=== PATIENT | female | born 1960 | race Caucasian/White ===

== ENCOUNTER → 2017-10-08 14:28 | Outpatient (CLI) | payer MEDICAID, SELFPAY ==
[2017-10-08 16:53] LABS: Vitamin D,25 Hydroxy 20.8 ng/mL (19.95-100.01)
[2017-10-08 17:05] LABS: ALB/GLOB Ratio 0.8 RATIO (0.9-2.4); AST(SGOT) 27 U/L (15-37); Alanine Aminotransfer ALT/SGPT 31 U/L (13-56); Albumin, Serum 3.6 g/dL (3.2-5.0); Alkaline Phosphatase 86 U/L (45-117); Anion Gap 12 (5-15); BUN 20 mg/dL (7-18); BUN/Creat Ratio 17.9 RATIO (10-20); Calcium,Total 9.1 mg/dL (8.5-10.1); Chloride 98 mmol/L (98-107); Creatinine, Serum 1.12 mg/dL (0.55-1.02); EST Glomerular Filtration Rate 54 mL/min (>60); Est Glom Filt Rate - Afr Amer 65 mL/min (>60); Globulin 4.7 g/dL (2.2-4.2); Glucose 400 mg/dL (74-106); Potassium 4.3 mmol/L (3.5-5.1); Protein, Total 8.3 g/dL (6.4-8.2); Sodium Level 133 mmol/L (136-145); Thyroid Stim Hormone (TSH) 2.51 uIU/mL (0.358-3.74)
[2017-10-08 17:25] LABS: Absolute Lymphocyte Count 2.23 X10^3/ul (0.83-4.51); Absolute Neutrophil Count 7.8 X10^3/uL (2.0-7.7); Basophil# 0.05 X10^3/uL; Basophil% 0.5 % (0-1); Eosinophil# 0.29 X10^3/uL; Eosinophils% 2.6 % (0-5); Hematocrit 45.5 % (37-47); Hemoglobin 14.4 g/dl (12.0-15.0); Lymphocyte # 2.23 X10^3/ul (4.0); Lymphocyte % 20.3 % (19-41); Mean Corp Hgb Conc 31.6 g/gl (32-36); Mean Corpuscular Hgb 25.3 pg (27.0-32.0); Mean Platelet Vol. 10.9 fl (6.2-12.0); Monocyte# 0.65 X10^3/uL; Monocyte% 5.9 % (0-10); Neutrophil # 7.76 X10^3/uL (2.7-7.7); Neutrophil % 70.5 % (47-70); Platelet Count 297 K/mm3 (150-450); RBC Distribution Width CV 14.5 % (11.6-14.6); Red Blood Count 5.69 M/mm3 (4.2-5.4)
[2017-10-08 18:13] LABS: POSITIVE COUNT NO; POSITIVE DIFFERENTIAL NO; POSITIVE MORPHOLOGY NO
[2017-10-10 12:41] LABS: Hep C Antibodies 0.1 s/co ratio (0.0-0.9)
== END ==
PROVIDERS: Family Provider Family Medicine Geriatric Medicine; PCP Family Medicine Geriatric Medicine; Visit Provider Family Medicine Geriatric Medicine
DX: E11.9 Type 2 diabetes mellitus without complications (principal); I10 Essential (primary) hypertension; E55.9 Vitamin D deficiency, unspecified; Z13.89 Encounter for screening for other disorder
CPT/HCPCS: 36415; 80053; 82306; 84443; 85025; 86803

== ENCOUNTER → 2018-07-26 10:37 | Outpatient (CLI) | payer MEDICAID, SELFPAY | PROVIDERS: Family Provider Family Medicine; PCP Family Medicine; Referring Provider Family Medicine; Visit Provider Family Medicine | DX: R00.0 Tachycardia, unspecified (principal) | CPT/HCPCS: 93225; 93226 ==

== ENCOUNTER 2020-06-14 14:51 | Emergency (ER) | payer MEDICAID, SELFPAY ==
[2020-06-14 14:52] VITALS: BP 146/70; PULSE 113; RESP 18; TEMP 36.3; O2SAT 98; BMI 48.4
--- NOTE | 2020-06-14 15:31 | ED.DCSUM_ITS ---
History of Present Illness Chief Complaint: Abn Labs Informant: Patient Narrative: Patient is a 59-year-old female with history of debility, HTN, HLD, diabetes mellitus and anxiety presenting from home with abnormal outpatient lab values. Patient had blood work done by her PCP 2 days ago which showed hemoglobin of 6.0. Patient does not have a known history of anemia. She states she is been a little run down the end of the day but denies any other complaints. She denies any black or bloody stools. She denies any bleeding. She is not on any blood thinners. No other complaints at this time. Has never received a blood transfusion. Past Medical History - Allergies and Home Meds Allergies/Adverse Reactions: Allergies bee pollen Allergy (Verified 06/14/20 14:54) Rash hydrogen peroxide Allergy (Verified 06/14/20 14:54) Rash egg Adverse Reaction (Verified 06/14/20 14:54) Diarrhea ASPIRIN Allergy (Uncoded 06/14/20 14:54) Unknown Primary Care Physician: Gerry Coreas MD [Primary Care Provider] - Past Medical History: - - Dependent diabetes mellitus, lower extremity weakness, chronic, hypertension, hyperlipidemia Surgical History: tonsillectomy, - - , right arm surgery x 3, [facility] teeth extraction, Left heel I+D 11/23/2016, Left shoulder I+D 11/25/2016. Smoking Status: Never smoker - Family History Maternal Family History: Reports: No pertinent history Review of Systems General: Reports: Malaise. Denies: Chills, Fever, Sweats Eyes: Denies: Visual changes - bilaterally, Diplopia ENT: Denies: Rhinorrhea, Sore throat Cardiovascular: Denies: Chest pain, Palpitations Respiratory: Denies: Dyspnea, Cough, Dyspnea on exertion Gastrointestinal: Denies: Abdominal pain, Nausea, Vomiting, Diarrhea, Melena, Hematochezia Genitourinary: Denies: Dysuria, Hematuria, Frequency Musculoskeletal: Denies: Back pain, Extremity Pain Skin: Denies: Rash, Wounds Neurological: Denies: Headache, Weakness, Numbness Hematologic: Denies: Easy bruising, Easy bleeding Physical Exam Vital Signs/Narrative: Vital Signs Temp Pulse Resp BP Pulse Ox 06/14/20 14:52 97.3 F L 113 H 18 146/70 H 98 Inital Vital Signs reviewed: Yes General: Well nourished, Well developed, No Acute Distress Head: Normocephalic, Atraumatic Eyes: Perrl, EOMI. Negative for: Pale conjunctiva ENT: Moist mucous membranes, No rhinorrhea, TM's clear Neck: Supple, Nontender, No JVD Cardiovascular: Regular rate, Regular rhythm, No murmurs Respiratory: No distress, CTA bilaterally, Chest nontender Abdomen: Soft, Nontender, Nondistended, Normal bowel sounds Rectal: Guaiac negative, Nontender Back: Nontender, Normal Inspection Extremities: Nontender, No edema Skin: Normal color, No rash Neurological: Alert, Oriented x3, Cranial nerves II-XII grossly intact, Normal Strength, Normal Sensation Psychological: Normal affect, Normal Mood Diagnostic/Tx/Re-eval Laboratory Data 06/14/20 06/14/20 06/14/20 15:25 15:25 15:25 WBC 11.8 H RBC 3.97 L Hgb 6.1 L Hct 23.2 L MCV 58.4 L MCH 15.4 L MCHC 26.3 L RDW Std Deviation 43.2 RDW Coeff of Adi 21.7 H Plt Count 666 H MPV 8.8 Immature Gran % (Auto) 0.400 Neut % (Auto) 71.6 H Lymph % (Auto) 17.7 L [place] % (Auto) 6.2 Eos % (Auto) 3.3 Baso % (Auto) 0.8 Absolute Neuts (auto) 8.4 H Absolute Lymphs (auto) 2.09 Nucleated RBC % 0.2 Diff Path Review May foll Platelet Estimate MOD INC Polychromasia RARE Hypochromasia 3+ Anisocytosis 3+ Microcytosis 4+ Tear Drop Cells 1+ Ovalocytes RARE Schistocytes 1+ PT 13.5 INR 1.1 Sodium 136 Potassium 4.0 Chloride 102 Carbon Dioxide 25.0 Anion Gap 9 BUN 17 Creatinine 1.13 H Estim Creat Clear Calc 94.40 Est GFR (MDRD) Af Amer 64 Est GFR (MDRD) Non-Af 53 L BUN/Creatinine Ratio 15.0 Glucose 91 Calcium 9.2 - Medical Decision Making Patient is evaluated for anemia on outpatient blood work. She also has a thrombocytosis. Labs were rechecked which confirmed the patient does have anemia of 6.1 and a platelet count of 666. She not having signs of active bleeding. She is asymptomatic besides some mild fatigue which is been chronic. She is hemodynamically stable in the ER. Suspect this is a chronic anemia that was just captured with routine outpatient blood work. She not had labs for the last year before that. Discussed the case with her PCP, Dr. Coreas, and he is amenable to outpatient transfusion and outpatient management. She does not have a history of coronary artery disease and her hemoglobin appears to be stable over the past 2 days. Patient is counseled on strict return precautions. PCP will also refer to hematology. Patient is agreeable with this plan and would like to avoid admission if possible. She is counseled that she likely will need a blood transfusion in the next day or 2 but her primary care office will schedule that. She is counseled strict return precautions and should she start having chest pain, shortness of breath or any signs of bleeding she should return to the emergency room. Patient is not on any anticoagulation at baseline. Patient is counseled on signs and symptoms requiring return to the emergency room. Patient verbalizes agreement and understand this plan. Patient discharged home in stable and improved condition. ED Disposition - Plan for ED Patient: Disposition: Home or Assisted Living Diagnosis: Anemia, Thrombocytosis Instructions: ED Anemia Type Not Specified Referrals: Gerry Coreas MD [Primary Care Provider] - Additional Instructions: Dr. Coreas's office should contact you within the next day to schedule likely blood transfusion and further follow-up. Please return the emergency room immediately if you develop chest pain, shortness of breath or any signs of bleeding. Dr. Coreas's office will also refer you to a genetic scientist for further evaluation of the cause of your anemia.
[2020-06-14 17:20] VITALS: RESP 18
== END 2020-06-14 18:10 | disposition home or self-care (01) ==
PROVIDERS: Emergency Provider Emergency Medicine; PCP Family Medicine
DX: D64.9 Anemia, unspecified (principal); D47.3 Essential (hemorrhagic) thrombocythemia; E11.9 Type 2 diabetes mellitus without complications; E78.5 Hyperlipidemia, unspecified; I10 Essential (primary) hypertension; Z79.4 Long term (current) use of insulin; Z79.899 Other long term (current) drug therapy
CPT/HCPCS: 80048; 82274; 82607; 82728; 82746; 83540; 83550; 85025; 85045; 85610; 86850; 86900; 86901; 86920; 99281; A4216

== ENCOUNTER → 2020-06-14 | Outpatient (CLI) | payer MEDICAID, SELFPAY ==
[2020-06-14 14:52] VITALS: BMI 48.4
[2020-06-14 18:18] LABS: Absolute Lymphocyte Count 2.35 X10^3/uL (0.83-4.51); Absolute Neutrophil Count 11.1 X10^3/uL (2.0-7.7); Basophil# 0.12 X10^3/uL; Basophil% 0.8 % (0-1); Eosinophil# 0.41 X10^3/uL; Eosinophils% 2.7 % (0-5); Hematocrit 22.9 % (37-47); Hemoglobin 5.9 g/dL (12.0-15.0); Lymphocyte # 2.35 X10^3/ul (4.0); Lymphocyte % 15.8 % (19-41); Mean Corp Hgb Conc 25.8 g/dL (32-36); Mean Corpuscular Hgb 15.1 pg (27.0-32.0); Mean Corpuscular Volume 58.7 fL (81-99); Mean Platelet Vol. 8.8 fl (6.2-12.0); Monocyte# 0.87 X10^3/uL; Monocyte% 5.8 % (0-10); NRBC Flagged by Analyzer 0 % (0-5); Neutrophil # 11.12 X10^3/uL (2.7-7.7); Neutrophil % 74.6 % (47-70); POSITIVE COUNT YES; POSITIVE MORPHOLOGY YES; Platelet Count 633 K/mm3 (150-450); RBC Distribution Width CV 21.9 % (11.6-14.6); RBC Distribution Width SD 43.3 fl (35.1-43.9); RET-HE 15.7 pg (30-35); Reticulocyte Count 2.08 % (0.5-1.5); White Blood Count 14.9 K/mm3 (4.4-11.0)
[2020-06-14 18:22] LABS: Differential Indicated SCAN CRITERIA MET
[2020-06-14 18:51] LABS: Vitamin B12 182 pg/mL (211-911)
[2020-06-14 18:52] LABS: Ferritin 2 ng/mL (8-252); Iron 12 ug/dL (50-170); Iron Binding Capacity,Total 436 ug/dL (250-450)
[2020-06-14 22:03] LABS: Platelet Estimate MOD INC (ADEQ)
[2020-06-14 22:04] LABS: Hypochromasia 3+; Microcytosis 4+
[2020-06-14 22:05] LABS: Polychromasia RARE; Schistocytes 1+; Tear Drop Cell 1+
[2020-06-14 22:06] LABS: Anisocytosis 3+
== END | disposition home or self-care (01) ==
LOC: LAB 17:22
PROVIDERS: PCP Family Medicine; Visit Provider Family Medicine
DX: D64.9 Anemia, unspecified (principal)
CPT/HCPCS: 82607; 82728; 82746; 83540; 83550; 85025; 85045

== ENCOUNTER → 2020-06-15 | Outpatient (CLI) | payer MEDICAID, SELFPAY ==
[2020-06-14 14:52] VITALS: BMI 48.4
[2020-06-14 15:50] LABS: Absolute Lymphocyte Count 2.09 X10^3/uL (0.83-4.51); Absolute Neutrophil Count 8.4 X10^3/uL (2.0-7.7); Basophil% 0.8 % (0-1); Eosinophil# 0.39 X10^3/uL; Eosinophils% 3.3 % (0-5); Hematocrit 23.2 % (37-47); Hemoglobin 6.1 g/dL (12.0-15.0); Lymphocyte # 2.09 X10^3/ul (4.0); Lymphocyte % 17.7 % (19-41); Mean Corp Hgb Conc 26.3 g/dL (32-36); Mean Corpuscular Hgb 15.4 pg (27.0-32.0); Mean Corpuscular Volume 58.4 fL (81-99); Mean Platelet Vol. 8.8 fl (6.2-12.0); Monocyte# 0.73 X10^3/uL; Monocyte% 6.2 % (0-10); NRBC Flagged by Analyzer 0.2 % (0-5); Neutrophil # 8.42 X10^3/uL (2.7-7.7); Neutrophil % 71.6 % (47-70); POSITIVE MORPHOLOGY YES; Platelet Count 666 K/mm3 (150-450); RBC Distribution Width CV 21.7 % (11.6-14.6); RBC Distribution Width SD 43.2 fl (35.1-43.9); Red Blood Count 3.97 M/mm3 (4.2-5.4); White Blood Count 11.8 K/mm3 (4.4-11.0)
[2020-06-14 15:53] LABS: Differential Indicated SCAN CRITERIA MET
[2020-06-14 16:03] LABS: Anion Gap 9 (5-15); BUN 17 mg/dL (7-18); Calcium,Total 9.2 mg/dL (8.5-10.1); Chloride 102 mmol/L (98-107); Creatinine, Serum 1.13 mg/dL (0.55-1.02); EST Glomerular Filtration Rate 53 mL/min (>60); Est Glom Filt Rate - Afr Amer 64 mL/min (>60); Glucose 91 mg/dL (74-106); Sodium Level 136 mmol/L (136-145)
[2020-06-14 16:07] LABS: International Normalized Ratio 1.1; Prothrombin Time (Protime)PT. 13.5 SECONDS (11.7-14.9)
[2020-06-14 16:24] LABS: Anisocytosis 3+; Hypochromasia 3+; Platelet Estimate MOD INC (ADEQ)
[2020-06-14 16:25] LABS: Microcytosis 4+; Tear Drop Cell 1+
[2020-06-14 16:26] LABS: Ovalocyte RARE; Polychromasia RARE; Schistocytes 1+
[2020-06-15] VITALS (8 sets, daily range): BP systolic 113–127; BP diastolic 50–70; PULSE 102–107; RESP 18; TEMP 36.2–37; O2SAT 92–99; BMI 50.5
[2020-06-15] MEDS: Furosemide 20 MG/2 ML VIAL IV (13:41)
[2020-06-15 14:15] LABS: Pathologist Review Reviewed
== END | disposition home or self-care (01) ==
LOC: MEDOUTP 10:05
PROVIDERS: Emergency Medicine; PCP Family Medicine; Referring Provider Family Medicine; Visit Provider Family Medicine
DX: D64.9 Anemia, unspecified (principal)
CPT/HCPCS: 36430; 80048; 85025; 85610; 86850; 86900; 86901; 86920; J7040; P9016; J1940

== ENCOUNTER 2020-11-26 11:56 | Inpatient (IN) | payer MEDICAID, SELFPAY ==
[2020-06-15 10:22] VITALS: BMI 50.5
[2020-11-26] VITALS (17 sets, daily range): BP systolic 96–154; BP diastolic 61–95; PULSE 93–126; RESP 13–27; TEMP 36–37.4; O2SAT 75–97; BMI 59.5; BMI 58.0
--- NOTE | 2020-11-26 12:28 | EKG12_ITS ---
Test Reason : Blood Pressure : / mmHG Vent. Rate : 116 BPM Atrial Rate : 116 BPM P-R Int : 120 ms QRS Dur : 082 ms QT Int : 300 ms P-R-T Axes : 004 023 054 degrees QTc Int : 417 ms Sinus tachycardia with Premature supraventricular complexes Otherwise normal ECG Confirmed by JOVAN RUIZ, GENIA ([id number]), department editor DELLA PIÑA ([id number]) on 12/01/2020 10:43:43 AM Referred By: BB Confirmed By:GENIA ALDANA MD
--- NOTE | 2020-11-26 12:30 | ED.DCSUM_ITS ---
History of Present Illness Chief Complaint: Weakness Informant: Patient Onset: Days - 3 Activity at onset: Exertion, Light Activity, - - Gradual in onset Timing: Continuous Quality: - - Hard to breathe Current Severity: Mild Maximum Severity: Moderate Worsened by: Exertion. Not Worsened By: Lying flat Relieved by: Rest Associated Symptoms: Fever - Low-grade 99.x. Negative for: Cough Chest Pain: None Narrative: 60-year-old female presenting with about 1 week of myalgias, malaise, low-grade fevers, no cough or loss of taste/smell, occasional nausea. Developed trouble breathing off-and-on that has been progressively worsening over the past 3 days. Denies any chest discomfort. She states for the last week she has basically been staying at home. Prior to that, she remembers being at an auction, she and her state that people were fairly well and they were trying to behave with regards to Covid recommendations, and she has not been around anyone with Covid that she knows of. She has not had Covid, nor has she been vaccinated for Covid. She has asthma, but does not think this is necessarily wheezing. She denies orthopnea. She denies any leg swelling or pain. No recent hospitalization or long travel out of the area. She is wheelchair-bound because of chronic knee problems that developed from chronic foot problem. - Past Medical History (1) Gait instability Status: Chronic (2) Mass of upper lobe of right lung Status: Chronic (3) Diabetes mellitus with neuropathy Status: Chronic (4) Hyperlipidemia Status: Chronic (5) Hypertension Status: Chronic (6) Obesity Status: Chronic (7) Sleep apnea Status: Chronic Past Medical History - Allergies and Home Meds Allergies/Adverse Reactions: Allergies bee pollen Allergy (Verified 11/26/20 11:58) Rash hydrogen peroxide Allergy (Verified 11/26/20 11:58) Rash egg Adverse Reaction (Verified 11/26/20 11:58) Diarrhea ASPIRIN Allergy (Uncoded 11/26/20 11:58) Unknown Primary Care Physician: Gerry Coreas MD [Primary Care Provider] - Surgical History: tonsillectomy, - - , right arm surgery x 3, [place] teeth extraction, Left heel I+D 11/23/2016, Left shoulder I+D 11/25/2016. Lives: Spouse/ Significant Other Smoking Status: Never smoker - Family History Maternal Family History: Reports: No pertinent history Review of Systems General: Reports: Fever, Malaise. Denies: Chills, Sweats Eyes: Denies: Visual changes - bilaterally, Diplopia ENT: Denies: Bilateral ear pain, Rhinorrhea, Sore throat Cardiovascular: Denies: Chest pain, Palpitations Respiratory: Reports: Dyspnea, Dyspnea on exertion. Denies: Cough, Orthopnea Gastrointestinal: Reports: Nausea. Denies: Abdominal pain, Vomiting, Diarrhea, Melena, Hematochezia Genitourinary: Denies: Dysuria, Hematuria, Frequency Musculoskeletal: Reports: Myalgias, Extremity Pain - Chronic knee, unchanged. Denies: Neck pain, Back pain, Swelling Skin: Denies: Rash, Wounds Neurological: Denies: Headache, Weakness, Numbness Physical Exam Vital Signs/Narrative: Vital Signs Temp Pulse Resp BP Pulse Ox 11/26/20 11:58 97.3 F L 126 H 22 H 138/65 H 75 Inital Vital Signs reviewed: Yes General: Well nourished, Well developed, Obese - Morbidly, No Acute Distress Head: Normocephalic, Atraumatic Eyes: Perrl, EOMI ENT: Moist mucous membranes, No rhinorrhea Neck: Supple, Nontender, No lymphadenopathy, No JVD - Exam limited by obesity Cardiovascular: Regular rate, Regular rhythm, No murmurs, Tachycardia Respiratory: No distress, Chest nontender, Rhonchi - Bibasilar high-pitched. Negative for: Rales, Wheezing Abdomen: Soft, Nontender, Nondistended, Normal bowel sounds Back: Nontender, Normal Inspection Extremities: Nontender, No edema. Negative for: Calf Tenderness Skin: Normal color, No rash Neurological: Alert, Oriented x3, Cranial nerves II-XII grossly intact, Normal Strength, Normal Sensation Psychological: Normal affect, Normal Mood Diagnostic/Tx/Re-eval Impressions Chest X-Ray 11/26/20 13:10 IMPRESSION: Right lower lobe pneumonia. Electronically Signed: Isidoro Larson MD at 13:40 EDT Tel , Service support , 11/26/20 13:10 Chest 1 View (Portable) [RAD] Stat 11/26/20 12:35 Mucosa - Nasopharyngeal Influenza Types A,B Direct FA ([facility]) - Final 11/26/20 12:40 Mucosa - Nose SARS-CoV-2 Antigen (Rapid) - Final SARS-CoV-2 (COVID 19) Laboratory Results 11/26/20 11/26/20 11/26/20 12:40 12:40 12:40 WBC 5.7 RBC 5.05 Hgb 11.8 L Hct 39.2 MCV 77.6 L MCH 23.4 L MCHC 30.1 L RDW Std Deviation 48.7 H RDW Coeff of Adi 17.2 H Plt Count 296 MPV 9.4 Immature Gran % (Auto) 0.400 Neut % (Auto) 74.4 H Lymph % (Auto) 16.9 L [place] % (Auto) 7.7 Eos % (Auto) 0.2 Baso % (Auto) 0.4 Absolute Neuts (auto) 4.2 Absolute Lymphs (auto) 0.96 Nucleated RBC % 0 D-Dimer Quant (PE/DVT) 0.54 H* Sodium 132 L Potassium 4.4 Chloride 101 Carbon Dioxide 25.0 Anion Gap 6 BUN 20 H Creatinine 1.20 H Estim Creat Clear Calc 107.95 Est GFR (MDRD) Af Amer 59 L Est GFR (MDRD) Non-Af 49 L BUN/Creatinine Ratio 16.7 Glucose 88 Calcium 9.3 Troponin I < 0.015 B-Natriuretic Peptide 11/26/20 12:40 WBC RBC Hgb Hct MCV MCH MCHC RDW Std Deviation RDW Coeff of Adi Plt Count MPV Immature Gran % (Auto) Neut % (Auto) Lymph % (Auto) [place] % (Auto) Eos % (Auto) Baso % (Auto) Absolute Neuts (auto) Absolute Lymphs (auto) Nucleated RBC % D-Dimer Quant (PE/DVT) Sodium Potassium Chloride Carbon Dioxide Anion Gap BUN Creatinine Estim Creat Clear Calc Est GFR (MDRD) Af Amer Est GFR (MDRD) Non-Af BUN/Creatinine Ratio Glucose Calcium Troponin I B-Natriuretic Peptide 12.2 - Rhythm Strip Rhythm Strip: Sinus Tach Rate: 115 Ectopy: None - EKG Initial EKG Interpretation: No Acute Injury Pattern, Sinus Tachycardia Prior: Unchanged Treatment - Dyspnea: Oxygen, Albuterol - MDI, Steroid Repeat Evaluation: Improved - Medical Decision Making Patient is Covid returned positive, I do not think this needs to be confirmed with PCR given the history which is consistent with COVID-19. Furthermore, she was hypoxic at 75% on room air when she presented, with a significant oxygen requirement but on a 3 L nasal cannula she is satting 91% and stable from a respiratory effort standpoint. She was given dexamethasone 6 mg, a procalcitonin was added, and the plan will be to admit her to the hospital for further monitoring and treatment. ED Disposition - Plan for ED Patient: Disposition: Acute Care Hospital [facility] Diagnosis: Pneumonia due to COVID-19 virus, Hypoxemia, Sepsis due to pneumonia Referrals: Gerry Coreas MD [Primary Care Provider] -
[2020-11-26 13:07] LABS: Absolute Lymphocyte Count 0.96 X10^3/uL (0.83-4.51); Absolute Neutrophil Count 4.2 X10^3/uL (2.0-7.7); Basophil# 0.02 X10^3/uL; Basophil% 0.4 % (0-1); Eosinophil# 0.01 X10^3/uL; Eosinophils% 0.2 % (0-5); Hematocrit 39.2 % (37-47); Hemoglobin 11.8 g/dL (12.0-15.0); Lymphocyte # 0.96 X10^3/ul (4.0); Lymphocyte % 16.9 % (19-41); Mean Corp Hgb Conc 30.1 g/dL (32-36); Mean Corpuscular Hgb 23.4 pg (27.0-32.0); Mean Corpuscular Volume 77.6 fL (81-99); Mean Platelet Vol. 9.4 fl (6.2-12.0); Monocyte# 0.44 X10^3/uL; Monocyte% 7.7 % (0-10); NRBC Flagged by Analyzer 0 % (0-5); Neutrophil # 4.23 X10^3/uL (2.7-7.7); Neutrophil % 74.4 % (47-70); Platelet Count 296 K/mm3 (150-450); RBC Distribution Width CV 17.2 % (11.6-14.6); RBC Distribution Width SD 48.7 fl (35.1-43.9); Red Blood Count 5.05 M/mm3 (4.2-5.4); White Blood Count 5.7 K/mm3 (4.4-11.0)
--- NOTE | 2020-11-26 13:10 | RAD_ITS ---
STUDY: X-RAY CHEST REASON FOR EXAM: Female, 60 years old. sob TECHNIQUE: Single AP portable view of the chest. COMPARISON: 11/20/2016 FINDINGS: Alveolar opacity in the lower right lung consistent with right lower lobe pneumonia. There is no demonstrated pleural abnormality. Normal size heart. Normal mediastinum and chante. Normal visualized pulmonary arteries. Normal visualized aortic arch and descending thoracic aorta. Normal visualized thoracic spine. Normal visualized ribs, clavicles, and shoulders. There is no demonstrated abnormality of the visualized soft tissue structures of the upper abdomen. RAD/Chest 1 View (Portable) IMPRESSION: Right lower lobe pneumonia. Electronically Signed: Isidoro Larson MD at 13:40 EDT Tel , Service support ,
[2020-11-26 13:18] LABS: D-Dimer Quantitative (DVT/PE) 0.54 FEU/ug/m (0.27-0.49)
[2020-11-26 13:24] LABS: Anion Gap 6 (5-15); BNP,B-Type NATRIURETIC PEPTIDE 12.2 pg/mL (0-100); BUN 20 mg/dL (7-18); BUN/Creat Ratio 16.7 RATIO (10-20); Calcium,Total 9.3 mg/dL (8.5-10.1); Chloride 101 mmol/L (98-107); EST Glomerular Filtration Rate 49 mL/min (>60); Est Glom Filt Rate - Afr Amer 59 mL/min (>60); Estimated Creatinine Clearance 107.95 ml/min; Glucose 88 mg/dL (74-106); Potassium 4.4 mmol/L (3.5-5.1); Sodium Level 132 mmol/L (136-145)
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
--- NOTE | 2020-11-26 14:55 | NURSING ---
DR CARIAS FOR DR HINOJOSA
[2020-11-26] MEDS: dexAMETHasone 10 MG/ML Vial 6 MG IV (14:56)
--- NOTE | 2020-11-26 15:45 | NURSING ---
Report given to Valerie in ICU
[2020-11-26 15:57] LABS: Lactic Acid 1.5 mmol/L (0.4-1.9)
[2020-11-26 16:01] LABS: Procalcitonin 0.06 ng/mL (0.00-0.09)
[2020-11-26] MEDS: 0.9% Normal Saline 1,000 ML 100 ML IV (16:43)
[2020-11-26] MEDS: 0.9% Saline Lock 10 ML Syringe IV (16:43)
[2020-11-26] MEDS: Gabapentin 300 MG Capsule PO (16:58)
[2020-11-26] MEDS: Ferrous Sulfate 325 MG Tablet PO (16:58)
[2020-11-26 17:15] LABS: AST(SGOT) 28 U/L (15-37); Alanine Aminotransfer ALT/SGPT 20 U/L (13-56); Albumin, Serum 3.1 g/dL (3.2-5.0); Alkaline Phosphatase 75 U/L (45-117); Bilirubin, Direct 0.16 mg/dL (0.00-0.30); Ferritin 75 ng/mL (8-252); Globulin 4.9 g/dL (2.2-4.2); LDH 244 U/L (84-246); Magnesium 1.9 mg/dL (1.6-2.6)
[2020-11-26 17:35] LABS: Bedside Glucose 107 mg/dL (70-110)
[2020-11-26] MEDS: Enoxaparin 40 MG/0.4 ML Syringe SC (21:14)
[2020-11-26] MEDS: Famotidine 20 MG Tablet PO (21:14)
[2020-11-26] MEDS: Atorvastatin Calcium 40 MG Tablet PO (21:14)
[2020-11-26] MEDS: MELATONIN 3 MG TABLET PO (21:14)
[2020-11-26] MEDS: Insulin Lispro 100 UNIT/ML INSULN.PEN SC (21:22)
[2020-11-26 22:11] LABS: Bedside Glucose 216 mg/dL (70-110)
[2020-11-27] VITALS (18 sets, daily range): BP systolic 90–130; BP diastolic 50–84; PULSE 82–106; RESP 16–24; TEMP 36.1–37; O2SAT 88–99; BMI 58.1
[2020-11-27 04:54] LABS: Absolute Lymphocyte Count 0.55 X10^3/uL (0.83-4.51); Absolute Neutrophil Count 2.9 X10^3/uL (2.0-7.7); Basophil# 0.01 X10^3/uL; Basophil% 0.3 % (0-1); Hematocrit 40.1 % (37-47); Hemoglobin 12.1 g/dL (12.0-15.0); Lymphocyte # 0.55 X10^3/ul (4.0); Lymphocyte % 14.7 % (19-41); Mean Corp Hgb Conc 30.2 g/dL (32-36); Mean Corpuscular Hgb 23.5 pg (27.0-32.0); NRBC Flagged by Analyzer 0 % (0-5); Neutrophil # 2.85 X10^3/uL (2.7-7.7); Neutrophil % 76.5 % (47-70); POSITIVE DIFFERENTIAL YES; Platelet Count 290 K/mm3 (150-450); RBC Distribution Width SD 48.2 fl (35.1-43.9); Red Blood Count 5.14 M/mm3 (4.2-5.4); White Blood Count 3.7 K/mm3 (4.4-11.0)
[2020-11-27 05:06] LABS: D-Dimer Quantitative (DVT/PE) 0.28 FEU/ug/m (0.27-0.49)
[2020-11-27 05:08] LABS: Differential Indicated SCAN CRITERIA MET
[2020-11-27 05:16] LABS: ALB/GLOB Ratio 0.6 RATIO (0.9-2.4); AST(SGOT) 26 U/L (15-37); Alanine Aminotransfer ALT/SGPT 20 U/L (13-56); Alkaline Phosphatase 74 U/L (45-117); Anion Gap 4 (5-15); BUN 19 mg/dL (7-18); BUN/Creat Ratio 19.5 RATIO (10-20); Calcium,Total 8.9 mg/dL (8.5-10.1); Chloride 104 mmol/L (98-107); Creatinine, Serum 0.98 mg/dL (0.55-1.02); EST Glomerular Filtration Rate 62 mL/min (>60); Est Glom Filt Rate - Afr Amer 75 mL/min (>60); Estimated Creatinine Clearance 128.91 ml/min; Glucose 155 mg/dL (74-106); Potassium 4.5 mmol/L (3.5-5.1); Sodium Level 136 mmol/L (136-145)
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
[2020-11-27] MEDS: Insulin Lispro 100 UNIT/ML INSULN.PEN SC ×4 (09:23→20:58)
[2020-11-27] MEDS: Insulin Lispro 100 UNIT/ML INSULN.PEN 12 UNIT SC ×4 (09:23→20:55)
[2020-11-27] MEDS: dexAMETHasone 10 MG/ML Vial 6 MG IV (09:25)
[2020-11-27] MEDS: Gabapentin 300 MG Capsule PO ×3 (09:25→16:27)
[2020-11-27] MEDS: Lisinopril 10 MG Tablet PO (09:26)
[2020-11-27] MEDS: Enoxaparin 40 MG/0.4 ML Syringe SC ×2 (09:26→21:24)
[2020-11-27] MEDS: Famotidine 20 MG Tablet PO ×2 (09:26→20:57)
[2020-11-27] MEDS: 0.9% Saline Lock 10 ML Syringe IV (09:28)
[2020-11-27 09:56] LABS: Bedside Glucose 177 mg/dL (70-110)
--- NOTE | 2020-11-27 10:24 | NT.THERAPY_ITS ---
Nutrition Therapy Report - History Nutrition Services has been consulted to:: Manage nutrient details of diet order Current diet / nutrition support order:: consistent CHO, 1800 calorie controlled - Anthropometric Measurements Height:: 4 ft 11 in Weight:: 130.5 kg Body Mass Index (BMI):: 58.1 - Relevant Labs Relevant Labs:: WBC 3.7 K/mm3 (4.4-11.0) L 11/27/20 04:45 Hgb 11.8 g/dL (12.0-15.0) L 11/26/20 12:40 MCV 78.0 fL (81-99) L 11/27/20 04:45 MCH 23.5 pg (27.0-32.0) L 11/27/20 04:45 MCHC 30.2 g/dL (32-36) L 11/27/20 04:45 RDW Std Deviation 48.2 fl (35.1-43.9) H 11/27/20 04:45 RDW Coeff of Adi 17.0 % (11.6-14.6) H 11/27/20 04:45 Neut % (Auto) 76.5 % (47-70) H 11/27/20 04:45 Lymph % (Auto) 14.7 % (19-41) L 11/27/20 04:45 Absolute Lymphs (auto) 0.55 X10^3/uL (0.83-4.51) L 11/27/20 04:45 D-Dimer Quant (PE/DVT) 0.54 FEU/ug/m (0.27-0.49) H* 11/26/20 12:40 Sodium 132 mmol/L (136-145) L 11/26/20 12:40 Anion Gap 4 (5-15) L 11/27/20 04:45 BUN 19 mg/dL (7-18) H 11/27/20 04:45 Creatinine 1.20 mg/dL (0.55-1.02) H 11/26/20 12:40 Est GFR (MDRD) Af Amer 59 mL/min (>60) L 11/26/20 12:40 Est GFR (MDRD) Non-Af 49 mL/min (>60) L 11/26/20 12:40 Glucose 155 mg/dL (74-106) H 04/10/21 04:45 C-React Prot Ext Range 92.80 mg/L (0.0-3.0) H 11/26/20 12:40 Albumin 3.0 g/dL (3.2-5.0) L 11/27/20 04:45 Globulin 5.0 g/dL (2.2-4.2) H 11/27/20 04:45 Albumin/Globulin Ratio 0.6 RATIO (0.9-2.4) L 11/27/20 04:45 - Assessment Food / Nutrition-Related History:: Spoke w/ pt via room phone d/t COVID-19 isolation. 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 Feels appetite has significantly improved since admission. Described consuming ~75% of breakfast this AM. Says wt was 295# at doctors office approx 2 weeks ago. CBW 287.7#-7.3#/2.5% wt loss x 2 weeks, significant for moderate malnutrition. Tries to limit CHO/sweets at home, but no specific diet followed normally. SMBG daily, readings ~130-140mg/dL per pt. Noted adverse reaction to eggs- states shelled eggs cause diarrhea but can eat powdered eggs or eggs as an ingredient w/o issues. - Nutrition Diagnosis Problem / Etiology / Signs & Symptoms (PES):: acute, moderate malnutrition r/t inadequate energy intake during acute illness as evidenced by unintentional wt loss of 7.3#/2.5% x 2 weeks, inadequate energy intake meeting <75% of nutritional needs x 1 week. Evidence of Malnutrition Exists:: Yes Moderate PCM:: Acute Illness - Nutrition Intervention Nutrition Prescription:: [id number] calories/day (11-14 calories/kg per ASPEN guidelines for critically ill, morbidly obese). 86-107 g protein/day (2.0-2.5 g/kg IBW 43kg). 1800mL fluid/day (1mL/calorie) - Food / Nutrient Delivery Interventions Summary of nutrition intervention:: Pt feels appetite is improving, no issues w/ PO intake this AM. Will defer ONS at this time. Pt would benefit from outpatient nutrition services when acute illness resolves- however pt does not appear interested in making diet/life style changes at this time. Nutrition support ordered as / adjusted to:: continue 1800 calorie controlled diet as tolerated Nutrition education provided?: No - pt not interested at this time - MNT Monitoring Further MNT monitoring and evaluation required?: Yes MNT Follow-up in:: 3-5 days
--- NOTE | 2020-11-27 11:24 | CASEMGMT ---
LUCIA COLLIER Assessment: TC to pt room with pt for initial transition planning/care coordination assessment due to isolation precautions. RN NANDO introduced self and role at [facility], pt voices understanding and consents to assessment. Pt is A/O x4 and answers all questions appropriately at this time. Care providers, pharmacy, and demographics verified/updated. Admitting Dx: COVID pneumonia, sepsis PCP: Lyudmila Specialists: [facility]; shelby Silva Pharmacy: [facility] Insurance: [facility] Prescription Benefit: yes LW/HPOA: Pt denies having a LW/DPOA and denies need for any info regarding. LNOK: , Christian Waters; Bhakti Marianna, dtr Living Arrangements: Pt reports living in a single story house with a ramp to enter with her and dtr and the dtr's family. Pt denies concerns at home. Transportation: Pt reports her or dtr provides transportation and denies concerns with transportation. DME/HHC/SNF: Pt reports having an electric w/c and not further DME. Pt denies need for further DME. Pt has no previous HHC and made this CM aware that she would not want it at this time. She states she has been in [facility]. Pt provided list of local in network DME providers. Pt chose [employer]. Pt states she is quarantining from her other family members. Her is in [facility] ICU for covid 19 as well. States she is staying in her room only which has a fridge and her dtr leaves food at her door. Pt states no concerns with going home at time of dc. Pt states no further concerns/needs. CM to follow for O2 needs. Advised pt to ask CM if any further question/concerns/needs arise, voices understanding. Pt Goal: Home Plan: Home, follow for home O2 needs.
[2020-11-27] MEDS: Ferrous Sulfate 325 MG Tablet PO ×2 (12:19→16:27)
[2020-11-27 12:55] LABS: Bedside Glucose 169 mg/dL (70-110)
--- NOTE | 2020-11-27 16:55 | PN_ITS ---
Patient Problems: Active and Suspected Problems Pneumonia due to COVID-19 virus (Acute) Hypoxemia (Acute) Sepsis due to pneumonia (Acute) Subjective: Patient was seen and examined today in ICU, she is currently on 3 L of nasal cannula and does not complain of any shortness of breath. - Physical Exam Vitals/I&O's: Vital Signs Temp Pulse Resp BP Pulse Ox 97.8 F 100 19 H 110/73 88 11/27/20 16:00 11/27/20 16:00 11/27/20 16:00 11/27/20 16:00 11/27/20 16:00 Oxygen Flow Rate (L/min) 3 Oxygen Delivery Method Nasal Cannula Weight: 130.5 kg Body Mass Index (BMI) 58.1 Intake and Output for Last 24 Hours 11/25/20 11/26/20 11/27/20 23:59 23:59 23:59 Intake Total 698.33 / 698.33 1211.67 / 1211.67 Output Total 450 / 600 950 / 950 Balance 248.33 / 98.33 261.67 / 261.67 General: Alert, Oriented x3, Cooperative, No apparent distress, Well developed HEENT: Atraumatic, PERRLA, EOMI, Normocephalic Oral: Moist Mucosa Neck: Supple, No JVD, Trachea Midline, Thyroid Normal Size and Texture Lungs: Clear to auscultation, Normal air movement, No rhonchi, No wheeze, No rales Cardiovascular: Regular rate, Regular Rhythm, Normal S1, Normal S2, No murmurs, PMI Normal, No rub noted, No Gallop Abdomen: Bowel Sounds Present, Soft, Non Tender, Non-Distended, Obese Extremities: No clubbing, No cyanosis, No edema, Capillary Refill Less than 3 Seconds Skin: No rashes, No breakdown Musculoskeletal: No Tenderness to Palpation of Joints or Extremities Neurological: Cranial nerves II-XII grossly intact, Neuro grossly intact, Sensory exam intact to light touch and pain, Coordination normal Psych/Mental Status: Normal Affect, Appropriate, Alert and oriented to time, place, person, mood and affect Microbiology Past 72 Hours 11/26/20 16:25 Mucosa - Nasopharyngeal Respiratory Panel (PCR) - Final 11/26/20 17:00 Urine, Random Legionella Antigen - Final 11/26/20 17:00 Urine, Random Streptococcus pneumoniae Antigen (M - Final 11/26/20 12:35 Mucosa - Nasopharyngeal Influenza Types A,B Direct FA ([facility]) - Final 11/26/20 12:40 Mucosa - Nose SARS-CoV-2 Antigen (Rapid) - Final SARS-CoV-2 (COVID 19) Laboratory Results 11/26/20 12:40: Alkaline Phosphatase Cancelled 11/26/20 12:40: Magnesium 1.9, Ferritin 75, Total Bilirubin 0.30, Direct Bilirubin 0.16, AST 28, ALT 20, Alkaline Phosphatase 75, Lactate Dehydrogenase 244, C-React Prot Ext Range 92.80 H, Total Protein 8.0, Albumin 3.1 L, Globulin 4.9 H 11/26/20 16:42: POC Glucose 107 11/26/20 21:14: POC Glucose 216 H 11/27/20 04:45: WBC 3.7 L, RBC 5.14, Hgb 12.1, Hct 40.1, MCV 78.0 L, MCH 23.5 L, MCHC 30.2 L, RDW Std Deviation 48.2 H, RDW Coeff of Adi 17.0 H, Plt Count 290, MPV 9.0, Immature Gran % (Auto) 0.500, Neut % (Auto) 76.5 H, Lymph % (Auto) 14.7 L, [place] % (Auto) 8.0, Eos % (Auto) 0.0, Baso % (Auto) 0.3, Absolute Neuts (auto) 2.9, Absolute Lymphs (auto) 0.55 L, Nucleated RBC % 0, Diff Path Review December11/27/20 04:45: D-Dimer Quant (PE/DVT) 0.28 11/27/20 04:45: Sodium 136, Potassium 4.5, Chloride 104, Carbon Dioxide 28.0, Anion Gap 4 L, BUN 19 H, Creatinine 0.98, Estim Creat Clear Calc 128.91, Est GFR (MDRD) Af Amer 75, Est GFR (MDRD) Non-Af 62, BUN/Creatinine Ratio 19.5, Glucose 155 H, Calcium 8.9, Total Bilirubin 0.30, AST 26, ALT 20, Alkaline Phosphatase 74, Total Protein 8.0, Albumin 3.0 L, Globulin 5.0 H, Albumin/Globulin Ratio 0.6 L 11/27/20 09:14: POC Glucose 177 H 11/27/20 12:14: POC Glucose 169 H Current Medications Acetaminophen (Acetaminophen 325 Mg Tablet) 650 mg PO Q6H PRN PRN PRN Reason: Pain Score 1-10/Temp > 100.7 F Al Hydroxide/Mg Hydroxide (Mag Hydrox/Al Hydrox/Simeth 30 Ml Udc) 30 ml PO Q6H PRN PRN PRN Reason: Gastric Burning Albuterol Sulfate (Albuterol Ih 8.5 Gm (Proair) Inhaler (200 Puffs)) 4 - 8 puff INHALATION Q4H PRN PRN PRN Reason: Dyspnea, wheezing Atorvastatin Calcium (Atorvastatin Calcium 40 Mg Tablet) 40 mg PO QHS [facility] Last Admin: 11/26/20 21:14 Dose: 40 mg Documented by: Dexamethasone Sodium Phosphate (Dexamethasone 10 Mg/Ml Vial) 6 mg IV DAILY [facility] Stop: 12/06/20 10:01 Last Admin: 11/27/20 09:25 Dose: 6 mg Documented by: Enoxaparin Sodium (Enoxaparin 40 Mg/0.4 Ml Syringe) 40 mg SC BID [facility] Last Admin: 11/27/20 09:26 Dose: 40 mg Documented by: Famotidine (Famotidine 20 Mg Tablet) 20 mg PO BID [facility] Last Admin: 11/27/20 09:26 Dose: 20 mg Documented by: Ferrous Sulfate (Ferrous Sulfate 325 Mg Tablet) 325 mg PO BID@1200,1700 [facility] Last Admin: 11/27/20 16:27 Dose: 325 mg Documented by: Gabapentin (Gabapentin 300 Mg Capsule) 300 mg PO TIDCM [facility] Last Admin: 11/27/20 16:27 Dose: 300 mg Documented by: Guaifenesin (Guaifenesin 10 Ml Udc (200mg/10ml)) 10 ml PO Q4H PRN PRN PRN Reason: COUGH Hydralazine HCl (Hydralazine 20 Mg/Ml Vial) 10 mg IV Q4H PRN PRN PRN Reason: SBP > 160 Remdesivir 100 mg/ Sodium (Chloride) 250 mls @ 125 mls/hr IV DAILY@2200 [facility]; Protocol Stop: 11/30/20 23:59 Sodium Chloride () 250 mls @ 15 mls/hr IV .[id number] PRN PRN Reason: Saline Flush Sodium Chloride () 250 mls @ 15 mls/hr IV .[id number] PRN PRN Reason: Additional IVPB Infusion Insulin Glargine (Insulin Glargine 100 Units/Ml Pen) 30 units SC QHS [facility] Last Admin: 11/26/20 21:24 Dose: 30 u Documented by: Insulin Human Lispro (Insulin Lispro 100 Unit/Ml Insuln.Pen) 12 unit SC TIDCM [facility] Last Admin: 11/27/20 16:22 Dose: 12 u Documented by: Insulin Human Lispro (Insulin Lispro 100 Unit/Ml Insuln.Pen) 0 unit SC ACHS [facility]; Protocol Last Admin: 11/27/20 16:22 Dose: 2 u Documented by: Lisinopril (Lisinopril 10 Mg Tablet) 10 mg PO DAILY [facility] Last Admin: 11/27/20 09:26 Dose: 10 mg Documented by: Magnesium Hydroxide (Magnesium Hydroxide 30 Ml Udc) 30 ml PO DAILY PRN PRN PRN Reason: Constipation Melatonin (Melatonin 3 Mg Tablet) 3 mg PO QHS PRN PRN PRN Reason: INSOMNIA Last Admin: 11/26/20 21:14 Dose: 3 mg Documented by: Nitroglycerin (Nitroglycerin (Inpatient Use) 0.4 Mg Tab.Subl) 0.4 mg SL Q5M PRN PRN Reason: CARDIAC/CHEST PAIN Ondansetron HCl (Ondansetron 4 Mg/2 Ml Vial) 4 mg IV Q8H PRN PRN PRN Reason: NAUSEA/VOMITING Prochlorperazine Edisylate (Prochlorperazine 10 Mg/2 Ml Vial) 5 mg IV Q4H PRN PRN PRN Reason: Breakthrough Nausea/Vomiting Psyllium Hydrophilic Mucilloid (Psyllium 1 Packet) 1 packet PO DAILY PRN PRN PRN Reason: Constipation Senna/Docusate Sodium (Senna/Docusate Sodium 1 Tablet) 2 tablet PO BID PRN PRN Reason: Constipation Sodium Chloride (0.9% Saline Lock 10 Ml Syringe) 10 - 40 ml IV UD PRN PRN Reason: SALINE FLUSH Last Admin: 11/27/20 09:28 Dose: 10 ml Documented by: Throat Lozenges (Benzocaine/Menthol 1 Lozenge) 1 lozenge MUCOUS MEM Q2H PRN PRN PRN Reason: SORE THROAT Medical Necessity - Tobacco Use Smoking Status: Never smoker Tobacco Use: Non-smoker Assessment/Plan All Active Problems Pneumonia due to COVID-19 virus (Acute) Hypoxemia (Acute) Sepsis due to pneumonia (Acute) Acute respiratory failure with hypoxia (Ruled-out) Cellulitis of foot (Resolved) Intractable left heel pain (Resolved) Hyperglycemia (Resolved) Abscess of right shoulder (Resolved) Cellulitis of left heel (Resolved) Staphylococcus aureus sepsis (Resolved) Hyponatremia (Resolved) #1 COVID-19 pneumonia-continue present treatment at this time, pulmonary medicin e is seeing patient #2 hypoxia secondary to COVID-19 pneumonia-monitor pulse ox #3 morbid obesity #4 type 2 diabetes-monitor blood sugars, sliding scale insulin was ordered #5 essential hypertension #6 asthma by history Inpatient E&M: 14588 Subs Hosp L2
[2020-11-27 16:56] LABS: Bedside Glucose 195 mg/dL (70-110)
[2020-11-27] MEDS: Atorvastatin Calcium 40 MG Tablet PO (20:56)
[2020-11-27] MEDS: MELATONIN 3 MG TABLET PO (20:57)
[2020-11-27 21:51] LABS: Bedside Glucose 250 mg/dL (70-110)
[2020-11-28] VITALS (13 sets, daily range): BP systolic 105–126; BP diastolic 54–82; PULSE 69–91; RESP 16–19; TEMP 36.4–36.6; O2SAT 91–98
--- NOTE | 2020-11-28 06:15 | PN_ITS ---
Patient Problems: Active and Suspected Problems Pneumonia due to COVID-19 virus (Acute) Hypoxemia (Acute) Sepsis due to pneumonia (Acute) Subjective: The patient was seen and examined at the bedside this morning. Events from the last 24 hours have been reviewed. The patient is currently afebrile, hemodynamically stable and maintaining appropriate oxygen saturations on 4 L/min via nasal cannula. The patient remains on remdesivir and Decadron. Liver and renal function are stable. Objective: The patient's most recent lab work, culture data and imaging studies have all been personally reviewed. Rapid coronavirus antigen testing was positive on November 26. Respiratory viral panel was negative. Strep and urine Legionella antigens were negative. - Physical Exam Vitals/I&O's: Vital Signs Temp Pulse Resp BP Pulse Ox 97.9 F 83 16 105/54 L 98 11/28/20 02:30 11/28/20 03:46 11/28/20 02:30 11/28/20 02:30 11/28/20 02:30 Oxygen Flow Rate (L/min) 4 Oxygen Delivery Method Nasal Cannula Weight: 291 lb 7.218 oz Body Mass Index (BMI) 58.1 Intake and Output for Last 24 Hours 11/26/20 11/27/20 11/28/20 23:59 23:59 23:59 Intake Total 698.33 / 698.33 1701.67 / 1761.67 60 / 60 Output Total 450 / 600 1150 / 1350 200 / 200 Balance 248.33 / 98.33 551.67 / 411.67 -140 / -140 General: Alert, Cooperative, No apparent distress HEENT: Atraumatic, Normocephalic Oral: No Gingival or Mucosal Lesions/ Ulcerations Neck: Supple, No Nodes, Trachea Midline Lungs: No rhonchi, No wheeze, No rales, Diminished Cardiovascular: Regular rate, Regular Rhythm Abdomen: Bowel Sounds Present, Soft, Non Tender, Obese Extremities: No clubbing, No cyanosis, No edema Skin: No breakdown Musculoskeletal: No Tenderness to Palpation of Joints or Extremities Lymphatic: No Cervical, Supraclavicular, or Inguinal Adenopathy Neurological: Cranial nerves II-XII grossly intact, Neuro grossly intact Psych/Mental Status: Normal Affect Labs (Last 48 Hours) 11/26/20 11/26/20 11/26/20 12:40 12:40 12:40 WBC 5.7 RBC 5.05 Hgb 11.8 L Hct 39.2 MCV 77.6 L MCH 23.4 L MCHC 30.1 L RDW Std Deviation 48.7 H RDW Coeff of Adi 17.2 H Plt Count 296 MPV 9.4 Immature Gran % (Auto) 0.400 Neut % (Auto) 74.4 H Lymph % (Auto) 16.9 L [place] % (Auto) 7.7 Eos % (Auto) 0.2 Baso % (Auto) 0.4 Absolute Neuts (auto) 4.2 Absolute Lymphs (auto) 0.96 Nucleated RBC % 0 Diff Path Review D-Dimer Quant (PE/DVT) 0.54 H* Sodium 132 L Potassium 4.4 Chloride 101 Carbon Dioxide 25.0 Anion Gap 6 BUN 20 H Creatinine 1.20 H Estim Creat Clear Calc 107.95 Est GFR (MDRD) Af Amer 59 L Est GFR (MDRD) Non-Af 49 L BUN/Creatinine Ratio 16.7 Glucose 88 Lactic Acid Calcium 9.3 Magnesium Ferritin Total Bilirubin Direct Bilirubin AST ALT Alkaline Phosphatase Lactate Dehydrogenase Troponin I < 0.015 C-React Prot Ext Range B-Natriuretic Peptide Total Protein Albumin Globulin Albumin/Globulin Ratio Procalcitonin POC Glucose 11/26/20 11/26/20 11/26/20 12:40 12:40 12:40 WBC RBC Hgb Hct MCV MCH MCHC RDW Std Deviation RDW Coeff of Adi Plt Count MPV Immature Gran % (Auto) Neut % (Auto) Lymph % (Auto) [place] % (Auto) Eos % (Auto) Baso % (Auto) Absolute Neuts (auto) Absolute Lymphs (auto) Nucleated RBC % Diff Path Review D-Dimer Quant (PE/DVT) Sodium Potassium Chloride Carbon Dioxide Anion Gap BUN Creatinine Estim Creat Clear Calc Est GFR (MDRD) Af Amer Est GFR (MDRD) Non-Af BUN/Creatinine Ratio Glucose Lactic Acid Calcium Magnesium 1.9 Ferritin 75 Total Bilirubin 0.30 Direct Bilirubin 0.16 AST 28 ALT 20 Alkaline Phosphatase Cancelled 75 Lactate Dehydrogenase 244 Troponin I C-React Prot Ext Range 92.80 H B-Natriuretic Peptide 12.2 Total Protein 8.0 Albumin 3.1 L Globulin 4.9 H Albumin/Globulin Ratio Procalcitonin POC Glucose 11/26/20 11/26/20 11/26/20 15:00 15:15 16:42 WBC RBC Hgb Hct MCV MCH MCHC RDW Std Deviation RDW Coeff of Adi Plt Count MPV Immature Gran % (Auto) Neut % (Auto) Lymph % (Auto) [place] % (Auto) Eos % (Auto) Baso % (Auto) Absolute Neuts (auto) Absolute Lymphs (auto) Nucleated RBC % Diff Path Review D-Dimer Quant (PE/DVT) Sodium Potassium Chloride Carbon Dioxide Anion Gap BUN Creatinine Estim Creat Clear Calc Est GFR (MDRD) Af Amer Est GFR (MDRD) Non-Af BUN/Creatinine Ratio Glucose Lactic Acid 1.5 Calcium Magnesium Ferritin Total Bilirubin Direct Bilirubin AST ALT Alkaline Phosphatase Lactate Dehydrogenase Troponin I C-React Prot Ext Range B-Natriuretic Peptide Total Protein Albumin Globulin Albumin/Globulin Ratio Procalcitonin 0.06 POC Glucose 107 11/26/20 11/27/20 11/27/20 21:14 04:45 04:45 WBC 3.7 L RBC 5.14 Hgb 12.1 Hct 40.1 MCV 78.0 L MCH 23.5 L MCHC 30.2 L RDW Std Deviation 48.2 H RDW Coeff of Adi 17.0 H Plt Count 290 MPV 9.0 Immature Gran % (Auto) 0.500 Neut % (Auto) 76.5 H Lymph % (Auto) 14.7 L [place] % (Auto) 8.0 Eos % (Auto) 0.0 Baso % (Auto) 0.3 Absolute Neuts (auto) 2.9 Absolute Lymphs (auto) 0.55 L Nucleated RBC % 0 Diff Path Review May foll D-Dimer Quant (PE/DVT) 0.28 Sodium Potassium Chloride Carbon Dioxide Anion Gap BUN Creatinine Estim Creat Clear Calc Est GFR (MDRD) Af Amer Est GFR (MDRD) Non-Af BUN/Creatinine Ratio Glucose Lactic Acid Calcium Magnesium Ferritin Total Bilirubin Direct Bilirubin AST ALT Alkaline Phosphatase Lactate Dehydrogenase Troponin I C-React Prot Ext Range B-Natriuretic Peptide Total Protein Albumin Globulin Albumin/Globulin Ratio Procalcitonin POC Glucose 216 H 11/27/20 11/27/20 11/27/20 04:45 09:14 12:14 WBC RBC Hgb Hct MCV MCH MCHC RDW Std Deviation RDW Coeff of Adi Plt Count MPV Immature Gran % (Auto) Neut % (Auto) Lymph % (Auto) [place] % (Auto) Eos % (Auto) Baso % (Auto) Absolute Neuts (auto) Absolute Lymphs (auto) Nucleated RBC % Diff Path Review D-Dimer Quant (PE/DVT) Sodium 136 Potassium 4.5 Chloride 104 Carbon Dioxide 28.0 Anion Gap 4 L BUN 19 H Creatinine 0.98 Estim Creat Clear Calc 128.91 Est GFR (MDRD) Af Amer 75 Est GFR (MDRD) Non-Af 62 BUN/Creatinine Ratio 19.5 Glucose 155 H Lactic Acid Calcium 8.9 Magnesium Ferritin Total Bilirubin 0.30 Direct Bilirubin AST 26 ALT 20 Alkaline Phosphatase 74 Lactate Dehydrogenase Troponin I C-React Prot Ext Range B-Natriuretic Peptide Total Protein 8.0 Albumin 3.0 L Globulin 5.0 H Albumin/Globulin Ratio 0.6 L Procalcitonin POC Glucose 177 H 169 H 11/27/20 11/27/20 16:20 20:54 WBC RBC Hgb Hct MCV MCH MCHC RDW Std Deviation RDW Coeff of Adi Plt Count MPV Immature Gran % (Auto) Neut % (Auto) Lymph % (Auto) [place] % (Auto) Eos % (Auto) Baso % (Auto) Absolute Neuts (auto) Absolute Lymphs (auto) Nucleated RBC % Diff Path Review D-Dimer Quant (PE/DVT) Sodium Potassium Chloride Carbon Dioxide Anion Gap BUN Creatinine Estim Creat Clear Calc Est GFR (MDRD) Af Amer Est GFR (MDRD) Non-Af BUN/Creatinine Ratio Glucose Lactic Acid Calcium Magnesium Ferritin Total Bilirubin Direct Bilirubin AST ALT Alkaline Phosphatase Lactate Dehydrogenase Troponin I C-React Prot Ext Range B-Natriuretic Peptide Total Protein Albumin Globulin Albumin/Globulin Ratio Procalcitonin POC Glucose 195 H 250 H Microbiology 11/26/20 16:25 Mucosa - Nasopharyngeal Respiratory Panel (PCR) - Final 11/26/20 17:00 Urine, Random Legionella Antigen - Final 11/26/20 17:00 Urine, Random Streptococcus pneumoniae Antigen (M - Final 11/26/20 12:35 Mucosa - Nasopharyngeal Influenza Types A,B Direct FA ([facility]) - Final 11/26/20 12:40 Mucosa - Nose SARS-CoV-2 Antigen (Rapid) - Final SARS-CoV-2 (COVID 19) Clinical Impression(s) from Imaging Studies Chest X-Ray 11/26/20 13:10 IMPRESSION: Right lower lobe pneumonia. Electronically Signed: Isidoro Larson MD at 13:40 EDT Tel , Service support , Current Medications Acetaminophen (Acetaminophen 325 Mg Tablet) 650 mg PO Q6H PRN PRN PRN Reason: Pain Score 1-10/Temp > 100.7 F Al Hydroxide/Mg Hydroxide (Mag Hydrox/Al Hydrox/Simeth 30 Ml Udc) 30 ml PO Q6H PRN PRN PRN Reason: Gastric Burning Albuterol Sulfate (Albuterol Ih 8.5 Gm (Proair) Inhaler (200 Puffs)) 4 - 8 puff INHALATION Q4H PRN PRN PRN Reason: Dyspnea, wheezing Atorvastatin Calcium (Atorvastatin Calcium 40 Mg Tablet) 40 mg PO QHS [facility] Last Admin: 11/27/20 20:56 Dose: 40 mg Documented by: Dexamethasone Sodium Phosphate (Dexamethasone 10 Mg/Ml Vial) 6 mg IV DAILY [facility] Stop: 12/06/20 10:01 Last Admin: 11/27/20 09:25 Dose: 6 mg Documented by: Enoxaparin Sodium (Enoxaparin 40 Mg/0.4 Ml Syringe) 40 mg SC BID [facility] Last Admin: 11/27/20 09:26 Dose: 40 mg Documented by: Famotidine (Famotidine 20 Mg Tablet) 20 mg PO BID [facility] Last Admin: 11/27/20 20:57 Dose: 20 mg Documented by: Ferrous Sulfate (Ferrous Sulfate 325 Mg Tablet) 325 mg PO BID@1200,1700 [facility] Last Admin: 11/27/20 16:27 Dose: 325 mg Documented by: Gabapentin (Gabapentin 300 Mg Capsule) 300 mg PO TIDCM [facility] Last Admin: 11/27/20 16:27 Dose: 300 mg Documented by: Guaifenesin (Guaifenesin 10 Ml Udc (200mg/10ml)) 10 ml PO Q4H PRN PRN PRN Reason: COUGH Hydralazine HCl (Hydralazine 20 Mg/Ml Vial) 10 mg IV Q4H PRN PRN PRN Reason: SBP > 160 Remdesivir 100 mg/ Sodium (Chloride) 250 mls @ 125 mls/hr IV DAILY@2200 [facility]; Protocol Stop: 11/30/20 23:59 Last Infusion: 11/27/20 22:49 Dose: Infused Documented by: Sodium Chloride () 250 mls @ 15 mls/hr IV .[id number] PRN PRN Reason: Saline Flush Sodium Chloride () 250 mls @ 15 mls/hr IV .[id number] PRN PRN Reason: Additional IVPB Infusion Insulin Glargine (Insulin Glargine 100 Units/Ml Pen) 30 units SC QHS [facility] Last Admin: 11/27/20 20:56 Dose: 30 u Documented by: Insulin Human Lispro (Insulin Lispro 100 Unit/Ml Insuln.Pen) 12 unit SC TIDCM [facility] Last Admin: 11/27/20 20:55 Dose: 2 u Documented by: Insulin Human Lispro (Insulin Lispro 100 Unit/Ml Insuln.Pen) 0 unit SC ACHS [facility]; Protocol Last Admin: 11/27/20 20:58 Dose: 3 u Documented by: Lisinopril (Lisinopril 10 Mg Tablet) 10 mg PO DAILY [facility] Last Admin: 11/27/20 09:26 Dose: 10 mg Documented by: Magnesium Hydroxide (Magnesium Hydroxide 30 Ml Udc) 30 ml PO DAILY PRN PRN PRN Reason: Constipation Melatonin (Melatonin 3 Mg Tablet) 3 mg PO QHS PRN PRN PRN Reason: INSOMNIA Last Admin: 11/27/20 20:57 Dose: 3 mg Documented by: Nitroglycerin (Nitroglycerin (Inpatient Use) 0.4 Mg Tab.Subl) 0.4 mg SL Q5M PRN PRN Reason: CARDIAC/CHEST PAIN Ondansetron HCl (Ondansetron 4 Mg/2 Ml Vial) 4 mg IV Q8H PRN PRN PRN Reason: NAUSEA/VOMITING Prochlorperazine Edisylate (Prochlorperazine 10 Mg/2 Ml Vial) 5 mg IV Q4H PRN PRN PRN Reason: Breakthrough Nausea/Vomiting Psyllium Hydrophilic Mucilloid (Psyllium 1 Packet) 1 packet PO DAILY PRN PRN PRN Reason: Constipation Senna/Docusate Sodium (Senna/Docusate Sodium 1 Tablet) 2 tablet PO BID PRN PRN Reason: Constipation Sodium Chloride (0.9% Saline Lock 10 Ml Syringe) 10 - 40 ml IV UD PRN PRN Reason: SALINE FLUSH Last Admin: 11/27/20 09:28 Dose: 10 ml Documented by: Throat Lozenges (Benzocaine/Menthol 1 Lozenge) 1 lozenge MUCOUS MEM Q2H PRN PRN PRN Reason: SORE THROAT Medical Necessity - Tobacco Use Smoking Status: Never smoker Tobacco Use: Non-smoker Assessment/Plan All Active Problems Pneumonia due to COVID-19 virus (Acute) Hypoxemia (Acute) Sepsis due to pneumonia (Acute) Acute respiratory failure with hypoxia (Ruled-out) Cellulitis of foot (Resolved) Intractable left heel pain (Resolved) Hyperglycemia (Resolved) Abscess of right shoulder (Resolved) Cellulitis of left heel (Resolved) Staphylococcus aureus sepsis (Resolved) Hyponatremia (Resolved) RECOMMENDATIONS: 1. Wean supplemental oxygen to maintain saturations at or above 90%. 2. Continue remdesivir as ordered. Continue to monitor liver and renal function. 3. Continue Decadron to complete 10-day treatment course. 4. Continue Lovenox as ordered. 5. Encourage incentive spirometer use and mobilize patient as tolerated. IMPRESSIONS: 1. Acute hypoxemic respiratory insufficiency secondary to COVID-19 pneumonia The patient presented to the hospital with 1 week of Covid-like symptoms and was subsequently found to be positive. The patient does not have an oxygen requirement at her baseline, but does endorse the presence of mild, intermittent asthma. She is currently stable from a respiratory perspective on supplemental oxygen via nasal cannula, which will be continued to maintain saturations at or above 90%. The patient will be continued on remdesivir and Decadron as ordered. Continue to monitor liver and renal function accordingly. Continue as needed bronchodilator therapy. Encourage incentive spirometer use and mobilize patient as tolerated. 2. History of mild, intermittent asthma/morbid obesity/hypertension/hyperlipidemia/diabetes mellitus Complicates care, management, recovery and prognosis. Continue as needed bronchodilator therapy. This note was generated with [employer] dictation software. It may contain incorrect words, spelling, and punctuation that were not noted in checking the note before signing. Inpatient E&M: 12772 Subs Hosp L2
[2020-11-28 08:38] LABS: Absolute Lymphocyte Count 1.04 X10^3/uL (0.83-4.51); Absolute Neutrophil Count 4.2 X10^3/uL (2.0-7.7); Basophil# 0.01 X10^3/uL; Basophil% 0.2 % (0-1); Hematocrit 41.5 % (37-47); Hemoglobin 12.4 g/dL (12.0-15.0); Lymphocyte # 1.04 X10^3/ul (4.0); Lymphocyte % 17.7 % (19-41); Mean Corp Hgb Conc 29.9 g/dL (32-36); Mean Corpuscular Hgb 23.5 pg (27.0-32.0); Mean Corpuscular Volume 78.6 fL (81-99); Mean Platelet Vol. 9.2 fl (6.2-12.0); Monocyte# 0.58 X10^3/uL; Monocyte% 9.9 % (0-10); NRBC Flagged by Analyzer 0 % (0-5); Neutrophil # 4.21 X10^3/uL (2.7-7.7); Neutrophil % 71.9 % (47-70); Platelet Count 395 K/mm3 (150-450); RBC Distribution Width CV 16.9 % (11.6-14.6); RBC Distribution Width SD 47.9 fl (35.1-43.9); Red Blood Count 5.28 M/mm3 (4.2-5.4); White Blood Count 5.9 K/mm3 (4.4-11.0)
[2020-11-28] MEDS: Gabapentin 300 MG Capsule PO ×3 (08:43→17:09)
[2020-11-28] MEDS: dexAMETHasone 10 MG/ML Vial 6 MG IV (08:43)
[2020-11-28] MEDS: Enoxaparin 40 MG/0.4 ML Syringe SC ×2 (08:44→20:43)
[2020-11-28] MEDS: Lisinopril 10 MG Tablet PO (08:44)
[2020-11-28] MEDS: Famotidine 20 MG Tablet PO ×2 (08:44→20:43)
[2020-11-28] MEDS: 0.9% Saline Lock 10 ML Syringe IV (08:47)
--- NOTE | 2020-11-28 08:47 | PN_ITS ---
Patient Problems: Active and Suspected Problems Pneumonia due to COVID-19 virus (Acute) Hypoxemia (Acute) Sepsis due to pneumonia (Acute) Subjective: Patient was seen and examined today in ICU, she is on 4 L of oxygen at this time but does not complain of any shortness of breath. Patient does not complain of any fevers or chills. Objective: General: Alert, Oriented x3, Cooperative, No apparent distress, Well developed HEENT: Atraumatic, PERRLA, EOMI, Normocephalic Oral: Moist Mucosa Neck: Supple, No JVD, Trachea Midline, Thyroid Normal Size and Texture Lungs: Clear to auscultation, Normal air movement, No rhonchi, No wheeze, No rales Cardiovascular: Regular rate, Regular Rhythm, Normal S1, Normal S2, No murmurs, PMI Normal, No rub noted, No Gallop Abdomen: Bowel Sounds Present, Soft, Non Tender, Non-Distended, Obese Extremities: No clubbing, No cyanosis, No edema, Capillary Refill Less than 3 Seconds Skin: No rashes, No breakdown Musculoskeletal: No Tenderness to Palpation of Joints or Extremities Neurological: Cranial nerves II-XII grossly intact, Neuro grossly intact, Sensory exam intact to light touch and pain, Coordination normal Psych/Mental Status: Normal Affect, Appropriate, Alert and oriented to time, place, person, mood and affect - Physical Exam Vitals/I&O's: Vital Signs Temp Pulse Resp BP Pulse Ox 97.6 F L 85 16 121/82 H 95 11/28/20 08:29 11/28/20 08:29 11/28/20 08:29 11/28/20 08:29 11/28/20 08:29 Oxygen Flow Rate (L/min) 4 Oxygen Delivery Method Nasal Cannula Weight: 132.2 kg Body Mass Index (BMI) 58.1 Intake and Output for Last 24 Hours 11/26/20 11/27/20 11/28/20 23:59 23:59 23:59 Intake Total 698.33 / 698.33 1701.67 / 1761.67 60 / 60 Output Total 450 / 600 1150 / 1350 650 / 650 Balance 248.33 / 98.33 551.67 / 411.67 -590 / -590 Microbiology Past 72 Hours 11/26/20 16:25 Mucosa - Nasopharyngeal Respiratory Panel (PCR) - Final 11/26/20 17:00 Urine, Random Legionella Antigen - Final 11/26/20 17:00 Urine, Random Streptococcus pneumoniae Antigen (M - Final 11/26/20 12:35 Mucosa - Nasopharyngeal Influenza Types A,B Direct FA ([facility]) - Final 11/26/20 12:40 Mucosa - Nose SARS-CoV-2 Antigen (Rapid) - Final SARS-CoV-2 (COVID 19) Laboratory Results 11/27/20 09:14: POC Glucose 177 H 11/27/20 12:14: POC Glucose 169 H 11/27/20 16:20: POC Glucose 195 H 11/27/20 20:54: POC Glucose 250 H 11/28/20 08:25: WBC 5.9, RBC 5.28, Hgb 12.4, Hct 41.5, MCV 78.6 L, MCH 23.5 L, MCHC 29.9 L, RDW Std Deviation 47.9 H, RDW Coeff of Adi 16.9 H, Plt Count 395, MPV 9.2, Immature Gran % (Auto) 0.300, Neut % (Auto) 71.9 H, Lymph % (Auto) 17.7 L, [place] % (Auto) 9.9, Eos % (Auto) 0.0, Baso % (Auto) 0.2, Absolute Neuts (auto) 4.2, Absolute Lymphs (auto) 1.04, Nucleated RBC % 0 11/28/20 08:25: Sodium Pending, Potassium Pending, Chloride Pending, Carbon Dioxide Pending, Anion Gap Pending, BUN Pending, Creatinine Pending, Est GFR (MDRD) Af Amer Pending, Est GFR (MDRD) Non-Af Pending, BUN/Creatinine Ratio Pending, Glucose Pending, Calcium Pending, Total Bilirubin Pending, AST Pending, ALT Pending, Alkaline Phosphatase Pending, Total Protein Pending, Albumin Pending Current Medications Acetaminophen (Acetaminophen 325 Mg Tablet) 650 mg PO Q6H PRN PRN PRN Reason: Pain Score 1-10/Temp > 100.7 F Al Hydroxide/Mg Hydroxide (Mag Hydrox/Al Hydrox/Simeth 30 Ml Udc) 30 ml PO Q6H PRN PRN PRN Reason: Gastric Burning Albuterol Sulfate (Albuterol Ih 8.5 Gm (Proair) Inhaler (200 Puffs)) 4 - 8 puff INHALATION Q4H PRN PRN PRN Reason: Dyspnea, wheezing Atorvastatin Calcium (Atorvastatin Calcium 40 Mg Tablet) 40 mg PO QHS [facility] Last Admin: 11/27/20 20:56 Dose: 40 mg Documented by: Dexamethasone Sodium Phosphate (Dexamethasone 10 Mg/Ml Vial) 6 mg IV DAILY [facility] Stop: 12/06/20 10:01 Last Admin: 11/28/20 08:43 Dose: 6 mg Documented by: Enoxaparin Sodium (Enoxaparin 40 Mg/0.4 Ml Syringe) 40 mg SC BID [facility] Last Admin: 11/28/20 08:44 Dose: 40 mg Documented by: Famotidine (Famotidine 20 Mg Tablet) 20 mg PO BID [facility] Last Admin: 11/28/20 08:44 Dose: 20 mg Documented by: Ferrous Sulfate (Ferrous Sulfate 325 Mg Tablet) 325 mg PO BID@1200,1700 [facility] Last Admin: 11/27/20 16:27 Dose: 325 mg Documented by: Gabapentin (Gabapentin 300 Mg Capsule) 300 mg PO TIDCM [facility] Last Admin: 11/28/20 08:43 Dose: 300 mg Documented by: Guaifenesin (Guaifenesin 10 Ml Udc (200mg/10ml)) 10 ml PO Q4H PRN PRN PRN Reason: COUGH Hydralazine HCl (Hydralazine 20 Mg/Ml Vial) 10 mg IV Q4H PRN PRN PRN Reason: SBP > 160 Remdesivir 100 mg/ Sodium (Chloride) 250 mls @ 125 mls/hr IV DAILY@2200 [facility] [place]; Protocol Stop: 11/30/20 23:59 Last Infusion: 11/27/20 22:49 Dose: Infused Documented by: Sodium Chloride () 250 mls @ 15 mls/hr IV .[id number] PRN PRN Reason: Saline Flush Sodium Chloride () 250 mls @ 15 mls/hr IV .[id number] PRN PRN Reason: Additional IVPB Infusion Insulin Glargine (Insulin Glargine 100 Units/Ml Pen) 30 units SC QHS [facility] [place] Last Admin: 11/27/20 20:56 Dose: 30 u Documented by: Insulin Human Lispro (Insulin Lispro 100 Unit/Ml Insuln.Pen) 12 unit [facility] Last Admin: 11/27/20 20:55 Dose: 2 u Documented by: Insulin Human Lispro (Insulin Lispro 100 Unit/Ml Insuln.Pen) 0 unit SC ACHS [facility]; Protocol Last Admin: 11/28/20 08:42 Dose: Not Given Documented by: Lisinopril (Lisinopril 10 Mg Tablet) 10 mg PO DAILY [facility] Last Admin: 11/28/20 08:44 Dose: 10 mg Documented by: Magnesium Hydroxide (Magnesium Hydroxide 30 Ml Udc) 30 ml PO DAILY PRN PRN PRN Reason: Constipation Melatonin (Melatonin 3 Mg Tablet) 3 mg PO QHS PRN PRN PRN Reason: INSOMNIA Last Admin: 11/27/20 20:57 Dose: 3 mg Documented by: Nitroglycerin (Nitroglycerin (Inpatient Use) 0.4 Mg Tab.Subl) 0.4 mg SL Q5M PRN PRN Reason: CARDIAC/CHEST PAIN Ondansetron HCl (Ondansetron 4 Mg/2 Ml Vial) 4 mg IV Q8H PRN PRN PRN Reason: NAUSEA/VOMITING Prochlorperazine Edisylate (Prochlorperazine 10 Mg/2 Ml Vial) 5 mg IV Q4H PRN PRN PRN Reason: Breakthrough Nausea/Vomiting Psyllium Hydrophilic Mucilloid (Psyllium 1 Packet) 1 packet PO DAILY PRN PRN PRN Reason: Constipation Senna/Docusate Sodium (Senna/Docusate Sodium 1 Tablet) 2 tablet PO BID PRN PRN Reason: Constipation Sodium Chloride (0.9% Saline Lock 10 Ml Syringe) 10 - 40 ml IV UD PRN PRN Reason: SALINE FLUSH Last Admin: 11/27/20 09:28 Dose: 10 ml Documented by: Throat Lozenges (Benzocaine/Menthol 1 Lozenge) 1 lozenge MUCOUS MEM Q2H PRN PRN PRN Reason: SORE THROAT Medical Necessity - Tobacco Use Smoking Status: Never smoker Tobacco Use: Non-smoker Assessment/Plan All Active Problems Pneumonia due to COVID-19 virus (Acute) Hypoxemia (Acute) Sepsis due to pneumonia (Acute) Acute respiratory failure with hypoxia (Ruled-out) Cellulitis of foot (Resolved) Intractable left heel pain (Resolved) Hyperglycemia (Resolved) Abscess of right shoulder (Resolved) Cellulitis of left heel (Resolved) Staphylococcus aureus sepsis (Resolved) Hyponatremia (Resolved) #1 COVID-19 pneumonia-continue present treatment at this time, pulmonary medicine is seeing patient, patient is receiving remdesivir and dexamethasone #2 hypoxia secondary to COVID-19 pneumonia-monitor pulse ox #3 morbid obesity #4 type 2 diabetes-monitor blood sugars, sliding scale insulin was ordered #5 essential hypertension #6 asthma by history Inpatient E&M: 98747 Subs Hosp L2
[2020-11-28 09:01] LABS: ALB/GLOB Ratio 0.6 RATIO (0.9-2.4); AST(SGOT) 23 U/L (15-37); Alanine Aminotransfer ALT/SGPT 20 U/L (13-56); Albumin, Serum 2.9 g/dL (3.2-5.0); Alkaline Phosphatase 66 U/L (45-117); Anion Gap 5 (5-15); BUN 33 mg/dL (7-18); BUN/Creat Ratio 30.3 RATIO (10-20); Calcium,Total 9.2 mg/dL (8.5-10.1); Chloride 105 mmol/L (98-107); Creatinine, Serum 1.09 mg/dL (0.55-1.02); EST Glomerular Filtration Rate 55 mL/min (>60); Est Glom Filt Rate - Afr Amer 66 mL/min (>60); Estimated Creatinine Clearance 117.41 ml/min; Globulin 5.1 g/dL (2.2-4.2); Glucose 143 mg/dL (74-106); Potassium 4.9 mmol/L (3.5-5.1); Sodium Level 135 mmol/L (136-145)
[2020-11-28 10:01] LABS: Bedside Glucose 140 mg/dL (70-110)
[2020-11-28] MEDS: Ferrous Sulfate 325 MG Tablet PO ×2 (12:44→17:09)
[2020-11-28] MEDS: Insulin Lispro 100 UNIT/ML INSULN.PEN SC ×3 (12:44→20:44)
[2020-11-28] MEDS: Insulin Lispro 100 UNIT/ML INSULN.PEN 12 UNIT SC ×2 (12:45→17:17)
[2020-11-28 12:55] LABS: Bedside Glucose 232 mg/dL (70-110)
[2020-11-28 17:25] LABS: Bedside Glucose 380 mg/dL (70-110)
[2020-11-28] MEDS: Atorvastatin Calcium 40 MG Tablet PO (20:42)
[2020-11-28] MEDS: MELATONIN 3 MG TABLET PO (20:42)
[2020-11-28] MEDS: Nystatin Powder 15gm Bottle 1 APPLIC TOPICAL (20:43)
[2020-11-28 23:41] LABS: Bedside Glucose 366 mg/dL (70-110)
[2020-11-29] VITALS (8 sets, daily range): BP systolic 118–131; BP diastolic 71–82; PULSE 76–100; RESP 16–20; TEMP 36–36.7; O2SAT 85–96
[2020-11-29] MEDS: Nystatin Powder 15gm Bottle 1 APPLIC TOPICAL (05:09)
[2020-11-29 06:48] LABS: Hematocrit 37.9 % (37-47); Hemoglobin 11.5 g/dL (12.0-15.0); Mean Corp Hgb Conc 30.3 g/dL (32-36); Mean Corpuscular Hgb 23.6 pg (27.0-32.0); Mean Corpuscular Volume 77.8 fL (81-99); Mean Platelet Vol. 9.6 fl (6.2-12.0); Platelet Count 418 K/mm3 (150-450); RBC Distribution Width CV 16.7 % (11.6-14.6); Red Blood Count 4.87 M/mm3 (4.2-5.4); White Blood Count 5.3 K/mm3 (4.4-11.0)
--- NOTE | 2020-11-29 07:05 | PN_ITS ---
Patient Problems: Active and Suspected Problems Pneumonia due to COVID-19 virus (Acute) Hypoxemia (Acute) Sepsis due to pneumonia (Acute) Subjective: Patient did well overnight. Patient has tolerated 3 L nasal cannula for most of the evening. Blood sugars have been slightly elevated. Patient continues to refuse BiPAP with sleep secondary to claustrophobia. Patient overall feels subjectively unchanged compared to previous. - Physical Exam Vitals/I&O's: Vital Signs Temp Pulse Resp BP Pulse Ox 36.7 C 76 18 131/71 H 96 11/29/20 04:00 11/29/20 04:00 11/29/20 04:00 11/29/20 04:00 11/29/20 04:00 Oxygen Flow Rate (L/min) 3 Oxygen Delivery Method Nasal Cannula Weight: 132.131 kg Body Mass Index (BMI) 58.1 Intake and Output for Last 24 Hours 11/27/20 11/28/20 11/29/20 23:59 23:59 23:59 Intake Total 1701.67 / 1761.67 940 / 1000 160 / 160 Output Total 1150 / 1350 950 / 1350 600 / 600 Balance 551.67 / 411.67 -10 / -350 -440 / -440 General: Alert, Oriented x3, Cooperative, No apparent distress, - - Morbidly obese. Speaking in full sentences. HEENT: Atraumatic, PERRLA, EOMI, Normocephalic, - - No scleral icterus or injection noted Oral: Moist Mucosa, No Gingival or Mucosal Lesions/ Ulcerations, - - Crowded posterior pharynx. Missing incisors. Neck: Supple, No Nodes, Trachea Midline, - - Difficult to assess JVD secondary to body habitus Lungs: No rhonchi, No wheeze, No rales, Diminished Cardiovascular: Regular rate, Regular Rhythm, Normal S1, Normal S2, No murmurs, No rub noted, No Gallop Abdomen: Bowel Sounds Present, Soft, Non Tender, Non-Distended, Obese Extremities: No clubbing, No cyanosis, No edema Skin: No breakdown, - - Vascular insufficiency changes lower extremities Musculoskeletal: No Tenderness to Palpation of Joints or Extremities Lymphatic: No Cervical, Supraclavicular, or Inguinal Adenopathy Neurological: Cranial nerves II-XII grossly intact, Neuro grossly intact, Motor Exam 5/5 strength throughout Psych/Mental Status: Normal Affect, Appropriate Microbiology Past 72 Hours 11/26/20 16:25 Mucosa - Nasopharyngeal Respiratory Panel (PCR) - Final 11/26/20 17:00 Urine, Random Legionella Antigen - Final 11/26/20 17:00 Urine, Random Streptococcus pneumoniae Antigen (M - Final 11/26/20 12:35 Mucosa - Nasopharyngeal Influenza Types A,B Direct FA ([facility]) - Final 11/26/20 12:40 Mucosa - Nose SARS-CoV-2 Antigen (Rapid) - Final SARS-CoV-2 (COVID 19) Laboratory Results 11/28/20 08:21: POC Glucose 140 H 11/28/20 08:25: WBC 5.9, RBC 5.28, Hgb 12.4, Hct 41.5, MCV 78.6 L, MCH 23.5 L, MCHC 29.9 L, RDW Std Deviation 47.9 H, RDW Coeff of Adi 16.9 H, Plt Count 395, MPV 9.2, Immature Gran % (Auto) 0.300, Neut % (Auto) 71.9 H, Lymph % (Auto) 17.7 L, [place] % (Auto) 9.9, Eos % (Auto) 0.0, Baso % (Auto) 0.2, Absolute Neuts (auto) 4.2, Absolute Lymphs (auto) 1.04, Nucleated RBC % 0 11/28/20 08:25: Sodium 135 L, Potassium 4.9, Chloride 105, Carbon Dioxide 25.0, Anion Gap 5, BUN 33 H, Creatinine 1.09 H, Estim Creat Clear Calc 117.41, Est GFR (MDRD) Af Amer 66, Est GFR (MDRD) Non-Af 55 L, BUN/Creatinine Ratio 30.3 H, Glucose 143 H, Calcium 9.2, Total Bilirubin 0.30, AST 23, ALT 20, Alkaline Phosphatase 66, Total Protein 8.0, Albumin 2.9 L, Globulin 5.1 H, Albumin/Globulin Ratio 0.6 L 11/28/20 12:43: POC Glucose 232 H 11/28/20 17:16: POC Glucose 380 H 11/28/20 20:40: POC Glucose 366 H 11/29/20 06:35: WBC 5.3, RBC 4.87, Hgb 11.5 L, Hct 37.9, MCV 77.8 L, MCH 23.6 L, MCHC 30.3 L, RDW Std Deviation 47.0 H, RDW Coeff of Adi 16.7 H, Plt Count 418, MPV 9.6 11/29/20 06:35: Sodium Pending, Potassium Pending, Chloride Pending, Carbon Dioxide Pending, Anion Gap Pending, BUN Pending, Creatinine Pending, Est GFR (MDRD) Af Amer Pending, Est GFR (MDRD) Non-Af Pending, BUN/Creatinine Ratio Pending, Glucose Pending, Calcium Pending, Total Bilirubin Pending, AST Pending, ALT Pending, Alkaline Phosphatase Pending, Total Protein Pending, Albumin Pending Current Medications Acetaminophen (Acetaminophen 325 Mg Tablet) 650 mg PO Q6H PRN PRN PRN Reason: Pain Score 1-10/Temp > 100.7 F Al Hydroxide/Mg Hydroxide (Mag Hydrox/Al Hydrox/Simeth 30 Ml Udc) 30 ml PO Q6H PRN PRN PRN Reason: Gastric Burning Albuterol Sulfate (Albuterol Ih 8.5 Gm (Proair) Inhaler (200 Puffs)) 4 - 8 puff INHALATION Q4H PRN PRN PRN Reason: Dyspnea, wheezing Atorvastatin Calcium (Atorvastatin Calcium 40 Mg Tablet) 40 mg PO QHS [facility] Last Admin: 11/28/20 20:42 Dose: 40 mg Documented by: Dexamethasone Sodium Phosphate (Dexamethasone 10 Mg/Ml Vial) 6 mg IV DAILY [facility] Stop: 12/06/20 10:01 Last Admin: 11/28/20 08:43 Dose: 6 mg Documented by: Enoxaparin Sodium (Enoxaparin 40 Mg/0.4 Ml Syringe) 40 mg SC BID [facility] Last Admin: 11/28/20 20:43 Dose: 40 mg Documented by: Famotidine (Famotidine 20 Mg Tablet) 20 mg PO BID [facility] Last Admin: 11/28/20 20:43 Dose: 20 mg Documented by: Ferrous Sulfate (Ferrous Sulfate 325 Mg Tablet) 325 mg PO BID@1200,1700 [facility] Last Admin: 11/28/20 17:09 Dose: 325 mg Documented by: Gabapentin (Gabapentin 300 Mg Capsule) 300 mg PO TIDCM [facility] Last Admin: 11/28/20 17:09 Dose: 300 mg Documented by: Guaifenesin (Guaifenesin 10 Ml Udc (200mg/10ml)) 10 ml PO Q4H PRN PRN PRN Reason: COUGH Hydralazine HCl (Hydralazine 20 Mg/Ml Vial) 10 mg IV Q4H PRN PRN PRN Reason: SBP > 160 Remdesivir 100 mg/ Sodium (Chloride) 250 mls @ 125 mls/hr IV DAILY@2200 [facility]; Protocol Stop: 11/30/20 23:59 Last Infusion: 11/28/20 22:44 Dose: Infused Documented by: Sodium Chloride () 250 mls @ 15 mls/hr IV .[id number] PRN PRN Reason: Saline Flush Sodium Chloride () 250 mls @ 15 mls/hr IV .[id number] PRN PRN Reason: Additional IVPB Infusion Insulin Glargine (Insulin Glargine 100 Units/Ml Pen) 30 units SC QHS [facility] Last Admin: 11/28/20 20:45 Dose: 30 u Documented by: Insulin Human Lispro (Insulin Lispro 100 Unit/Ml Insuln.Pen) 12 unit SC TIDCM [facility] Last Admin: 11/28/20 17:17 Dose: 12 u Documented by: Insulin Human Lispro (Insulin Lispro 100 Unit/Ml Insuln.Pen) 0 unit SC ACHS [facility]; Protocol Last Admin: 11/28/20 20:44 Dose: 6 u Documented by: Lisinopril (Lisinopril 10 Mg Tablet) 10 mg PO DAILY [facility] Last Admin: 11/28/20 08:44 Dose: 10 mg Documented by: Magnesium Hydroxide (Magnesium Hydroxide 30 Ml Udc) 30 ml PO DAILY PRN PRN PRN Reason: Constipation Melatonin (Melatonin 3 Mg Tablet) 3 mg PO QHS PRN PRN PRN Reason: INSOMNIA Last Admin: 11/28/20 20:42 Dose: 3 mg Documented by: Nitroglycerin (Nitroglycerin (Inpatient Use) 0.4 Mg Tab.Subl) 0.4 mg SL Q5M PRN PRN Reason: CARDIAC/CHEST PAIN Nystatin (Nystatin Powder 15gm Bottle) 1 applic TOPICAL TID [facility]; Protocol Last Admin: 11/29/20 05:09 Dose: 1 applic Documented by: Ondansetron HCl (Ondansetron 4 Mg/2 Ml Vial) 4 mg IV Q8H PRN PRN PRN Reason: NAUSEA/VOMITING Prochlorperazine Edisylate (Prochlorperazine 10 Mg/2 Ml Vial) 5 mg IV Q4H PRN PRN PRN Reason: Breakthrough Nausea/Vomiting Psyllium Hydrophilic Mucilloid (Psyllium 1 Packet) 1 packet PO DAILY PRN PRN PRN Reason: Constipation Senna/Docusate Sodium (Senna/Docusate Sodium 1 Tablet) 2 tablet PO BID PRN PRN Reason: Constipation Sodium Chloride (0.9% Saline Lock 10 Ml Syringe) 10 - 40 ml IV UD PRN PRN Reason: SALINE FLUSH Last Admin: 11/28/20 08:47 Dose: 20 ml Documented by: Throat Lozenges (Benzocaine/Menthol 1 Lozenge) 1 lozenge MUCOUS MEM Q2H PRN PRN PRN Reason: SORE THROAT Medical Necessity - Tobacco Use Smoking Status: Never smoker Tobacco Use: Non-smoker Assessment/Plan All Active Problems Pneumonia due to COVID-19 virus (Acute) Hypoxemia (Acute) Sepsis due to pneumonia (Acute) Acute respiratory failure with hypoxia (Ruled-out) Cellulitis of foot (Resolved) Intractable left heel pain (Resolved) Hyperglycemia (Resolved) Abscess of right shoulder (Resolved) Cellulitis of left heel (Resolved) Staphylococcus aureus sepsis (Resolved) Hyponatremia (Resolved) RECOMMENDATIONS: 1. Wean supplemental oxygen to maintain saturations at or above 90%. 2. Continue remdesivir as ordered. Await morning labs. Continue to monitor liver and renal function. 3. Continue Decadron to complete 10-day treatment course. 4. Continue Lovenox as ordered. 5. Encourage incentive spirometer use and mobilize patient as tolerated. IMPRESSIONS: 1. Acute hypoxemic respiratory insufficiency secondary to COVID-19 pneumonia The patient presented to the hospital with 1 week of Covid-like symptoms and was subsequently found to be positive. The patient does not have an oxygen requirement at her baseline, but does endorse the presence of mild, intermittent asthma. Patient has refused work-up for sleep apnea in the past. She is currently stable from a respiratory perspective on supplemental oxygen via nasal cannula, which will be continued to maintain saturations at or above 90%. The patient will be continued on remdesivir and Decadron as ordered. Continue to monitor liver and renal function accordingly. Continue as needed bronchodilator therapy. Encourage incentive spirometer use and mobilize patient as tolerated. 2. History of mild, intermittent asthma/morbid obesity/hypertension/hyperlipidemia/diabetes mellitus Complicates care, management, recovery and prognosis. Continue as needed bronchodilator therapy. Patient does have significant hyperglycemia, likely secondary to Decadron therapy. Lantus will be increased. Inpatient E&M: 62051 Subs Hosp L2
[2020-11-29 07:13] LABS: ALB/GLOB Ratio 0.6 RATIO (0.9-2.4); AST(SGOT) 19 U/L (15-37); Alanine Aminotransfer ALT/SGPT 19 U/L (13-56); Albumin, Serum 2.6 g/dL (3.2-5.0); Alkaline Phosphatase 65 U/L (45-117); Anion Gap 5 (5-15); BUN 36 mg/dL (7-18); BUN/Creat Ratio 30.3 RATIO (10-20); Calcium,Total 8.9 mg/dL (8.5-10.1); Chloride 105 mmol/L (98-107); Creatinine, Serum 1.19 mg/dL (0.55-1.02); EST Glomerular Filtration Rate 49 mL/min (>60); Est Glom Filt Rate - Afr Amer 60 mL/min (>60); Estimated Creatinine Clearance 107.49 ml/min; Globulin 4.7 g/dL (2.2-4.2); Glucose 198 mg/dL (74-106); Potassium 4.4 mmol/L (3.5-5.1); Protein, Total 7.3 g/dL (6.4-8.2); Sodium Level 136 mmol/L (136-145)
[2020-11-29] MEDS: Gabapentin 300 MG Capsule PO ×2 (08:45→12:30)
[2020-11-29] MEDS: Lisinopril 10 MG Tablet PO (08:46)
[2020-11-29] MEDS: Insulin Lispro 100 UNIT/ML INSULN.PEN 12 UNIT SC ×2 (08:46→12:31)
[2020-11-29] MEDS: dexAMETHasone 10 MG/ML Vial 6 MG IV (08:46)
[2020-11-29] MEDS: Enoxaparin 40 MG/0.4 ML Syringe SC (08:46)
[2020-11-29] MEDS: Famotidine 20 MG Tablet PO (08:46)
[2020-11-29] MEDS: Insulin Lispro 100 UNIT/ML INSULN.PEN SC ×2 (08:47→12:30)
[2020-11-29 09:01] LABS: Bedside Glucose 177 mg/dL (70-110)
--- NOTE | 2020-11-29 11:22 | CASEMGMT ---
LUCIA COLLIER called and spoke to patient in room regarding potential discharge planning. Patient is adamant that she does not want any HHC in the home or anyone coming into her home. LUCIA COLLIER discussed possible need for home oxygen at discharge. List reviewed over the phone with patient and she would like [facility] if oxygen needed. Patient states she would prefer if any scripts for at discharge be filled at [facility], LUCIA COLLIER updated pharmacy preference. Patient denied further needs at this time. CM will continue to follow this patient and plan for safe discharge.
[2020-11-29 12:18] LABS: Pathologist Review Reviewed
[2020-11-29] MEDS: Ferrous Sulfate 325 MG Tablet PO (12:30)
[2020-11-29 12:41] LABS: Bedside Glucose 268 mg/dL (70-110)
--- NOTE | 2020-11-29 12:55 | DCINST_ITS ---
- Discharge Diagnoses Current Active Problems: Current Active and Chronic Problems Pneumonia due to COVID-19 virus (Acute) Hypoxemia (Acute) Sepsis due to pneumonia (Acute) Morbid obesity (Chronic) Diabetes mellitus with neuropathy (Chronic) Obesity (Chronic) Sleep apnea (Chronic) Hyperlipidemia (Chronic) Hypertension (Chronic) Diabetes mellitus (Chronic) Mass of upper lobe of right lung (Chronic) Gait instability (Chronic) Reason(s) for Visit for Discharge Instructions: [place] COVID-19 pneumonia You will use the following diet at home:: Calorie/Carbohydrate Controlled (specify 1200, 1400, etc) Your food should be the consistency of: Regular Your liquids should be the consistency of: Regular/Thin Discharge Activity: Return to Normal Activity Additional Instructions: You are being discharged with oxygen. Continue to use your oxygen all the time. Continue to use your incentive spirometer. Continue to remain active and eat healthy. Let your doctor know if you develop fever >101.3F or have progressive worsening shortness of breath. Follow-up with your primary care doctor and also with pulmonology to have your continued oxygen use reevaluated. Be careful of going near open flames whilst on oxygen. Complete your Decadron as prescribed. Continue to use your inhaler as needed for shortness of breath. Continue to quarantine for 20 days total from the start of your symptoms. Allergies/Adverse Reactions: Allergies bee pollen Allergy (Verified 11/26/20 11:58) Rash hydrogen peroxide Allergy (Verified 11/26/20 11:58) Rash egg Adverse Reaction (Verified 11/26/20 11:58) Diarrhea ASPIRIN Allergy (Uncoded 11/26/20 11:58) Unknown Medications to take at Discharge Albuterol Inhaler [Ventolin Hfa] 2 puff INHALATION Q4H PRN PRN 11/20/16 Ergocalciferol [Vitamin D] 50,000 unit PO SA 01/10/17 Gabapentin [Neurontin] 300 mg PO TID 01/10/17 Atorvastatin Calcium 40 mg PO QHS 11/26/20 Famotidine 20 mg PO BID 11/26/20 Ferrous Sulfate [Ferosul] 325 mg PO BID 11/26/20 Insulin Lispro [Humalog KwikPen] 12 unit SQ TIDCM 11/26/20 Liraglutide [Victoza] 1.8 mg SQ QHS 11/26/20 Lisinopril 10 mg PO DAILY 11/26/20 Metformin HCl [Metformin HCl ER] 2,000 mg PO DAILY 11/26/20 Acetaminophen [Tylenol Tablet] 650 mg PO Q6H PRN PRN tablet 11/29/20 Aspirin 81 mg PO DAILY 30 Days #30 tablet 11/29/20 Dexamethasone [Decadron] 6 mg PO DAILY 7 Days #7 tablet 11/29/20 Insulin Glargine [Lantus SoloStar Pen] 45 units SC QHS pen 11/29/20 The following prescriptions were given: Aspirin 81 mg PO DAILY 30 Days #30 tablet Transmission Status: Pending to [facility] Dexamethasone [Decadron] 6 mg PO DAILY 7 Days #7 tablet Transmission Status: Pending to [facility] Primary Care Physician: Gerry Coreas MD [Primary Care Provider] - Please follow up with your Primary Care Physician in: within 2 weeks Test Results: Test results from this visit will be discussed in further detail at your follow- up appointment, if applicable. Please Follow Up With: Anirudh Lopez MD When: after your quarantine for evaluation of oxygen Proposed Discharge Date: 11/29/20
--- NOTE | 2020-11-29 13:00 | DS.PCM_ITS ---
Discharge Date and Diagnosis - Problem List Patient Problems: Active and Suspected Problems Pneumonia due to COVID-19 virus (Acute) Hypoxemia (Acute) Sepsis due to pneumonia (Acute) Date of Admission: 11/26/20 Date of Discharge: 11/29/20 - Primary Discharge Diagnosis Acute Problems: Active Problems Pneumonia due to COVID-19 virus (Acute) Acute hypoxic respiratory insufficiency Moderate malnutrition Morbid obesity - Secondary Discharge Diagnosis Chronic Problems: Chronic Problems Morbid obesity (Chronic) Bacteremia (Chronic) Diabetes mellitus with neuropathy (Chronic) Obesity (Chronic) Poor self monitoring (Chronic) Sleep apnea (Chronic) Hyperlipidemia (Chronic) Hypertension (Chronic) Diabetes mellitus (Chronic) Mass of upper lobe of right lung (Chronic) Gait instability (Chronic) Hospital Course and Treatment Imaging Results: Clinical Impression(s) from Imaging Studies Chest X-Ray 11/26/20 13:10 IMPRESSION: Right lower lobe pneumonia. 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 Patient and her have tested for Covid. Saturating 75% on room air. She was admitted to ICU and managed as acute hypoxic respiratory failure secondary to COVID-19 pneumonia. Patient was managed on remdesivir and Decadron. Pulmonology was consulted. She continued to improve. Patient was discharged on 3 L of oxygen. She is not on oxygen prior to this. She was also discharged to complete 10 days of Decadron. She will continue to current time for a total of 20 days. She will follow up with pulmonology in the outpatient to reassess need for oxygen. She will also follow-up with her primary care doctor after her quarantine. Patient Problems: Active and Suspected Problems Pneumonia due to COVID-19 virus (Acute) Hypoxemia (Acute) Sepsis due to pneumonia (Acute) Subjective: On the day of discharge, patient seen and examined. She remained on 3L of oxygen. No chest pain, dizziness or fever. Objective: Physical exam: General: Alert, Oriented x3, Cooperative, No apparent distress, Well developed HEENT: Atraumatic Oral: Moist Mucosa Neck: Supple Lungs: Clear to auscultation Cardiovascular: HS I+II, regular, no murmurs Abdomen: Bowel Sounds Present, Soft, Non Tender Extremities: No edema Skin: No rashes, No breakdown Neurological: Grossly intact Psych/Mental Status: Appropriate - Physical Exam Vitals/I&O's: Vital Signs Temp Pulse Resp BP Pulse Ox 96.8 F L 80 17 118/77 85 11/29/20 08:52 11/29/20 08:52 11/29/20 08:52 11/29/20 08:52 11/29/20 12:45 Oxygen Flow Rate (L/min) 3 Oxygen Delivery Method Nasal Cannula Weight: 132.131 kg Body Mass Index (BMI) 58.1 Intake and Output for Last 24 Hours 11/27/20 11/28/20 11/29/20 23:59 23:59 23:59 Intake Total 1701.67 / 1761.67 940 / 1000 160 / 160 Output Total 1150 / 1350 950 / 1350 600 / 600 Balance 551.67 / 411.67 -10 / -350 -440 / -440 Microbiology Past 72 Hours 11/26/20 16:25 Mucosa - Nasopharyngeal Respiratory Panel (PCR) - Final 11/26/20 17:00 Urine, Random Legionella Antigen - Final 11/26/20 17:00 Urine, Random Streptococcus pneumoniae Antigen (M - Final 11/26/20 12:35 Mucosa - Nasopharyngeal Influenza Types A,B Direct FA ([facility]) - Final 11/26/20 12:40 Mucosa - Nose SARS-CoV-2 Antigen (Rapid) - Final SARS-CoV-2 (COVID 19) Laboratory Results 11/27/20 04:45: Diff Path Review Reviewed 11/28/20 17:16: POC Glucose 380 H 11/28/20 20:40: POC Glucose 366 H 11/29/20 06:35: WBC 5.3, RBC 4.87, Hgb 11.5 L, Hct 37.9, MCV 77.8 L, MCH 23.6 L, MCHC 30.3 L, RDW Std Deviation 47.0 H, RDW Coeff of Adi 16.7 H, Plt Count 418, MPV 9.6 11/29/20 06:35: Sodium 136, Potassium 4.4, Chloride 105, Carbon Dioxide 26.0, Anion Gap 5, BUN 36 H, Creatinine 1.19 H, Estim Creat Clear Calc 107.49, Est GFR (MDRD) Af Amer 60, Est GFR (MDRD) Non-Af 49 L, BUN/Creatinine Ratio 30.3 H, Glucose 198 H, Calcium 8.9, Total Bilirubin 0.20, AST 19, ALT 19, Alkaline Phosphatase 65, Total Protein 7.3, Albumin 2.6 L, Globulin 4.7 H, Albumin/Globulin Ratio 0.6 L 11/29/20 08:43: POC Glucose 177 H 11/29/20 12:28: POC Glucose 268 H Current Medications Acetaminophen (Acetaminophen 325 Mg Tablet) 650 mg PO Q6H PRN PRN PRN Reason: Pain Score 1-10/Temp > 100.7 F Al Hydroxide/Mg Hydroxide (Mag Hydrox/Al Hydrox/Simeth 30 Ml Udc) 30 ml PO Q6H PRN PRN PRN Reason: Gastric Burning Albuterol Sulfate (Albuterol Ih 8.5 Gm (Proair) Inhaler (200 Puffs)) 4 - 8 puff INHALATION Q4H PRN PRN PRN Reason: Dyspnea, wheezing Atorvastatin Calcium (Atorvastatin Calcium 40 Mg Tablet) 40 mg PO QHS [facility] Last Admin: 11/28/20 20:42 Dose: 40 mg Documented by: Dexamethasone Sodium Phosphate (Dexamethasone 10 Mg/Ml Vial) 6 mg IV DAILY [facility] Stop: 12/06/20 10:01 Last Admin: 11/29/20 08:46 Dose: 4 mg Documented by: Enoxaparin Sodium (Enoxaparin 40 Mg/0.4 Ml Syringe) 40 mg SC BID [facility] Last Admin: 11/29/20 08:46 Dose: 40 mg Documented by: Famotidine (Famotidine 20 Mg Tablet) 20 mg PO BID [facility] Last Admin: 11/29/20 08:46 Dose: 20 mg Documented by: Ferrous Sulfate (Ferrous Sulfate 325 Mg Tablet) 325 mg PO BID@1200,1700 [facility] Last Admin: 11/29/20 12:30 Dose: 325 mg Documented by: Gabapentin (Gabapentin 300 Mg Capsule) 300 mg PO TIDCM [facility] Last Admin: 11/29/20 12:30 Dose: 300 mg Documented by: Guaifenesin (Guaifenesin 10 Ml Udc (200mg/10ml)) 10 ml PO Q4H PRN PRN PRN Reason: COUGH Hydralazine HCl (Hydralazine 20 Mg/Ml Vial) 10 mg IV Q4H PRN PRN PRN Reason: SBP > 160 Remdesivir 100 mg/ Sodium (Chloride) 250 mls @ 125 mls/hr IV DAILY@2200 [facility]; Protocol Stop: 11/30/20 23:59 Last Infusion: 11/28/20 22:44 Dose: Infused Documented by: Sodium Chloride () 250 mls @ 15 mls/hr IV .[id number] PRN PRN Reason: Saline Flush Sodium Chloride () 250 mls @ 15 mls/hr IV .[id number] PRN PRN Reason: Additional IVPB Infusion Insulin Glargine (Insulin Glargine 100 Units/Ml Pen) 45 units SC QHS [facility] Insulin Human Lispro (Insulin Lispro 100 Unit/Ml Insuln.Pen) 12 unit SC TIDCM [facility] Last Admin: 11/29/20 12:31 Dose: 12 u Documented by: Insulin Human Lispro (Insulin Lispro 100 Unit/Ml Insuln.Pen) 0 unit SC ACHS [facility]; Protocol Last Admin: 11/29/20 12:30 Dose: 3 u Documented by: Lisinopril (Lisinopril 10 Mg Tablet) 10 mg PO DAILY [facility] Last Admin: 11/29/20 08:46 Dose: 10 mg Documented by: Magnesium Hydroxide (Magnesium Hydroxide 30 Ml Udc) 30 ml PO DAILY PRN PRN PRN Reason: Constipation Melatonin (Melatonin 3 Mg Tablet) 3 mg PO QHS PRN PRN PRN Reason: INSOMNIA Last Admin: 11/28/20 20:42 Dose: 3 mg Documented by: Nitroglycerin (Nitroglycerin (Inpatient Use) 0.4 Mg Tab.Subl) 0.4 mg SL Q5M PRN PRN Reason: CARDIAC/CHEST PAIN Nystatin (Nystatin Powder 15gm Bottle) 1 applic TOPICAL TID [facility]; Protocol Last Admin: 11/29/20 05:09 Dose: 1 applic Documented by: Ondansetron HCl (Ondansetron 4 Mg/2 Ml Vial) 4 mg IV Q8H PRN PRN PRN Reason: NAUSEA/VOMITING Prochlorperazine Edisylate (Prochlorperazine 10 Mg/2 Ml Vial) 5 mg IV Q4H PRN PRN PRN Reason: Breakthrough Nausea/Vomiting Psyllium Hydrophilic Mucilloid (Psyllium 1 Packet) 1 packet PO DAILY PRN PRN PRN Reason: Constipation Senna/Docusate Sodium (Senna/Docusate Sodium 1 Tablet) 2 tablet PO BID PRN PRN Reason: Constipation Sodium Chloride (0.9% Saline Lock 10 Ml Syringe) 10 - 40 ml IV UD PRN PRN Reason: SALINE FLUSH Last Admin: 11/28/20 08:47 Dose: 20 ml Documented by: Throat Lozenges (Benzocaine/Menthol 1 Lozenge) 1 lozenge MUCOUS MEM Q2H PRN PRN PRN Reason: SORE THROAT Discharge Diet: Low fat/ Low Cholesterol, 2000 mg Sodium Diet, Carb Control Diet Discharge Activity: Return to Normal Activity Home Medications: Medications to take at Discharge Albuterol Inhaler [Ventolin Hfa] 2 puff INHALATION Q4H PRN PRN 11/20/16 Ergocalciferol [Vitamin D] 50,000 unit PO SA 01/10/17 Gabapentin [Neurontin] 300 mg PO TID 01/10/17 Atorvastatin Calcium 40 mg PO QHS 11/26/20 Famotidine 20 mg PO BID 11/26/20 Ferrous Sulfate [Ferosul] 325 mg PO BID 11/26/20 Insulin Lispro [Humalog KwikPen] 12 unit SQ TIDCM 11/26/20 Liraglutide [Victoza] 1.8 mg SQ QHS 11/26/20 Lisinopril 10 mg PO DAILY 11/26/20 Metformin HCl [Metformin HCl ER] 2,000 mg PO DAILY 11/26/20 Acetaminophen [Tylenol Tablet] 650 mg PO Q6H PRN PRN tablet 11/29/20 Aspirin 81 mg PO DAILY 30 Days #30 tablet 11/29/20 Dexamethasone [Decadron] 6 mg PO DAILY 7 Days #7 tablet 11/29/20 Insulin Glargine [Lantus SoloStar Pen] 45 units SC QHS pen 11/29/20 Following Prescriptions Were Given to Patient: Aspirin 81 mg PO DAILY 30 Days #30 tablet Transmission Status: Received by [facility] Dexamethasone [Decadron] 6 mg PO DAILY 7 Days #7 tablet Transmission Status: Received by [facility] Primary Care Physician: Gerry Coreas MD [Primary Care Provider] - Please follow up with your Primary Care Physician in: within 2 weeks Please Follow Up With: Anirudh Lopez MD When: after your quarantine for evaluation of oxygen Disposition: Home Minutes spent on discharge:: 40 Patient Condition:: Stable Medical Necessity - Tobacco Use Smoking Status: Never smoker Tobacco Use: Non-smoker Meaningful Use Info Meaningful Use Diagnoses (Choose all that apply): None applicable Inpatient E&M: 63349 [facility]
--- NOTE | 2020-11-29 13:22 | CASEMGMT ---
RN NANDO updated that patient will need home oxygen at discharge. Patient prefers [employer] for DME. LUCIA COLLIER received script and referral sent to [facility]. LUCIA COLLIER arranged for portable tank to be delivered to patient's room prior to discharge.
--- NOTE | 2020-11-30 14:42 | CASEMGMT ---
LUCIA COLLIER Discharge Follow-up Phone Call: MUNA: Lisandro Strata: 3 Call Date: 11/30/20 Discharge Date: 11/29/20 Time of Call: [id number] Duration: 1 min Admitting Diagnosis: Covid pneumonia RN NANDO attempted to complete follow-up phone call after recent hospitalization. No answer, voice message left with return contact information. Patient was setup with home oxygen prior to discharge.
== END 2020-11-29 16:10 | disposition home or self-care (01) | DRG 137 ==
LOC: ED 14:31 → ICU 11-27 07:27
PROVIDERS: Internal Medicine; Internal Medicine Critical Care Medicine; Admitting Provider Family Medicine; Emergency Provider Emergency Medicine; PCP Family Medicine; Visit Provider Internal Medicine
DX: U07.1 COVID-19 (principal); J12.82 Pneumonia due to coronavirus disease 2019; J96.01 Acute respiratory failure with hypoxia; Z99.3 Dependence on wheelchair; E66.01 Morbid (severe) obesity due to excess calories; Z68.43 Body mass index [BMI] 50.0-59.9, adult; I10 Essential (primary) hypertension; E78.5 Hyperlipidemia, unspecified; E11.40 Type 2 diabetes mellitus with diabetic neuropathy, unspecified; Z79.4 Long term (current) use of insulin; K21.9 Gastro-esophageal reflux disease without esophagitis; J45.20 Mild intermittent asthma, uncomplicated; E11.65 Type 2 diabetes mellitus with hyperglycemia; T38.0X5A Adverse effect of glucocorticoids and synthetic analogues, initial encounter
CPT/HCPCS: 71045; 80048; 80053; 80076; 82728; 82962; 83605; 83615; 83735; 83880; 84145; 84484; 85025; 85027; 85379; 86140; 87426; 87449; 87633; 87804; 93005; 97110; 97162; 97165; 97530; 97802; 99251; 99285; J7030; J7050; A4216; G0463

== ENCOUNTER 2021-12-06 08:56 | Observation (INO) | payer MEDICAID, SELFPAY ==
[2021-12-06] VITALS (7 sets, daily range): BP systolic 101–146; BP diastolic 52–111; PULSE 122–137; RESP 17–20; TEMP 36.6–37.3; O2SAT 92–96; BMI 61.7; BMI 60.2
--- NOTE | 2021-12-06 09:19 | EKG12_ITS ---
Test Reason : NAUSEA Blood Pressure : / mmHG Vent. Rate : 128 BPM Atrial Rate : 128 BPM P-R Int : 148 ms QRS Dur : 080 ms QT Int : 292 ms P-R-T Axes : 042 034 078 degrees QTc Int : 426 ms Sinus tachycardia Low voltage QRS Nonspecific T wave abnormality Abnormal ECG Confirmed by WADE RUIZ, YUMIKO ([id number]), video effects editor DELLA PIÑA ([id number]) on 12/07/2021 8:45:19 AM Referred By: KASSANDRA Confirmed By:YUMIKO OLVERA MD
--- NOTE | 2021-12-06 09:20 | EX.ED.DYSGE1 ---
HPI History of Present Illness Chief Complaint: Nausea/Vomiting Informant: patient Onset/Context/Timing Onset: Days Context: Gradual Onset Current Severity: Mild Maximum Severity: Moderate Narrative Narrative: Patient presents secondary to generalized weakness and mild dizziness. She reports having nausea and vomiting over the past 3 days. She feels generally weak and states she had some dizziness on Sunday when she would try to stand. She has been able to keep her medication down. Squad checked her blood sugar and it was found to be in the 190s. [facility] Medical History (Updated 12/06/21 @ 12:[address] Zofia Valdes MD) Asthma Diabetes Hyperlipidemia Hypertension Sleep apnea Home Medications albuterol sulfate [Ventolin HFA] 2 puff INHALATION Q4H PRN PRN 11/20/16 [History Last Taken Unknown] ergocalciferol (vitamin D2) [Vitamin D2] 50,000 unit PO SA 01/10/17 [History Last Taken 11/20/20] gabapentin [Neurontin] 300 mg PO TID 01/10/17 [History Last Taken 11/25/20] atorvastatin 40 mg PO QHS 11/26/20 [History Last Taken 11/25/20] famotidine 20 mg PO BID 11/26/20 [History Last Taken 11/25/20] ferrous sulfate 325 mg PO BID 11/26/20 [History Last Taken 11/25/20] insulin lispro 12 unit SQ TIDCM 11/26/20 [History Last Taken 11/26/20] liraglutide 1.8 mg SQ QHS 11/26/20 [History Last Taken 11/25/20] lisinopril 10 mg PO DAILY 11/26/20 [History Last Taken 11/25/20] metformin 2,000 mg PO DAILY 11/26/20 [History Last Taken 11/25/20] acetaminophen 650 mg PO Q6H PRN PRN tablet 11/29/20 [Rx Last Taken Unknown] insulin glargine 45 units SC QHS pen 11/29/20 [Rx Last Taken Unknown] Allergy/AdvReac Type Severity Reaction Status Date / Time bee pollen Allergy Rash Verified 12/20/20 08:11 hydrogen peroxide Allergy Rash Verified 12/20/20 08:11 egg AdvReac Diarrhea Verified 12/20/20 08:11 ASPIRIN Allergy Unknown Uncoded 12/20/20 08:11 Social History Smoking Status: Never smoker ROS ROS ED Constitutional Constitutional ED: Denies chills or fever(s) Eyes Eyes: Denies change in vision ENT ENT ED: Denies sore throat Cardiovascular Cardiovascular: Denies chest pain Respiratory/Chest Respiratory/Chest: Denies cough or dyspnea Gastrointestinal Gastrointestinal: Reports abdominal pain, nausea and vomiting; Denies diarrhea Genitourinary Genitourinary ED: Denies dysuria Musculoskeletal Musculoskeletal: Reports back pain Integumentary Denies rash Neurologic Neurologic: Reports weakness; Denies headache(s) Allergic/Immunologic Allergic/Immunologic ED: Denies urticaria EXAM Physical Exam Const Vital Signs: 12/06/21 08:57 12/06/21 11:27 Temperature 98.2 F Temperature Source Oral Pulse Rate 137 H 124 H Respiratory Rate 18 20 H Blood Pressure 124/111 H 104/71 Blood Pressure Mean 115 82 Pulse Ox 92 95 Oxygen Delivery Method Room Air Nasal Cannula Oxygen Flow Rate (L/min) 2 Positive obese Nutritional Appearance: obese HEENT Reports dry mucous membranes Mouth ED: Yes dry mucous membranes Mouth: dry mucous membranes Eyes PERRL and EOMs intact bilaterally Neck no lymphadenopathy and supple Chest Wall inspection of chest normal and palpation of chest normal Resp normal respiratory effort and clear to auscultation bilaterally Cardio Rate: tachycardic GI non-tender Auscultation: hypoactive bowel sounds Palpation: soft Back/Spine no CVA tenderness Extremity normal to inspection Neuro oriented x3 Sensorium / Orientation: alert Psych mental status grossly normal Skin no rashes or lesions noted MDM MDM MDM Narrative Medical decision making narrative: Patient given IV fluids and Zofran for nausea. EKG, lab work, urinalysis obtained. Lab Data Attestation: I reviewed the patient's lab results. Labs: Laboratory Results - last 24 hr 12/06/21 12/06/21 12/06/21 10:30 10:30 11:20 WBC 22.6 H RBC 4.88 Hgb 12.3 Hct 39.2 MCV 80.3 L MCH 25.2 L MCHC 31.4 L RDW Std Deviation 45.1 H RDW Coeff of Adi 15.6 H Plt Count MPV 10.0 Immature Gran % (Auto) 1.100 H Neut % (Auto) 90.4 H Lymph % (Auto) 2.2 L [place] % (Auto) 5.4 Eos % (Auto) 0.5 Baso % (Auto) 0.4 Absolute Neuts (auto) 20.5 H Absolute Lymphs (auto) 0.49 L Nucleated RBC % 0 Platelet Estimate ADEQUATE Anisocytosis 1+ Ovalocytes 1+ Sodium 137 Potassium 4.9 Chloride 106 Carbon Dioxide 25.0 Anion Gap 6 BUN 42 H Creatinine 2.03 H Estim Creat Clear Calc 65.24 Est GFR (MDRD) Af Amer 32 L Est GFR (MDRD) Non-Af 27 L BUN/Creatinine Ratio 20.7 H Glucose 155 H Calcium 8.9 Total Bilirubin 1.10 H Direct Bilirubin 0.33 H AST 23 ALT 25 Alkaline Phosphatase 113 Total Protein 6.9 Albumin 2.8 L Globulin 4.1 Urine Color Yellow Urine Clarity Sl. Cloudy Urine pH 6.0 Ur Specific [place] 1.010 Urine Protein 30 H Urine Glucose (UA) Normal Urine Ketones Negative Urine Occult Blood 50 H Urine Nitrite Positive H Urine Bilirubin Negative Urine Urobilinogen 1 H Ur Leukocyte Esterase 500 H Urine RBC 0-5 SEEN Urine WBC 10-25 SEEN Ur Squamous Epith Cells 0-5 SEEN Urine Bacteria 4+ Urine Mucus 0 SEEN Radiography Diagnostic Testing: Clinical Impression(s) from Imaging Studies Abdomen/Pelvis CT 12/06/21 11:34 IMPRESSION: No hydronephrosis or ureter calcifications. Nonobstructing 2 mm inferior left renal calculus. Electronically Signed: Jarett Gupta MD ([place]) at 12:14 EDT Reading Location ID and State: [address] [place] [address] , Service support , EKG Initial EKG: Attestation: I personally reviewed and interpreted this EKG as follows: Interpretation: Sinus Tachycardia (Sinus tach at 128. No acute ST change.) Treatment and Re-Evaluation Narrative: Patient's lab work reviewed. White count significantly elevated at 22.6 with a left shift. Chemistry studies reveal a BUN of 42 and creatinine of 2.03. It appears baseline creatinine is around 1.2-1.3. Urinalysis does show significant infection with 4+ bacteria and 10-25 white cells. Nitrites are positive. Urine is sent for culture. Patient is given IV Rocephin. With the degree of leukocytosis and patient remaining tachycardic she is sent for a CT flank. There is evidence of a nonobstructing inferior left renal calculus but no ureteral calculi are noted. Patient be discussed with hospitalist for admission for further hydration and treatment of pyelonephritis. Discharge Plan Triage Chief Complaint: Nausea/Vomiting ED Provider: Zofia Valdes Dx/Rx/DC Orders Clinical Impression: Pyelonephritis, Acute kidney injury, Tachycardia Prescriptions: No Action albuterol sulfate [Ventolin HFA] 1 INHALER inhaler 2 puff inhalation Q4H PRN PRN (Reason: Shortness Of Breath) RF: 0 gabapentin [Neurontin] 300 MG capsule 300 mg PO TID RF: 0 ergocalciferol (vitamin D2) [Vitamin D2] 50,000 UNIT capsule 50,000 unit PO SA RF: 0 atorvastatin 40 MG tablet 40 mg PO QHS RF: 0 famotidine 40 MG tablet 20 mg PO BID RF: 0 ferrous sulfate 325 MG tablet 325 mg PO BID RF: 0 lisinopril 10 MG tablet 10 mg PO DAILY RF: 0 metformin 500 MG tablet extended release 24 hr 2,000 mg PO DAILY RF: 0 insulin lispro 100 UNIT/ML insulin pen 12 unit SQ TIDCM RF: 0 liraglutide 0.6 MG/0.1 ML pen injector 1.8 mg SQ QHS RF: 0 acetaminophen 325 MG tablet 650 mg PO Q6H PRN PRN (Reason: Pain Score 1-10/Temp > 100.7 F) RF: 0 insulin glargine 100 UNITS/ML insulin pen 45 units SC QHS RF: 0 Primary Care Provider: Gerry Coreas Referrals: Gerry Coreas MD [Primary Care Provider] - Disposition Disposition: [facility]
[2021-12-06] MEDS: Ondansetron 4 MG/2 ML Vial IV (10:35)
[2021-12-06] MEDS: 0.9% Normal Saline 1,000 ML 1000 ML IV (10:35)
[2021-12-06 10:45] LABS: Absolute Lymphocyte Count 0.49 X10^3/uL (0.83-4.51); Absolute Neutrophil Count 20.5 X10^3/uL (2.0-7.7); Basophil# 0.08 X10^3/uL; Basophil% 0.4 % (0-1); Eosinophil# 0.12 X10^3/uL; Eosinophils% 0.5 % (0-5); Hematocrit 39.2 % (37-47); Hemoglobin 12.3 g/dL (12.0-15.0); Lymphocyte # 0.49 X10^3/ul (0.83-4.51); Lymphocyte % 2.2 % (19-41); Mean Corp Hgb Conc 31.4 g/dL (32-36); Mean Corpuscular Hgb 25.2 pg (27.0-32.0); Mean Corpuscular Volume 80.3 fL (81-99); Monocyte# 1.22 X10^3/uL; Monocyte% 5.4 % (0-10); NRBC Flagged by Analyzer 0 % (0-5); Neutrophil # 20.46 X10^3/uL (2.7-7.7); Neutrophil % 90.4 % (47-70); POSITIVE COUNT YES; POSITIVE DIFFERENTIAL YES; RBC Distribution Width CV 15.6 % (11.6-14.6); RBC Distribution Width SD 45.1 fl (35.1-43.9); Red Blood Count 4.88 M/mm3 (4.2-5.4); White Blood Count 22.6 K/mm3 (4.4-11.0)
[2021-12-06 10:57] LABS: AST(SGOT) 23 U/L (15-37); Alanine Aminotransfer ALT/SGPT 25 U/L (13-56); Albumin, Serum 2.8 g/dL (3.2-5.0); Alkaline Phosphatase 113 U/L (45-117); Anion Gap 6 (5-15); BUN 42 mg/dL (7-18); BUN/Creat Ratio 20.7 RATIO (10-20); Bilirubin, Direct 0.33 mg/dL (0.00-0.30); Calcium,Total 8.9 mg/dL (8.5-10.1); Chloride 106 mmol/L (98-107); Creatinine, Serum 2.03 mg/dL (0.55-1.02); EST Glomerular Filtration Rate 27 mL/min (>60); Est Glom Filt Rate - Afr Amer 32 mL/min (>60); Estimated Creatinine Clearance 65.24 ml/min; Globulin 4.1 g/dL (2.2-4.2); Glucose 155 mg/dL (74-106); Potassium 4.9 mmol/L (3.5-5.1); Protein, Total 6.9 g/dL (6.4-8.2); Sodium Level 137 mmol/L (136-145)
[2021-12-06 11:16] LABS: Differential Indicated SCAN CRITERIA MET
[2021-12-06 11:20] LABS: Platelet Estimate ADEQUATE (ADEQ)
[2021-12-06 11:21] LABS: Anisocytosis 1+; Ovalocyte 1+
[2021-12-06 11:22] LABS: Mucous, Urine 0 SEEN /hpf (<or=2+)
[2021-12-06 11:23] LABS: Color, Urine Yellow (Yellow); Glucose, Dipstick Normal (Normal); Ketone-Dipstick Negative (Negative); Leukocyte Esterase-Dipstick 500 /ul (Negative); Nitrite-Dipstick Positive (Negative); Occult Blood-Urine 50 /ul (Negative); Protein-Dipstick 30 mg/dl (Negative); Urine Bilirubin Dipstick Negative (Negative); Urine Clarity Sl. Cloudy (Clear); Urine Urobilinogen 1 mg/dl (Normal)
[2021-12-06 11:31] LABS: Bacteria 4+ /hpf (None Seen); Red Blood Cells-Urine 0-5 SEEN /hpf (0-5); Squamous Epithelial Cells - UA 0-5 SEEN /hpf (5-10); White Blood Cells 10-25 SEEN /hpf (0-5)
--- NOTE | 2021-12-06 11:34 | CT_ITS ---
STUDY: CT ABDOMEN AND PELVIS WITHOUT CONTRAST REASON FOR EXAM: Female, 61 years old. pyelonephritis RADIATION DOSAGE (If Supplied By Facility): CTDIvol = ( 33.28 ) mGy, DLP = ( 2053.65 ) mGycm TECHNIQUE: Transaxial images were obtained from the dome of the diaphragm to the symphysis pubis without oral contrast, and without intravenous contrast. Sagittal and coronal images were reconstructed. Individualized dose optimization techniques were used for this CT. COMPARISON: None. FINDINGS: The visualized lung bases are unremarkable. The visualized portions of the heart are within normal limits. Normal liver. Normal gallbladder and extrahepatic biliary system. Normal spleen. Normal pancreas. Normal bilateral adrenal glands. No hydronephrosis. No ureter calcifications. Perinephric stranding possibly age-related. 2 mm calcification of the inferior left kidney. Normal visualized stomach. Normal small intestine. Normal colon. The appendix is visualized and appears normal. There is diffuse atherosclerotic calcification of the abdominal aorta, without a demonstrated aneurysm. Normal inferior vena cava. Normal retroperitoneum. Unremarkable urinary bladder. Posterior subcutaneous fat calcifications may be suitable prior injury/surgery. There are diffuse degenerative changes of the visualized lumbar spine. CT/Abdomen/Pelvis without Cont IMPRESSION: No hydronephrosis or ureter calcifications. Nonobstructing 2 mm inferior left renal calculus. Electronically Signed: Jarett Gupta MD ([place]) at 12:14 EDT ,
[2021-12-06] MEDS: 0.9% Normal Saline 1,000 ML 100 ML IV ×2 (12:00→21:39)
[2021-12-06] MEDS: Ceftriaxone 1 GM/50 ML BAG IV (12:05)
[2021-12-06] MEDS: 0.9% Normal Saline 1,000 ML 150 ML IV (12:19)
--- NOTE | 2021-12-06 13:15 | HP.PCM.HOS_ITS ---
HPI - General General Date of Admission: 12/06/21 Date of Service: 12/06/21 Chief Complaint: Nausea vomiting and right flank pain since Sunday, for last 2-3 days HPI Narrative BRIAN LOPEZ, is a 61 F with multiple comorbidities listed below came to ER for nausea and vomiting since Sunday last 2 to 3 days along with poor intake and right flank pain. Right flank pain has gotten better. Nausea and vomiting about 2 3-3 times daily, mainly gastric content got better with Zofran given in the ED. No fever or chills. Had dizziness on standing up on Sunday, improved. Patient is morbidly obese and has limited function, ambulates on wheelchair. Denies burning micturition or new lower urinary tract symptoms. She has generalized weakness. In ED, she was afebrile, sinus tachycardic 30s respiratory: BP 124/111, also 92% on room air. Labs significant for leukocytosis with left shift, discussed in assessment plan. CT abdomen shows right sided perinephric stranding. [facility] Medical History (Updated 12/06/21 @ 14:08 by Danette Graham) Asthma Diabetes GERD (gastroesophageal reflux disease) Hyperlipidemia Hypertension Osteoporosis Sleep apnea Home Medications albuterol sulfate [Ventolin HFA] 2 puff INHALATION Q4H PRN PRN 11/20/16 [History Last Taken Unknown] ergocalciferol (vitamin D2) [Vitamin D2] 50,000 unit PO SA 01/10/17 [History Last Taken 11/20/20] gabapentin [Neurontin] 300 mg PO TID 01/10/17 [History Last Taken 11/25/20] atorvastatin 40 mg PO QHS 11/26/20 [History Last Taken 11/25/20] famotidine 20 mg PO BID 11/26/20 [History Last Taken 11/25/20] ferrous sulfate 325 mg PO BID 11/26/20 [History Last Taken 11/25/20] insulin lispro 12 unit SQ TIDCM 11/26/20 [History Last Taken 11/26/20] liraglutide 1.8 mg SQ QHS 11/26/20 [History Last Taken 11/25/20] lisinopril 10 mg PO DAILY 11/26/20 [History Last Taken 11/25/20] metformin 2,000 mg PO DAILY 11/26/20 [History Last Taken 11/25/20] acetaminophen 650 mg PO Q6H PRN PRN tablet 11/29/20 [Rx Last Taken Unknown] insulin glargine 45 units SC QHS pen 11/29/20 [Rx Last Taken Unknown] Allergy/AdvReac Type Severity Reaction Status Date / Time bee pollen Allergy Rash Verified 12/20/20 08:11 hydrogen peroxide Allergy Rash Verified 12/20/20 08:11 egg AdvReac Diarrhea Verified 12/20/20 08:11 ASPIRIN Allergy Unknown Uncoded 12/20/20 08:11 Social History Smoking Status: Never smoker ROS ROS Narrative Constitutional: Reports fatigue and weakness. Dizziness on standing. HEENT: Reports systems reviewed and no addt'l complaints, except as documented Respiratory/Chest: Denies chest pain, shortness of breath at rest chronic sh ortness of breath on exertion Gastrointestinal: As mentioned in HPI Genitourinary: As mentioned in HPI Musculoskeletal: Reports chronic lower extremity joint pain and limited range of motion. On wheelchair Neurologic: Denies seizure-like activity skin: No ulcer. No rash Endocrinology: Diabetes mellitus type 2, hyperglycemia. Reports systems reviewed and no addt'l complaints, except as documented Hematologic/Lymphatic: Reports systems reviewed and no addt'l complaints, except as documented Rest 14 ROS are negative except as mentioned in HPI Vital Signs Vital Signs Vital Signs: 12/06/21 08:57 12/06/21 11:27 12/06/21 12:16 Temperature 98.2 F Temperature Source Oral Pulse Rate 137 H 124 H Respiratory Rate 18 20 H Blood Pressure 124/111 H 104/71 Blood Pressure Mean 115 82 Pulse Ox 92 95 95 Oxygen Delivery Method Room Air Nasal Cannula Nasal Cannula Oxygen Flow Rate (L/min) 2 2 Weight Weight: 305 lb 5.443 oz Body Mass Index (BMI) 61.7 Physical Exam Narrative General: Alert, Oriented x3, Cooperative, supermorbid obesity BMI 61.7 kg/m? HEENT: Atraumatic, PERRLA, EOMI, Normocephalic Oral: Oral mucosa dry. No Gingival or Mucosal Lesions/ Ulcerations Neck: Supple, No JVD, Negative Carotid Bruits Lungs: Air entry diminished in bilateral lung bases. No crepitation/rhonchi Cardiovascular: Sinus tachycardia, normal S1, Normal S2, No murmurs Abdomen: Bowel Sounds Present, Soft, Non Tender, Non-Distended : Right renal angle tenderness. No left angle tenderness. No suprapubic t enderness. Extremities: No edema, Capillary Refill Less than 3 Seconds Skin: No rashes, No breakdown Musculoskeletal: Moderate atrophy of skeletal muscles of extremities. ROM is restricted. 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 Neurological: Cranial nerves II-XII grossly intact, DTR 2+/4 and Symmetrical, muscle strength 4+/5 at major joints. Psych/Mental Status: Flat affect Results Lab / Micro Data Result Diagrams: 12/06/21 10:30 12/06/21 10:30 Labs: Laboratory Results - last 24 hr 12/06/21 10:30: WBC 22.6 H, RBC 4.88, Hgb 12.3, Hct 39.2, MCV 80.3 L, MCH 25.2 L , MCHC 31.4 L, RDW Std Deviation 45.1 H, RDW Coeff of Adi 15.6 H, Plt Count , MPV 10.0, Immature Gran % (Auto) 1.100 H, Neut % (Auto) 90.4 H, Lymph % (Auto) 2.2 L, [place] % (Auto) 5.4, Eos % (Auto) 0.5, Baso % (Auto) 0.4, Absolute Neuts (auto) 20.5 H, Absolute Lymphs (auto) 0.49 L, Nucleated RBC % 0, Platelet Estimate ADEQUATE, Anisocytosis 1+, Ovalocytes 1+ 12/06/21 10:30: Sodium 137, Potassium 4.9, Chloride 106, Carbon Dioxide 25.0, Anion Gap 6, BUN 42 H, Creatinine 2.03 H, Estim Creat Clear Calc 65.24, Est GFR (MDRD) Af Amer 32 L, Est GFR (MDRD) Non-Af 27 L, BUN/Creatinine Ratio 20.7 H, Glucose 155 H, Calcium 8.9, Total Bilirubin 1.10 H, Direct Bilirubin 0.33 H, AST 23, ALT 25, Alkaline Phosphatase 113, Total Protein 6.9, Albumin 2.8 L, Globulin 4.1 12/06/21 11:20: Urine Color Yellow, Urine Clarity Sl. Cloudy, Urine pH 6.0, Ur Specific [place] 1.010, Urine Protein 30 H, Urine Glucose (UA) Normal, Urine Ketones Negative, Urine Occult Blood 50 H, Urine Nitrite Positive H, Urine Bilirubin Negative, Urine Urobilinogen 1 H, Ur Leukocyte Esterase 500 H, Urine RBC 0-5 SEEN, Urine WBC 10-25 SEEN, Ur Squamous Epith Cells 0-5 SEEN, Urine Bacteria 4+, Urine Mucus 0 SEEN Radiology Impression Abdomen/Pelvis CT 12/06/21 11:34 IMPRESSION: No hydronephrosis or ureter calcifications. Nonobstructing 2 mm inferior left renal calculus. Electronically Signed: Jarett Gupta MD ([place]) at 12:14 EDT , Assessment & Plan Assessment/Plan (1) Pyelonephritis: PLAN: 1. Right-sided pyelonephritis: Patient is being admitted MedSurg floor. qSOFA score 0. No hypotension. Patient was sinus tachycardic with l eukocytosis and left shift. Patient had urine retention for 8 to 10 hours as per ER physician but she urinated in the ER and on the floor. Bladder scan every 4 hourly. Monitor intake and output. Patient started on IV ceftriaxone. Urine culture sent from the ER. CT abdomen shows right-sided pyelonephritis and small left intrarenal nonobstructive inferior calculus 2 mm. 2. MARCO ANTONIO: Patient baseline creatinine has 0.9-1.09. Patient admitted BUN/creatinine 42/2.03 exact etiology unclear possible prerenal from nausea and vomiting and infection. 3. Diabetes mellitus type 2 with hyperglycemia: Glucose 155. Patient on glargine Humalog insulin at home. Monitor Accu-Cheks and titrate the dose accordingly. Accu-Chek before meals and at bedtime encouraged Humalog sliding scale 4. Essential hypertension: 5. Chronic intermittent asthma, controlled. Patient does not have signs symptoms of acute asthma exacerbation 6. Super morbid obesity: BMI 60.3 kg/m?. Patient has degenerative arthritis moderate atrophy of musculoskeletal muscles VTE prophylaxis high risk: Enoxaparin 40 mg SQ twice daily. Discontinue if platelet count drops less than 50,000 or hemoglobin less than 8 g% Living will/advanced directive/end of life care: Patient does not have living will or advanced directive. After discussion of benefits/risks procedures involved with full code, DNR CC arrest and DNR CC, the patient opted for full code. Her daughter is next of kin Patient does want artificial life support including intubation, tube feed, ventilator and/chest compression, central venous catheter, vasopressor and DC shock if needed Total time spent in [id number] encounter in discussion of advanced directive 16 minutes. Charges/Coding Visit Charges Inpatient E&M: 47415 Init Hosp L3 Procedures Hospitalists Procedures: 53644 Advncd Care Plan 30 Min
[2021-12-06 13:52] LABS: Magnesium 1.4 mg/dL (1.6-2.6)
[2021-12-06] MEDS: Famotidine 20 MG Tablet PO (14:27)
[2021-12-06] MEDS: Gabapentin 300 MG Capsule PO ×2 (14:27→17:03)
[2021-12-06] MEDS: Enoxaparin 40 MG/0.4 ML Syringe SC ×2 (14:27→21:36)
[2021-12-06 14:41] LABS: Bedside Glucose 146 mg/dL (74-106)
[2021-12-06 17:11] LABS: Bedside Glucose 174 mg/dL (74-106)
[2021-12-06] MEDS: Insulin Lispro 100 UNIT/ML INSULN.PEN SC ×2 (17:25→21:36)
[2021-12-06 17:26] LABS: Bedside Glucose 172 mg/dL (74-106)
[2021-12-06] MEDS: Atorvastatin Calcium 40 MG Tablet PO (21:36)
[2021-12-06] MEDS: Insulin Glargine-YFGN 100 UNIT/ML Pen 45 UNIT SC (21:38)
[2021-12-06] MEDS: Nystatin Powder 15gm Bottle 1 APPLIC TOPICAL (21:38)
[2021-12-06 22:01] LABS: Bedside Glucose 198 mg/dL (74-106)
[2021-12-06] MEDS: Acetaminophen 325 MG Tablet 650 MG PO (23:43)
[2021-12-06] MEDS: oxyCODONE 5 MG Tablet PO (23:43)
[2021-12-07] VITALS (12 sets, daily range): BP systolic 98–129; BP diastolic 49–116; PULSE 98–136; RESP 14–24; TEMP 36.8–38.4; O2SAT 89–100
[2021-12-07] MEDS: 0.9% Normal Saline 1,000 ML 999 ML IV (00:37)
[2021-12-07 01:51] LABS: Lactic Acid 1.7 mmol/L (0.4-1.9)
[2021-12-07 02:27] LABS: Bedside Glucose 168 mg/dL (74-106)
[2021-12-07 06:18] LABS: Absolute Lymphocyte Count 0.86 X10^3/uL (0.83-4.51); Absolute Neutrophil Count 11.2 X10^3/uL (2.0-7.7); Basophil# 0.06 X10^3/uL; Basophil% 0.4 % (0-1); Eosinophil# 0.05 X10^3/uL; Eosinophils% 0.4 % (0-5); Hematocrit 34.6 % (37-47); Hemoglobin 10.6 g/dL (12.0-15.0); Lymphocyte # 0.86 X10^3/ul (0.83-4.51); Lymphocyte % 6.4 % (19-41); Mean Corp Hgb Conc 30.6 g/dL (32-36); Mean Corpuscular Hgb 24.9 pg (27.0-32.0); Mean Corpuscular Volume 81.4 fL (81-99); Mean Platelet Vol. 10.1 fl (6.2-12.0); Monocyte# 1.15 X10^3/uL; Monocyte% 8.6 % (0-10); NRBC Flagged by Analyzer 0 % (0-5); Neutrophil # 11.16 X10^3/uL (2.7-7.7); Neutrophil % 83.5 % (47-70); Platelet Count 221 K/mm3 (150-450); RBC Distribution Width CV 15.7 % (11.6-14.6); RBC Distribution Width SD 46.5 fl (35.1-43.9); Red Blood Count 4.25 M/mm3 (4.2-5.4); White Blood Count 13.4 K/mm3 (4.4-11.0)
[2021-12-07 06:51] LABS: Anion Gap 7 (5-15); BUN 35 mg/dL (7-18); BUN/Creat Ratio 19.1 RATIO (10-20); Calcium,Total 7.8 mg/dL (8.5-10.1); Chloride 107 mmol/L (98-107); Creatinine, Serum 1.83 mg/dL (0.55-1.02); EST Glomerular Filtration Rate 30 mL/min (>60); Est Glom Filt Rate - Afr Amer 36 mL/min (>60); Glucose 147 mg/dL (74-106); Potassium 4.9 mmol/L (3.5-5.1); Sodium Level 136 mmol/L (136-145)
--- NOTE | 2021-12-07 07:47 | PN.HOSP_ITS ---
Subjective Subjective Patient had fever temperature 101.2 ?F afternoon. While feeling good. Denies burning micturition. Leukocytosis improving. Hypomagnesemia Objective Data Objective Data Vital Signs: Vital Signs Temp Pulse Resp BP Pulse Ox 99 F 112 H 14 102/87 H 89 12/07/21 07:29 12/07/21 07:29 12/07/21 07:29 12/07/21 07:29 12/07/21 07:29 Oxygen Flow Rate (L/min) 3 Oxygen Delivery Method Nasal Cannula Weight: 303 lb 5.697 oz Body Mass Index (BMI) 60.2 Intake & Output: Intake and Output for Last 24 Hours 12/05/21 12/06/21 12/07/21 23:59 23:59 23:59 Intake Total 3015 / 3015 1698.33 / 1698.33 Output Total 600 / 600 Balance 3015 / 3015 1098.33 / 1098.33 Lab / Micro Data Result Diagrams: 12/07/21 05:43 12/07/21 05:43 Labs: Laboratory Results - last 24 hr 12/06/21 10:30: WBC 22.6 H, RBC 4.88, Hgb 12.3, Hct 39.2, MCV 80.3 L, MCH 25.2 L , MCHC 31.4 L, RDW Std Deviation 45.1 H, RDW Coeff of Adi 15.6 H, Plt Count , MPV 10.0, Immature Gran % (Auto) 1.100 H, Neut % (Auto) 90.4 H, Lymph % (Auto) 2.2 L, [place] % (Auto) 5.4, Eos % (Auto) 0.5, Baso % (Auto) 0.4, Absolute Neuts (auto) 20.5 H, Absolute Lymphs (auto) 0.49 L, Nucleated RBC % 0, Platelet Estimate ADEQUATE, Anisocytosis 1+, Ovalocytes 1+ 12/06/21 10:30: Sodium 137, Potassium 4.9, Chloride 106, Carbon Dioxide 25.0, Anion Gap 6, BUN 42 H, Creatinine 2.03 H, Estim Creat Clear Calc 65.24, Est GFR (MDRD) Af Amer 32 L, Est GFR (MDRD) Non-Af 27 L, BUN/Creatinine Ratio 20.7 H, Glucose 155 H, Calcium 8.9, Total Bilirubin 1.10 H, Direct Bilirubin 0.33 H, AST 23, ALT 25, Alkaline Phosphatase 113, Total Protein 6.9, Albumin 2.8 L, Globulin 4.1 12/06/21 10:30: Magnesium 1.4 L 12/06/21 11:20: Urine Color Yellow, Urine Clarity Sl. Cloudy, Urine pH 6.0, Ur Specific [place] 1.010, Urine Protein 30 H, Urine Glucose (UA) Normal, Urine Ketones Negative, Urine Occult Blood 50 H, Urine Nitrite Positive H, Urine Bilirubin Negative, Urine Urobilinogen 1 H, Ur Leukocyte Esterase 500 H, Urine RBC 0-5 SEEN, Urine WBC 10-25 SEEN, Ur Squamous Epith Cells 0-5 SEEN, Urine Bacteria 4+, Urine Mucus 0 SEEN 12/06/21 14:21: POC Glucose 146 H 12/06/21 17:01: POC Glucose 174 H 12/06/21 17:19: POC Glucose 172 H 12/06/21 21:35: POC Glucose 198 H 12/07/21 00:40: Lactic Acid 1.7 12/07/21 02:19: POC Glucose 168 H 12/07/21 05:43: WBC 13.4 H, RBC 4.25, Hgb 10.6 L, Hct 34.6 L, MCV 81.4, MCH 24.9 L, MCHC 30.6 L, RDW Std Deviation 46.5 H, RDW Coeff of Adi 15.7 H, Plt Count 221, MPV 10.1, Immature Gran % (Auto) 0.700, Neut % (Auto) 83.5 H, Lymph % (Auto) 6.4 L, [place] % (Auto) 8.6, Eos % (Auto) 0.4, Baso % (Auto) 0.4, Absolute Neuts (auto) 11.2 H, Absolute Lymphs (auto) 0.86, Nucleated RBC % 0 12/07/21 05:43: Sodium 136, Potassium 4.9, Chloride 107, Carbon Dioxide 22.0, Anion Gap 7, BUN 35 H, Creatinine 1.83 H, Estim Creat Clear Calc 71.90, Est GFR (MDRD) Af Amer 36 L, Est GFR (MDRD) Non-Af 30 L, BUN/Creatinine Ratio 19.1, Glucose 147 H, Calcium 7.8 L Radiography Diagnostic Testing: Radiology Impression Abdomen/Pelvis CT 04/19/22 11:34 IMPRESSION: No hydronephrosis or ureter calcifications. Nonobstructing 2 mm inferior left renal calculus. Electronically Signed: Jarett Gupta MD ([place]) at 12:14 EDT , Physical Exam Narrative General: Alert, Oriented x3, Cooperative, supermorbid obesity BMI 61.7 kg/m? HEENT: Atraumatic, PERRLA, EOMI, Normocephalic Oral: Oral mucosa dry. No Gingival or Mucosal Lesions/ Ulcerations Neck: Supple, No JVD, Negative Carotid Bruits Lungs: Air entry diminished in bilateral lung bases. No crepitation/rhonchi Cardiovascular: Sinus tach at a heart rate in 101/min, normal S1, Normal S2, No murmurs Abdomen: Bowel Sounds Present, Soft, Non Tender, Non-Distended : right renal angle tenderness, improved. No left angle tenderness. No suprapubic tenderness. Extremities: No edema, Capillary Refill Less than 3 Seconds Skin: No rashes, No breakdown Musculoskeletal: Moderate atrophy of skeletal muscles of extremities. ROM is restricted. 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 Neurological: Cranial nerves II-XII grossly intact, DTR 2+/4 and Symmetrical, muscle strength 4+/5 at major joints. Psych/Mental Status: Flat affect Assessment & Plan Assessment/Plan (1) Pyelonephritis: PLAN: 1. Right-sided pyelonephritis: Patient is being admitted MedSurg floor. qSOFA score 0. No hypotension. Patient was sinus tachycardic with leukocytosis and left shift. Patient had urine retention for 8 to 10 hours as per ER physician but she urinated in the ER and on the floor. Bladder scan every 4 hourly. Monitor intake and output. Patient started on IV ceftriaxone. Urine culture sent from the ER. CT abdomen shows right-sided pyelonephritis and small left intrarenal nonobstructive inferior calculus 2 mm. 12/07: Overall patient seems responding with IV antibiotic 2. MARCO ANTONIO: Patient baseline creatinine has 0.9-1.09. Patient admitted BUN/creatinine 42/2.03 exact etiology unclear possible prerenal from nausea and vomiting and infection. Urine culture and blood culture received pending. 3. Diabetes mellitus type 2 with hyperglycemia: Glucose 155. Patient on glargine Humalog insulin at home. Monitor Accu-Cheks and titrate the dose accordingly. Accu-Chek before meals and at bedtime encouraged Humalog sliding scale 4. Essential hypertension: 5. Chronic intermittent asthma, controlled. Patient does not have signs symptoms of acute asthma exacerbation 6. Super morbid obesity: BMI 60.3 kg/m?. Patient has degenerative arthritis moderate atrophy of musculoskeletal muscles VTE prophylaxis high risk: Enoxaparin 40 mg SQ twice daily. Discontinue if platelet count drops less than 50,000 or hemoglobin less than 8 g% Living will/advanced directive/end of life care: Patient does not have living will or advanced directive. After discussion of benefits/risks procedures involved with full code, DNR CC arrest and DNR CC, the patient opted for full code. Her daughter is next of kin Patient does want artificial life support including intubation, tube feed, ventilator and/chest compression, central venous catheter, vasopressor and DC shock if needed Charges/Coding Visit Charges Inpatient E&M: 40110 Subs Hosp L2
[2021-12-07 07:51] LABS: Bedside Glucose 153 mg/dL (74-106)
[2021-12-07] MEDS: Gabapentin 300 MG Capsule PO ×3 (07:57→16:49)
[2021-12-07] MEDS: Insulin Lispro 100 UNIT/ML INSULN.PEN SC (07:57)
[2021-12-07] MEDS: Insulin Lispro 100 UNIT/ML INSULN.PEN 10 UNIT SC ×3 (07:58→16:48)
[2021-12-07] MEDS: Enoxaparin 40 MG/0.4 ML Syringe SC (10:16)
[2021-12-07] MEDS: Famotidine 20 MG Tablet PO (10:17)
[2021-12-07] MEDS: Nystatin Powder 15gm Bottle 1 APPLIC TOPICAL ×2 (10:17→22:22)
--- NOTE | 2021-12-07 10:58 | CASEMGMT ---
LUCIA COLLIER Assessment: LUCIA COLLIER in to pt room with pt for initial transition planning/care coordination assessment. RN NANDO introduced self and role at [facility], pt voices understanding and consents to assessment. Pt is A/O x4 and answers all questions appropriately at this time. Pt sitting up in chair with O2 on in no distress. Care providers, pharmacy, and demographics verified/updated. Admitting Dx: UTI/pyelonephritis PCP: Lyudmila Specialists: [facility]- Pt states she saw once but decided she doesn't need him and has not gone back. Pt states she does not see any longer either. Preferred [facility]acy: [facility] Insurance: [facility] Prescription Benefit: yes LW/HPOA: Pt denies having a LW/DPOA and denies need for any info regarding. LNOK: , Christian Waters; Bhakti Marianna, dtr Living Arrangements: Pt reports living in a single story house with a ramp to enter with her and dtr and the dtr's family. Pt denies concerns at home. Transportation: Pt reports her or dtr provides transportation and denies concerns with transportation. DME/HHC/SNF: Pt reports having an electric w/c, manual w/c, shower chair and oxygen through [employer]. Pt states she has a BGM with supplies and also has insulin with supplies. She states she does not need the oxygen and no longer wears it. TC to [employer], spoke with Dannie, pt rx is 3L cont. Pt also has a pox. Pt has no previous HHC and states she does not want any. She states she has been in [facility]. Pt states no concerns with going home at time of dc. States I am definitely going home. Pt states no further concerns/needs. Advised pt to ask CM if any further question/concerns/needs arise, voices understanding. Pt Goal: Home Plan: Home
[2021-12-07 11:16] LABS: Bedside Glucose 131 mg/dL (74-106)
[2021-12-07 13:16] LABS: Bedside Glucose 166 mg/dL (74-106)
[2021-12-07] MEDS: 0.9% Saline Lock 10 ML Syringe IV (13:20)
[2021-12-07] MEDS: Ferrous Sulfate 325 MG Tablet PO (13:20)
[2021-12-07 16:10] LABS: Bedside Glucose 134 mg/dL (74-106)
[2021-12-07] MEDS: Ondansetron 4 MG/2 ML Vial IV (16:49)
[2021-12-07 17:20] LABS: Magnesium 2.2 mg/dL (1.6-2.6); Phosphorus 3.3 mg/dL (2.5-4.9)
[2021-12-07] MEDS: Enoxaparin 30 MG/0.3 ML Syringe SC (22:18)
[2021-12-07] MEDS: Atorvastatin Calcium 40 MG Tablet PO (22:18)
[2021-12-07 22:40] LABS: Bedside Glucose 109 mg/dL (74-106)
[2021-12-08] VITALS (8 sets, daily range): BP systolic 96–120; BP diastolic 60–72; PULSE 96–110; RESP 18; TEMP 36.8–37.2; O2SAT 87–96
[2021-12-08] MEDS: Acetaminophen 325 MG Tablet 650 MG PO (02:39)
[2021-12-08] MEDS: Ondansetron 4 MG/2 ML Vial IV (02:40)
[2021-12-08] MEDS: 0.9% Saline Lock 10 ML Syringe IV ×3 (02:40→12:39)
[2021-12-08 04:29] LABS: Absolute Lymphocyte Count 0.68 X10^3/uL (0.83-4.51); Absolute Neutrophil Count 9.3 X10^3/uL (2.0-7.7); Basophil# 0.07 X10^3/uL; Basophil% 0.6 % (0-1); Eosinophil# 0.22 X10^3/uL; Eosinophils% 1.9 % (0-5); Hematocrit 34.2 % (37-47); Hemoglobin 10.3 g/dL (12.0-15.0); Lymphocyte # 0.68 X10^3/ul (0.83-4.51); Mean Corp Hgb Conc 30.1 g/dL (32-36); Mean Corpuscular Hgb 24.9 pg (27.0-32.0); Mean Corpuscular Volume 82.6 fL (81-99); Mean Platelet Vol. 9.8 fl (6.2-12.0); Monocyte# 0.98 X10^3/uL; Monocyte% 8.7 % (0-10); NRBC Flagged by Analyzer 0 % (0-5); Neutrophil % 82.4 % (47-70); Platelet Count 262 K/mm3 (150-450); RBC Distribution Width CV 15.5 % (11.6-14.6); RBC Distribution Width SD 47.2 fl (35.1-43.9); Red Blood Count 4.14 M/mm3 (4.2-5.4); White Blood Count 11.3 K/mm3 (4.4-11.0)
[2021-12-08 04:54] LABS: Anion Gap 6 (5-15); BUN 26 mg/dL (7-18); BUN/Creat Ratio 18.2 RATIO (10-20); Calcium,Total 8.2 mg/dL (8.5-10.1); Chloride 107 mmol/L (98-107); Creatinine, Serum 1.43 mg/dL (0.55-1.02); EST Glomerular Filtration Rate 40 mL/min (>60); Est Glom Filt Rate - Afr Amer 48 mL/min (>60); Estimated Creatinine Clearance 92.01 ml/min; Glucose 122 mg/dL (74-106); Potassium 4.8 mmol/L (3.5-5.1); Sodium Level 137 mmol/L (136-145)
[2021-12-08] MEDS: Insulin Lispro 100 UNIT/ML INSULN.PEN 10 UNIT SC ×2 (08:21→12:39)
[2021-12-08] MEDS: Insulin Lispro 100 UNIT/ML INSULN.PEN SC ×2 (08:21→12:39)
[2021-12-08] MEDS: Gabapentin 300 MG Capsule PO ×2 (08:22→12:42)
[2021-12-08 08:31] LABS: Bedside Glucose 151 mg/dL (74-106)
--- NOTE | 2021-12-08 08:34 | PCM.DC ---
Discharge Instructions Diet Discharge Diet: Low fat / Low cholesterol and 1800 Calorie Control Diet Activity Discharge Activity: May Not Drive Weight Bearing Status: Weight bearing as tolerated Dressing / Incision Call your doctor if you observe: Fever of 101 or Higher, Coldness, Increased Pain, Numbness or Tingling, Change in Color, Inability to urinate, Inability to have a bowel movement, Using more than 1 pad per hour, Shortness of breath, Dizziness, Fainting spells, Swelling in the ankles, Chest pain, Prolonged hiccupping, Increased palpitations (irregular heartbeat), Calf discomfort and Uncontrolled pain Follow Up Care Test Results: Test results from this visit will be discussed in further detail at your follow-up appointment, if applicable. Discharge Plan Admission Admit Date/Time: 12/06/21 12:52 Primary Reason for Your Visit: Acute right pyelonephritis Attending Provider: Placido Darby Primary Care Provider: Gerry Coreas Discharge Orders/Prescriptions Prescriptions: New sennosides-docusate sodium [Stool Softener-Stimulant Laxat] 8.6-50 mg Tablet 2 tab PO BID PRN PRN (Reason: Constipation) Qty: 0 RF: 0 ciprofloxacin HCl [Cipro] 500 mg tablet 500 mg PO BID Qty: 10 RF: 0 Continued albuterol sulfate [Ventolin HFA] 1 INHALER inhaler 2 puff inhalation Q4H PRN PRN (Reason: Shortness Of Breath) RF: 0 gabapentin [Neurontin] 300 MG capsule 300 mg PO TID RF: 0 ergocalciferol (vitamin D2) [Vitamin D2] 50,000 UNIT capsule 50,000 unit PO SA RF: 0 atorvastatin 40 MG tablet 40 mg PO QHS RF: 0 famotidine 40 MG tablet 20 mg PO BID RF: 0 metformin 500 MG tablet extended release 24 hr 2,000 mg PO DAILY RF: 0 insulin lispro 100 UNIT/ML insulin pen 12 unit SQ TIDCM RF: 0 liraglutide 0.6 MG/0.1 ML pen injector 1.8 mg SQ QHS RF: 0 acetaminophen 325 MG tablet 650 mg PO Q6H PRN PRN (Reason: Pain Score 1-10/Temp > 100.7 F) RF: 0 insulin glargine 100 UNITS/ML insulin pen 45 units SC QHS RF: 0 Changed ferrous sulfate 325 MG tablet 325 mg PO QODAY Qty: 0 RF: 0 Held lisinopril 10 MG tablet 10 mg PO DAILY RF: 0 Hold Instructions: Hold for 7 days and resume after BMP. Follow-up with PCP Referrals / Follow Up: Gerry Coreas MD [Primary Care Provider] - Disposition Disposition (needs filled in before D/C Order can be placed): Home, Self Care
[2021-12-08] MEDS: Nystatin Powder 15gm Bottle 1 APPLIC TOPICAL (10:20)
[2021-12-08] MEDS: Enoxaparin 30 MG/0.3 ML Syringe SC (10:20)
[2021-12-08] MEDS: Famotidine 20 MG Tablet PO (10:21)
--- NOTE | 2021-12-08 10:36 | PCM.DC.SUM ---
Providers Date of Admission: 12/06/21 Date of Discharge: 12/08/21 Primary Care Physician: Dr. Gerry Coreas MD Reason For Visit: UTI/PYELONEPHRITIS Diagnosis Discharge Diagnosis (1) Pyelonephritis: Status: Acute Code(s): N12 - Tubulo-interstitial nephritis, not specified as acute or chronic Medications at Discharge Home Medications albuterol sulfate [Ventolin HFA] 2 puff INHALATION Q4H PRN PRN 11/20/16 ergocalciferol (vitamin D2) [Vitamin D2] 50,000 unit PO SA 01/10/17 gabapentin [Neurontin] 300 mg PO TID 01/10/17 atorvastatin 40 mg PO QHS 11/26/20 famotidine 20 mg PO BID 11/26/20 insulin lispro 12 unit SQ TIDCM 11/26/20 liraglutide 1.8 mg SQ QHS 11/26/20 lisinopril 10 mg PO DAILY 11/26/20 metformin 2,000 mg PO DAILY 11/26/20 acetaminophen 650 mg PO Q6H PRN PRN tablet 11/29/20 insulin glargine 45 units SC QHS pen 11/29/20 ciprofloxacin HCl [Cipro] 500 mg PO BID #10 tab 12/08/21 ferrous sulfate 325 mg PO QODAY #0 tab 12/08/21 sennosides-docusate sodium [Stool Softener-Stimulant Laxat] 2 tab PO BID PRN PRN #0 tab 12/08/21 Hospital Course Summary of Care Provided Hospital Course: This 61-year-old female admitted with nausea, vomiting, right-sided flank pain and, sinus tachycardia from ED. 1. Right-sided pyelonephritis: Patient is being admitted MedSurg floor. qSOFA score 0. No hypotension. Patient was sinus tachycardic with leukocytosis and left shift. Patient had urine retention for 8 to 10 hours as per ER physician but she urinated in the ER and on the floor. Bladder scan every 4 hourly for patient was started on IV ceftriaxone. Urine culture sent from the ER. CT abdomen shows right-sided pyelonephritis and small left intrarenal nonobstructive inferior calculus 2 mm. 12/07: Overall patient seems responding with IV antibiotic. She had fever 101.2 from 12/07. After that she remained afebrile 12/08: No fever chills nausea vomiting. No burning micturition. Patient wants to go home. Urine culture shows E. coli sensitive to Cipro. Patient is discharged on Cipro 500 mg twice daily for 5 more days to complete a total of 8 days of antibiotics. 2. MARCO ANTONIO: Patient baseline creatinine has 0.9-1.09. Patient admitted BUN/creatinine 42/2.03 exact etiology unclear possible prerenal from nausea and vomiting and infection. Urine culture and blood culture received pending. 12/08: Creatinine improved from 2.03-1.43. Hold lisinopril for 7 more days follow-up with BMP with PCP for retention. 3. Diabetes mellitus type 2 with hyperglycemia: Glucose 155. Patient on glargine Humalog insulin at home. Monitor Accu-Cheks and titrate the dose accordingly. Accu-Chek before meals and at bedtime encouraged Humalog sliding scale 4. Essential hypertension: 5. Chronic intermittent asthma, controlled. Patient does not have signs symptoms of acute asthma exacerbation 6. Super morbid obesity: BMI 60.3 kg/m?. Patient has degenerative arthritis moderate atrophy of musculoskeletal muscles VTE prophylaxis high risk: Enoxaparin 40 mg SQ twice daily. Discontinue if platelet count drops less than 50,000 or hemoglobin less than 8 g% Discharge medication reconciliation done. Discharge follow-up instructions completed. Discharge process discussed with the patient and all questions were answered to patient's satisfaction. Total time spent, exact 35 minutes on discharge meds reconciliation, examination, coordination of care with nurses and ancillary staff, review of imaging and blood test and discussion with the patient on follow-up instructions. Living will/advanced directive/end of life care: Patient does not have living will or advanced directive. After discussion of benefits/risks procedures involved with full code, DNR CC arrest and DNR CC, the patient opted for full code. Her daughter is next of kin Patient does want artificial life support including intubation, tube feed, ventilator and/chest compression, central venous catheter, vasopressor and DC shock if needed Physical Exam Narrative Seen and examined. Patient right renal angle pain has resolved. Tachycardia resolved. Feeling better no burning micturition. Wants to go home. General: Alert, Oriented x3, Cooperative, supermorbid obesity BMI 61.7 kg/m? HEENT: Atraumatic, PERRLA, EOMI, Normocephalic Oral: Oral mucosa moist. No Gingival or Mucosal Lesions/ Ulcerations Neck: Supple, No JVD, Negative Carotid Bruits Lungs: Air entry diminished in bilateral lung bases. No crepitation/rhonchi Cardiovascular: Sinus tach resolved, normal S1, Normal S2, No murmurs Abdomen: Bowel Sounds Present, Soft, Non Tender, Non-Distended : right renal angle tenderness, improved. No left angle tenderness. No suprapubic tenderness. Extremities: No edema, Capillary Refill Less than 3 Seconds Skin: No rashes, No breakdown Musculoskeletal: Moderate atrophy of skeletal muscles of extremities. ROM is restricted. 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 Neurological: Cranial nerves II-XII grossly intact, DTR 2+/4 and Symmetrical, muscle strength 4+/5 at major joints. Psych/Mental Status: Flat affect Weight / BMI Weight Weight: 305 lb Body Mass Index (BMI) 60.2 ABG / Lab / Microbiology Data Result Diagrams: 12/08/21 04:03 12/08/21 04:03 Laboratory: Laboratory Results - last 24 hr 12/07/21 11:13: POC Glucose 131 H 12/07/21 13:12: POC Glucose 166 H 12/07/21 16:03: POC Glucose 134 H 12/07/21 16:35: Phosphorus 3.3, Magnesium 2.2 12/07/21 22:20: POC Glucose 109 H 12/08/21 04:03: WBC 11.3 H, RBC 4.14 L, Hgb 10.3 L, Hct 34.2 L, MCV 82.6, MCH 24.9 L, MCHC 30.1 L, RDW Std Deviation 47.2 H, RDW Coeff of Adi 15.5 H, Plt Count 262, MPV 9.8, Immature Gran % (Auto) 0.400, Neut % (Auto) 82.4 H, Lymph % (Auto) 6.0 L, [place] % (Auto) 8.7, Eos % (Auto) 1.9, Baso % (Auto) 0.6, Absolute Neuts (auto) 9.3 H, Absolute Lymphs (auto) 0.68 L, Nucleated RBC % 0 12/08/21 04:03: Sodium 137, Potassium 4.8, Chloride 107, Carbon Dioxide 24.0, Anion Gap 6, BUN 26 H, Creatinine 1.43 H, Estim Creat Clear Calc 92.01, Est GFR (MDRD) Af Amer 48 L, Est GFR (MDRD) Non-Af 40 L, BUN/Creatinine Ratio 18.2, Glucose 122 H, Calcium 8.2 L 12/08/21 08:19: POC Glucose 151 H Microbiology: Microbiology 12/06/21 11:20 Urine Catheter - Catheter Urine Culture - Final Presumptive E. coli D/C Instructions Discharge Diet: Low fat / Low cholesterol and 1800 Calorie Control Diet Weight Bearing Status: Weight bearing as tolerated Call your doctor if you observe: Fever of 101 or Higher, Coldness, Increased Pain, Numbness or Tingling, Change in Color, Inability to urinate, Inability to have a bowel movement, Using more than 1 pad per hour, Shortness of breath, Dizziness, Fainting spells, Swelling in the ankles, Chest pain, Prolonged hiccupping, Increased palpitations (irregular heartbeat), Calf discomfort and Uncontrolled pain Meaningful Use Info Meaningful Use Diagnoses (Choose all that apply): None applicable Discharge Plan Admission Admit Date/Time: 12/06/21 12:52 Primary Reason for Your Visit: Acute right pyelonephritis Attending Provider: Placido Darby Primary Care Provider: Gerry Coreas Discharge Orders/Prescriptions Prescriptions: New sennosides-docusate sodium [Stool Softener-Stimulant Laxat] 8.6-50 mg Tablet 2 tab PO BID PRN PRN (Reason: Constipation) Qty: 0 RF: 0 ciprofloxacin HCl [Cipro] 500 mg tablet 500 mg PO BID Qty: 10 RF: 0 Continued albuterol sulfate [Ventolin HFA] 1 INHALER inhaler 2 puff inhalation Q4H PRN PRN (Reason: Shortness Of Breath) RF: 0 gabapentin [Neurontin] 300 MG capsule 300 mg PO TID RF: 0 ergocalciferol (vitamin D2) [Vitamin D2] 50,000 UNIT capsule 50,000 unit PO SA RF: 0 atorvastatin 40 MG tablet 40 mg PO QHS RF: 0 famotidine 40 MG tablet 20 mg PO BID RF: 0 metformin 500 MG tablet extended release 24 hr 2,000 mg PO DAILY RF: 0 insulin lispro 100 UNIT/ML insulin pen 12 unit SQ TIDCM RF: 0 liraglutide 0.6 MG/0.1 ML pen injector 1.8 mg SQ QHS RF: 0 acetaminophen 325 MG tablet 650 mg PO Q6H PRN PRN (Reason: Pain Score 1-10/Temp > 100.7 F) RF: 0 insulin glargine 100 UNITS/ML insulin pen 45 units SC QHS RF: 0 Changed ferrous sulfate 325 MG tablet 325 mg PO QODAY Qty: 0 RF: 0 Held lisinopril 10 MG tablet 10 mg PO DAILY RF: 0 Hold Instructions: Hold for 7 days and resume after BMP. Follow-up with PCP Referrals / Follow Up: Gerry Coreas MD [Primary Care Provider] - Disposition Disposition (needs filled in before D/C Order can be placed): Home, Self Care Charges/Coding Visit Charges Inpatient E&M: 49410 Disch Hosp
--- NOTE | 2021-12-08 10:47 | CASEMGMT ---
Per nursing patient will need 2lpm of oxygen to go home. Patient has home oxygen through [employer] for 3lpm. RN CM in to updated patient. Patient believes she has portable tank at home and will have daughter bring it in. Patient voiced no other concerns at this time. CM will continue to follow this patient and plan for a safe discharge.
[2021-12-08 12:00] LABS: Bedside Glucose 151 mg/dL (74-106)
[2021-12-08] MEDS: Ferrous Sulfate 325 MG Tablet PO (12:41)
== END 2021-12-08 15:15 | disposition home or self-care (01) | DRG 463 ==
LOC: ED 12:36 → MS3 13:05
PROVIDERS: Nurse Practitioner Family; Admitting Provider Internal Medicine; Emergency Provider Emergency Medicine; PCP Family Medicine; Visit Provider Internal Medicine
DX: N12 Tubulo-interstitial nephritis, not specified as acute or chronic (principal); N17.9 Acute kidney failure, unspecified; E11.65 Type 2 diabetes mellitus with hyperglycemia; Z68.44 Body mass index [BMI] 60.0-69.9, adult; E66.01 Morbid (severe) obesity due to excess calories; Z79.4 Long term (current) use of insulin; E78.5 Hyperlipidemia, unspecified; B96.20 Unspecified Escherichia coli [E. coli] as the cause of diseases classified elsewhere; I10 Essential (primary) hypertension; M19.90 Unspecified osteoarthritis, unspecified site; J45.20 Mild intermittent asthma, uncomplicated; E83.42 Hypomagnesemia; G47.30 Sleep apnea, unspecified; K21.9 Gastro-esophageal reflux disease without esophagitis; R00.0 Tachycardia, unspecified; Z79.899 Other long term (current) drug therapy
CPT/HCPCS: 36415; 74176; 80048; 80076; 81001; 82962; 83605; 83735; 84100; 85025; 87040; 87086; 87088; 87186; 93005; 96361; 96365; 96366; 96367; 96372; 96375; 96376; 97110; 97162; 97166; 97530; 97535; 97802; 99218; 99251; 99285; J7030; A4216; G0378; G0463; J0696; J2405

== ENCOUNTER 2022-07-29 21:03 | Emergency (ER) | payer MEDICAID, SELFPAY ==
[2022-07-29 21:04] VITALS: BP 155/48; PULSE 116; RESP 20; TEMP 36.8; O2SAT 94; BMI 64.3
[2022-07-29 21:16] VITALS: O2SAT 92
--- NOTE | 2022-07-29 21:34 | EKG12_ITS ---
Test Reason : SOB Blood Pressure : / mmHG Vent. Rate : 115 BPM Atrial Rate : 115 BPM P-R Int : 146 ms QRS Dur : 080 ms QT Int : 320 ms P-R-T Axes : 028 018 104 degrees QTc Int : 442 ms Sinus tachycardia T wave abnormality, consider lateral ischemia Abnormal ECG Confirmed by JOVAN RUIZ, GENIA ([id number]), editorial clerk DELLA PIÑA ([id number]) on 08/01/2022 11:23:15 AM Referred By: Confirmed By:GENIA ALDANA MD
--- NOTE | 2022-07-29 21:41 | EX.ED.VIS.UR ---
HPI HPI - URI History of Present Illness Chief Complaint: Shortness of Breath Informant: patient Onset/Context/Timing Onset: Weeks Context: Gradual Onset Timing: Intermittent Current Severity: Mild Maximum Severity: Mild Associated Symptoms Associated Symptoms: Positive for Nasal Congestion, Nausea, Vomiting, Shortness of Breath and Nonproductive cough; Negative for Diarrhea, Chest Pain or Hemoptysis Narrative Narrative: 62-year-old female history of diabetes. States her grandson and influenza several weeks ago. The last couple weeks she has had URI symptoms. Subjective fever and chills. Nausea and vomiting. Nonproductive cough. Trouble breathing. No chest pain. No hemoptysis. No leg pain or swelling. States she was expected to be feeling better by now. States her grandson also tested negative for COVID. Prior similar symptoms: Yes Recent Illness/Hospitalization: No ROS ROS ED ROS Narrative Cough. Shortness of breath. Nausea vomiting. Fever or chills. Review of Systems ROS Unobtainable: Denies due to encephalopathy Constitutional Constitutional ED: Reports chills, fever(s) and subjective Eyes Eyes: Denies blurry vision ENT ENT ED: Denies ear pain, rhinorrhea or sore throat Cardiovascular Cardiovascular: Denies chest pain, palpitations or racing heartbeat Respiratory/Chest Respiratory/Chest: Reports cough and dyspnea; Denies dyspnea on exertion or sputum Gastrointestinal Gastrointestinal: Reports nausea and vomiting; Denies abdominal pain, constipation, diarrhea or melena Genitourinary Genitourinary ED: Denies dysuria or hematuria Musculoskeletal Musculoskeletal: Denies arthralgias Integumentary Denies abscess Neurologic Neurologic: Denies headache(s) Endocrine Endocrinology: Denies cold intolerance Hematologic/Lymphatic Hematologic/Lymphatic: Denies easy bleeding Allergic/Immunologic Allergic/Immunologic ED: Denies mouth swelling or tongue swelling [facility] Medical History Asthma Diabetes GERD (gastroesophageal reflux disease) Hyperlipidemia Hypertension Osteoporosis Pyelonephritis Sleep apnea Home Medications albuterol sulfate 90 mcg/actuation aerosol inhaler (Ventolin HFA) 2 puff inhalation Q4H PRN PRN Shortness Of Breath 11/20/16 [History Last Taken Unknown] gabapentin 300 mg capsule (Neurontin) 300 mg PO TID NERVE PAIN 01/10/17 [History Last Taken 11/25/20] atorvastatin 40 mg tablet 40 mg PO QHS CHOLESTEROL 11/26/20 [History Last Taken 11/25/20] insulin lispro 100 unit/mL subcutaneous pen 12 unit SQ TIDCM DM 11/26/20 [History Last Taken 11/26/20] liraglutide 0.6 mg/0.1 mL (18 mg/3 mL) subcutaneous pen injector 1.8 mg SQ QHS DM 11/26/20 [History Last Taken 11/25/20] metformin 500 mg tablet,extended release 24 hr 2,000 mg PO DAILY DM 11/26/20 [History Last Taken 11/25/20] acetaminophen 325 mg tablet 650 mg PO Q6H PRN PRN Pain Score 1-10/Temp > 100.7 F 11/29/20 [Rx Last Taken Unknown] ferrous sulfate 325 mg (65 mg iron) tablet 325 mg PO QODAY SUPPLEMENT #0 tabs 12/08/21 [Rx Last Taken 11/25/20] insulin degludec 100 unit/mL (3 mL) subcutaneous pen (Tresiba FlexTouch U-100 insulin) 30 unit subcut DAILY 07/29/22 [History Last Taken Unknown] prednisone 20 mg tablet 40 mg PO DAILY 5 days #10 tabs 07/29/22 [Rx Last Taken Unknown] vitamin A-vitamin C-vit E-min tablet 1 tab PO DAILY 07/29/22 [History Last Taken Unknown] Allergy/AdvReac Type Severity Reaction Status Date / Time aspirin Allergy NEEDS Verified 03/14/22 16:34 FOLLOW-UP bee pollen Allergy Rash Verified 12/20/20 08:11 hydrogen peroxide Allergy Rash Verified 12/20/20 08:11 egg AdvReac Diarrhea Verified 12/20/20 08:11 Social History Smoking Status: Never smoker EXAM Physical Exam Narrative Exam Narrative: 62-year-old female no acute distress. H EENT exam mild cavities members. Neck nontender no JVD. Lungs clear to auscultation bilaterally. No rales, rhonchi or wheezing. Equal symmetrical. Heart regular rhythm rate about 110 no murmur. Abdomen soft nontender normal bowel sounds no peritoneal signs. Moving all 4 extremities. Calves are nontender without edema or cords. Neurologically is awake and alert with no focal motor deficits. Const Vital Signs: 07/29/22 21:04 07/29/22 21:16 07/29/22 21:52 Temperature 98.3 F Temperature Source Oral Pulse Rate 116 H 114 H Respiratory Rate 20 H 18 Respiratory Effort Normal Non-Labored Respiratory Depth Normal Respiratory Pattern Normal Blood Pressure 155/48 H Blood Pressure Mean 83 Pulse Ox 94 Oxygen Delivery Method Room Air Room Air Oxygen Flow Rate (L/min) 07/29/22 22:27 07/29/22 22:35 Temperature Temperature Source Pulse Rate 118 H Respiratory Rate 16 Respiratory Effort Respiratory Depth Respiratory Pattern Blood Pressure 127/87 H Blood Pressure Mean 100 Pulse Ox 95 93 Oxygen Delivery Method Nasal Cannula Nasal Cannula Oxygen Flow Rate (L/min) 2 2 Positive well nourished, well developed and obese; Negative for cachectic or contractures General Appearance ED: well developed and NAD; Negative for cachectic, contractures, cyanotic, diaphoretic or pallor Nutritional Appearance: obese; Negative for cachectic HEENT Reports dry mucous membranes; Denies moist mucous membranes normocephalic and atraumatic Face and Sinus: Negative for sinus tenderness or maxillary instability Mouth ED: Yes dry mucous membranes Mouth: dry mucous membranes Throat: posterior oropharynx normal Eyes PERRL and EOMs intact bilaterally General Eye ED: Negative for pale conjunctiva or scleral icterus Neck no lymphadenopathy, supple, no meningeal signs and no JVD General: Negative for anterior neck swelling or lymphadenopathy Resp normal respiratory effort and clear to auscultation bilaterally Effort and Inspection: Negative for retractions Auscultation: Negative for rales, rhonchi or wheezes Cardio S1 normal heart sound, S2 normal heart sound and no murmurs Rate: regular rate Rhythm: regular rhythm GI non-tender, non-distended and no masses Inspection: Negative for abdominal distention Palpation: soft; Negative for tender or guarding Back/Spine no CVA tenderness and normal ROM General Back: Negative for CVA tenderness Cervical Spine: Negative for cervical spine tenderness Thoracic Spine / Upper Back: Negative for thoracic spinal tenderness Lumbar Spine / Lower Back: Negative for lumbar spinal tenderness Sacrum: Negative for tenderness Extremity normal to inspection and full ROM General Extremety ED: Negative for cyanosis or tenderness General Extremity: Negative for cyanosis Neuro oriented x3, CN's II-XII intact bilaterally and no sensory deficits noted Sensorium / Orientation: alert, oriented to person, oriented to place and oriented to time; Negative for orientation impaired, lethargic or stuporous Motor Exam: strength 5/5 throughout; Negative for general weakness or strength abnormal Psych mental status grossly normal Appearance: Negative for other Attitude: No agitated Mood & Affect: Negative for depressed, anxious or tearful Skin General Skin Exam: Negative for jaundice or pallor Lesions: no lesions Rashes: no rashes Trauma: Negative for abrasion MDM MDM MDM Narrative Medical decision making narrative: 62-year-old with URI symptoms for 2 weeks suspect influenza rule out COVID versus pneumonia. X-ray and labs are being obtained. Treated with an aerosol. Repeat exam patient doing well 11:30 PM. She will be given a dose of prednisone here. Prescription for home. She did not need any nausea medication for home. She feels comfortable being discharged and will follow up with her primary care physician. We went over all of her test results. Lab Data Attestation: I reviewed the patient's lab results. Lab results narrative: Negative for both flu and COVID but she has been sick now 1 to 2 weeks so they may be false negatives. CBC showed elevated white count 17.2. H&H of 13 and 4 4.. Electrolytes unremarkable. Gap of 4. BUN 18 creatinine 1.1. Glucose of 108. Chest x-ray chronic changes no acute process. Labs: Laboratory Results - last 24 hr 07/29/22 07/29/22 22:35 22:35 WBC 17.2 H RBC 5.17 Hgb 13.0 Hct 44.0 MCV 85.1 MCH 25.1 L MCHC 29.5 L RDW Std Deviation 46.0 H RDW Coeff of Adi 14.8 H Plt Count 344 MPV 10.3 Immature Gran % (Auto) 0.200 Neut % (Auto) 79.3 H Lymph % (Auto) 10.0 L [place] % (Auto) 8.0 Eos % (Auto) 1.7 Baso % (Auto) 0.8 Absolute Neuts (auto) 13.6 H Absolute Lymphs (auto) 1.72 Nucleated RBC % 0 Sodium 137 Potassium 4.5 Chloride 104 Carbon Dioxide 29.0 Anion Gap 4 L BUN 18 Creatinine 1.14 H Estim Creat Clear Calc 119.71 Est GFR (MDRD) Af Amer 63 Est GFR (MDRD) Non-Af 52 L BUN/Creatinine Ratio 15.8 Glucose 108 H Calcium 9.5 Radiography Diagnostic Testing: Clinical Impression(s) from Imaging Studies Chest X-Ray 07/29/22 22:14 IMPRESSION: Poor inspiration with some bibasilar atelectasis per Electronically Signed: Isidoro Larson MD at 22:38 EST , Chest x-ray, portable, single view interpreted by myself and the radiologist shows no acute abnormality. No pneumonia. No infiltrate. No failure. Rhythm Strip Rhythm Strip: Sinus Tach Rate: 115 Ectopy: None EKG Initial EKG: Attestation: I personally reviewed and interpreted this EKG as follows: Interpretation: No Acute Injury Pattern and Sinus Tachycardia Comments: Sinus tachycardia rate of 115 no acute signs of [place] or ischemia. Discharge Plan Triage Chief Complaint: Shortness of Breath ED Provider: Mahamed Deleon Dx/Rx/DC Orders Clinical Impression: Viral syndrome, Asthma Instructions: ED Viral Syndrome (Adult), Asthma Prescriptions: New prednisone 20 mg tablet 40 mg PO DAILY 5 Days Qty: 10 0RF No Action albuterol sulfate [Ventolin HFA] 1 INHALER inhaler 2 puff inhalation Q4H PRN PRN (Reason: Shortness Of Breath) gabapentin [Neurontin] 300 MG capsule 300 mg PO TID atorvastatin 40 MG tablet 40 mg PO QHS metformin 500 MG tablet extended release 24 hr 2,000 mg PO DAILY insulin lispro 100 UNIT/ML insulin pen 12 unit SQ TIDCM liraglutide 0.6 MG/0.1 ML pen injector 1.8 mg SQ QHS acetaminophen 325 MG tablet 650 mg PO Q6H PRN PRN (Reason: Pain Score 1-10/Temp > 100.7 F) 0RF ferrous sulfate 325 MG tablet 325 mg PO QODAY Qty: 0 0RF Ocuvite Tablet 1 tab PO DAILY insulin degludec [Tresiba FlexTouch U-100] 100 unit/mL (3 mL) insulin pen 30 unit SUBCUT DAILY Primary Care Provider: Gerry Coreas Referrals: Gerry Coreas MD [Primary Care Provider] - As soon as possible Activity Restrictions/Additional Instructions: Plenty of fluids and rest. Prednisone daily the next 5 days starting Sunday lunch. Use your inhaler as needed Follow-up with your doctor to ensure you are improving. Your chest x-ray and labs today were unremarkable. Disposition Disposition: Home, Self Care
[2022-07-29] MEDS: Ipratropium/Albuterol Sulfate 3 ML AMPUL.NEB INHALATION (21:51)
[2022-07-29 21:52] VITALS: PULSE 114; RESP 18
--- NOTE | 2022-07-29 22:14 | RAD_ITS ---
STUDY: X-RAY CHEST REASON FOR EXAM: Female, 62 years old. dyspnea TECHNIQUE: Single AP portable view of the chest. COMPARISON: 11/26/2020 FINDINGS: Poor inspiration with some bibasilar atelectasis. There is no demonstrated pleural abnormality. There is moderate cardiac enlargement. Normal mediastinum and chante. Normal visualized pulmonary arteries. Normal visualized aortic arch and descending thoracic aorta. Normal visualized thoracic spine. Normal visualized ribs, clavicles, and shoulders. There is no demonstrated abnormality of the visualized soft tissue structures of the upper abdomen. RAD/Chest 1 View (Portable) IMPRESSION: Poor inspiration with some bibasilar atelectasis per Electronically Signed: Isidoro Larson MD at 22:38 EST ,
[2022-07-29 22:27] VITALS: O2SAT 95
[2022-07-29] MEDS: 0.9% Normal Saline 1,000 ML 1000 ML IV (22:31)
[2022-07-29 22:35] VITALS: BP 127/87; PULSE 118; RESP 16; O2SAT 93
[2022-07-29 23:08] LABS: Absolute Lymphocyte Count 1.72 X10^3/uL (0.83-4.51); Absolute Neutrophil Count 13.6 X10^3/uL (2.0-7.7); Basophil# 0.14 X10^3/uL; Basophil% 0.8 % (0-1); Eosinophil# 0.29 X10^3/uL; Eosinophils% 1.7 % (0-5); Lymphocyte # 1.72 X10^3/ul (0.83-4.51); Mean Corp Hgb Conc 29.5 g/dL (32-36); Mean Corpuscular Hgb 25.1 pg (27.0-32.0); Mean Corpuscular Volume 85.1 fL (81-99); Mean Platelet Vol. 10.3 fl (6.2-12.0); Monocyte# 1.37 X10^3/uL; NRBC Flagged by Analyzer 0 % (0-5); Neutrophil # 13.62 X10^3/uL (2.7-7.7); Neutrophil % 79.3 % (47-70); Platelet Count 344 K/mm3 (150-450); RBC Distribution Width CV 14.8 % (11.6-14.6); Red Blood Count 5.17 M/mm3 (4.2-5.4); White Blood Count 17.2 K/mm3 (4.4-11.0)
[2022-07-29 23:14] LABS: Anion Gap 4 (5-15); BUN 18 mg/dL (7-18); BUN/Creat Ratio 15.8 RATIO (10-20); Calcium,Total 9.5 mg/dL (8.5-10.1); Chloride 104 mmol/L (98-107); Creatinine, Serum 1.14 mg/dL (0.55-1.02); EST Glomerular Filtration Rate 52 mL/min (>60); Est Glom Filt Rate - Afr Amer 63 mL/min (>60); Estimated Creatinine Clearance 119.71 ml/min; Glucose 108 mg/dL (74-106); Potassium 4.5 mmol/L (3.5-5.1); Sodium Level 137 mmol/L (136-145)
[2022-07-29] MEDS: predniSONE 20 MG Tablet 40 MG PO (23:43)
[2022-07-29 23:54] VITALS: BP 102/78; PULSE 98; RESP 18; O2SAT 98
== END 2022-07-29 23:55 | disposition home or self-care (01) ==
PROVIDERS: Emergency Provider Emergency Medicine; PCP Family Medicine; Visit Provider Emergency Medicine
DX: J45.909 Unspecified asthma, uncomplicated (principal); E11.9 Type 2 diabetes mellitus without complications; Z79.4 Long term (current) use of insulin; B34.9 Viral infection, unspecified; R11.2 Nausea with vomiting, unspecified; E78.5 Hyperlipidemia, unspecified; I10 Essential (primary) hypertension; R06.02 Shortness of breath; Z79.52 Long term (current) use of systemic steroids; E66.9 Obesity, unspecified; Z20.822 Contact with and (suspected) exposure to COVID-19
CPT/HCPCS: 71045; 80048; 85025; 87428; 93005; 94640; 96360; 99285; A4216

== ENCOUNTER 2023-02-15 18:23 | Emergency (ER) | payer MEDICAID, SELFPAY ==
[2023-02-15 18:25] VITALS: BP 164/78; PULSE 112; RESP 18; TEMP 37.1; O2SAT 95; BMI 65.7
--- NOTE | 2023-02-15 18:33 | RAD_ITS ---
STUDY: X-RAY - LEFT HAND REASON FOR EXAM: Female, 62 years old. fall TECHNIQUE: 3 view(s) of the hand. COMPARISON: None. FINDINGS: Normal radiocarpal articulation. Normal distal radioulnar joint. Normal visualized carpal bones. Normal carpal articulations Normal carpometacarpal articulation of the thumb. Normal second through fifth carpometacarpal joints. Normal metacarpi. Normal metacarpophalangeal joint of the thumb. Normal interphalangeal joint of the thumb. Normal proximal and distal phalanges of the thumb. Normal metacarpophalangeal joints of the second through fifth fingers. Normal proximal and distal interphalangeal joints of the second through fifth fingers. Normal phalanges of the second through fifth fingers. The soft tissue structures are unremarkable. RAD/Hand Min 3 Views IMPRESSION: Normal x-ray examination of the hand. Electronically Signed: Isidoro Larson MD at 19:33 EDT ,
--- NOTE | 2023-02-15 18:37 | RAD_ITS ---
STUDY: X-RAY - LEFT KNEE REASON FOR EXAM: Female, 62 years old. fall TECHNIQUE: 3 view(s) of the knee. COMPARISON: None. FINDINGS: Normal visualized distal femur. Normal visualized proximal tibia and fibula. Normal proximal tibiofibular articulation. There is moderate degenerative arthrosis of the medial femorotibial compartment with moderate joint space narrowing. There is mild degenerative arthrosis of the lateral femorotibial compartment. There is mild degenerative arthrosis of the patellofemoral articulation. The soft tissue structures are unremarkable. RAD/Knee 3 Views IMPRESSION: No acute fracture or dislocation Moderate arthrosis. Electronically Signed: Isidoro Larson MD at 19:34 EDT ,
--- NOTE | 2023-02-15 18:45 | RAD_ITS ---
STUDY: X-RAY - LEFT RADIUS AND ULNA REASON FOR EXAM: Female, 62 years old. fall TECHNIQUE: 2 view(s) of the forearm. COMPARISON: None. FINDINGS: There is no demonstrated soft tissue swelling. Normal visualized radius. Normal visualized ulna. RAD/Forearm 2 Views IMPRESSION: Normal x-ray examination of the radius and ulna. Electronically Signed: Isidoro Larson MD at 19:31 EDT ,
--- NOTE | 2023-02-15 18:58 | RAD_ITS ---
STUDY: X-RAY - LEFT ELBOW REASON FOR EXAM: Female, 62 years old. PAIN TECHNIQUE: 3 view(s) of the elbow. COMPARISON: None. FINDINGS: Normal visualized humerus, radius and ulna. There is degenerative arthrosis of the radiocapitellar and ulnotrochlear articulations. The soft tissue structures are unremarkable. RAD/Elbow min 3 Views IMPRESSION: No acute fracture or dislocation. Moderate arthrosis. Electronically Signed: Isidoro Larson MD at 19:32 EDT ,
--- NOTE | 2023-02-15 18:59 | EX.ED.DYSGE1 ---
HPI <BOGDAN Recio - Last Filed: 02/15/23 19:55> History of Present Illness Chief Complaint: Fall Narrative Narrative: Patient is a 62-year-old female with history of diabetes, asthma, morbid obesity who presents to the emergency department after a fall on her left arm falling from her electric wheelchair. Patient does relate it to her house. However patient states whenever she is out in public she usually uses a electronic rollator. She was going down her wrap and believes that her chair was out of battery and just stopped pulling her forward. She denies any head or neck injury. She denies any loss of conscious. Most of her pain is around her left arm as well as her left knee. Patient has pain from her left hand to her left elbow. Patient's left knee is also tender to the touch [facility] <BOGDAN Recio - Last Filed: 02/15/23 19:55> [facility] Medical History Asthma Diabetes GERD (gastroesophageal reflux disease) Hyperlipidemia Hypertension Osteoporosis Pyelonephritis Sleep apnea Home Medications albuterol sulfate 90 mcg/actuation aerosol inhaler (Ventolin HFA) 2 puff inhalation Q4H PRN PRN Shortness Of Breath 11/20/16 [History Last Taken Unknown] gabapentin 300 mg capsule (Neurontin) 300 mg PO TID NERVE PAIN 01/10/17 [History Last Taken 02/15/23] atorvastatin 40 mg tablet 40 mg PO QHS CHOLESTEROL 11/26/20 [History Last Taken 02/14/23] insulin lispro 100 unit/mL subcutaneous pen 12 unit SQ TIDCM DM 11/26/20 [History Last Taken 02/15/23] liraglutide 0.6 mg/0.1 mL (18 mg/3 mL) subcutaneous pen injector 1.8 mg SQ QHS DM 11/26/20 [History Last Taken 11/25/20] metformin 500 mg tablet,extended release 24 hr 2,000 mg PO DAILY DM 11/26/20 [History Last Taken 02/15/23] acetaminophen 325 mg tablet 650 mg (2 x 325 mg) PO Q6H PRN PRN Pain Score 1-10/Temp > 100.7 F 11/29/20 [Rx Last Taken Unknown] ferrous sulfate 325 mg (65 mg iron) tablet 325 mg PO QODAY SUPPLEMENT #0 tabs 12/08/21 [Rx Last Taken 02/15/23] insulin degludec 100 unit/mL (3 mL) subcutaneous pen (Tresiba FlexTouch U-100 insulin) 30 unit subcut DAILY 07/29/22 [History Last Taken 02/15/23] prednisone 20 mg tablet 40 mg (2 x 20 mg) PO DAILY 5 days #10 tabs 07/29/22 [Rx Last Taken Unknown] vitamin A-vitamin C-vit E-min tablet 1 tab PO DAILY 07/29/22 [History Last Taken 02/15/23] insulin glargine 100 unit/mL (3 mL) subcutaneous pen (Lantus Solostar U-100 Insulin) 40 unit subcut QHS 02/15/23 [History Last Taken 02/14/23] Allergy/AdvReac Type Severity Reaction Status Date / Time aspirin Allergy NEEDS Verified 02/15/23 18:25 FOLLOW-UP bee pollen Allergy Rash Verified 02/15/23 18:25 chestnut Allergy Anaphylaxis Verified 02/15/23 18:25 hydrogen peroxide Allergy Rash Verified 02/15/23 18:25 egg AdvReac Diarrhea Verified 02/15/23 18:25 tramadol AdvReac Abd Verified 02/15/23 18:25 cramps/diarrhea Social History Smoking Status: Never smoker ROS <BOGDAN Recio - Last Filed: 02/15/23 19:55> ROS ED ROS Narrative Constitutional: Negative for fever, chills, weight loss, weakness Eyes: Negative for vision loss, vision change, double vision ENT: Negative for any sore throat, ear pain, congestion Cardiovascular: Negative for any chest pain, tightness, palpitations Respiratory: Negative for any cough, sputum production, hemoptysis, dyspnea, dyspnea on exertion, orthopnea Gastrointestinal: Negative for any abdominal pain, nausea, vomiting, diarrhea, constipation, blood in stool, blood in vomit : Negative for any urinary frequency, dysuria, retention, blood in urine Muscle skeletal: Negative for any muscle joint pain, stiffness, myalgias, arthralgias, neck pain, back pain. Positive for left arm pain, left knee pain Neurological: Negative for any headache, syncope, numbness or tingling, dizziness Skin: Negative for any rashes, lumps, itching, abrasions, lacerations Psychiatric: Negative for any depression, anxiety, stress, suicidal ideation, homicidal ideation Hematologic: Negative for any easy bruising, excessive bruising, easy bleeding Allergies: Negative for any eczema, hives, rash EXAM <BOGDAN Recio - Last Filed: 02/15/23 19:55> Physical Exam Narrative Exam Narrative: Vital signs reviewed. HEET: Head normocephalic atraumatic, TMs clear bilaterally. Posterior pharynx is clear, moist mucous membranes. Nares clear bilaterally. Neck: Supple with no lymphadenopathy or tenderness. No signs of meningismus, negative jolt sign. Cardiac: Regular rate and rhythm no murmurs gallops or rubs, equal peripheral pulses bilaterally. Respiratory: Lungs clear to auscultation bilaterally. No chest tenderness. Abdomen: Soft, nontender, nondistended. No abdominal bruit or pulsatile masses. No hepatosplenomegaly Extremities: Patient's left arm shows no obvious signs of deformity. There is +2 radial pulse. Patient does have pain on palpation to the wrist, as well as the forearm, worse midline. Minimal pain to the left elbow, olecranon is unremarkable, no pain on palpation. Patient's left knee does show an intact extensor magnesium. Secondary to the patient's obesity is difficult to tell if there is any ecchymosis or edema. Neuro: Cranial nerves II through XII intact, no focal neurological deficits. Skin: Clean dry and intact with no rash, purpura, petechiae, vesicles or pustules. Backs/flank: No CVA tenderness, no midline spinal tenderness, no deformity. Psych: Normal mood and affect. No SI, HI or acute psychosis. Const Vital Signs: 02/15/23 18:25 02/15/23 18:30 02/15/23 19:55 Temperature 98.8 F Temperature Source Temporal Pulse Rate 112 H 106 H Respiratory Rate 18 16 Respiratory Effort Normal Non-Labored Respiratory Depth Normal Respiratory Pattern Normal Blood Pressure 164/78 H 132/105 H Blood Pressure Mean 106 Pulse Ox 95 94 Oxygen Delivery Method Room Air Room Air <Dr. Cristofer Tabares MD - Last Filed: 02/15/23 20:44> Physical Exam Const Vital Signs: 02/15/23 18:25 02/15/23 18:30 02/15/23 19:55 Temperature 98.8 F Temperature Source Temporal Pulse Rate 112 H 106 H Respiratory Rate 18 16 Respiratory Effort Normal Non-Labored Respiratory Depth Normal Respiratory Pattern Normal Blood Pressure 164/78 H 132/105 H Blood Pressure Mean 106 Pulse Ox 95 94 Oxygen Delivery Method Room Air Room Air MDM <Rob Lambert [employer] - Last Filed: 02/15/23 19:55> MDM Radiography Diagnostic Testing: Clinical Impression(s) from Imaging Studies Hand X-Ray 02/15/23 18:33 IMPRESSION: Normal x-ray examination of the hand. Electronically Signed: Isidoro Larson MD at 19:33 EDT Reading Location ID and State: [id number] / [employer] Tel , Service support , Knee X-Ray 02/15/23 18:37 IMPRESSION: No acute fracture or dislocation Moderate arthrosis. Electronically Signed: Isidoro Larson MD at 19:34 EDT Reading Location ID and State: [id number] / [employer] Tel , Service support , Forearm X-Ray 02/15/23 18:45 IMPRESSION: Normal x-ray examination of the radius and ulna. Electronically Signed: Isidoro Larson MD at 19:31 EDT Reading Location ID and State: [id number] / [employer] Tel , Service support , Elbow X-Ray 02/15/23 18:58 IMPRESSION: No acute fracture or dislocation. Moderate arthrosis. Electronically Signed: Isidoro Larson MD at 19:32 EDT Reading Location ID and State: [id number] / [employer] Tel , Service support , Treatment and Re-Evaluation :: All radiologic examinations were read, reviewed by the emergency department attending. From these reads, a plan of care will be put in place. Patient received x-rays of the left elbow forearm wrist and hand, these were grossly unremarkable. X-ray of the left knee shows some arthritic changes however no acute process. At this time, patient be diagnosed with fall, left arm contusion. Left knee contusion. Patient is acting appropriate. Patient is in no distress. Patient does have family here at bedside. Patient does have full range of motion of the left arm however she does have pain with palpation, this could be secondary to contusion. Knee exam showed no red flag signs. Patient stable for discharge. <Dr. Cristofer Tabares MD - Last Filed: 02/15/23 20:44> [facility] MDM Narrative Medical decision making narrative: I have personally performed a face to face assessment of the patient and have reviewed the KASEY Note. I performed a substantive portion of the visit including all aspects of the following. My pimentel findings include: History: Patient presents with pain after fall from wheelchair. This was a mechanical fall no loss of consciousness. She has really pain in the left upper and lower extremities mostly left upper. Exam: Patient awake alert. No sign of obvious contusion to the head. She has some tenderness diffusely in her left arm and around the left knee. No deformity that is obvious. But due to body habitus her exam is somewhat difficult. For this reason x-rays will be done. Medical Decision Making: X-rays looked at by me and read by radiology show no sign of acute fracture. Radiography Diagnostic Testing: Clinical Impression(s) from Imaging Studies Hand X-Ray 02/15/23 18:33 IMPRESSION: Normal x-ray examination of the hand. Electronically Signed: Isidoro Larson MD at 19:33 EDT , Knee X-Ray 02/15/23 18:37 IMPRESSION: No acute fracture or dislocation Moderate arthrosis. Electronically Signed: Isidoro Larson MD at 19:34 EDT , Forearm X-Ray 02/15/23 18:45 IMPRESSION: Normal x-ray examination of the radius and ulna. Electronically Signed: Isidoro Larson MD at 19:31 EDT , Elbow X-Ray 02/15/23 18:58 IMPRESSION: No acute fracture or dislocation. Moderate arthrosis. Electronically Signed: Isidoro Larson MD at 19:32 EDT , Discharge Plan Triage Chief Complaint: Fall ED Midlevel Provider: Rob Lambert ED Provider: Cristofer Tabares Dx/Rx/DC Orders Clinical Impression: Contusion of arm, left, Fall, Contusion of knee, left Instructions: Bruises (Contusions) Prescriptions: No Action albuterol sulfate [Ventolin HFA] 1 INHALER inhaler 2 puff inhalation Q4H PRN PRN (Reason: Shortness Of Breath) gabapentin [Neurontin] 300 MG capsule 300 mg PO TID atorvastatin 40 MG tablet 40 mg PO QHS metformin 500 MG tablet extended release 24 hr 2,000 mg PO DAILY insulin lispro 100 UNIT/ML insulin pen 12 unit SQ TIDCM liraglutide 0.6 MG/0.1 ML pen injector 1.8 mg SQ QHS acetaminophen 325 MG tablet 650 mg PO Q6H PRN PRN (Reason: Pain Score 1-10/Temp > 100.7 F) 0RF ferrous sulfate 325 MG tablet 325 mg PO QODAY Qty: 0 0RF Ocuvite Tablet 1 tab PO DAILY insulin degludec [Tresiba FlexTouch U-100] 100 unit/mL (3 mL) insulin pen 30 unit SUBCUT DAILY prednisone 20 mg tablet 40 mg PO DAILY 5 Days Qty: 10 0RF insulin glargine [Lantus Solostar U-100 Insulin] 100 unit/mL (3 mL) insulin pen 40 unit SUBCUT QHS Primary Care Provider: Gerry Coreas Referrals: Gerry Coreas MD [Primary Care Provider] - Activity Restrictions/Additional Instructions: Please follow-up outpatient. Continue to use your wheelchair, please be careful. Use ibuprofen, Tylenol. Please ice and elevate. You will be sore for couple days. Return for any worsening symptoms. Disposition Disposition: Home, Self Care Discharge Date/Time: 02/15/23 19:59
[2023-02-15 19:55] VITALS: BP 132/105; PULSE 106; RESP 16; O2SAT 94
== END 2023-02-15 19:59 | disposition home or self-care (01) ==
PROVIDERS: Emergency Provider Emergency Medicine; PCP Family Medicine; Visit Provider Emergency Medicine
DX: S80.02XA Contusion of left knee, initial encounter (principal); E66.01 Morbid (severe) obesity due to excess calories; E11.9 Type 2 diabetes mellitus without complications; Z79.4 Long term (current) use of insulin; E78.5 Hyperlipidemia, unspecified; S50.12XA Contusion of left forearm, initial encounter; I10 Essential (primary) hypertension; J45.909 Unspecified asthma, uncomplicated; W05.0XXA Fall from non-moving wheelchair, initial encounter
CPT/HCPCS: 73080; 73090; 73130; 73562; 99284

== ENCOUNTER 2024-01-31 11:28 | Emergency (ER) | payer MEDICAID, SELFPAY ==
[2024-01-31 11:29] VITALS: BP 145/54; PULSE 82; RESP 14; TEMP 36.8; O2SAT 94
--- NOTE | 2024-01-31 12:40 | EDS_ITS ---
HPI History of Present Illness Chief Complaint: Lower Extremity Injury Informant: patient Onset/Context/Timing Onset: Today Narrative Narrative: Patient presents today after a fall with right ankle injury. She was getting off the motorized scooter at [employer] and thinks her foot was asleep. She rolled her right ankle and fell into the glass door, causing it to break. She is a few abrasions noted to her left forearm. She denies striking her head or loss of consciousness. She states that she is sitting here her left ankle is starting to get sore as well. [facility] Medical History (Updated 01/31/24 @ 14:[address] Zofia Valdes MD) Neuropathy Osteoporosis GERD (gastroesophageal reflux disease) Pyelonephritis Diabetes Asthma Sleep apnea Hyperlipidemia Hypertension Home Medications ?Medication ?Instructions ?Recorded ?Last Taken ?Type albuterol sulfate 90 mcg/actuation 2 puff inhalation Q4H PRN PRN 11/20/16 Unknown History aerosol inhaler (Ventolin HFA) Shortness Of Breath gabapentin 300 mg capsule 300 mg PO TID NERVE PAIN 01/10/17 02/15/23 History (Neurontin) atorvastatin 40 mg tablet 40 mg PO QHS CHOLESTEROL 11/26/20 02/14/23 History insulin lispro 100 unit/mL 12 unit SQ TIDCM DM 11/26/20 02/15/23 History subcutaneous pen liraglutide 0.6 mg/0.1 mL (18 mg/3 1.8 mg SQ QHS DM 11/26/20 11/25/20 History mL) subcutaneous pen injector metformin 500 mg tablet,extended 2,000 mg PO DAILY DM 11/26/20 02/15/23 History release 24 hr acetaminophen 325 mg tablet 650 mg (2 x 325 mg) PO Q6H PRN PRN 11/29/20 Unknown Rx Pain Score 1-10/Temp > 100.7 F ferrous sulfate 325 mg (65 mg 325 mg PO QODAY SUPPLEMENT #0 tabs 12/08/2101/19 Rx iron) tablet insulin degludec 100 unit/mL (3 30 unit subcut DAILY 07/29/22 02/15/23 History mL) subcutaneous pen (Tresiba FlexTouch U-100 insulin) prednisone 20 mg tablet 40 mg (2 x 20 mg) PO DAILY 5 days 07/29/22 Unknown Rx #10 tabs vitamin A-vitamin C-vit E-min 1 tab PO DAILY 07/29/22 02/15/23 History tablet insulin glargine 100 unit/mL (3 40 unit subcut QHS 02/15/23 02/14/23 History mL) subcutaneous pen (Lantus Solostar U-100 Insulin) hydrocodone-acetaminophen 5-325mg 1 tab PO Q6H PRN PRN Pain 3 days 01/31/24 Unknown Rx 5mg-325mg #10 TABLETS Allergy/AdvReac Type Severity Reaction Status Date / Time aspirin Allergy NEEDS Verified 01/31/24 11:30 FOLLOW-UP bee pollen Allergy Rash Verified 01/31/24 11:30 chestnut Allergy Anaphylaxis Verified 01/31/24 11:30 hydrogen peroxide Allergy Rash Verified 01/31/24 11:30 egg AdvReac Diarrhea Verified 01/31/24 11:30 tramadol AdvReac Abd Verified 01/31/24 11:30 cramps/diarrhea Social History Smoking Status: Never smoker ROS ROS ED Constitutional Constitutional ED: Denies chills or fever(s) Eyes Eyes: Denies discharge from eye(s) ENT ENT ED: Denies discharge from eye(s), rhinorrhea or sore throat Cardiovascular Cardiovascular: Denies chest pain or palpitations Respiratory/Chest Respiratory/Chest: Denies cough or dyspnea Gastrointestinal Gastrointestinal: Denies abdominal pain, nausea or vomiting Genitourinary Genitourinary ED: Denies dysuria Musculoskeletal Musculoskeletal: Reports extremity pain; Denies back pain Integumentary Reports Abrasions; Denies rash Neurologic Neurologic: Denies headache(s) or weakness Psychiatric Psychiatric: Denies anxiety or depression Allergic/Immunologic Allergic/Immunologic ED: Denies lip swelling or urticaria EXAM Physical Exam Const Vital Signs: 01/31/24 11:29 01/31/24 13:29 Temperature 98.3 F Temperature Source Temporal Pulse Rate 82 72 Respiratory Rate 14 16 Blood Pressure 145/54 H 142/62 H Blood Pressure Mean 84 88 Pulse Ox 94 99 Oxygen Delivery Method Room Air Room Air Positive well nourished and well developed General Appearance ED: well developed HEENT Reports moist mucous membranes Eyes EOMs intact bilaterally Chest Wall inspection of chest normal and palpation of chest normal Resp normal respiratory effort and clear to auscultation bilaterally Cardio regular rate and regular rhythm GI non-tender Palpation: soft Extremity Extremity Narrative: Tenderness palpation around the anterior and lateral right ankle. Small linear abrasion noted. No significant edema. Good cap refill and sensation distally. Can wiggle toes. Mild tenderness at the left ankle with no obvious deformity or edema. No tenderness of the knees. Neuro oriented x3 Neuro Narrative: Chronic neuropathy with no acute focal neurologic findings. Psych mental status grossly normal Skin Skin Narrative: 3 superficial linear abrasions to the left forearm. Small abrasion to the right ankle. MDM MDM MDM Narrative Medical decision making narrative: Patient be given a dose of [place] for pain. X-rays of the bilateral ankles ob tained to evaluate for potential fracture. Radiography Diagnostic Testing: Clinical Impression(s) from Imaging Studies Ankle X-Ray 01/31/24 12:51 IMPRESSION: No acute fracture or dislocation identified in the right ankle. Small cystic lucency of the medial talar dome, which may represent degenerative change or chronic osteochondral injury. Electronically Signed: Cesilia Chapman MD at 13:26 EDT , Ankle X-Ray 01/31/24 12:51 IMPRESSION: No acute fracture or dislocation identified in the left ankle. Electronically Signed: Cesilia Chapman MD at 13:04 EDT , Treatment and Re-Evaluation :: Bilateral ankle x-rays per my interpretation reveal no obvious fracture. Radiology interpretation reviewed and agrees. Test results discussed with the patient. She does have improvement in her pain with [place]. Bilateral air stirrup splints will be applied and she will be given a short course of [place] for pain. Return instructions provided. Discharge Plan Triage Chief Complaint: Lower Extremity Injury ED Provider: Zofia Valdes Dx/Rx/DC Orders Clinical Impression: Ankle sprain Instructions: ED Ankle Sprain (Adult) Prescriptions: New hydrocodone-acetaminophen 5-325 mg tablet 1 tab PO Q6H PRN PRN (Reason: Pain) 3 Days Qty: 10 0RF No Action albuterol sulfate [Ventolin HFA] 1 INHALER inhaler 2 puff inhalation Q4H PRN PRN (Reason: Shortness Of Breath) gabapentin [Neurontin] 300 MG capsule 300 mg PO TID atorvastatin 40 MG tablet 40 mg PO QHS metformin 500 MG tablet extended release 24 hr 2,000 mg PO DAILY insulin lispro 100 UNIT/ML insulin pen 12 unit SQ TIDCM liraglutide 0.6 MG/0.1 ML pen injector 1.8 mg SQ QHS acetaminophen 325 MG tablet 650 mg PO Q6H PRN PRN (Reason: Pain Score 1-10/Temp > 100.7 F) 0RF ferrous sulfate 325 MG tablet 325 mg PO QODAY Qty: 0 0RF Ocuvite Tablet 1 tab PO DAILY insulin degludec [Tresiba FlexTouch U-100] 100 unit/mL (3 mL) insulin pen 30 unit SUBCUT DAILY prednisone 20 mg tablet 40 mg PO DAILY 5 Days Qty: 10 0RF insulin glargine [Lantus Solostar U-100 Insulin] 100 unit/mL (3 mL) insulin pen 40 unit SUBCUT QHS Primary Care Provider: Gerry Coreas Referrals: Gerry Coreas MD [Primary Care Provider] - 1-2 Weeks Print Language: [place] Disposition Disposition: Home, Self Care
--- NOTE | 2024-01-31 12:51 | RAD_ITS ---
HISTORY: injury. TECHNIQUE: XR Ankle Min 3 Views. COMPARISON: None. FINDINGS: BONES : No acute fracture identified. Retrocalcaneal spur present. JOINTS: No dislocation. Joint spaces maintained. SOFT TISSUES: Mild soft tissue swelling. RAD/Ankle min 3 Views IMPRESSION: No acute fracture or dislocation identified in the left ankle. Electronically Signed: Cesilia Chapman MD at 13:04 EDT ,
--- NOTE | 2024-01-31 12:51 | RAD_ITS ---
HISTORY: injury. TECHNIQUE: XR Ankle Min 3 Views. COMPARISON: None. FINDINGS: BONES : No acute fracture identified. 3 mm cystic focus of the medial talar dome. Plantar calcaneal spur seen. JOINTS: No dislocation. Joint spaces maintained. SOFT TISSUES: Mild soft tissue swelling. RAD/Ankle min 3 Views IMPRESSION: No acute fracture or dislocation identified in the right ankle. Small cystic lucency of the medial talar dome, which may represent degenerative change or chronic osteochondral injury. Electronically Signed: Cesilia Chapman MD at 13:26 EDT ,
[2024-01-31] MEDS: HYDROcodone Bitartrate/Apap 5/325 Tablet PO (13:14)
[2024-01-31 13:29] VITALS: BP 142/62; PULSE 72; RESP 16; O2SAT 99
[2024-01-31 15:00] VITALS: BP 151/76; PULSE 72; RESP 14; O2SAT 98
[2024-01-31 15:48] VITALS: BP 137/85; PULSE 81; RESP 14; TEMP 36.1; O2SAT 100
== END 2024-01-31 15:50 | disposition home or self-care (01) ==
PROVIDERS: Emergency Provider Emergency Medicine; PCP Family Medicine; Visit Provider Emergency Medicine
DX: S50.812A Abrasion of left forearm, initial encounter (principal); E11.9 Type 2 diabetes mellitus without complications; K21.9 Gastro-esophageal reflux disease without esophagitis; J45.909 Unspecified asthma, uncomplicated; I10 Essential (primary) hypertension; S90.511A Abrasion, right ankle, initial encounter; S93.409A Sprain of unspecified ligament of unspecified ankle, initial encounter; W05.2XXA Fall from non-moving motorized mobility scooter, initial encounter; Y92.512 Supermarket, store or market as the place of occurrence of the external cause
CPT/HCPCS: 73610; 99282

== ENCOUNTER 2024-02-06 17:08 | Inpatient (IN) | payer MEDICAID, SELFPAY ==
[2024-02-06] VITALS (14 sets, daily range): BP systolic 112–158; BP diastolic 69–104; PULSE 95–107; RESP 14–28; TEMP 36.1–36.9; O2SAT 78–98; BMI 65.8; BMI 64.9
--- NOTE | 2024-02-06 17:50 | EKG12_ITS ---
Test Reason : Blood Pressure : / mmHG Vent. Rate : 098 BPM Atrial Rate : 098 BPM P-R Int : 148 ms QRS Dur : 070 ms QT Int : 344 ms P-R-T Axes : 026 025 045 degrees QTc Int : 439 ms Sinus rhythm with Premature atrial complexes Low voltage QRS Nonspecific ST and T wave abnormality Abnormal ECG Confirmed by JOVAN RUIZ, GENIA ([id number]), science editor ORMAN CABRERA ([id number]) on 02/07/2024 10:26:59 AM Referred By: Confirmed By:GENIA ALDANA MD
--- NOTE | 2024-02-06 17:50 | ED.VIS.DYS ---
HPI History of Present Illness Chief Complaint: Shortness of Breath Narrative Narrative: 63-year-old female past medical history of asthma, presents from her primary care provider's office with low pulse ox. She relates history that she was seen in the emergency department last week on because of sprained ankles. She was at a follow-up appointment today. She last used her inhaler just prior to her office visit, and when she was evaluated there, her pulse ox was below 80%. She states that she has had increased difficulty breathing and occasional cough, but thought that it was secondary to the humidity outside in the high temperatures ambient Jake. She denies any fevers or chills. She states when the squad arrived on , they noticed a low pulse ox, put her on oxygen, but when she arrived to the emergency department, it was normal. [facility] Medical History Neuropathy Osteoporosis GERD (gastroesophageal reflux disease) Pyelonephritis Diabetes Asthma Sleep apnea Hyperlipidemia Hypertension Home Medications ?Medication ?Instructions ?Recorded ?Last Taken ?Type albuterol sulfate 90 mcg/actuation 2 puff inhalation Q4H PRN PRN 11/20/16 Unknown History aerosol inhaler (Ventolin HFA) Shortness Of Breath gabapentin 300 mg capsule 300 mg PO TID NERVE PAIN 01/10/17 02/15/23 History (Neurontin) atorvastatin 40 mg tablet 40 mg PO QHS CHOLESTEROL 11/26/20 02/14/23 History insulin lispro 100 unit/mL 12 unit SQ TIDCM DM 11/26/20 02/15/23 History subcutaneous pen liraglutide 0.6 mg/0.1 mL (18 mg/3 1.8 mg SQ QHS DM 11/26/20 11/25/20 History mL) subcutaneous pen injector metformin 500 mg tablet,extended 2,000 mg PO DAILY DM 11/26/20 02/15/23 History release 24 hr acetaminophen 325 mg tablet 650 mg (2 x 325 mg) PO Q6H PRN PRN 11/29/20 Unknown Rx Pain Score 1-10/Temp > 100.7 F ferrous sulfate 325 mg (65 mg 325 mg PO QODAY SUPPLEMENT #0 tabs 12/08/21 02/15/23 Rx iron) tablet vitamin A-vitamin C-vit E-min 1 tab PO DAILY 07/29/22 02/15/23 History tablet insulin glargine 100 unit/mL (3 40 unit subcut QHS 02/15/23 02/14/23 History mL) subcutaneous pen (Lantus Solostar U-100 Insulin) hydrocodone-acetaminophen 5-325mg 1 tab PO Q6H PRN PRN Pain 3 days 01/31/24 Unknown Rx 5mg-325mg #10 TABLETS Allergy/AdvReac Type Severity Reaction Status Date / Time aspirin Allergy NEEDS Verified 02/06/24 17:12 FOLLOW-UP bee pollen Allergy Rash Verified 02/06/24 17:12 chestnut Allergy Anaphylaxis Verified 02/06/24 17:12 hydrogen peroxide Allergy Rash Verified 02/06/24 17:12 egg AdvReac Diarrhea Verified 02/06/24 17:12 tramadol AdvReac Abd Verified 02/06/24 17:12 cramps/diarrhea Social History Smoking Status: Never smoker ROS ROS ED ROS Narrative Constitutional: No fever, no chills. HEENT: No sore throat. No neck pain. No loss of vision. No rhinorrhea. Cardiovascular: No chest pain. No palpitations. No pedal edema. Respiratory: Occasional cough, mild shortness of breath. Abdominal: No abdominal pain. No nausea. No vomiting. Genitourinary: No dysuria. No hematuria. Musculoskeletal: No myalgias. No arthralgias. Neurologic: No headaches. No dizziness. No lightheadedness. Skin: No rash. No change in color. Psychiatric: No depression. No anxiety. EXAM Physical Exam Narrative Exam Narrative: Afebrile. Vital signs noted. HEENT: Normocephalic. Atraumatic. PERRL, EOMI. Neck soft and supple. No point tenderness or step off. Cardiovascular: Regular rate and rhythm. No murmurs, rubs, or gallops appreciated. Respiratory: Positive tachypnea. Decreased breath sounds bilateral bases. No overt wheezing or stridor. Gastrointestinal: Abdomen soft, nontender, with normoactive bowel sounds. No rebound or guarding. Neurological: Awake. Alert. Nonfocal, nonlateralizing. Skin: No rash. Normal color. No pallor. Musculoskeletal: No pedal edema. Full range of motion extremities. Const Vital Signs: 02/06/24 17:09 02/06/24 17:16 02/06/24 17:23 Temperature 96.9 F L 98.5 F Temperature Source Temporal Temporal Pulse Rate 95 104 H Respiratory Rate 25 H 14 Respiratory Effort Normal Respiratory Depth Shallow Respiratory Pattern Tachypnea Blood Pressure 139/93 H 158/104 H Blood Pressure Mean 108 122 Pulse Ox 78 98 Oxygen Delivery Method Room Air Nasal Cannula Nasal Cannula Oxygen Flow Rate (L/min) 6 6 02/06/24 17:52 02/06/24 18:03 02/06/24 18:03 Temperature Temperature Source Pulse Rate 95 Respiratory Rate 20 H Respiratory Effort Respiratory Depth Respiratory Pattern Normal Blood Pressure Blood Pressure Mean Pulse Ox 95 97 Oxygen Delivery Method Nasal Cannula Nasal Cannula Oxygen Flow Rate (L/min) 6 4 02/06/24 18:25 02/06/24 18:26 02/06/24 19:00 Temperature 97.6 F L 97.6 F L Temperature Source Temporal Temporal Pulse Rate 101 H 98 99 Respiratory Rate 18 18 28 H Respiratory Effort Respiratory Depth Respiratory Pattern Blood Pressure 119/69 119/69 112/75 Blood Pressure Mean 85 85 87 Pulse Ox 95 95 96 Oxygen Delivery Method Room Air Room Air Nasal Cannula Oxygen Flow Rate (L/min) 6 02/06/24 20:00 02/06/24 20:21 02/06/24 21:00 Temperature 97.6 F L 97.6 F L Temperature Source Temporal Temporal Pulse Rate 97 97 96 Respiratory Rate 14 20 H 21 H Respiratory Effort Respiratory Depth Respiratory Pattern Blood Pressure 127/89 H 131/79 H Blood Pressure Mean 101 96 Pulse Ox 95 94 Oxygen Delivery Method Room Air Room Air Oxygen Flow Rate (L/min) MDM MDM MDM Narrative Medical decision making narrative: Concern is for asthma exacerbation versus pneumothorax versus pneumonia. I have low suspicion for CHF as the history and physical does not support this. She will be given Solu-Medrol 125 mg intravenously, and a DuoNeb aerosolized treatment. I will obtain basic laboratory work to make sure that she is not anemic causing her hypoxia, but her physical exam does not support this either. I reviewed her laboratory work and she has slightly elevated white count of 11.5 which I think is nonspecific, hemoglobin hemoconcentrated at 15.5 with hematocrit 51.4. Platelet count is normal at 342. Her electrolyte panel is grossly unremarkable except for creatinine slightly elevated at 1.22, glucose appropriately elevated at 88. EKG was obtained and interpreted by myself independently as sinus rhythm with PACs and 98 bpm but no acute ST changes. No STEMI. Chest x-ray 1 view interpreted by myself shows no consolidation or pneumothorax. I reviewed the radiology report which comments on mild bilateral perihilar reticulonodular interstitial infiltrate versus pulmonary edema. She did require another DuoNeb aerosolized treatment because she states that her family heard audible wheezing and she felt short of breath. I did add a BNP which is normal at 23.2. D-dimer is negative at 0.35. She did ambulate on room air, and she desaturated to 82%. I am unsure as to why she is hypoxic, but as she does not wear oxygen at home I do feel that she requires admission at this time. I will discuss patient with Dr. Teran for admission. Patient is in stable condition. History & Record Review Discussion w/independent historian: Patient Additional record(s) reviewed:: Prior labs Lab Data Attestation: I reviewed the patient's lab results. Labs: Laboratory Results - last 24 hr 02/06/24 02/06/24 17:35 20:10 WBC 11.5 H RBC 5.99 H Hgb 15.5 H Hct 51.4 H MCV 85.8 MCH 25.9 L MCHC 30.2 L RDW Std Deviation 50.8 H RDW Coeff of Adi 17.4 H Plt Count 342 MPV 10.0 Immature Gran % (Auto) 0.300 Neut % (Auto) 73.5 H Lymph % (Auto) 13.4 L [place] % (Auto) 5.0 Eos % (Auto) 7.1 H Baso % (Auto) 0.7 Absolute Neuts (auto) 8.5 H Absolute Lymphs (auto) 1.54 Nucleated RBC % 0 D-Dimer Quant (PE/DVT) 0.35 Sodium 140 Potassium 4.1 Chloride 104 Carbon Dioxide 28.0 Anion Gap 8 BUN 15 Creatinine 1.22 H Estim Creat Clear Calc 66.06 Est GFR (MDRD) Af Amer 58 L Est GFR (MDRD) Non-Af 48 L BUN/Creatinine Ratio 12.3 Glucose 88 Calcium 9.3 B-Natriuretic Peptide 23.2 Radiography Diagnostic Testing: Clinical Impression(s) from Imaging Studies Chest X-Ray 02/06/24 18:22 IMPRESSION: Mild bilateral perihilar reticulonodular interstitial infiltrate or pulmonary edema. Electronically Signed: All Gomez MD at 19:06 EDT Reading Location ID and State: [facility] / [place] Tel , Service support , Discharge Plan Dx/Rx/DC Orders Clinical Impression: Hypoxia, Morbid obesity, Shortness of breath Disposition Disposition: Acute Care Hospital [facility]
[2024-02-06] MEDS: Ipratropium/Albuterol Sulfate 3 ML AMPUL.NEB INHALATION ×2 (18:02→20:20)
[2024-02-06] MEDS: MethylPREDNISolone 125 MG/2 ML Vial IV (18:07)
[2024-02-06 18:11] LABS: Absolute Lymphocyte Count 1.54 X10^3/uL (0.83-4.51); Absolute Neutrophil Count 8.5 X10^3/uL (2.0-7.7); Basophil# 0.08 X10^3/uL; Basophil% 0.7 % (0-1); Eosinophil# 0.82 X10^3/uL; Eosinophils% 7.1 % (0-5); Hematocrit 51.4 % (37-47); Hemoglobin 15.5 g/dL (12.0-15.0); Lymphocyte # 1.54 X10^3/ul (0.83-4.51); Lymphocyte % 13.4 % (19-41); Mean Corp Hgb Conc 30.2 g/dL (32-36); Mean Corpuscular Hgb 25.9 pg (27.0-32.0); Mean Corpuscular Volume 85.8 fL (81-99); Monocyte# 0.57 X10^3/uL; NRBC Flagged by Analyzer 0 % (0-5); Neutrophil # 8.46 X10^3/uL (2.7-7.7); Neutrophil % 73.5 % (47-70); Platelet Count 342 K/mm3 (150-450); RBC Distribution Width CV 17.4 % (11.6-14.6); RBC Distribution Width SD 50.8 fl (35.1-43.9); Red Blood Count 5.99 M/mm3 (4.2-5.4); White Blood Count 11.5 K/mm3 (4.4-11.0)
--- NOTE | 2024-02-06 18:22 | RAD_ITS ---
STUDY: X-RAY CHEST REASON FOR EXAM: Female, 63 years old. Shortness of breath TECHNIQUE: Single AP portable view of the chest. COMPARISON: July 29, 2022 FINDINGS: Diffuse bilateral perihilar reticulonodular interstitial infiltrates or pulmonary edema more severe in the lower lobes. There is no demonstrated pleural abnormality. Heart is enlarged although exaggerated by radiographic technique.. Normal mediastinum and chante. Normal visualized pulmonary arteries. Normal visualized aortic arch and descending thoracic aorta. Normal visualized thoracic spine. Normal visualized ribs, clavicles, and shoulders. There is no demonstrated abnormality of the visualized soft tissue structures of the upper abdomen. RAD/Chest 1 View (Portable) IMPRESSION: Mild bilateral perihilar reticulonodular interstitial infiltrate or pulmonary edema. Electronically Signed: All Gomez MD at 19:06 EDT ,
[2024-02-06 18:31] LABS: Anion Gap 8 (5-15); BUN 15 mg/dL (7-18); BUN/Creat Ratio 12.3 RATIO (10-20); Calcium,Total 9.3 mg/dL (8.5-10.1); Chloride 104 mmol/L (98-107); Creatinine, Serum 1.22 mg/dL (0.55-1.02); EST Glomerular Filtration Rate 48 mL/min (>60); Est Glom Filt Rate - Afr Amer 58 mL/min (>60); Estimated Creatinine Clearance 66.06 ml/min; Glucose 88 mg/dL (74-106); Potassium 4.1 mmol/L (3.5-5.1); Sodium Level 140 mmol/L (136-145)
[2024-02-06 20:45] LABS: BNP,B-Type NATRIURETIC PEPTIDE 23.2 pg/mL (0-100)
[2024-02-06 20:50] LABS: D-Dimer Quantitative (DVT/PE) 0.35 FEU/ug/m (0.27-0.49)
--- NOTE | 2024-02-06 21:52 | PCM.HP.STD ---
[facility] - General General Date of Admission: 02/06/24 Date of Service: 02/06/24 Chief Complaint: Shortness of Breath and Wheezing. [facility] Narrative BRIAN WATERS, is a 63 F with a past medical history of essential hypertension, hyperlipidemia, super-morbid obesity; with BMI of 65.8 this admission, obstructive sleep apnea, DM-2; of unknown control, diabetic neuropathy, history of Right upper lobe mass, history of pneumonia with sepsis attributed to Staphylococcus aureus, history of abscess of the Left heel, history of cellulitis of the Left foot, chronic Left heel pain, history of pyelonephritis, ELHAM, history of COVID-19, gait instability, GERD, osteoarthritis and asthma who presents to [facility] ER complaining of shortness of breath and wheezing. Ms. Waters reports her symptoms began approximately 6 days prior to admission on January 31, 2024 after she sprained her ankles with a visit to the ER that day and then a subsequent visit to her primary care provider's office earlier today with hypoxemia in the ~80% range on room air. She had last used her rescue inhaler just prior to her office visit and had increasing dyspnea on exertion with occasional nonproductive cough that progressed to shortness of breath at rest with wheezing. She explains her symptoms were made worse due to the high heat and humidity outside and her chronic gait instability was made worse by her recent ankle sprains. She denies associated fever, chills, nausea, vomiting, chest pain, diaphoresis, diarrhea or constipation but she does admit that she was noted to be hypoxic by EMS after her ankle sprains 6 days ago. In the ER she was diagnosed with abnormal chest x-ray revealing bilateral perihilar reticulonodular infiltrate worrisome for early pneumonia with clinical evidence of acute exacerbation of asthma complicated by respiratory insufficiency in the setting of super-morbid obesity; with BMI of 65.8 this admission and suspected pickwickian syndrome and she was then admitted to the general medical floor for ongoing care for stay that is expected to extend beyond 2 midnights. [facility] Medical History Neuropathy Osteoporosis GERD (gastroesophageal reflux disease) Pyelonephritis Diabetes Asthma Sleep apnea Hyperlipidemia Hypertension Home Medications ?Medication ?Instructions ?Recorded ?Last Taken ?Type albuterol sulfate 90 mcg/actuation 2 puff inhalation Q4H PRN PRN 11/20/16 Unknown History aerosol inhaler (Ventolin HFA) Shortness Of Breath gabapentin 300 mg capsule 300 mg PO TID NERVE PAIN 01/10/17 02/15/23 History (Neurontin) atorvastatin 40 mg tablet 40 mg PO QHS CHOLESTEROL 11/26/20 02/14/23 History insulin lispro 100 unit/mL 12 unit SQ TIDCM DM 11/26/20 02/15/23 History subcutaneous pen liraglutide 0.6 mg/0.1 mL (18 mg/3 1.8 mg SQ QHS DM 11/26/20 11/25/20 History mL) subcutaneous pen injector metformin 500 mg tablet,extended 2,000 mg PO DAILY DM 11/26/20 02/15/23 History release 24 hr acetaminophen 325 mg tablet 650 mg (2 x 325 mg) PO Q6H PRN PRN 11/29/20 Unknown Rx Pain Score 1-10/Temp > 100.7 F ferrous sulfate 325 mg (65 mg 325 mg PO QODAY SUPPLEMENT #0 tabs 12/08/21 02/15/23 Rx iron) tablet vitamin A-vitamin C-vit E-min 1 tab PO DAILY 07/29/22 02/15/23 History tablet insulin glargine 100 unit/mL (3 40 unit subcut QHS 02/15/23 02/14/23 History mL) subcutaneous pen (Lantus Solostar U-100 Insulin) hydrocodone-acetaminophen 5-325mg 1 tab PO Q6H PRN PRN Pain 3 days 01/31/24 Unknown Rx 5mg-325mg #10 TABLETS Allergy/AdvReac Type Severity Reaction Status Date / Time aspirin Allergy NEEDS Verified 02/06/24 17:12 FOLLOW-UP bee pollen Allergy Rash Verified 02/06/24 17:12 chestnut Allergy Anaphylaxis Verified 02/06/24 17:12 hydrogen peroxide Allergy Rash Verified 02/06/24 17:12 egg AdvReac Diarrhea Verified 02/06/24 17:12 tramadol AdvReac Abd Verified 02/06/24 17:12 cramps/diarrhea Social History Smoking Status: Never smoker ROS ROS Narrative Review of systems: General: Patient denies fever or chills. HENT: Denies headache, denies stuffy nose, denies sore throat EYES: Denies changes in vision or discharge from eyes. Resp: Patient admits to occasional cough with mild shortness of breath made worse with exertion. Cardiac: Denies chest pain, palpitations or heart racing. GI: Denies abdominal pain, denies changes in bowel, denies nausea or vomiting. : Denies changes in urination Extremity: Denies swelling Musculoskeletal: Feels somewhat generally weak and unwell after recent bilateral ankle sprains with chronic gait instability as per HPI. Neuro: Patient denies headache, paresthesias or focal neurologic deficits. Heme: Denies any bleeding or bruising Skin: Denies rashes Psychiatric: No complaints voiced related uncontrolled depression or anxiety. Endocrine: No polyuria, polydipsia or polyphagia. The rest of the 14 point ROS was negative except for positives in HPI. Vital Signs Vital Signs Vital Signs: 02/06/24 17:09 02/06/24 17:16 02/06/24 17:23 Temperature 96.9 F L 98.5 F Temperature Source Temporal Temporal Pulse Rate 95 104 H Respiratory Rate 25 H 14 Respiratory Effort Normal Respiratory Depth Shallow Respiratory Pattern Tachypnea Blood Pressure 139/93 H 158/104 H Blood Pressure Mean 108 122 Pulse Ox 78 98 Oxygen Delivery Method Room Air Nasal Cannula Nasal Cannula Oxygen Flow Rate (L/min) 6 6 02/06/24 17:52 02/06/24 18:03 02/06/24 18:03 Temperature Temperature Source Pulse Rate 95 Respiratory Rate 20 H Respiratory Effort Respiratory Depth Respiratory Pattern Normal Blood Pressure Blood Pressure Mean Pulse Ox 95 97 Oxygen Delivery Method Nasal Cannula Nasal Cannula Oxygen Flow Rate (L/min) 6 4 02/06/24 18:25 02/06/24 18:26 02/06/24 19:00 Temperature 97.6 F L 97.6 F L Temperature Source Temporal Temporal Pulse Rate 101 H 98 99 Respiratory Rate 18 18 28 H Respiratory Effort Respiratory Depth Respiratory Pattern Blood Pressure 119/69 119/69 112/75 Blood Pressure Mean 85 85 87 Pulse Ox 95 95 96 Oxygen Delivery Method Room Air Room Air Nasal Cannula Oxygen Flow Rate (L/min) 6 02/06/24 20:00 02/06/24 20:21 02/06/24 21:00 Temperature 97.6 F L 97.6 F L Temperature Source Temporal Temporal Pulse Rate 97 97 96 Respiratory Rate 14 20 H 21 H Respiratory Effort Respiratory Depth Respiratory Pattern Blood Pressure 127/89 H 131/79 H Blood Pressure Mean 101 96 Pulse Ox 95 94 Oxygen Delivery Method Room Air Room Air Oxygen Flow Rate (L/min) Weight Weight: 325 lb 13.491 oz Body Mass Index (BMI) 65.8 Physical Exam Const alert, oriented x3 and no apparent distress Constitutional Narrative: Patient is morbidly obese and appears chronically ill General Appearance: cooperative HEENT normocephalic, head/scalp atraumatic, hearing grossly normal bilaterally and moist oral mucous membranes HEENT Narrative: Patient noted to have very poor dentition. Eyes PERRL and EOMs intact bilaterally Neck no lymphadenopathy and supple Resp Resp Narrative: Diminished breath sounds throughout with tachypnea and mild scattered wheezes. Auscultation: wheezes Cardio regular rate and regular rhythm GI normal to inspection, nondistended, normoactive bowel sounds, soft to palpation, non-tender and non-distended Extremity normal to inspection and full ROM Skin Skin Narrative: Patient has no evidence of jaundice, rash or abscess. Neuro oriented x3, CN's II-XII intact bilaterally, moves all extremities and no focal motor deficits Sensorium / Orientation: awake, alert, oriented to person, oriented to place and oriented to time Speech: speech normal Psych affect normal Results Medical Records Data Attestation: I reviewed the patient's medical records Lab / Micro Data Attestation: I reviewed the patient's lab results. 02/06/24 17:35 02/06/24 17:35 Labs: Laboratory Results - last 24 hr 02/06/24 17:35: WBC 11.5 H, RBC 5.99 H, Hgb 15.5 H, Hct 51.4 H, MCV 85.8, MCH 25.9 L, MCHC 30.2 L, RDW Std Deviation 50.8 H, RDW Coeff of Adi 17.4 H, Plt Count 342, MPV 10.0, Immature Gran % (Auto) 0.300, Neut % (Auto) 73.5 H, Lymph % (Auto) 13.4 L, [place] % (Auto) 5.0, Eos % (Auto) 7.1 H, Baso % (Auto) 0.7, Absolute Neuts (auto) 8.5 H, Absolute Lymphs (auto) 1.54, Nucleated RBC % 0, Sodium 140, Potassium 4.1, Chloride 104, Carbon Dioxide 28.0, Anion Gap 8, BUN 15, Creatinine 1.22 H, Estim Creat Clear Calc 66.06, Est GFR (MDRD) Af Amer 58 L, Est GFR (MDRD) Non-Af 48 L, BUN/Creatinine Ratio 12.3, Glucose 88, Calcium 9.3 02/06/24 20:10: D-Dimer Quant (PE/DVT) 0.35, B-Natriuretic Peptide 23.2 Imaging Radiology Impression Chest X-Ray 02/06/24 18:22 IMPRESSION: Mild bilateral perihilar reticulonodular interstitial infiltrate or pulmonary edema. Electronically Signed: All Gomez MD at 19:06 EDT , Assessment & Plan Assessment/Plan (1) Asthma with acute exacerbation: QUALIFIERS: Asthma persistence: persistent Asthma severity: moderate Qualified Code(s): J45.41 - Moderate persistent asthma with (acute) exacerbation (2) Respiratory insufficiency: (3) Morbid obesity with BMI of 60.0-69.9, adult: (4) Ankle sprain: QUALIFIERS: Encounter type: sequela Involved ligament of ankle: unspecified ligament Laterality: unspecified laterality Qualified Code(s): S93.409S - Sprain of unspecified ligament of unspecified ankle, sequela (5) Gait instability: (6) History of obstructive sleep apnea: PLAN: Plan 1. AE Asthma with abnormal chest x-ray revealing bilateral perihilar reticulonodular infiltrate worrisome for early pneumonia - Admit to general medical floor. Continue IV Solu-Medrol began in the ER and add IV doxycycline with patient having abnormal chest x-ray. Check urinary antigens for Legionella and Streptococcus pneumonia. Give scheduled and as needed nebulizers. Give Tylenol as needed pain or fever. 2. Clinical evidence of acute respiratory insufficiency arising from #1 - Wean supplemental oxygen as tolerated. 3. Super-morbid obesity; with BMI of 65.8 this admission with SOL and suspected pickwickian syndrome complicating #1 & #2 - Weight loss will be recommended. Check TSH. Continue nocturnal CPAP. 4. Chronic gait instability with recent bilateral ankle sprains 6 days ago adding to the pathology of #1 - #3 - Noted. PT/OT and case management consult and treat on rounds in a.m. for further recommendations with help appreciated in advance. 5. Essential hypertension - Continue current regimen plus add as needed IV hydralazine for systolic blood pressure greater than 160 mmHg. 6. Hyperlipidemia - Resume statin as previous. 7. DM-2; of unknown control with diabetic neuropathy - ADA diet. Fingerstick blood sugars before every meal and at bedtime plus SSI. Check hemoglobin A1c to objectively evaluate quality of diabetic control. 8. History of Right upper lobe mass - Noted with no evidence of recurrence on chest x-ray this admission. 9. History of pneumonia with sepsis attributed to Staphylococcus aureus - Noted. 10. History of abscess of the Left heel and cellulitis of the Left foot - Noted. 11. Chronic Left heel pain - Stable. 12. History of pyelonephritis - Noted. 13. ELHAM - Continue oral iron supplementations as previous. 14. History of COVID-19 - Noted. 15. GERD - Start Protonix with patient on steroids for #1. 16. Osteoarthritis - Give Tylenol prn. 17. DVT prophylaxis - Lovenox 40 mg SQ twice daily. Total time: Approximately 75 minutes. Charges/Coding Visit Charges Inpatient E&M: 54471 Init Hosp L3
[2024-02-06 22:45] LABS: Thyroid Stim Hormone (TSH) 3.53 uIU/mL (0.358-3.74)
[2024-02-06] MEDS: 0.9% Normal Saline (1000mL) 1,000 ML 70 ML IV (23:27)
[2024-02-06 23:46] LABS: Bedside Glucose 163 mg/dL (74-106)
[2024-02-07] VITALS (9 sets, daily range): BP systolic 120–138; BP diastolic 55–79; PULSE 78–101; RESP 14–24; TEMP 36.6–36.9; O2SAT 91–97; BMI 64.7
[2024-02-07] MEDS: Doxycycline 100 MG in Dextrose 5%-Water (250mL Bag) 250 ML 250 MG IV
[2024-02-07] MEDS: Insulin Glargine-YFGN 100 UNIT/ML Pen 40 UNIT SC ×2 (00:03→21:38)
--- NOTE | 2024-02-07 00:50 | CPS ---
Pt unable to tolerate wearing a mask d/t claustrophobia.
[2024-02-07] MEDS: Gabapentin 300 MG Capsule PO ×3 (05:53→21:40)
[2024-02-07 06:40] LABS: Absolute Lymphocyte Count 0.54 X10^3/uL (0.83-4.51); Absolute Neutrophil Count 11.3 X10^3/uL (2.0-7.7); Basophil# 0.04 X10^3/uL; Basophil% 0.3 % (0-1); Hematocrit 53.7 % (37-47); Lymphocyte # 0.54 X10^3/ul (0.83-4.51); Lymphocyte % 4.5 % (19-41); Mean Corp Hgb Conc 29.8 g/dL (32-36); Mean Corpuscular Hgb 25.6 pg (27.0-32.0); Mean Corpuscular Volume 85.8 fL (81-99); Mean Platelet Vol. 9.7 fl (6.2-12.0); Monocyte# 0.11 X10^3/uL; Monocyte% 0.9 % (0-10); NRBC Flagged by Analyzer 0 % (0-5); Neutrophil # 11.32 X10^3/uL (2.7-7.7); POSITIVE DIFFERENTIAL YES; Platelet Count 360 K/mm3 (150-450); RBC Distribution Width CV 17.5 % (11.6-14.6); RBC Distribution Width SD 50.4 fl (35.1-43.9); Red Blood Count 6.26 M/mm3 (4.2-5.4); White Blood Count 12.1 K/mm3 (4.4-11.0)
[2024-02-07 06:55] LABS: Iron 47 ug/dL (50-170); Iron Binding Capacity,Total 336 ug/dL (250-450)
[2024-02-07 07:09] LABS: ALB/GLOB Ratio 0.9 RATIO (0.9-2.4); AST(SGOT) 14 U/L (15-37); Alanine Aminotransfer ALT/SGPT 19 U/L (13-56); Albumin, Serum 3.5 g/dL (3.2-5.0); Alkaline Phosphatase 88 U/L (45-117); Anion Gap 8 (5-15); BUN 18 mg/dL (7-18); BUN/Creat Ratio 15.7 RATIO (10-20); Calcium,Total 9.3 mg/dL (8.5-10.1); Chloride 103 mmol/L (98-107); Creatinine, Serum 1.15 mg/dL (0.55-1.02); EST Glomerular Filtration Rate 51 mL/min (>60); Est Glom Filt Rate - Afr Amer 62 mL/min (>60); Glucose 199 mg/dL (74-106); Magnesium 1.9 mg/dL (1.6-2.6); Phosphorus 3.1 mg/dL (2.5-4.9); Potassium 4.6 mmol/L (3.5-5.1); Protein, Total 7.5 g/dL (6.4-8.2); Sodium Level 138 mmol/L (136-145)
[2024-02-07] MEDS: Nystatin Powder 15gm Bottle 1 APPLIC TOPICAL ×2 (07:53→21:39)
[2024-02-07] MEDS: Insulin Lispro 100 UNIT/ML INSULN.PEN 12 UNIT SC ×3 (07:54→17:37)
[2024-02-07] MEDS: Enoxaparin 40 MG/0.4 ML Syringe SC ×2 (07:54→21:39)
[2024-02-07] MEDS: Pantoprazole Sodium 40 MG Tablet PO (07:58)
[2024-02-07 08:06] LABS: Bedside Glucose 191 mg/dL (74-106)
[2024-02-07] MEDS: Ceftriaxone 1 GM/50 ML BAG IV (09:26)
[2024-02-07] MEDS: Azithromycin 500 MG in Dextrose 5%-Water (250mL Bag) 250 ML 250 MG IV (10:12)
--- NOTE | 2024-02-07 10:51 | CASEMGMT ---
LUCIA COLLIER Assessment: Face to Face with pt for initial transition planning/care coordination assessment. LUCIA COLLIER introduced self and role at [facility], pt voices understanding and consents to assessment. Pt sitting up in chair in no distress, therapy just finished working with pt. Pt is A&O x4 and answers all questions appropriately at this time. Care providers, pharmacy, and demographics verified/updated. Admitting Dx: AE Asthma, suspected early pneumonia PCP: Lyudmila Specialists: [facility] Preferred Pharmacy: [facility] Insurance: [facility] Prescription Benefit: yes LNOK: Daniel Cabral - daughter Living Arrangements: Pt lives with , daughter, daughters boyfriend, and 4 grandkids in a ranch home with no steps to enter. Pt states I with ADLs and needs assistance with IADLs. Transportation: Pt states daughter drives her. DME: Electric WC, Manual WC, shower bench. HHC/SNF: Hx at [facility], denies Hx of HHC Pt states no concerns with going home at time of dc. Pt states would like to use [facility] if she qualifies for O2 at discharge, however Pt states she does not want any O2 delivered to her home because they do not have room for it in the house. Pt states no further concerns/needs and denies any needs even if recommend. Discussed outpatient therapy or HHC options depending on therapies eval and recommendation, pt stated she is not interested. CM to follow. Advised pt to ask CM if any further question/concerns/needs arise, voices understanding. Pt Goal: Home Plan: Home, will follow for O2 needs. Elayne MYERS CM
[2024-02-07 11:37] LABS: Bedside Glucose 243 mg/dL (74-106)
--- NOTE | 2024-02-07 12:00 | PCM.PN.HOSP ---
Reason for Visit Reason for Visit: Diagnoses Morbid (severe) obesity due to excess calories (02/06/24) Moderate persistent asthma with (acute) exacerbation (02/06/24) Other abnormalities of breathing (02/06/24) Unsteadiness on feet (02/06/24) Sprain of unspecified ligament of unspecified ankle, sequela (02/06/24) Body mass index [BMI] 60.0-69.9, adult (02/06/24) Personal history of other diseases of the nervous system and sense organs (02/06/24) Subjective Subjective Patient seen at bedside this morning. Sitting up comfortably in bed, conversing normally, in no acute distress. Breathing comfortably on 2 L nasal cannula with oxygen saturations in the mid 90s. No wheezing noted on exam. Patient states she feels moderately better this morning compared to yesterday. She thinks that the shortness of breath and wheezing yesterday was mostly secondary to the humidity and her allergies. She states the breathing treatments have been moderately helpful for her and she has tolerated the steroids and antibiotics without issue. She does not have diagnosed SOL as she refuses to do a sleep study and she states she was not able to tolerate PAP therapy at all overnight. No other acute concerns this morning. Objective Data Objective Data Vital Signs: Vital Signs Temp Pulse Resp BP Pulse Ox O2 Del Method O2 Flow Rate 98.5 F 101 H 16 131/65 H 94 Nasal Cannula 2 02/07/24 11:23 02/07/24 11:23 02/07/24 11:23 02/07/24 11:23 02/07/24 11:23 02/07/24 11:23 02/07/24 11:23 Oxygen Flow Rate (L/min) 2 Oxygen Delivery Method Nasal Cannula Weight: 145.7 kg Body Mass Index (BMI) 64.7 Intake & Output: Intake and Output for Last 24 Hours 02/05/24 02/06/24 02/07/24 23:59 23:59 23:59 Intake Total 1724.33 / 1724.33 Balance 1724.33 / 1724.33 Lab / Micro Data 02/07/24 06:10 02/07/24 06:10 Labs: Laboratory Results - last 24 hr 02/06/24 17:35: WBC 11.5 H, RBC 5.99 H, Hgb 15.5 H, Hct 51.4 H, MCV 85.8, MCH 25.9 L, MCHC 30.2 L, RDW Std Deviation 50.8 H, RDW Coeff of Adi 17.4 H, Plt Count 342, MPV 10.0, Immature Gran % (Auto) 0.300, Neut % (Auto) 73.5 H, Lymph % (Auto) 13.4 L, Ida % (Auto) 5.0, Eos % (Auto) 7.1 H, Baso % (Auto) 0.7, Absolute Neuts (auto) 8.5 H, Absolute Lymphs (auto) 1.54, Nucleated RBC % 0, Sodium 140, Potassium 4.1, Chloride 104, Carbon Dioxide 28.0, Anion Gap 8, BUN 15, Creatinine 1.22 H, Estim Creat Clear Calc 66.06, Est GFR (MDRD) Af Amer 58 L, Est GFR (MDRD) Non-Af 48 L, BUN/Creatinine Ratio 12.3, Glucose 88, Hemoglobin A1c 6.0 H, Calcium 9.3, TSH 3.53 02/06/24 20:10: D-Dimer Quant (PE/DVT) 0.35, B-Natriuretic Peptide 23.2 02/06/24 23:22: POC Glucose 163 H 02/07/24 06:10: WBC 12.1 H, RBC 6.26 H, Hgb 16.0 H, Hct 53.7 H, MCV 85.8, MCH 25.6 L, MCHC 29.8 L, RDW Std Deviation 50.4 H, RDW Coeff of Adi 17.5 H, Plt Count 360, MPV 9.7, Immature Gran % (Auto) 0.300, Neut % (Auto) 94.0 H, Lymph % (Auto) 4.5 L, Ida % (Auto) 0.9, Eos % (Auto) 0.0, Baso % (Auto) 0.3, Absolute Neuts (auto) 11.3 H, Absolute Lymphs (auto) 0.54 L, Nucleated RBC % 0, Sodium 138, Potassium 4.6, Chloride 103, Carbon Dioxide 27.0, Anion Gap 8, BUN 18, Creatinine 1.15 H, Estim Creat Clear Calc 69.40, Est GFR (MDRD) Af Amer 62, Est GFR (MDRD) Non-Af 51 L, BUN/Creatinine Ratio 15.7, Glucose 199 H, Calcium 9.3, Phosphorus 3.1, Magnesium 1.9, Iron 47 L, TIBC 336, Iron Saturation 14.0 L, Total Bilirubin 0.70, AST 14 L, ALT 19, Alkaline Phosphatase 88, Total Protein 7.5, Albumin 3.5, Globulin 4.0, Albumin/Globulin Ratio 0.9 02/07/24 07:48: POC Glucose 191 H 02/07/24 11:17: POC Glucose 243 H Micro: Microbiology 02/07/24 09:50 Mucosa - Nose Coronavirus COVID-19 PCR - Final Radiography Diagnostic Testing: Radiology Impression Chest X-Ray 02/06/24 18:22 IMPRESSION: Mild bilateral perihilar reticulonodular interstitial infiltrate or pulmonary edema. Electronically Signed: All Gomez MD at 19:06 EDT Reading Location ID and State: [address] [place] [address] Tel , Service support , Physical Exam Const alert, oriented x3 and no apparent distress Constitutional Narrative: Elderly female, morbidly obese, sitting up comfortably in bed, conversing normally, in no acute distress. General Appearance: cooperative and comfortable HEENT normocephalic, head/scalp atraumatic, hearing grossly normal bilaterally, nasal mucous membranes and turbinates normal and moist oral mucous membranes Eyes PERRL, EOMs intact bilaterally and conjunctivae normal Neck full ROM Chest inspection of chest normal Resp normal respiratory effort and no use of accessory muscles Resp Narrative: Breathing comfortably on 2 L nasal cannula at rest with good saturations. Mild to moderately decreased breath sounds bilaterally, worse in lung bases suspected due to body habitus. No wheezing or crackles noted. Cardio regular rate, regular rhythm, no murmurs and peripheral pulses 2+ throughout GI normal to inspection, nondistended, normoactive bowel sounds, soft to palpation, non-tender and non-distended Back/Spine normal ROM Extremity normal to inspection, full ROM and no pedal edema Skin no rashes or lesions noted Neuro moves all extremities and no focal motor deficits Speech: speech normal Psych mental status grossly normal Assessment & Plan Assessment/Plan (1) Asthma with acute exacerbation: QUALIFIERS: Asthma severity: moderate Asthma persistence: persistent Qualified Code(s): J45.41 - Moderate persistent asthma with (acute) exacerbation (2) Hypoxia: PLAN: Plan Patient is a 63-year-old female who presented [facility] ED on 02/06/2024 with worsening shortness of breath and hypoxia. 1. Mild asthma exacerbation with concern for community-acquired pneumonia; mild hypoxia in setting of untreated SOL and suspected obesity hypoventilation syndrome ? Hypoxic to 78% on room air on admit. Chest x-ray showed mild bilateral perihilar reticulonodular interstitial infiltrates versus pulmonary edema. Patient with mild wheezing on exam noted. COVID and respiratory panel negative. Unable to produce sputum sample. Improving with treatment with IV steroids, IV antibiotics and scheduled nebs. Satting well on 2 L nasal cannula at rest on 02/06. High suspicion the patient has untreated SOL given noted desaturations at night. May also have some degree of OHS. Will plan to complete oxygen qualification test tomorrow in anticipation of possible discharge tomorrow afternoon. 2. Chronic gait instability with recent bilateral ankle sprains ? PT/OT/case management consulted. Tylenol as needed for pain. Planning for discharge home with outpatient therapy as needed. Chronic medical conditions: ? Morbid obesity: BMI 64 on admit. Complicates hospital course, care and prognosis. ? Type 2 diabetes mellitus with neuropathy: Home regimen of insulin glargine 40 units at night, lispro 12 units with meals, metformin 2000 mg daily and liraglutide 1.8 mg daily. Blood glucose mildly elevated on steroids, continue home glargine and lispro with sliding scale as needed with meals. ? Hyperlipidemia: Continue home statin. ? History of iron deficiency anemia: Hemoglobin 15-16 on admit. Okay to continue home iron supplement. DVT prophylaxis: Lovenox twice daily CODE STATUS: Full code, unverified Expected disposition: Home, 1 to 2 days Total clinical time spent by myself addressing the patient's medical issues, reviewing all the data, and collaborating with patient's care team: 35 minutes. Charges/Coding Visit Charges Inpatient E&M: 82643 Subs Hosp L2
--- NOTE | 2024-02-07 15:19 | CHAPLAIN ---
Type of Pastoral Visit _x__ Initial Visit ___ Follow-up Visit ___ On-call Visit ___ General Patient Visit ___ Spiritual Assessment ___ Family Conference ___ Bereavement ___ Rapid Response ___ Code Blue ___ Other (describe below) Pastoral Care Referral From _x__ Patient ___ Family ___ Nurse ___ Physician ___ Sales And Events Coordinator ___ Adapted Physical Education Teacher ___ Other (describe below) Sacrament/Intervention _x__ Active listening ___ Anointing ___ Jew ___ Bereavement ___ Communion _x__ Dana exploration ___ ___ Life review _x__ Prayer ___ Reconciliation ___ Sacrament of Sick ___ Supportive presence ___ Wedding ___ Other (describe below) Pastoral Comments patient is trying to rest but accepts visit at this time; pt states that her granddaughter was given a prayer box and that she is praying for her grandmother in the hospital; pt states that she belongs to a worship but has not attended services for a long time due to health and family circumstances; pt says her is also recovering from illness at this time so prayer would be good; pt denies further needs
[2024-02-07 16:31] LABS: Bedside Glucose 209 mg/dL (74-106)
[2024-02-07] MEDS: Atorvastatin Calcium 40 MG Tablet PO (21:39)
[2024-02-07] MEDS: 0.9% Saline Lock 10 ML Syringe IV (21:40)
[2024-02-07 22:18] LABS: Bedside Glucose 194 mg/dL (74-106)
[2024-02-08 02:45] VITALS: O2SAT 86
[2024-02-08 02:49] VITALS: BMI 65.5
[2024-02-08 03:00] VITALS: BP 127/56; PULSE 93; RESP 20; TEMP 36.6; O2SAT 94
[2024-02-08] MEDS: Gabapentin 300 MG Capsule PO (06:14)
[2024-02-08] MEDS: Insulin Lispro 100 UNIT/ML INSULN.PEN 12 UNIT SC (07:40)
[2024-02-08] MEDS: 0.9% Saline Lock 10 ML Syringe IV ×2 (07:41→09:21)
[2024-02-08] MEDS: Enoxaparin 40 MG/0.4 ML Syringe SC (07:41)
[2024-02-08] MEDS: Pantoprazole Sodium 40 MG Tablet PO (07:41)
[2024-02-08] MEDS: Nystatin Powder 15gm Bottle 1 APPLIC TOPICAL (07:41)
[2024-02-08] MEDS: Ferrous Sulfate 325 MG Tablet PO (07:41)
[2024-02-08 07:44] VITALS: O2SAT 96
[2024-02-08 08:04] LABS: Bedside Glucose 262 mg/dL (74-106)
[2024-02-08 08:29] VITALS: BP 151/94; PULSE 93; RESP 16; TEMP 36.8; O2SAT 86; O2SAT 95; O2SAT 96
[2024-02-08] MEDS: Ceftriaxone 1 GM/50 ML BAG IV (09:21)
[2024-02-08] MEDS: Azithromycin 500 MG in Dextrose 5%-Water (250mL Bag) 250 ML 250 MG IV (10:09)
--- NOTE | 2024-02-08 11:03 | PCM.DC.SUM ---
Providers Date of Admission: 02/06/24 Date of Discharge: 02/08/24 Primary Care Physician: Dr. Gerry Coreas MD Reason For Visit: AE ASTHMA, SUSPECTED EARLY PNEUMONIA AND Diagnosis Discharge Diagnosis (1) Asthma with acute exacerbation: Status: Acute Code(s): J45.901 - Unspecified asthma with (acute) exacerbation Qualifiers: Asthma persistence: persistent Asthma severity: moderate Qualified Code(s): J45.41 - Moderate persistent asthma with (acute) exacerbation (2) Hypoxia: Status: Acute Code(s): R09.02 - Hypoxemia Medications at Discharge Home Medications albuterol sulfate 90 mcg/actuation aerosol inhaler (Ventolin HFA) 2 puff inhalation Q4H PRN PRN Shortness Of Breath 11/20/16 gabapentin 300 mg capsule (Neurontin) 300 mg PO TID NERVE PAIN 01/10/17 atorvastatin 40 mg tablet 40 mg PO QHS CHOLESTEROL 11/26/20 insulin lispro 100 unit/mL subcutaneous pen 12 unit SQ TIDCM DM 11/26/20 liraglutide 0.6 mg/0.1 mL (18 mg/3 mL) subcutaneous pen injector 1.8 mg SQ QHS DM 11/26/20 metformin 500 mg tablet,extended release 24 hr 2,000 mg PO DAILY DM 11/26/20 acetaminophen 325 mg tablet 650 mg (2 x 325 mg) PO Q6H PRN PRN Pain Score 1-10/Temp > 100.7 F 11/29/20 ferrous sulfate 325 mg (65 mg iron) tablet 325 mg PO QODAY SUPPLEMENT #0 tabs 12/08/21 vitamin A-vitamin C-vit E-min tablet 1 tab PO DAILY 07/29/22 insulin glargine 100 unit/mL (3 mL) subcutaneous pen (Lantus Solostar U-100 Insulin) 40 unit subcut QHS 02/15/23 hydrocodone-acetaminophen 5-325mg 5mg-325mg 1 tab PO Q6H PRN PRN Pain 3 days #10 TABLETS 01/31/24 amoxicillin 875 mg-potassium clavulanate 125 mg tablet 1 tab PO BID 3 days #6 tabs 02/08/24 pantoprazole 40 mg tablet,delayed release 40 mg PO DAILY 30 days #30 tabs 02/08/24 prednisone 20 mg tablet 40 mg (2 x 20 mg) PO DAILY 3 days #6 tabs 02/08/24 Hospital Course Operations None Procedures EKG and - (Chest x-ray) Summary of Care Provided Minutes Spent on Discharge: 35 Hospital Course: Patient is a 63-year-old female who presented [facility] ED on 02/06/2024 with worsening shortness of breath and hypoxia. Hospital course as noted below. Patient discharged home with no therapy needs in stable condition on 02/07. 1. Mild asthma exacerbation with concern for community-acquired pneumonia; mild hypoxia in setting of untreated SOL and suspected obesity hypoventilation syndrome ? Hypoxic to 78% on room air on admit. Chest x-ray showed mild bilateral perihilar reticulonodular interstitial infiltrates versus pulmonary edema. Patient with mild wheezing on exam noted. COVID and respiratory panel negative. Unable to produce sputum sample. Improved with treatment with IV steroids, IV antibiotics and scheduled nebs. High suspicion the patient has untreated SOL given noted desaturations at night. May also have some degree of OHS. Completed oxygen qualification testing on day of discharge and did require 2 L nasal cannula with exertion. However, patient strangely refused oxygen prescription on discharge despite my strong recommendation that she would need it, as she stated that she has supplemental oxygen at home from her . Strongly recommended to patient that she have a sleep study done, though she refused PAP therapy here at night due to discomfort with the machine and stated she would not use a CPAP or BiPAP at home in the future. Discharged on prednisone 40 mg daily and Augmentin to complete 5-day courses of steroids and antibiotics total, stop date 02/10. Continue home albuterol as needed. 2. Chronic gait instability with recent bilateral ankle sprains ? PT/OT/case management followed, had very good therapy scores. Tylenol as needed for pain. Okay for discharge home with outpatient therapy as needed. Chronic medical conditions: ? Morbid obesity: BMI 64 on admit. Complicated hospital course, care and prognosis. ? Type 2 diabetes mellitus with neuropathy: Home regimen of insulin glargine 40 units at night, lispro 12 units with meals, metformin 2000 mg daily and liraglutide 1.8 mg daily. Treated with home glargine and lispro with sliding scale as needed with meals while inpatient with adequate glucose control. Okay to resume home regimen on discharge. ? Hyperlipidemia: Continue home statin. ? History of iron deficiency anemia: Hemoglobin 15-16 on admit. Okay to continue home iron supplement. Total clinical time spent by myself addressing the patient's medical issues, reviewing all the data, and collaborating with patient's care team: 35 minutes. Physical Exam Const alert, oriented x3 and no apparent distress Constitutional Narrative: Elderly female, morbidly obese, sitting up comfortably in bed, conversing normally, in no acute distress. General Appearance: cooperative and comfortable HEENT normocephalic, head/scalp atraumatic, hearing grossly normal bilaterally, nasal mucous membranes and turbinates normal and moist oral mucous membranes Eyes PERRL, EOMs intact bilaterally and conjunctivae normal Neck full ROM Chest inspection of chest normal Resp normal respiratory effort and no use of accessory muscles Resp Narrative: Breathing comfortably on 2 L nasal cannula at rest with good saturations. Mild to moderately decreased breath sounds bilaterally, worse in lung bases suspected due to body habitus. No wheezing or crackles noted. Cardio regular rate, regular rhythm, no murmurs and peripheral pulses 2+ throughout GI normal to inspection, nondistended, normoactive bowel sounds, soft to palpation, non-tender and non-distended Back/Spine normal ROM Extremity normal to inspection, full ROM and no pedal edema Skin no rashes or lesions noted Neuro moves all extremities and no focal motor deficits Speech: speech normal Psych mental status grossly normal Weight / BMI Weight Weight: 147.6 kg Body Mass Index (BMI) 65.5 ABG / Lab / Microbiology Data 02/07/24 06:10 02/07/24 06:10 Laboratory: Laboratory Results - last 24 hr 02/07/24 11:17: POC Glucose 243 H 02/07/24 16:12: POC Glucose 209 H 02/07/24 21:34: POC Glucose 194 H 02/08/24 07:35: POC Glucose 262 H Microbiology: Microbiology 02/07/24 17:28 Urine, Clean Catch Legionella Antigen - Final 02/07/24 17:28 Urine, Clean Catch Streptococcus pneumoniae Antigen (M - Final 02/07/24 09:50 Mucosa - Nose Coronavirus COVID-19 PCR - Final 02/07/24 09:50 Mucosa - Nose Respiratory Panel (PCR) - Final Meaningful Use Info Meaningful Use Meaningful Use Diagnoses (Choose all that apply): None applicable Ischemic Stroke Statin Dosing Therapy Reference: STATIN DOSE THERAPY REFERENCE: * Patients > 75 years receive moderate or high dose statin therapy. * Patients 75 years or YOUNGER should receive HIGH intensity statin dose unless contraindicated. You will be required to document reason for non-treatment if statin daily dose does not meet guidelines. HIGH DOSE STATIN THERAPY DAILY Atorvastatin > than or = to 40 mg Rosuvastatin > than or = to 20 mg Amlodipine + Atorvastatin > than or = to 2.5/40 mg Ezetimibe + Simvastatin 10/80 mg Simvastatin 80mg Discharge Plan Admission Admit Date/Time: 02/06/24 22:12 Primary Reason for Your Visit: Shortness of breath and low oxygen level Attending Provider: Pasquale Becerra Primary Care Provider: Gerry Coreas Consulting Providers: Francisco Blake Instructions Additional Instructions / Restrictions: Take the antibiotic and steroid noted below for 3 more days to complete 5-day courses. Use oxygen as needed at home to maintain oxygen saturations greater than 88%. Discharge Orders/Prescriptions Prescriptions: New pantoprazole 40 mg Tablet,Delayed Release (Dr/Ec) 40 mg PO DAILY 30 Days Qty: 30 2RF prednisone 20 mg tablet 40 mg PO DAILY 3 Days Qty: 6 0RF amoxicillin-pot clavulanate 875-125 mg tablet 1 tab PO BID 3 Days Qty: 6 0RF Continued albuterol sulfate [Ventolin HFA] 1 INHALER inhaler 2 puff inhalation Q4H PRN PRN (Reason: Shortness Of Breath) gabapentin [Neurontin] 300 MG capsule 300 mg PO TID atorvastatin 40 MG tablet 40 mg PO QHS metformin 500 MG tablet extended release 24 hr 2,000 mg PO DAILY insulin lispro 100 UNIT/ML insulin pen 12 unit SQ TIDCM liraglutide 0.6 MG/0.1 ML pen injector 1.8 mg SQ QHS acetaminophen 325 MG tablet 650 mg PO Q6H PRN PRN (Reason: Pain Score 1-10/Temp > 100.7 F) 0RF ferrous sulfate 325 MG tablet 325 mg PO QODAY Qty: 0 0RF vitamin A-vitamin C-vit E-min Tablet 1 tab PO DAILY insulin glargine [Lantus Solostar U-100 Insulin] 100 unit/mL (3 mL) insulin pen 40 unit SUBCUT QHS hydrocodone-acetaminophen 5-325 mg tablet 1 tab PO Q6H PRN PRN (Reason: Pain) 3 Days Qty: 10 0RF Referrals / Follow Up: Gerry Coreas MD [Primary Care Provider] - Disposition Disposition (needs filled in before D/C Order can be placed): Home, Self Care Charges/Coding Visit Charges Inpatient E&M: 50641 Disch Hosp >30min
--- NOTE | 2024-02-08 12:10 | PCM.HOSP.N ---
Hospitalist Note I have reviewed the oxygen testing, and this patient qualifies for the home equipment and portability. The patient is mobile in the home and the community.
--- NOTE | 2024-02-08 12:32 | PHA.DC.MC.R ---
Pharmacy [facility] has performed discharge medication reconciliation and counseling for this patient. The patient's discharge medication list was reviewed for discrepancies and discrepancies were resolved. The patient was counseled on the following discharge medications and changes in medications for homegoing were reviewed. The Reason for Use, instructions for use, and potential side effects were reviewed for all new medications. The patient's questions regarding all of their medications were answered. 1. Amoxicillin/clavulanate 875/125 mg PO BID x 3 days 2. Pantoprazole 40 mg PO daily 3. Prednisone 40 mg PO daily x 3 days The patient was able to verbally demonstrate an understanding of their discharge medications. The patient was counselled on new prescriptions by exceptional student education aide Travis. Medications at Discharge Home Medications albuterol sulfate 90 mcg/actuation aerosol inhaler (Ventolin HFA) 2 puff inhalation Q4H PRN PRN Shortness Of Breath 11/20/16 gabapentin 300 mg capsule (Neurontin) 300 mg PO TID NERVE PAIN 01/10/17 atorvastatin 40 mg tablet 40 mg PO QHS CHOLESTEROL 11/26/20 insulin lispro 100 unit/mL subcutaneous pen 12 unit SQ TIDCM DM 11/26/20 liraglutide 0.6 mg/0.1 mL (18 mg/3 mL) subcutaneous pen injector 1.8 mg SQ QHS DM 11/26/20 metformin 500 mg tablet,extended release 24 hr 2,000 mg PO DAILY DM 11/26/20 acetaminophen 325 mg tablet 650 mg (2 x 325 mg) PO Q6H PRN PRN Pain Score 1-10/Temp > 100.7 F 11/29/20 ferrous sulfate 325 mg (65 mg iron) tablet 325 mg PO QODAY SUPPLEMENT #0 tabs 12/08/21 vitamin A-vitamin C-vit E-min tablet 1 tab PO DAILY 07/29/22 insulin glargine 100 unit/mL (3 mL) subcutaneous pen (Lantus Solostar U-100 Insulin) 40 unit subcut QHS 02/15/23 hydrocodone-acetaminophen 5-325mg 5mg-325mg 1 tab PO Q6H PRN PRN Pain 3 days #10 TABLETS 01/31/24 amoxicillin 875 mg-potassium clavulanate 125 mg tablet 1 tab PO BID 3 days #6 tabs 02/08/24 pantoprazole 40 mg tablet,delayed release 40 mg PO DAILY 30 days #30 tabs 02/08/24 prednisone 20 mg tablet 40 mg (2 x 20 mg) PO DAILY 3 days #6 tabs 02/08/24
--- NOTE | 2024-02-08 12:50 | CASEMGMT ---
LUCIA COLLIER into pt room, 3 family members at bedside. Pt agrees to discuss DC plan with family present. Reviewed O2 qualification test with pt and informed pt she qualifies for continuous 2L and will order O2 through pt choice of [facility]. Pt tore NC off and threw it on ground and stated I don't need this fucking shit and I want to go home now. LUCIA COLLIER stated want to make sure pt is safe to leave and has been on O2 throughout hospital stay. Pt states I'm tired of waiting, this is fucking bullshit. LUCIA Redding walked into room to check in. LUCIA COLLIER expressed concern for pt to leave without O2 and informed pt we will call and get [facility] to deliver LACHELLE. Pt refusing, does not want to wait. Offered pt to switch DME providers to [facility], LUCIA COLLIER can get an in stock portable tank or Pt can leave AMA. Pt stated she wants to go home, would like to sign papers to leave AMA. Notified charge nurse, charge nurse notified Hospitalist.
--- NOTE | 2024-02-08 12:58 | CASEMGMT ---
LUCIA COLLIER into room as LUCIA Wick already present. Pt upset and yelling that she does not want oxygen at home. She states she wants to leave the hospital and did not order a lunch tray. She is aware that [facility] will deliver the portable tank to her room. She states she does not want to wait and she has no where in her home to put the tank. Pt began shouting obscenities to LUCIA COLLIER. Pt states she wants to leave without the oxygen and will do so even if she needs to sign out AMA. Updated charge nurse who sent message to hospitalist regarding this.
== END 2024-02-08 13:06 | disposition home or self-care (01) | DRG 141 ==
LOC: ED 21:54 → MS3 22:41
PROVIDERS: Admitting Provider Internal Medicine; Emergency Provider Emergency Medicine; PCP Family Medicine; Visit Provider Hospitalist
DX: J45.41 Moderate persistent asthma with (acute) exacerbation (principal); E66.2 Morbid (severe) obesity with alveolar hypoventilation; Z68.44 Body mass index [BMI] 60.0-69.9, adult; E11.40 Type 2 diabetes mellitus with diabetic neuropathy, unspecified; D50.9 Iron deficiency anemia, unspecified; E78.5 Hyperlipidemia, unspecified; Z79.4 Long term (current) use of insulin; I10 Essential (primary) hypertension; S93.402S Sprain of unspecified ligament of left ankle, sequela; S93.401S Sprain of unspecified ligament of right ankle, sequela; K21.9 Gastro-esophageal reflux disease without esophagitis; R09.02 Hypoxemia; Z86.16 Personal history of COVID-19; R26.9 Unspecified abnormalities of gait and mobility; Z87.01 Personal history of pneumonia (recurrent); R06.89 Other abnormalities of breathing
CPT/HCPCS: 36415; 71045; 80048; 80053; 82962; 83036; 83540; 83550; 83735; 83880; 84100; 84443; 85025; 85379; 87449; 87633; 87635; 93005; 94640; 94660; 94668; 97161; 97165; 97802; 99252; 99285; J7030; A4216; G0463

== ENCOUNTER 2024-08-04 09:35 | Inpatient (IN) | payer MEDICAID, SELFPAY ==
[2024-08-04] VITALS (8 sets, daily range): BP systolic 124–166; BP diastolic 67–117; PULSE 86–101; RESP 14–22; TEMP 36.7–37.2; O2SAT 90–99; BMI 58.8; BMI 59.3
--- NOTE | 2024-08-04 09:47 | EKG12_ITS ---
Test Reason : CP Blood Pressure : */* mmHG Vent. Rate : 96 BPM Atrial Rate : 96 BPM P-R Int : 146 ms QRS Dur : 78 ms QT Int : 310 ms P-R-T Axes : 58 61 61 degrees QTcB Int : 391 ms Normal sinus rhythm Normal ECG Confirmed by JOVAN RUIZ, GENIA ([id number]), greeting card editor DELLA PIÑA ([id number]) on 08/06/2024 6:29:31 AM Referred By: Confirmed By: GENIA ALDANA MD
--- NOTE | 2024-08-04 10:20 | RAD_ITS ---
STUDY: X-RAY CHEST REASON FOR EXAM: Female, 64 years old. CP TECHNIQUE: Single AP portable view of the chest. COMPARISON: Comparison is made with prior study dated February 06, 2024. FINDINGS: EKG electrodes are seen. The lungs are clear and expanded. There is no demonstrated pleural abnormality. There is moderate cardiac enlargement. Normal mediastinum and chante. Normal visualized pulmonary arteries. There is atherosclerotic calcification of the aortic arch with tortuosity. Normal visualized thoracic spine. Normal visualized ribs, clavicles, and shoulders. There is no demonstrated abnormality of the visualized soft tissue structures of the upper abdomen. RAD/Chest 1 View (Portable) IMPRESSION: Cardiomegaly. The lungs are clear. Electronically Signed: Jasson Amezquita MD at 10:39 EST ,
[2024-08-04 10:42] LABS: Anion Gap 3 (5-15); BUN 22 mg/dL (7-18); BUN/Creat Ratio 19.1 RATIO (10-20); Chloride 102 mmol/L (98-107); Creatinine, Serum 1.15 mg/dL (0.55-1.02); EST Glomerular Filtration Rate 51 mL/min (>60); Est Glom Filt Rate - Afr Amer 62 mL/min (>60); Estimated Creatinine Clearance 65.64 ml/min; Glucose 150 mg/dL (74-106); Potassium 4.6 mmol/L (3.5-5.1); Sodium Level 135 mmol/L (136-145); Troponin-I HS (w/2H Reflex) 6 pg/mL (3.0-54.0)
--- NOTE | 2024-08-04 11:06 | EDS_ITS ---
HPI History of Present Illness Chief Complaint: Lower Extremity Injury Detail of Chief Complaint: Pertinent triage extremity pain. Per my history and physical left-sided ch Informant: patient Onset/Context/Timing Onset: Today (Awoke at 0530 with chest discomfort on the left side) Context: - (Awoke with chest pain did not awake her.) Timing: Continuous Quality: Ache Location: Sternum left chest region Current Severity: Mild Maximum Severity: Moderate Worsened by: Nothing Relieved by: Nothing Associated Symptoms Associated Symptoms: None and no radiation Narrative Narrative: Patient is a 64-year-old woman. BMI is 58.9. She has history of diabetes with neuropathy, sleep apnea, chronic respiratory failure requiring oxygen by nasal cannula, difficulty ambulating because of body habitus who was seen this past weekend at [facility]. She had imaging done at that time. The note authored by the emergency physician is not available for review. She did have a CT of the abdomen and pelvis which revealed no acute intra-abdominal or pelvic abnormality. Lower chest was also noted and normal. The reason for the x-ray was right lower quadrant pain x 1 week. She states she was seen because of back pain. She also had x-rays of her LS spine which revealed degenerative changes and interpreted by Dr. Dudley Saldaña on July 30. Patient had venous duplex study of the lower extremity on July 29 which was negative as well. Patient states she took Tylenol this morning with no improvement. She denies shortness of breath, orthopnea, PND, nausea or vomiting, diaphoresis. Possibly shortness of breath. She has history of chronic shortness of breath. She presently denied constipation, diarrhea, black or maroon-colored stool. She denied urologic symptoms. She denied leg pain or increased swelling or discoloration of her lower extremities. Prior similar symptoms: No Recent Illness/Hospitalization: Yes (Noted in the HPI narrative) [facility] Medical History Heart attack History of obstructive sleep apnea Gait instability Morbid obesity with BMI of 60.0-69.9, adult Neuropathy Osteoporosis GERD (gastroesophageal reflux disease) Pyelonephritis Diabetes Asthma Sleep apnea Hyperlipidemia Hypertension Home Medications ?Medication ?Instructions ?Recorded ?Last Taken ?Type albuterol sulfate 90 mcg/actuation 2 puff inhalation Q4H PRN PRN 11/20/16 Unknown History aerosol inhaler (Ventolin HFA) Shortness Of Breath gabapentin 300 mg capsule 300 mg PO TID NERVE PAIN 01/10/17 02/15/23 History (Neurontin) atorvastatin 40 mg tablet 40 mg PO QHS CHOLESTEROL 11/26/20 02/14/23 History insulin lispro 100 unit/mL 12 unit SQ TIDCM DM 11/26/20 02/15/23 History subcutaneous pen liraglutide 0.6 mg/0.1 mL (18 mg/3 1.8 mg SQ QHS DM 11/26/20 11/25/20 History mL) subcutaneous pen injector metformin 500 mg tablet,extended 2,000 mg PO DAILY DM 11/26/20 02/15/23 History release 24 hr acetaminophen 325 mg tablet 650 mg (2 x 325 mg) PO Q6H PRN PRN 11/29/20 Unknown Rx Pain Score 1-10/Temp > 100.7 F ferrous sulfate 325 mg (65 mg 325 mg PO QODAY SUPPLEMENT #0 tabs 12/08/21 02/15/23 Rx iron) tablet vitamin A-vitamin C-vit E-min 1 tab PO DAILY 07/29/22 02/15/23 History tablet insulin glargine 100 unit/mL (3 40 unit subcut QHS 02/15/23 02/14/23 History mL) subcutaneous pen (Lantus Solostar U-100 Insulin) hydrocodone-acetaminophen 5-325mg 1 tab PO Q6H PRN PRN Pain 3 days 01/31/24 Unknown Rx 5mg-325mg #10 TABLETS amoxicillin 875 mg-potassium 1 tab PO BID 3 days #6 tabs 02/08/24 Unknown Rx clavulanate 125 mg tablet pantoprazole 40 mg tablet,delayed 40 mg PO DAILY 30 days #30 tabs 02/08/24 Unknown Rx release prednisone 20 mg tablet 40 mg (2 x 20 mg) PO DAILY 3 days 02/08/24 Unknown Rx #6 tabs Allergy/AdvReac Type Severity Reaction Status Date / Time aspirin Allergy NEEDS Verified 08/04/24 09:55 FOLLOW-UP bee pollen Allergy Rash Verified 08/04/24 09:55 chestnut Allergy Anaphylaxis Verified 08/04/24 09:55 hydrogen peroxide Allergy Rash Verified 08/04/24 09:55 egg AdvReac Diarrhea Verified 08/04/24 09:55 tramadol AdvReac Abd Verified 08/04/24 09:55 cramps/diarrhea Social History (Updated 08/04/24 @ 11:[address] Kashmir Camarillo MD) household members: none Smoking Status: Never smoker ROS ROS ED Constitutional Constitutional ED: Denies chills, fever(s), subjective or sweats Eyes Eyes: Denies blurry vision, change in vision or diplopia ENT ENT ED: Denies ear pain, rhinorrhea or sore throat Cardiovascular Cardiovascular: Reports chest pain; Denies orthopnea, palpitations, paroxysmal nocturnal dyspnea or racing heartbeat Respiratory/Chest Respiratory/Chest: Denies cough, dyspnea, dyspnea on exertion, orthopnea, paroxysmal nocturnal dyspnea or sputum Gastrointestinal Gastrointestinal: Reports abdominal pain and other Details: She complained of periumbilical pain. ; Denies constipation, diarrhea, melena, nausea or vomiting Genitourinary Genitourinary ED: Denies dysuria, hematuria or urinary frequency Musculoskeletal Musculoskeletal: Reports back pain and other Details: Back pain is chronic. There is no change. ; Denies arthralgias or myalgias Integumentary Denies rash Neurologic Neurologic: Denies headache(s), paresthesias or weakness Endocrine Endocrinology: Denies cold intolerance or heat intolerance Hematologic/Lymphatic Hematologic/Lymphatic: Reports systems reviewed and no addt'l complaints, except as documented EXAM Physical Exam Const Vital Signs: 08/04/24 09:51 08/04/24 11:05 Temperature 98.1 F Temperature Source Oral Pulse Rate 101 H 89 Respiratory Rate 20 H 14 Blood Pressure 160/96 H 134/117 H Blood Pressure Mean 117 122 Pulse Ox 96 97 Oxygen Delivery Method Nasal Cannula Room Air Oxygen Flow Rate (L/min) 4 Positive well nourished and well developed Constitutional Narrative: Patient appears in no discomfort. BMI is 58.9. Vital signs were remarkable for a heart rate of 101 and blood pressure of 160/96. This was noted at 0951. Blood pressure and heart rate at 08/20/2004 are 134/117 and 89. General Appearance ED: well developed HEENT Reports moist mucous membranes HEENT Narrative: Head is atraumatic normocephalic. Ears normal. Nares patent. Posterior pharynx is normal. Eyes PERRL and EOMs intact bilaterally General Eye ED: Negative for pale conjunctiva or scleral icterus Neck no lymphadenopathy, supple and no JVD Neck Narrative: Trachea is midline. There is no in-store expiratory stridor. Chest Wall palpation of chest normal Resp normal respiratory effort and clear to auscultation bilaterally Resp Narrative: Breath sounds are diminished and suspect this is due to body habitus. Cardio regular rate, regular rhythm, S1 normal heart sound, S2 normal heart sound and no murmurs GI normal to inspection, nondistended, normoactive bowel sounds, non-distended and no masses; Negative for non-tender or hepatosplenomegaly GI Narrative: Abdominal exam is limited due to body habitus. There is no obvious hepatosplenomegaly. Is no palp pulsatile mass or abdominal bruit. There is no evidence umbilical hernia. Patient has some mild supraumbilical discomfort. There is no guarding or peritoneal findings. Palpation: soft Back/Spine no CVA tenderness Extremity General Extremety ED: Yes edema General Extremity: edema Neuro oriented x3 and CN's II-XII intact bilaterally Sensorium / Orientation: alert Psych mental status grossly normal Skin no rashes or lesions noted, no wounds and skin turgor normal General Skin Exam: elasticity normal MDM MDM MDM Narrative Medical decision making narrative: The patient having chest pain and history of diabetes that is not well- controlled need to evaluate for atypical presentation of chest pain versus noncardiac cause. Differential would include GERD, peptic ulcer disease, esophageal spasm, doubt biliary disease and she denies intolerance to greasy or fried foods and has a negative clinical Adame sign. BMP was obtained to assess renal function and troponin was obtained with 2-hour troponin to determine if there is a rise since her pain started less than 6 hours ago. EKG was obtained. EKG reveals normal sinus rhythm of 96. Her EKG is normal with symptoms. MD interval is under 46 ms. QRS duration 78 ms. QT duration 310 ms. [place] is normal. History & Record Review Additional record(s) reviewed:: Prior outpatient record (Records from [facility] this past weekend through [facility]), Prior ED visit (Most recent ER visit was January for ankle sprain. She was seen July 2022 for exacerbation of asthma.) and Prior labs Lab Data Labs: Laboratory Results - last 24 hr 08/04/24 08/04/24 10:10 12:20 Sodium 135 L Potassium 4.6 Chloride 102 Carbon Dioxide 30.0 Anion Gap 3 L BUN 22 H Creatinine 1.15 H Estim Creat Clear Calc 65.64 Est GFR (MDRD) Af Amer 62 Est GFR (MDRD) Non-Af 51 L BUN/Creatinine Ratio 19.1 Glucose 150 H Calcium 10.0 Troponin I High Sens 6 7 Radiography Diagnostic Testing: Clinical Impression(s) from Imaging Studies Chest X-Ray 08/04/24 10:20 IMPRESSION: Cardiomegaly. The lungs are clear. Electronically Signed: Jasson Amezquita MD at 10:39 EST , EKG Initial EKG: Attestation: I personally reviewed and interpreted this EKG as follows: Interpretation: Sinus Rhythm (Rate is 96 and the EKG is normal) Management Discussion w/another healthcare provider: Hospitalist Treatment and Re-Evaluation :: Patient was informed of her results. Patient is not able to sit up from a supine position. Patient arrived by ambulance because of difficulty navigating at her residence. Patient feels she cannot go home. She was informed that this would be a observation status. She states she does not feel comfortable going home. In light of this the hospitalist was paged Discharge Plan Dx/Rx/DC Orders Clinical Impression: Physical debility, Chest pain, Diabetes mellitus with neuropathy, Body mass index (BMI) greater than 50, Chronic high back pain, Debility, Inability to walk, Adult failure to thrive Disposition Disposition: Acute Care [facility]
[2024-08-04 12:13] LABS: Reflex Troponin-HS? (from REC) Y
[2024-08-04 12:52] LABS: Troponin-I HS 7 pg/mL (3.0-54.0)
--- NOTE | 2024-08-04 14:16 | HP.PCM.HOS_ITS ---
HPI - General General Date of Admission: 08/04/24 Date of Service: 08/04/24 Chief Complaint: Leg, abd, chest pain HPI Narrative BRIAN LOPEZ, is a 64 F with a history of diabetes, chronic hypoxic respiratory failure on 3 L continuous O2, asthma, GERD presented [facility] ED 08/04/2024 for complaints of pain. She had been seen at [facility] in her PCPs office for right leg pain that radiated up to her stomach and had duplex of the right lower extremity which was negative and a CT abdomen pelvis without contrast that per report was unremarkable and patient was ultimately sent home. Patient Re-presented due to the continued pain and also noting that the pain goes from the leg all the way up and sometimes into the chest and it was concerning her and she had concerns about going home. In the ED patient had a fairly benign BMP but due to her concerns for ability to go home hospitalist contacted for admission. Patient evaluated at bedside reports that she has a history of chronic back pain and at baseline only ambulates a little bit with a cane at home but largely is nonambulatory, she reports that this pain started a week ago and started in between her knee and ankle on the right leg and his progressed upwards into her hip and abdomen and chest, the pain will come and go and is sometimes sharp sometimes achy and sometimes stabbing. She also reports a spot on her foot feels somewhat sore. She also has a little bit of nausea off and on since then maybe her breathing could be a little different from normal and she might have a little bit of a stuffy nose. Denies any changes in her bowels or bladder. No history of kidney stones [facility] Medical History Heart attack History of obstructive sleep apnea Gait instability Morbid obesity with BMI of 60.0-69.9, adult Neuropathy Osteoporosis GERD (gastroesophageal reflux disease) Pyelonephritis Diabetes Asthma Sleep apnea Hyperlipidemia Hypertension Home Medications ?Medication ?Instructions ?Recorded ?Last Taken ?Type albuterol sulfate 90 mcg/actuation 2 puff inhalation Q4H PRN PRN 11/20/16 Unknown History aerosol inhaler (Ventolin HFA) Shortness Of Breath gabapentin 300 mg capsule 300 mg PO TID NERVE PAIN 01/10/17 02/15/23 History (Neurontin) atorvastatin 40 mg tablet 80 mg PO QHS CHOLESTEROL 11/26/20 02/14/23 History insulin lispro 100 unit/mL 12 unit SQ TIDCM DM 11/26/20 02/15/23 History subcutaneous pen liraglutide 0.6 mg/0.1 mL (18 mg/3 1.8 mg SQ QHS DM 11/26/20 11/25/20 History mL) subcutaneous pen injector metformin 500 mg tablet,extended 2,000 mg PO DAILY DM 11/26/20 02/15/23 History release 24 hr acetaminophen 325 mg tablet 650 mg (2 x 325 mg) PO Q6H PRN PRN 11/29/20 Unknown Rx Pain Score 1-10/Temp > 100.7 F ferrous sulfate 325 mg (65 mg 325 mg PO QODAY SUPPLEMENT #0 tabs 12/08/21 02/15/23 Rx iron) tablet vitamin A-vitamin C-vit E-min 1 tab PO DAILY 07/29/22 02/15/23 History tablet insulin glargine 100 unit/mL (3 40 unit subcut QHS 02/15/23 02/14/23 History mL) subcutaneous pen (Lantus Solostar U-100 Insulin) aspirin 81 mg chewable tablet 1 tab PO DAILY 08/04/24 Unknown History clopidogrel 75 mg tablet 75 mg PO DAILY 08/04/24 Unknown History ergocalciferol (vitamin D2) 1,250 1,250 mcg PO QWEEK 08/04/24 Unknown History mcg (50,000 unit) capsule (Vitamin D2) fluticasone 500 mcg-salmeterol 50 1 ea inhalation BID 08/04/24 Unknown History mcg/dose blistr powdr for inhalation (Advair Diskus) lisinopril 10 mg tablet 10 mg PO DAILY 08/04/24 Unknown History metoprolol succinate 25 mg 12.5 mg PO DAILY 08/04/24 Unknown History tablet,extended release 24 hr Allergy/AdvReac Type Severity Reaction Status Date / Time aspirin Allergy NEEDS Verified 08/04/24 09:55 FOLLOW-UP bee pollen Allergy Rash Verified 08/04/24 09:55 chestnut Allergy Anaphylaxis Verified 08/04/24 09:55 hydrogen peroxide Allergy Rash Verified 08/04/24 09:55 egg AdvReac Diarrhea Verified 08/04/24 09:55 tramadol AdvReac Abd Verified 08/04/24 09:55 cramps/diarrhea Social History (Updated 08/04/24 @ 11:[address] Kashmir Camarillo MD) household members: none Smoking Status: Never smoker ROS ROS Narrative General: Denies fever/chills but feels hot and has shakes right now HENT: Denies headache, possibly stuffy nose, denies sore throat EYES: Denies changes in vision Resp: Has chronic shortness of breath, she is unsure if this is the same or unchanged Cardiac: Intermittently gets some random radiation of the pain up towards her chest GI: Sometimes nausea, no changes in bowels, the abdominal pain is random and seems to radiate upward from her leg per patient : Denies changes in urination Extremity: Did have some tenderness on the right leg on palpation but not presently feeling tender to palpation, only on the medial aspect of her right foot behind her first MTP joint MSK: Generalized weakness Neuro: Chronic neuropathy Heme: Denies any bleeding or bruising Skin: Denies rashes Psychiatric: No complaints voiced Vital Signs Vital Signs Vital Signs: 08/04/24 09:51 08/04/24 11:05 Temperature 98.1 F Temperature Source Oral Pulse Rate 101 H 89 Respiratory Rate 20 H 14 Blood Pressure 160/96 H 134/117 H Blood Pressure Mean 117 122 Pulse Ox 96 97 Oxygen Delivery Method Nasal Cannula Room Air Oxygen Flow Rate (L/min) 4 Weight Weight: 136.7 kg Body Mass Index (BMI) 58.8 Physical Exam Narrative General: Alert, oriented, intermittently with some shaking HEENT: Atraumatic, normocephalic, poor dentition Eyes: Anicteric, normal conjunctiva, extraocular movements grossly intact Neck: Supple Respiratory: Clear to auscultation bilaterally, normal respiratory effort Cardiovascular: Regular rate and rhythm GI: Soft, patient with random points of tenderness that are inconsistent sometimes very superficial and seem to be tender in the actual subcutaneous tissue but this is not reproducible, no rebound, guarding, rigidity Extremities: Bilateral lower extremity are large but not necessarily edematous Musculoskeletal: Moving all extremities, no tenderness when palpating right leg, did have a small sore area on medial portion of right foot behind first MTP joint but not affecting the joint itself and no difficulty moving ankles or wiggling toes Neuro: No overt focal neurological deficits Skin: No rashes appreciated Psych: Cooperative Results Lab / Micro Data 08/04/24 10:10 Labs: Laboratory Results - last 24 hr 08/04/24 10:10: Sodium 135 L, Potassium 4.6, Chloride 102, Carbon Dioxide 30.0, Anion Gap 3 L, BUN 22 H, Creatinine 1.15 H, Estim Creat Clear Calc 65.64, Est GFR (MDRD) Af Amer 62, Est GFR (MDRD) Non-Af 51 L, BUN/Creatinine Ratio 19.1, G lucose 150 H, Calcium 10.0, Troponin I High Sens 6 08/04/24 12:20: Troponin I High Sens 7 Imaging Radiology Impression Chest X-Ray 08/04/24 10:20 IMPRESSION: Cardiomegaly. The lungs are clear. Electronically Signed: Jasson Amezquita MD at 10:39 EST Reading Location ID and State: [facility] / [place] , Service support , Assessment & Plan Assessment/Plan (1) Adult failure to thrive: PLAN: Plan #Right sided pain -Patient with right sided leg, abdominal, hip, chest pain -Very nonspecific and exam not suggestive of any specific etiology -Did have some tenderness on the right foot so will check an x-ray of this -Check CBC/ESR/CRP -EKG normal sinus rhythm and overall unremarkable -PT/OT -Pain control -Case management/social work -Reportedly recent right lower extremity duplex and CT abdomen pelvis without contrast not overly remarkable -Can consider contrasted CTs if pain persist and workup otherwise unrevealing # Chronic hypoxic respiratory failure/asthma/SOL -Patient on 3 L home O2, does not use a CPAP -Continue home inhalers and 3 L O2 #Hx CAD -Continue home medications #Hypertension -Continue home antihypertensives #Type 2 diabetes mellitus -Glucose checks and sliding scale insulin -Continue long-acting insulin at lower dose than baseline to avoid hypoglycemia can uptitrate as tolerated #GERD -Continue PPI #Morbid obesity -BMI documented as 58.9 kg/m? at time of admission -Complicates treatment, prognosis, outcomes -Recommend weight loss and lifestyle changes #DVT ppx: Lovenox SQ twice daily Heaven Jeter MD Time spent in the patient's overall evaluation, decision-making process, review of diagnostic data, adjustment of management, discussion with other providers, nursing and ancillary staff involved in patient's care documentation, 57 Minutes Charges/Coding Visit Charges Inpatient E&M: 10227 Init Hosp L2
--- NOTE | 2024-08-04 14:27 | RAD_ITS ---
STUDY: X-RAY - RIGHT FOOT CLINICAL: Female, 64 years old. Lateral foot pain. No known injury. TECHNIQUE: 2 view(s) of the foot. COMPARISON: None. FINDINGS: There is a plantar calcaneal spur. Normal visualized subtalar, talonavicular, calcaneocuboid, tarsal and tarsometatarsal articulations. Normal metatarsi. Normal metatarsophalangeal joint of the great toe. There is a bipartite tibial sesamoid. Normal interphalangeal joint of the great toe. Normal phalanges of the great toe. Normal second through fifth metatarsophalangeal joints. Normal interphalangeal joints and phalanges of the lesser toes. The soft tissue structures are unremarkable. RAD/Foot 2 Views IMPRESSION: Calcaneal spurs. Electronically Signed: Jasson Amezquita MD at 15:13 EST ,
[2024-08-04] MEDS: oxyCODONE 5 MG Tablet PO ×2 (15:55→21:57)
[2024-08-04 16:12] LABS: Bedside Glucose 119 mg/dL (74-106)
[2024-08-04] MEDS: Metoprolol(XL)Succ 25 MG Tablet 12.5 MG PO (17:03)
[2024-08-04] MEDS: Lisinopril 10 MG Tablet PO (17:04)
[2024-08-04] MEDS: Acetaminophen 500 MG Tablet 1000 MG PO (21:57)
[2024-08-04] MEDS: Gabapentin 300 MG Capsule PO (21:58)
[2024-08-04] MEDS: Senna/Docusate Sodium 1 Tablet 2 TABLET PO (21:58)
[2024-08-04] MEDS: Enoxaparin 40 MG/0.4 ML Syringe SC (21:59)
[2024-08-04] MEDS: Insulin Glargine-YFGN 100 UNIT/ML Pen 30 UNIT SC (21:59)
[2024-08-04] MEDS: Atorvastatin Calcium 80 MG Tablet PO (21:59)
[2024-08-04] MEDS: Ondansetron 4 MG/2 ML Vial IV (22:10)
[2024-08-04] MEDS: 0.9% Saline Lock 10 ML Syringe IV (22:10)
[2024-08-04 22:47] LABS: Bedside Glucose 114 mg/dL (74-106)
[2024-08-05] VITALS (10 sets, daily range): BP systolic 103–123; BP diastolic 58–75; PULSE 88–102; RESP 16–18; TEMP 36.6–37.1; O2SAT 93–98
[2024-08-05] MEDS: Gabapentin 300 MG Capsule PO ×3 (06:23→22:46)
[2024-08-05] MEDS: Acetaminophen 500 MG Tablet 1000 MG PO ×3 (06:23→22:48)
[2024-08-05 06:47] LABS: Bedside Glucose 119 mg/dL (74-106)
[2024-08-05] MEDS: Budesonide Respules 0.5 MG/2 ML AMPUL.NEB. INHALATION ×2 (06:52→19:51)
[2024-08-05] MEDS: Albuterol 2.5 MG/3 ML VIAL.NEB. INHALATION ×2 (06:52→19:51)
[2024-08-05 06:56] LABS: Absolute Lymphocyte Count 1.28 X10^3/uL (0.83-4.51); Absolute Neutrophil Count 8.8 X10^3/uL (2.0-7.7); Basophil# 0.08 X10^3/uL; Basophil% 0.7 % (0-1); Eosinophil# 0.14 X10^3/uL; Eosinophils% 1.3 % (0-5); Hematocrit 40.8 % (37-47); Hemoglobin 12.6 g/dL (12.0-15.0); Lymphocyte # 1.28 X10^3/ul (0.83-4.51); Lymphocyte % 11.5 % (19-41); Mean Corp Hgb Conc 30.9 g/dL (32-36); Mean Corpuscular Hgb 26.2 pg (27.0-32.0); Mean Corpuscular Volume 84.8 fL (81-99); Monocyte# 0.81 X10^3/uL; Monocyte% 7.3 % (0-10); NRBC Flagged by Analyzer 0 % (0-5); Neutrophil % 78.8 % (47-70); Platelet Count 326 K/mm3 (150-450); RBC Distribution Width CV 13.8 % (11.6-14.6); RBC Distribution Width SD 42.6 fl (35.1-43.9); Red Blood Count 4.81 M/mm3 (4.2-5.4); White Blood Count 11.2 K/mm3 (4.4-11.0)
[2024-08-05 07:45] LABS: ALB/GLOB Ratio 0.8 RATIO (0.9-2.4); AST(SGOT) 14 U/L (15-37); Alanine Aminotransfer ALT/SGPT 21 U/L (13-56); Albumin, Serum 3.3 g/dL (3.2-5.0); Alkaline Phosphatase 61 U/L (45-117); Anion Gap 3 (5-15); BUN 22 mg/dL (7-18); Calcium,Total 9.7 mg/dL (8.5-10.1); Chloride 100 mmol/L (98-107); Creatinine, Serum 1.16 mg/dL (0.55-1.02); EST Glomerular Filtration Rate 50 mL/min (>60); Est Glom Filt Rate - Afr Amer 61 mL/min (>60); Estimated Creatinine Clearance 65.47 ml/min; Globulin 3.9 g/dL (2.2-4.2); Glucose 123 mg/dL (74-106); Potassium 4.5 mmol/L (3.5-5.1); Protein, Total 7.2 g/dL (6.4-8.2); Sodium Level 135 mmol/L (136-145)
[2024-08-05] MEDS: oxyCODONE 5 MG Tablet PO ×2 (07:52→15:03)
[2024-08-05] MEDS: Aspirin 81 MG TAB.CHEW PO (07:52)
[2024-08-05] MEDS: Enoxaparin 40 MG/0.4 ML Syringe SC ×2 (10:14→22:46)
[2024-08-05] MEDS: Menthol/Lanolin/Calamine/Znox 113 GM Tube 1 APPLIC TOPICAL ×2 (10:14→22:46)
[2024-08-05] MEDS: Nystatin Powder 15gm Bottle 1 APPLIC TOPICAL ×2 (10:14→22:47)
[2024-08-05] MEDS: Clopidogrel Bisulfate 75 MG Tablet PO (10:15)
[2024-08-05] MEDS: Senna/Docusate Sodium 1 Tablet 2 TABLET PO ×2 (10:17→22:47)
[2024-08-05] MEDS: Metoprolol(XL)Succ 25 MG Tablet 12.5 MG PO (10:17)
[2024-08-05] MEDS: Lisinopril 10 MG Tablet PO (10:18)
[2024-08-05 10:23] LABS: Red Blood Cells-Urine 0 SEEN /hpf (0-5)
[2024-08-05 10:52] LABS: Color, Urine Yellow (Yellow); Glucose, Dipstick Normal (Normal); Ketone-Dipstick 15 mg/dl (Negative); Leukocyte Esterase-Dipstick Negative /ul (Negative); Nitrite-Dipstick Negative (Negative); Occult Blood-Urine Negative /ul (Negative); Protein-Dipstick 30 mg/dl (Negative); Specific Gravity, Urine 1.025 (1.002-1.030); Urine Bilirubin Dipstick Negative (Negative); Urine Clarity Clear (Clear); Urine Urobilinogen Normal (Normal)
[2024-08-05 10:58] LABS: Squamous Epithelial Cells - UA 5-10 SEEN /hpf (5-10); White Blood Cells 0-5 SEEN /hpf (0-5)
[2024-08-05 10:59] LABS: Bacteria 2+ /hpf (None Seen); Mucous, Urine 1+ /hpf (<or=2+)
[2024-08-05] MEDS: Insulin Lispro 100 UNIT/ML INSULN.PEN SC (11:48)
[2024-08-05 12:46] LABS: Bedside Glucose 168 mg/dL (74-106)
--- NOTE | 2024-08-05 12:59 | CHAPLAIN ---
Type of Pastoral Visit _x__ Initial Visit ___ Follow-up Visit ___ On-call Visit ___ General Patient Visit ___ Spiritual Assessment ___ Family Conference ___ Bereavement ___ Rapid Response ___ Code Blue ___ Other (describe below) Pastoral Care Referral From _x__ Patient ___ Family ___ Nurse ___ Physician ___ Civil Rights Representative ___ Lead Installer ___ Other (describe below) Sacrament/Intervention _x__ Active listening ___ Anointing ___ Latter Day ___ Bereavement ___ Communion _x__ Dana exploration ___ _x__ Life review _x__ Prayer ___ Reconciliation ___ Sacrament of Sick _x__ Supportive presence ___ Wedding ___ Other (describe below) Pastoral Comments patient reviews her medical condition and need for answers on why she has this issue; pt admits to some fears about her health and relates to past diagnosis of health needs; pt also has a spouse that is ill and has been for some time; pt is connected to a buddhism community but rarely attends services these days; pt is talkative and welcomes presence and prayer for support
--- NOTE | 2024-08-05 13:53 | MRI_ITS ---
STUDY: MRI LUMBAR SPINE WITHOUT CONTRAST REASON FOR EXAM: Female, 64 years old. severe RLE and back pain TECHNIQUE: Standardized fat and water weighted pulse sequences were obtained in the sagittal and axial planes. COMPARISON: None FINDINGS: T12-L1: Normal endplates. Normal disc height, hydration and morphology. Normal bilateral facet joints. Normal central canal and bilateral lateral recesses. Normal bilateral intervertebral neural foramina. Normal lumbar lordosis. There is no substantial scoliosis. Normal conus medullaris that terminates at T12-L1. There is no evidence for acute fracture or subluxation.. There are scattered small interosseous hemangiomata or lipomatous deposits L1-2: Normal endplates. Normal disc height, hydration and morphology. Normal bilateral facet joints. Normal central canal and bilateral lateral recesses. Normal bilateral intervertebral neural foramina. L2-3: Normal endplates. Normal disc height, desiccation and moderate sized right foraminal disc protrusion. Normal bilateral facet joints. Normal central canal and bilateral lateral recesses. Moderate to severe right neural foraminal stenosis. L3-4: Normal endplates. Normal disc height, desiccation and mild annular bulge with moderate sized left foraminal disc protrusion. Facet arthropathy.. Mild narrowing of the central canal exaggerated by posterior epidural fat. Normal bilateral lateral recesses. Moderate right neural foraminal stenosis and more severe narrowing on the left. L4-5: Normal endplates. Normal disc height, desiccation and minor annular bulge with tiny left foraminal disc protrusion. Bilateral facet arthropathy. Normal central canal and bilateral lateral recesses. Mild right neural foraminal encroachment and moderate narrowing on the left.. L5-S1: Normal endplates. Normal disc height, hydration and tiny central disc protrusion. Facet arthropathy. Normal central canal and bilateral lateral recesses. Normal bilateral intervertebral neural foramina. Normal visualized sacral ala. Normal visualized paraspinous soft tissue structures. MRI/Spine Lumbar (Routine) IMPRESSION: No evidence for acute fracture or other significant bony pathology. .Spondylosis and multilevel disc degeneration with facet arthropathy creating spinal stenosis most severe in the right L2-3 and on the left at L3-4. Electronically Signed: All Gomez MD at 16:50 EST Reading Location ID and State: [address] [place] [address] Tel , Service support ,
--- NOTE | 2024-08-05 14:00 | PN_ITS ---
Subjective Subjective Patient seen and examined. She complained of right lower extremity and back pain. She says the pain is much better now. Review of systems is otherwise negative. Objective Data Objective Data Vital Signs: Vital Signs Temp Pulse Resp BP Pulse Ox O2 Del Method O2 Flow Rate 97.8 F 93 18 109/75 97 Nasal Cannula 3 08/05/24 11:22 08/05/24 11:22 08/05/24 11:22 08/05/24 11:22 08/05/24 11:22 08/05/24 11:22 08/05/24 11:22 Oxygen Flow Rate (L/min) 3 Oxygen Delivery Method Nasal Cannula Weight: 304 lb 1.6 oz Body Mass Index (BMI) 59.3 Intake & Output: Intake and Output for Last 24 Hours 08/03/24 08/04/24 08/05/24 23:59 23:59 23:59 Intake Total 200 / 200 600 / 600 Output Total 400 / 400 400 / 400 Balance -200 / -200 200 / 200 Lab / Micro Data 08/05/24 06:30 08/05/24 06:30 Labs: Laboratory Results - last 24 hr 08/04/24 15:51: POC Glucose 119 H 08/04/24 21:52: POC Glucose 114 H 08/05/24 06:27: POC Glucose 119 H 08/05/24 06:30: WBC 11.2 H, RBC 4.81, Hgb 12.6, Hct 40.8, MCV 84.8, MCH 26.2 L, MCHC 30.9 L, RDW Std Deviation 42.6, RDW Coeff of Adi 13.8, Plt Count 326, MPV 9.0, Immature Gran % (Auto) 0.400, Neut % (Auto) 78.8 H, Lymph % (Auto) 11.5 L, [place] % (Auto) 7.3, Eos % (Auto) 1.3, Baso % (Auto) 0.7, Absolute Neuts (auto) 8.8 H, Absolute Lymphs (auto) 1.28, Nucleated RBC % 0, Sodium 135 L, Potassium 4.5, Chloride 100, Carbon Dioxide 32.0, Anion Gap 3 L, BUN 22 H, Creatinine 1.16 H, Estim Creat Clear Calc 65.47, Est GFR (MDRD) Af Amer 61, Est GFR (MDRD) Non- Af 50 L, BUN/Creatinine Ratio 19.0, Glucose 123 H, Calcium 9.7, Total Bilirubin 0.60, AST 14 L, ALT 21, Alkaline Phosphatase 61, Total Protein 7.2, Albumin 3.3, Globulin 3.9, Albumin/Globulin Ratio 0.8 L, TSH 1.860 08/05/24 09:50: Urine Color Yellow, Urine Clarity Clear, Urine pH 6.0, Ur Specific [place] 1.025, Urine Protein 30 H, Urine Glucose (UA) Normal, Urine Ketones 15 H, Urine Occult Blood Negative, Urine Nitrite Negative, Urine Bilirubin Negative, Urine Urobilinogen Normal, Ur Leukocyte Esterase Negative, Urine RBC 0 SEEN, Urine WBC 0-5 SEEN, Ur Squamous Epith Cells 5-10 SEEN, Urine Bacteria 2+, Urine Mucus 1+ 08/05/24 11:20: POC Glucose 168 H Radiography Diagnostic Testing: Radiology Impression Foot X-Ray 08/04/24 14:27 IMPRESSION: Calcaneal spurs. Electronically Signed: Jasson Amezquita MD at 15:13 EST Reading Location ID and State: [facility] / [place] , Service support , Physical Exam Const alert, oriented x3 and no apparent distress Constitutional Narrative: super morbid obesity General Appearance: cooperative HEENT normocephalic, head/scalp atraumatic and moist oral mucous membranes Eyes PERRL and EOMs intact bilaterally Neck no lymphadenopathy and supple Lymph Lymphatic: no lymphadenopathy noted and no lymphedema noted Resp normal respiratory effort, normal air movement and clear to auscultation bilaterally Cardio regular rate, regular rhythm and S1 normal heart sound GI normal to inspection, nondistended, normoactive bowel sounds, soft to palpation and non-tender Extremity normal capillary refill, no clubbing, cyanosis or edema and no calf tenderness General Extremity: no tenderness to palpation of joints or extremities Neuro CN's II-XII intact bilaterally, no focal motor deficits and no sensory deficits noted Motor Exam: strength 5/5 throughout and general weakness Psych thought process normal and cooperative Appearance: appropriate Assessment & Plan Assessment/Plan (1) Adult failure to thrive: (2) Physical debility: (3) Inability to walk: (4) Debility: (5) Chronic high back pain: PLAN: Plan #Debility due to Right lower extremity and back pain * now says her pain is mainly in her RLE and back. This is chronic buyt has been worse recently * she says she had an xray recently which showed no evidence of a pinched nerve * PT/OT on board * will get MRI of the lumbar spine * fall precautions * PO tylenol, PO oxycodone and IV morphine prn for pain * #Chronic respiratory failure due to asthma and sleep apnea * wears 3L of oxygen at home chronically. * breathing treatment with bronchodilators. * Titrate oxygen to maintain sats >90%^ * #Histoyr of CAD: on aspirin, atorvastatin plavix. #Hypertension: on lisinopril and metoprolol. #Type 2 diabetes mellitus: on lantus 30 units qhs. #GERD: on PPI #Super morbid obesity: BMI is 59.4. Complicates acute care, expected recovery and prognosis. DVT prophylaxis: lovenox 40mg SQ bid. Charges/Coding Visit Charges Inpatient E&M: 32351 Subs Hosp L2
--- NOTE | 2024-08-05 14:46 | CASEMGMT ---
LUCIA COLLIER into pt room, pt lying in bed with oxygen on in no distress. Pt states she lives with her dtr and her children. She states that someone is with her at all times. Pt felt like her therapy session went well today. She denies any need for home or outpt therapy currently unless something is found on my testing. Pt to have MRI. Pt states she has oxygen through [facility] and has a portable tank to bring in to be dc'd home on. Pt has a shower chair, w/c, electric scooter, grab bars in the bathroom and a walker. Pt states her plan is to return home. LUCIA COLLIER to follow post MRI results.
[2024-08-05 17:03] LABS: Bedside Glucose 139 mg/dL (74-106)
[2024-08-05] MEDS: Insulin Glargine-YFGN 100 UNIT/ML Pen 30 UNIT SC (22:47)
[2024-08-05] MEDS: Atorvastatin Calcium 80 MG Tablet PO (22:47)
[2024-08-05 23:09] LABS: Bedside Glucose 130 mg/dL (74-106)
[2024-08-06] VITALS (7 sets, daily range): BP systolic 107–137; BP diastolic 51–77; PULSE 86–100; RESP 18–20; TEMP 36.6–37.1; O2SAT 95–100
[2024-08-06] MEDS: Acetaminophen 500 MG Tablet 1000 MG PO ×3 (06:10→21:23)
[2024-08-06] MEDS: Insulin Lispro 100 UNIT/ML INSULN.PEN SC ×4 (06:10→21:21)
[2024-08-06] MEDS: Gabapentin 300 MG Capsule PO ×3 (06:10→21:22)
[2024-08-06] MEDS: oxyCODONE 5 MG Tablet PO ×3 (06:13→21:23)
[2024-08-06 06:28] LABS: Bedside Glucose 151 mg/dL (74-106)
[2024-08-06 07:49] LABS: Absolute Lymphocyte Count 1.19 X10^3/uL (0.83-4.51); Absolute Neutrophil Count 7.4 X10^3/uL (2.0-7.7); Basophil# 0.08 X10^3/uL; Basophil% 0.8 % (0-1); Eosinophils% 2.1 % (0-5); Hematocrit 41.7 % (37-47); Hemoglobin 12.8 g/dL (12.0-15.0); Lymphocyte # 1.19 X10^3/ul (0.83-4.51); Lymphocyte % 12.2 % (19-41); Mean Corp Hgb Conc 30.7 g/dL (32-36); Mean Corpuscular Hgb 26.2 pg (27.0-32.0); Mean Corpuscular Volume 85.3 fL (81-99); Mean Platelet Vol. 9.1 fl (6.2-12.0); Monocyte# 0.82 X10^3/uL; Monocyte% 8.4 % (0-10); NRBC Flagged by Analyzer 0 % (0-5); Neutrophil # 7.39 X10^3/uL (2.7-7.7); Neutrophil % 76.1 % (47-70); Platelet Count 292 K/mm3 (150-450); RBC Distribution Width CV 13.8 % (11.6-14.6); RBC Distribution Width SD 42.8 fl (35.1-43.9); Red Blood Count 4.89 M/mm3 (4.2-5.4); White Blood Count 9.7 K/mm3 (4.4-11.0)
[2024-08-06 08:01] LABS: Anion Gap 4 (5-15); BUN 25 mg/dL (7-18); BUN/Creat Ratio 18.4 RATIO (10-20); Calcium,Total 9.2 mg/dL (8.5-10.1); Chloride 100 mmol/L (98-107); Creatinine, Serum 1.36 mg/dL (0.55-1.02); EST Glomerular Filtration Rate 42 mL/min (>60); Est Glom Filt Rate - Afr Amer 51 mL/min (>60); Estimated Creatinine Clearance 55.84 ml/min; Glucose 147 mg/dL (74-106); Potassium 4.5 mmol/L (3.5-5.1); Sodium Level 134 mmol/L (136-145)
[2024-08-06] MEDS: Ondansetron 4 MG/2 ML Vial IV (09:31)
--- NOTE | 2024-08-06 09:58 | CASEMGMT ---
LUCIA COLLIER into pt room after rounding with hospitalist, discussed therapy for pt spinal stenosis and options for this. Pt states she does not want HH therapy as she has dogs in the home. Pt states she now is nauseous and her leg is numb. Pt states she feels like if she gets up, she will fall d/t the numbness. Pt would like to have therapy and decide which level of care she prefers. Updated PRIMO and LUCIA COLLIER to check back.
[2024-08-06] MEDS: Ceftriaxone 1 GM/50 ML BAG IV (10:08)
[2024-08-06] MEDS: Menthol/Lanolin/Calamine/Znox 113 GM Tube 1 APPLIC TOPICAL ×2 (10:08→21:21)
[2024-08-06] MEDS: Enoxaparin 40 MG/0.4 ML Syringe SC ×2 (10:09→21:22)
[2024-08-06] MEDS: Nystatin Powder 15gm Bottle 1 APPLIC TOPICAL ×2 (10:09→21:22)
--- NOTE | 2024-08-06 10:29 | CASEMGMT ---
Discharge Planning A list of SNF providers including quality and resource use data and consistent with the patient's preferred geographic region, medical needs, and insurance network was created in [employer].? This list was provided to the SW. Diana Burnette Discharge Planning Asst.
[2024-08-06] MEDS: Clopidogrel Bisulfate 75 MG Tablet PO (11:27)
[2024-08-06] MEDS: Metoprolol(XL)Succ 25 MG Tablet 12.5 MG PO (11:28)
[2024-08-06] MEDS: Senna/Docusate Sodium 1 Tablet 2 TABLET PO ×2 (11:28→21:23)
[2024-08-06] MEDS: Lisinopril 10 MG Tablet PO (11:29)
[2024-08-06] MEDS: Aspirin 81 MG TAB.CHEW PO (11:33)
--- NOTE | 2024-08-06 11:36 | PN_ITS ---
Subjective Subjective Patient seen and examined. She complained of numbness and tingling in her RLE. She also complained of nausea but denied vomiting. Review of systems is otherwise negative. Objective Data Objective Data Vital Signs: Vital Signs Temp Pulse Resp BP Pulse Ox O2 Del Method O2 Flow Rate 98.0 F 88 20 H 110/64 95 Nasal Cannula 2 08/06/24 09:48 08/06/24 11:28 08/06/24 09:48 08/06/24 09:48 08/06/24 09:48 08/06/24 09:51 08/06/24 09:51 Oxygen Flow Rate (L/min) 2 Oxygen Delivery Method Nasal Cannula Weight: 304 lb 1.6 oz Body Mass Index (BMI) 59.3 Intake & Output: Intake and Output for Last 24 Hours 08/04/24 08/05/24 08/06/24 23:59 23:59 23:59 Intake Total 200 / 200 1200 / 1200 Output Total 400 / 400 650 / 650 Balance -200 / -200 550 / 550 Lab / Micro Data 08/06/24 07:31 08/06/24 07:31 Labs: Laboratory Results - last 24 hr 08/05/24 11:20: POC Glucose 168 H 08/05/24 16:43: POC Glucose 139 H 08/05/24 22:45: POC Glucose 130 H 08/06/24 06:09: POC Glucose 151 H 08/06/24 07:31: WBC 9.7, RBC 4.89, Hgb 12.8, Hct 41.7, MCV 85.3, MCH 26.2 L, M CHC 30.7 L, RDW Std Deviation 42.8, RDW Coeff of Adi 13.8, Plt Count 292, MPV 9.1, Immature Gran % (Auto) 0.400, Neut % (Auto) 76.1 H, Lymph % (Auto) 12.2 L, [place] % (Auto) 8.4, Eos % (Auto) 2.1, Baso % (Auto) 0.8, Absolute Neuts (auto) 7.4, Absolute Lymphs (auto) 1.19, Nucleated RBC % 0, Sodium 134 L, Potassium 4.5, Chloride 100, Carbon Dioxide 30.0, Anion Gap 4 L, BUN 25 H, Creatinine 1.36 H, Estim Creat Clear Calc 55.84, Est GFR (MDRD) Af Amer 51 L, Est GFR (MDRD) Non-Af 42 L, BUN/Creatinine Ratio 18.4, Glucose 147 H, Calcium 9.2 Radiography Diagnostic Testing: Radiology Impression Lumbar Spine MRI 08/05/24 13:53 IMPRESSION: No evidence for acute fracture or other significant bony pathology. .Spondylosis and multilevel disc degeneration with facet arthropathy creating spinal stenosis most severe in the right L2-3 and on the left at L3-4. Electronically Signed: All Gomez MD at 16:50 EST Reading Location ID and State: [facility] / [place] Tel , Service support , Physical Exam Const alert, oriented x3 and no apparent distress Constitutional Narrative: super morbid obesity General Appearance: cooperative HEENT normocephalic, head/scalp atraumatic and moist oral mucous membranes Eyes PERRL and EOMs intact bilaterally Neck no lymphadenopathy and supple Lymph Lymphatic: no lymphadenopathy noted and no lymphedema noted Resp normal respiratory effort, normal air movement and clear to auscultation bilaterally Cardio regular rate, regular rhythm and S1 normal heart sound GI normal to inspection, nondistended, normoactive bowel sounds, soft to palpation and non-tender Extremity normal capillary refill, no clubbing, cyanosis or edema and no calf tenderness General Extremity: no tenderness to palpation of joints or extremities Neuro CN's II-XII intact bilaterally, no focal motor deficits and no sensory deficits noted Motor Exam: strength 5/5 throughout and general weakness Psych thought process normal and cooperative Appearance: appropriate Assessment & Plan Assessment/Plan (1) Adult failure to thrive: (2) Physical debility: (3) Inability to walk: (4) Debility: (5) Chronic high back pain: PLAN: Plan #Debility due to Right lower extremity and back pain * now says her pain is mainly in her RLE and back. This is chronic buyt has been worse recently * she says she had an xray recently which showed no evidence of a pinched nerve * PT/OT on board * MRI of the lumbar spine showed no evidence of acute fracture and showed spondylosis and multilevel disc degeneration with facet arthropaty creating spinal stenosis most sever in right L2-3 and left L3-4 regions. * fall precautions * PO tylenol, PO oxycodone and IV morphine prn for pain * patient counseled that the spinal stenosis is likely the cause of her symptoms. She will therefore need pain meds and PT/OT. * will add on gabapentin for the neuropathy. * #Chronic respiratory failure due to asthma and sleep apnea * wears 3L of oxygen at home chronically. * breathing treatment with bronchodilators. * Titrate oxygen to maintain sats >90%^ * #Histoyr of CAD: on aspirin, atorvastatin plavix. #Hypertension: on lisinopril and metoprolol. #Type 2 diabetes mellitus: on lantus 30 units qhs. #GERD: on PPI #Super morbid obesity: BMI is 59.4. Complicates acute care, expected recovery and prognosis. DVT prophylaxis: lovenox 40mg SQ bid. Disposition: to work with PT/OT to help determine disposition. Charges/Coding Visit Charges Inpatient E&M: 98525 Subs Hosp L2
[2024-08-06 11:56] LABS: Bedside Glucose 169 mg/dL (74-106)
--- NOTE | 2024-08-06 13:09 | CASEMGMT ---
Addendum entered by Gladys Tomas 08/06/24 14:15: Social Work Pt was accepted into [facility] and precert will be started. SW let pt know, pt is agreeable to [facility], SW will continue to follow. UTE Ramachandran Original Note: Social Work SW met w/pt in room to review discharge plan and to offer support. Pt was not able to participate in therapy today due to pain. Pt states that she spoke w/her daughter, and does think the best plan would be for her to go to [facility], she has been there before. SW did offer pt the list from [facility] of longterm facilities in network w/pt's insurance, preferred geographic area and complete w/quality and resource use data. Pt declined list, but will review it w/SW if [facility] cannot take pt. SW offered support to pt, as she is struggling with her back issues. Referral made to [facility] via [facility]. SW will continue to follow. UTE Ramachandran
--- NOTE | 2024-08-06 13:44 | CASEMGMT ---
Discharge Planning [facility] has accepted and will submit for precert. SW updated. Diana Burnette DC Planning Asst.
[2024-08-06 17:07] LABS: Bedside Glucose 152 mg/dL (74-106)
[2024-08-06] MEDS: Insulin Glargine-YFGN 100 UNIT/ML Pen 30 UNIT SC (21:21)
[2024-08-06] MEDS: Atorvastatin Calcium 80 MG Tablet PO (21:22)
[2024-08-06 21:44] LABS: Bedside Glucose 178 mg/dL (74-106)
[2024-08-07 05:00] VITALS: BP 117/53; PULSE 96; RESP 18; TEMP 36.4; O2SAT 99
[2024-08-07] MEDS: Acetaminophen 500 MG Tablet 1000 MG PO ×3 (05:39→21:18)
[2024-08-07] MEDS: oxyCODONE 5 MG Tablet PO ×3 (05:40→19:54)
[2024-08-07] MEDS: Gabapentin 300 MG Capsule PO ×3 (05:40→21:18)
[2024-08-07] MEDS: Insulin Lispro 100 UNIT/ML INSULN.PEN SC ×3 (05:44→21:18)
[2024-08-07 06:04] LABS: Bedside Glucose 155 mg/dL (74-106)
[2024-08-07 06:59] LABS: Absolute Lymphocyte Count 1.14 X10^3/uL (0.83-4.51); Absolute Neutrophil Count 7.6 X10^3/uL (2.0-7.7); Basophil# 0.08 X10^3/uL; Basophil% 0.8 % (0-1); Eosinophil# 0.22 X10^3/uL; Eosinophils% 2.2 % (0-5); Hematocrit 40.2 % (37-47); Hemoglobin 12.2 g/dL (12.0-15.0); Lymphocyte # 1.14 X10^3/ul (0.83-4.51); Lymphocyte % 11.6 % (19-41); Mean Corp Hgb Conc 30.3 g/dL (32-36); Mean Corpuscular Volume 85.7 fL (81-99); Mean Platelet Vol. 9.4 fl (6.2-12.0); Monocyte# 0.78 X10^3/uL; NRBC Flagged by Analyzer 0 % (0-5); Neutrophil # 7.55 X10^3/uL (2.7-7.7); Neutrophil % 77.2 % (47-70); Platelet Count 323 K/mm3 (150-450); RBC Distribution Width CV 13.8 % (11.6-14.6); RBC Distribution Width SD 42.4 fl (35.1-43.9); Red Blood Count 4.69 M/mm3 (4.2-5.4); White Blood Count 9.8 K/mm3 (4.4-11.0)
[2024-08-07 07:46] LABS: Anion Gap 4 (5-15); BUN 29 mg/dL (7-18); BUN/Creat Ratio 21.2 RATIO (10-20); Calcium,Total 9.1 mg/dL (8.5-10.1); Chloride 99 mmol/L (98-107); Creatinine, Serum 1.37 mg/dL (0.55-1.02); EST Glomerular Filtration Rate 42 mL/min (>60); Est Glom Filt Rate - Afr Amer 50 mL/min (>60); Estimated Creatinine Clearance 55.43 ml/min; Glucose 159 mg/dL (74-106); Potassium 4.6 mmol/L (3.5-5.1); Sodium Level 133 mmol/L (136-145)
[2024-08-07 08:41] VITALS: BP 123/73; PULSE 105; RESP 18; TEMP 36.6; O2SAT 99
[2024-08-07] MEDS: Nystatin Powder 15gm Bottle 1 APPLIC TOPICAL ×2 (08:53→19:55)
[2024-08-07] MEDS: Menthol/Lanolin/Calamine/Znox 113 GM Tube 1 APPLIC TOPICAL ×2 (08:53→19:54)
[2024-08-07] MEDS: Aspirin 81 MG TAB.CHEW PO (08:53)
[2024-08-07] MEDS: Enoxaparin 40 MG/0.4 ML Syringe SC ×2 (08:53→21:18)
[2024-08-07] MEDS: Clopidogrel Bisulfate 75 MG Tablet PO (08:53)
[2024-08-07] MEDS: Senna/Docusate Sodium 1 Tablet 2 TABLET PO ×2 (08:53→21:19)
[2024-08-07 08:54] VITALS: BP 123/73; PULSE 105
[2024-08-07] MEDS: Metoprolol(XL)Succ 25 MG Tablet 12.5 MG PO (08:54)
[2024-08-07] MEDS: Lisinopril 10 MG Tablet PO (08:54)
[2024-08-07 09:45] LABS: HIV - WCH Non-Reactive (Nonreactive); Hepatitis B Surface Antibody Non-Reactive; Hepatitis B Surface Antigen Non-Reactive (Nonreactive); Hepatitis C Antibody Non-Reactive (Nonreactive)
[2024-08-07] MEDS: Ceftriaxone 1 GM/50 ML BAG IV (09:46)
[2024-08-07] MEDS: 0.9% Saline Lock 10 ML Syringe IV (09:46)
[2024-08-07 11:29] LABS: Bedside Glucose 226 mg/dL (74-106)
--- NOTE | 2024-08-07 13:31 | PN_ITS ---
Subjective Subjective Patient seen and examined. She has no active complaints. She had an uneventful night. Review of symptoms otherwise negative. She has remained hemodynamically stable. Objective Data Objective Data Vital Signs: Vital Signs Temp Pulse Resp BP Pulse Ox O2 Del Method O2 Flow Rate 97.9 F 105 H 18 123/73 H 99 Room Air 3 08/07/24 08:41 08/07/24 08:54 08/07/24 08:41 08/07/24 08:54 08/07/24 08:41 08/07/24 08:42 08/07/24 10:45 Oxygen Flow Rate (L/min) 3 Oxygen Delivery Method Room Air Weight: 304 lb 1.6 oz Body Mass Index (BMI) 59.3 Intake & Output: Intake and Output for Last 24 Hours 08/05/24 08/06/24 08/07/24 23:59 23:59 23:59 Intake Total 1200 / 1200 50 / 380 380 / 380 Output Total 650 / 650 1000 / 1350 750 / 750 Balance 550 / 550 -950 / -970 -370 / -370 Lab / Micro Data 08/07/24 06:28 08/07/24 06:28 Labs: Laboratory Results - last 24 hr 08/06/24 07:31: Hep Bs Antigen Non-Reactive, Hep Bs Antibody Non-Reactive, Hepatitis C Antibody Non-Reactive, HIV 1&2 Antibody Non-Reactive 08/06/24 16:44: POC Glucose 152 H 08/06/24 21:19: POC Glucose 178 H 08/07/24 05:43: POC Glucose 155 H 08/07/24 06:28: WBC 9.8, RBC 4.69, Hgb 12.2, Hct 40.2, MCV 85.7, MCH 26.0 L, M CHC 30.3 L, RDW Std Deviation 42.4, RDW Coeff of Adi 13.8, Plt Count 323, MPV 9.4, Immature Gran % (Auto) 0.200, Neut % (Auto) 77.2 H, Lymph % (Auto) 11.6 L, [place] % (Auto) 8.0, Eos % (Auto) 2.2, Baso % (Auto) 0.8, Absolute Neuts (auto) 7.6, Absolute Lymphs (auto) 1.14, Nucleated RBC % 0, Sodium 133 L, Potassium 4.6, Chloride 99, Carbon Dioxide 30.0, Anion Gap 4 L, BUN 29 H, Creatinine 1.37 H, Estim Creat Clear Calc 55.43, Est GFR (MDRD) Af Amer 50 L, Est GFR (MDRD) Non-Af 42 L, BUN/Creatinine Ratio 21.2 H, Glucose 159 H, Calcium 9.1 08/07/24 11:07: POC Glucose 226 H Physical Exam Const alert, oriented x3 and no apparent distress Constitutional Narrative: super morbid obesity General Appearance: cooperative HEENT normocephalic, head/scalp atraumatic and moist oral mucous membranes Eyes PERRL and EOMs intact bilaterally Neck no lymphadenopathy and supple Lymph Lymphatic: no lymphadenopathy noted and no lymphedema noted Resp normal respiratory effort, normal air movement and clear to auscultation bilaterally Cardio regular rate, regular rhythm and S1 normal heart sound GI normal to inspection, nondistended, normoactive bowel sounds, soft to palpation and non-tender Extremity normal capillary refill, no clubbing, cyanosis or edema and no calf tenderness General Extremity: no tenderness to palpation of joints or extremities Skin General Skin Exam: no breakdown Neuro CN's II-XII intact bilaterally, no focal motor deficits and no sensory deficits noted Motor Exam: strength 5/5 throughout and general weakness Psych thought process normal and cooperative Appearance: appropriate Assessment & Plan Assessment/Plan (1) Adult failure to thrive: (2) Physical debility: (3) Inability to walk: (4) Debility: (5) Chronic high back pain: PLAN: Plan #Debility due to Right lower extremity and back pain * now says her pain is mainly in her RLE and back. This is chronic buyt has been worse recently * she says she had an xray recently which showed no evidence of a pinched nerve * PT/OT on board * MRI of the lumbar spine showed no evidence of acute fracture and showed spondylosis and multilevel disc degeneration with facet arthropaty creating spinal stenosis most sever in right L2-3 and left L3-4 regions. * fall precautions * PO tylenol, PO oxycodone and IV morphine prn for pain * patient counseled that the spinal stenosis is likely the cause of her symptoms. She will therefore need pain meds and PT/OT. * on gabapentin * #Spinal stenosis: as above * #Chronic respiratory failure due to asthma and sleep apnea * wears 3L of oxygen at home chronically. * breathing treatment with bronchodilators. * Titrate oxygen to maintain sats >90%^ * #History of CAD: on aspirin, atorvastatin and plavix. #Hypertension: on lisinopril and metoprolol. #Type 2 diabetes mellitus: on lantus 30 units qhs. #GERD: on PPI #Super morbid obesity: BMI is 59.4. Complicates acute care, expected recovery and prognosis. DVT prophylaxis: lovenox 40mg SQ bid. Disposition: awaiting placement. Charges/Coding Visit Charges Inpatient E&M: 83415 Subs Hosp L2
[2024-08-07 14:22] VITALS: BP 115/85; PULSE 90; RESP 18; TEMP 37.1; O2SAT 98
[2024-08-07 17:21] LABS: Bedside Glucose 147 mg/dL (74-106)
[2024-08-07 20:00] VITALS: BP 122/73; PULSE 98; RESP 18; TEMP 36.6; O2SAT 100
[2024-08-07] MEDS: Atorvastatin Calcium 80 MG Tablet PO (21:18)
[2024-08-07] MEDS: Insulin Glargine-YFGN 100 UNIT/ML Pen 30 UNIT SC (21:19)
[2024-08-07 21:41] LABS: Bedside Glucose 176 mg/dL (74-106)
[2024-08-08] VITALS (10 sets, daily range): BP systolic 105–158; BP diastolic 41–89; PULSE 62–109; RESP 16–20; TEMP 36.7–36.9; O2SAT 93–99
[2024-08-08] MEDS: oxyCODONE 5 MG Tablet PO ×4 (03:38→20:54)
[2024-08-08] MEDS: Gabapentin 300 MG Capsule PO ×3 (06:00→21:00)
[2024-08-08] MEDS: Acetaminophen 500 MG Tablet 1000 MG PO ×3 (06:00→21:00)
[2024-08-08 06:34] LABS: Bedside Glucose 147 mg/dL (74-106)
[2024-08-08 08:10] LABS: Hepatitis B Core Ab Total Negative (Negative)
[2024-08-08 09:26] LABS: Absolute Lymphocyte Count 1.25 X10^3/uL (0.83-4.51); Absolute Neutrophil Count 8.5 X10^3/uL (2.0-7.7); Basophil# 0.08 X10^3/uL; Basophil% 0.7 % (0-1); Eosinophil# 0.48 X10^3/uL; Eosinophils% 4.3 % (0-5); Hematocrit 40.9 % (37-47); Hemoglobin 12.7 g/dL (12.0-15.0); Lymphocyte # 1.25 X10^3/ul (0.83-4.51); Lymphocyte % 11.2 % (19-41); Mean Corp Hgb Conc 31.1 g/dL (32-36); Mean Corpuscular Hgb 26.3 pg (27.0-32.0); Mean Corpuscular Volume 84.9 fL (81-99); Mean Platelet Vol. 9.4 fl (6.2-12.0); Monocyte# 0.88 X10^3/uL; Monocyte% 7.9 % (0-10); NRBC Flagged by Analyzer 0 % (0-5); Neutrophil # 8.46 X10^3/uL (2.7-7.7); Neutrophil % 75.5 % (47-70); Platelet Count 344 K/mm3 (150-450); RBC Distribution Width CV 13.8 % (11.6-14.6); RBC Distribution Width SD 42.5 fl (35.1-43.9); Red Blood Count 4.82 M/mm3 (4.2-5.4); White Blood Count 11.2 K/mm3 (4.4-11.0)
[2024-08-08 09:43] LABS: Anion Gap 5 (5-15); BUN 28 mg/dL (7-18); BUN/Creat Ratio 20.9 RATIO (10-20); Calcium,Total 9.1 mg/dL (8.5-10.1); Chloride 99 mmol/L (98-107); Creatinine, Serum 1.34 mg/dL (0.55-1.02); EST Glomerular Filtration Rate 43 mL/min (>60); Est Glom Filt Rate - Afr Amer 52 mL/min (>60); Estimated Creatinine Clearance 56.68 ml/min; Glucose 161 mg/dL (74-106); Potassium 4.8 mmol/L (3.5-5.1); Sodium Level 132 mmol/L (136-145)
[2024-08-08] MEDS: Clopidogrel Bisulfate 75 MG Tablet PO (10:37)
[2024-08-08] MEDS: Metoprolol(XL)Succ 25 MG Tablet 12.5 MG PO (10:37)
[2024-08-08] MEDS: Enoxaparin 40 MG/0.4 ML Syringe SC ×2 (10:38→21:00)
[2024-08-08] MEDS: Aspirin 81 MG TAB.CHEW PO (10:38)
[2024-08-08] MEDS: Menthol/Lanolin/Calamine/Znox 113 GM Tube 1 APPLIC TOPICAL ×2 (10:39→20:58)
[2024-08-08] MEDS: Nystatin Powder 15gm Bottle 1 APPLIC TOPICAL ×2 (10:39→20:58)
[2024-08-08] MEDS: 0.9% Saline Lock 10 ML Syringe IV ×2 (10:40→13:11)
[2024-08-08] MEDS: Lisinopril 10 MG Tablet PO (10:40)
[2024-08-08] MEDS: Senna/Docusate Sodium 1 Tablet 2 TABLET PO (10:40)
[2024-08-08] MEDS: Ceftriaxone 1 GM/50 ML BAG IV (10:45)
--- NOTE | 2024-08-08 10:49 | CPS ---
Pt has been refusing aerosol for a few days. RT will contact
--- NOTE | 2024-08-08 10:55 | PN_ITS ---
Subjective Subjective Patient seen and examined. She had no active complaints and feels well. She is feeling much better today and says she is going home instead of an acute rehab facility. Review of systems is otherwise negative. Objective Data Objective Data Vital Signs: Vital Signs Temp Pulse Resp BP Pulse Ox O2 Del Method O2 Flow Rate 98.3 F 109 H 17 117/61 93 Nasal Cannula 2.5 08/08/24 08:00 08/08/24 10:37 08/08/24 08:00 08/08/24 10:37 08/08/24 08:00 08/08/24 09:30 08/08/24 09:30 Oxygen Flow Rate (L/min) 2.5 Oxygen Delivery Method Nasal Cannula Weight: 304 lb 1.6 oz Body Mass Index (BMI) 59.3 Intake & Output: Intake and Output for Last 24 Hours 08/06/24 08/07/24 08/08/24 23:59 23:59 23:59 Intake Total 50 / 380 380 / 380 Output Total 1000 / 1350 750 / 1050 700 / 700 Balance -950 / -970 -370 / -670 -700 / -700 Lab / Micro Data 08/08/24 08:56 08/08/24 08:56 Labs: Laboratory Results - last 24 hr 08/07/24 06:28: Hep B Core Total Ab Negative 08/07/24 11:07: POC Glucose 226 H 08/07/24 16:45: POC Glucose 147 H 08/07/24 21:17: POC Glucose 176 H 08/08/24 06:03: POC Glucose 147 H 08/08/24 08:56: WBC 11.2 H, RBC 4.82, Hgb 12.7, Hct 40.9, MCV 84.9, MCH 26.3 L, MCHC 31.1 L, RDW Std Deviation 42.5, RDW Coeff of Adi 13.8, Plt Count 344, MPV 9.4, Immature Gran % (Auto) 0.400, Neut % (Auto) 75.5 H, Lymph % (Auto) 11.2 L, [place] % (Auto) 7.9, Eos % (Auto) 4.3, Baso % (Auto) 0.7, Absolute Neuts (auto) 8.5 H, Absolute Lymphs (auto) 1.25, Nucleated RBC % 0, Sodium 132 L, Potassium 4.8, Chloride 99, Carbon Dioxide 28.0, Anion Gap 5, BUN 28 H, Creatinine 1.34 H, Estim Creat Clear Calc 56.68, Est GFR (MDRD) Af Amer 52 L, Est GFR (MDRD) Non-Af 43 L, BUN/Creatinine Ratio 20.9 H, Glucose 161 H, Calcium 9.1 Physical Exam Const alert, oriented x3 and no apparent distress Constitutional Narrative: super morbid obesity General Appearance: cooperative HEENT normocephalic, head/scalp atraumatic and moist oral mucous membranes Eyes PERRL and EOMs intact bilaterally Neck no lymphadenopathy and supple Lymph Lymphatic: no lymphadenopathy noted and no lymphedema noted Resp normal respiratory effort, normal air movement and clear to auscultation bilaterally Cardio regular rate, regular rhythm and S1 normal heart sound GI normal to inspection, nondistended, normoactive bowel sounds, soft to palpation and non-tender Extremity normal capillary refill, no clubbing, cyanosis or edema and no calf tenderness General Extremity: no tenderness to palpation of joints or extremities Skin General Skin Exam: no breakdown Neuro CN's II-XII intact bilaterally, no focal motor deficits and no sensory deficits noted Motor Exam: strength 5/5 throughout and general weakness Psych thought process normal and cooperative Appearance: appropriate Assessment & Plan Assessment/Plan (1) Adult failure to thrive: (2) Physical debility: (3) Inability to walk: (4) Debility: (5) Chronic high back pain: PLAN: Plan #Debility due to Right lower extremity and back pain * now says her pain is mainly in her RLE and back. This is chronic buyt has been worse recently * she says she had an xray recently which showed no evidence of a pinched nerve * PT/OT on board * MRI of the lumbar spine showed no evidence of acute fracture and showed spondylosis and multilevel disc degeneration with facet arthropaty creating spinal stenosis most sever in right L2-3 and left L3-4 regions. * fall precautions * PO tylenol, PO oxycodone and IV morphine prn for pain * patient counseled that the spinal stenosis is likely the cause of her symptoms. She will therefore need pain meds and PT/OT. * on gabapentin * #Spinal stenosis: as above * #Chronic respiratory failure due to asthma and sleep apnea * wears 3L of oxygen at home chronically. * breathing treatment with bronchodilators. * Titrate oxygen to maintain sats >90%^ * #History of CAD: on aspirin, atorvastatin and plavix. #Hypertension: on lisinopril and metoprolol. #Type 2 diabetes mellitus: on lantus 30 units qhs. #GERD: on PPI #Super morbid obesity: BMI is 59.4. Complicates acute care, expected recovery and prognosis. DVT prophylaxis: lovenox 40mg SQ bid. Disposition: awaiting placement. Charges/Coding Visit Charges Inpatient E&M: 69058 Subs Hosp L2
[2024-08-08 11:28] LABS: Bedside Glucose 199 mg/dL (74-106)
[2024-08-08] MEDS: Ondansetron 4 MG/2 ML Vial IV (13:11)
[2024-08-08 17:17] LABS: Bedside Glucose 167 mg/dL (74-106)
[2024-08-08] MEDS: Atorvastatin Calcium 80 MG Tablet PO (21:00)
[2024-08-08] MEDS: Insulin Glargine-YFGN 100 UNIT/ML Pen 30 UNIT SC (21:03)
[2024-08-08] MEDS: Insulin Lispro 100 UNIT/ML INSULN.PEN SC (21:04)
[2024-08-08 22:21] LABS: Bedside Glucose 185 mg/dL (74-106)
[2024-08-09] VITALS (7 sets, daily range): BP systolic 103–123; BP diastolic 58–80; PULSE 90–99; RESP 16; TEMP 36.6–37.3; O2SAT 88–100
[2024-08-09] MEDS: oxyCODONE 5 MG Tablet PO ×4 (02:41→16:38)
[2024-08-09] MEDS: Gabapentin 300 MG Capsule PO ×3 (06:03→22:40)
[2024-08-09] MEDS: Acetaminophen 500 MG Tablet 1000 MG PO ×3 (06:03→22:41)
[2024-08-09 06:52] LABS: Absolute Lymphocyte Count 1.39 X10^3/uL (0.83-4.51); Basophil# 0.13 X10^3/uL; Basophil% 1.1 % (0-1); Eosinophil# 1.11 X10^3/uL; Eosinophils% 9.7 % (0-5); Hematocrit 41.6 % (37-47); Hemoglobin 12.4 g/dL (12.0-15.0); Lymphocyte # 1.39 X10^3/ul (0.83-4.51); Lymphocyte % 12.1 % (19-41); Mean Corp Hgb Conc 29.8 g/dL (32-36); Mean Corpuscular Hgb 25.8 pg (27.0-32.0); Mean Corpuscular Volume 86.7 fL (81-99); Mean Platelet Vol. 9.6 fl (6.2-12.0); Monocyte# 0.84 X10^3/uL; Monocyte% 7.3 % (0-10); NRBC Flagged by Analyzer 0 % (0-5); Neutrophil # 7.96 X10^3/uL (2.7-7.7); Neutrophil % 69.5 % (47-70); Platelet Count 311 K/mm3 (150-450); RBC Distribution Width CV 13.7 % (11.6-14.6); RBC Distribution Width SD 42.7 fl (35.1-43.9); White Blood Count 11.5 K/mm3 (4.4-11.0)
[2024-08-09 07:04] LABS: Anion Gap 4 (5-15); BUN 24 mg/dL (7-18); BUN/Creat Ratio 19.2 RATIO (10-20); Calcium,Total 9.2 mg/dL (8.5-10.1); Chloride 99 mmol/L (98-107); Creatinine, Serum 1.25 mg/dL (0.55-1.02); EST Glomerular Filtration Rate 46 mL/min (>60); Est Glom Filt Rate - Afr Amer 56 mL/min (>60); Estimated Creatinine Clearance 60.76 ml/min; Glucose 136 mg/dL (74-106); Potassium 4.8 mmol/L (3.5-5.1); Sodium Level 131 mmol/L (136-145)
[2024-08-09 07:12] LABS: Bedside Glucose 134 mg/dL (74-106)
[2024-08-09] MEDS: Enoxaparin 40 MG/0.4 ML Syringe SC ×2 (07:59→22:42)
[2024-08-09] MEDS: Metoprolol(XL)Succ 25 MG Tablet 12.5 MG PO (08:00)
[2024-08-09] MEDS: Lisinopril 10 MG Tablet PO (08:00)
[2024-08-09] MEDS: Senna/Docusate Sodium 1 Tablet 2 TABLET PO ×2 (08:00→22:40)
[2024-08-09] MEDS: Clopidogrel Bisulfate 75 MG Tablet PO (08:00)
[2024-08-09] MEDS: Aspirin 81 MG TAB.CHEW PO (08:01)
[2024-08-09] MEDS: Nystatin Powder 15gm Bottle 1 APPLIC TOPICAL ×2 (08:03→22:41)
[2024-08-09] MEDS: Menthol/Lanolin/Calamine/Znox 113 GM Tube 1 APPLIC TOPICAL ×2 (08:03→22:41)
[2024-08-09] MEDS: Ceftriaxone 1 GM/50 ML BAG IV (10:40)
[2024-08-09] MEDS: 0.9% Saline Lock 10 ML Syringe IV ×2 (10:40→11:44)
[2024-08-09] MEDS: Insulin Lispro 100 UNIT/ML INSULN.PEN SC ×3 (10:42→22:46)
--- NOTE | 2024-08-09 10:52 | PN_ITS ---
Subjective Subjective Patient seen and examined. She complains of lower extremity pain still. Review of systems is otherwise negative. She is awaiting placement. Objective Data Objective Data Vital Signs: Vital Signs Temp Pulse Resp BP Pulse Ox O2 Del Method O2 Flow Rate 97.8 F 95 16 123/61 H 94 Nasal Cannula 2.5 08/09/24 07:57 08/09/24 08:00 08/09/24 07:57 08/09/24 07:57 08/09/24 07:57 08/09/24 07:57 08/09/24 07:57 Oxygen Flow Rate (L/min) 2.5 Oxygen Delivery Method Nasal Cannula Weight: 304 lb 1.6 oz Body Mass Index (BMI) 59.3 Intake & Output: Intake and Output for Last 24 Hours 08/07/24 08/08/24 08/09/24 23:59 23:59 23:59 Intake Total 380 / 380 500 / 500 Output Total 750 / 1050 1300 / 1700 650 / 650 Balance -370 / -670 -800 / -1200 -650 / -650 Lab / Micro Data 08/09/24 05:42 08/09/24 05:42 Labs: Laboratory Results - last 24 hr 08/08/24 11:10: POC Glucose 199 H 08/08/24 16:33: POC Glucose 167 H 08/08/24 21:03: POC Glucose 185 H 08/09/24 05:42: WBC 11.5 H, RBC 4.80, Hgb 12.4, Hct 41.6, MCV 86.7, MCH 25.8 L, MCHC 29.8 L, RDW Std Deviation 42.7, RDW Coeff of Adi 13.7, Plt Count 311, MPV 9.6, Immature Gran % (Auto) 0.300, Neut % (Auto) 69.5, Lymph % (Auto) 12.1 L, [place] % (Auto) 7.3, Eos % (Auto) 9.7 H, Baso % (Auto) 1.1 H, Absolute Neuts (auto) 8.0 H, Absolute Lymphs (auto) 1.39, Nucleated RBC % 0, Sodium 131 L, Potassium 4.8, Chloride 99, Carbon Dioxide 28.0, Anion Gap 4 L, BUN 24 H, C reatinine 1.25 H, Estim Creat Clear Calc 60.76, Est GFR (MDRD) Af Amer 56 L, Est GFR (MDRD) Non-Af 46 L, BUN/Creatinine Ratio 19.2, Glucose 136 H, Calcium 9.2 08/09/24 06:08: POC Glucose 134 H Physical Exam Const alert, oriented x3 and no apparent distress Constitutional Narrative: super morbid obesity General Appearance: cooperative HEENT normocephalic, head/scalp atraumatic and moist oral mucous membranes Eyes PERRL and EOMs intact bilaterally Neck no lymphadenopathy and supple Lymph Lymphatic: no lymphadenopathy noted and no lymphedema noted Resp normal respiratory effort, normal air movement and clear to auscultation bilaterally Cardio regular rate, regular rhythm and S1 normal heart sound GI normal to inspection, nondistended, normoactive bowel sounds, soft to palpation and non-tender Extremity normal capillary refill, no clubbing, cyanosis or edema and no calf tenderness General Extremity: no tenderness to palpation of joints or extremities Skin General Skin Exam: no breakdown Neuro CN's II-XII intact bilaterally, no focal motor deficits and no sensory deficits noted Motor Exam: strength 5/5 throughout and general weakness Psych thought process normal and cooperative Appearance: appropriate Assessment & Plan Assessment/Plan (1) Adult failure to thrive: (2) Physical debility: (3) Inability to walk: (4) Debility: (5) Chronic high back pain: PLAN: Plan #Debility due to Right lower extremity and back pain * now says pain is in her LLE * she says she had an xray recently which showed no evidence of a pinched nerve * PT/OT on board * MRI of the lumbar spine showed no evidence of acute fracture and showed spondylosis and multilevel disc degeneration with facet arthropathy creating spinal stenosis most sever in right L2-3 and left L3-4 regions. * fall precautions * PO tylenol, PO oxycodone and IV morphine prn for pain * patient counseled that the spinal stenosis is likely the cause of her symptoms. She will therefore need pain meds and PT/OT. * on gabapentin * #Spinal stenosis: as above * #Chronic respiratory failure due to asthma and sleep apnea * wears 3L of oxygen at home chronically. * breathing treatment with bronchodilators. * Titrate oxygen to maintain sats >90%^ * #History of CAD: on aspirin, atorvastatin and plavix. #Hypertension: on lisinopril and metoprolol. #Type 2 diabetes mellitus: on lantus 30 units qhs. #GERD: on PPI #CKD 3B: Cr is at baseline. Will monitor #Super morbid obesity: BMI is 59.4. Complicates acute care, expected recovery and prognosis. DVT prophylaxis: lovenox 40mg SQ bid. Disposition: awaiting placement. Charges/Coding Visit Charges Inpatient E&M: 07569 Subs Hosp L2
[2024-08-09 11:22] LABS: Bedside Glucose 174 mg/dL (74-106)
[2024-08-09 17:03] LABS: Bedside Glucose 164 mg/dL (74-106)
[2024-08-09] MEDS: Atorvastatin Calcium 80 MG Tablet PO (22:40)
[2024-08-09] MEDS: Insulin Glargine-YFGN 100 UNIT/ML Pen 30 UNIT SC (22:46)
[2024-08-09 23:19] LABS: Bedside Glucose 158 mg/dL (74-106)
[2024-08-10] MEDS: oxyCODONE 5 MG Tablet PO ×5 (00:32→16:30)
[2024-08-10 04:23] VITALS: BP 137/84; PULSE 96; RESP 17; TEMP 36.9; O2SAT 97
[2024-08-10] MEDS: Gabapentin 300 MG Capsule PO ×3 (06:02→21:39)
[2024-08-10] MEDS: Acetaminophen 500 MG Tablet 1000 MG PO ×3 (06:02→21:39)
[2024-08-10 06:07] LABS: Absolute Lymphocyte Count 1.13 X10^3/uL (0.83-4.51); Eosinophil# 0.84 X10^3/uL; Eosinophils% 8.5 % (0-5); Hematocrit 44.2 % (37-47); Hemoglobin 13.6 g/dL (12.0-15.0); Lymphocyte # 1.13 X10^3/ul (0.83-4.51); Lymphocyte % 11.5 % (19-41); Mean Corp Hgb Conc 30.8 g/dL (32-36); Mean Corpuscular Hgb 26.4 pg (27.0-32.0); Mean Corpuscular Volume 85.8 fL (81-99); Mean Platelet Vol. 9.8 fl (6.2-12.0); Monocyte# 0.77 X10^3/uL; Monocyte% 7.8 % (0-10); NRBC Flagged by Analyzer 0 % (0-5); Neutrophil # 6.99 X10^3/uL (2.7-7.7); Neutrophil % 70.9 % (47-70); Platelet Count 283 K/mm3 (150-450); RBC Distribution Width CV 13.6 % (11.6-14.6); RBC Distribution Width SD 42.5 fl (35.1-43.9); Red Blood Count 5.15 M/mm3 (4.2-5.4); White Blood Count 9.9 K/mm3 (4.4-11.0)
[2024-08-10] MEDS: 0.9% Saline Lock 10 ML Syringe IV ×2 (06:23→10:35)
[2024-08-10 06:26] LABS: Bedside Glucose 140 mg/dL (74-106)
[2024-08-10 06:50] LABS: Anion Gap 9 (5-15); BUN 21 mg/dL (7-18); BUN/Creat Ratio 19.3 RATIO (10-20); Calcium,Total 9.4 mg/dL (8.5-10.1); Chloride 98 mmol/L (98-107); Creatinine, Serum 1.09 mg/dL (0.55-1.02); EST Glomerular Filtration Rate 54 mL/min (>60); Est Glom Filt Rate - Afr Amer 65 mL/min (>60); Estimated Creatinine Clearance 69.67 ml/min; Glucose 146 mg/dL (74-106); Potassium 4.8 mmol/L (3.5-5.1); Sodium Level 129 mmol/L (136-145)
[2024-08-10 08:00] VITALS: BP 119/72; PULSE 100; RESP 20; TEMP 36.8; O2SAT 97
[2024-08-10] MEDS: Nystatin Powder 15gm Bottle 1 APPLIC TOPICAL ×2 (08:17→21:40)
[2024-08-10] MEDS: Menthol/Lanolin/Calamine/Znox 113 GM Tube 1 APPLIC TOPICAL ×2 (08:17→21:40)
[2024-08-10] MEDS: Aspirin 81 MG TAB.CHEW PO (08:18)
[2024-08-10] MEDS: Enoxaparin 40 MG/0.4 ML Syringe SC ×2 (08:18→21:40)
[2024-08-10] MEDS: Senna/Docusate Sodium 1 Tablet 2 TABLET PO ×2 (08:19→21:39)
[2024-08-10 08:20] VITALS: PULSE 100
[2024-08-10] MEDS: Lisinopril 10 MG Tablet PO (08:20)
[2024-08-10] MEDS: Metoprolol(XL)Succ 25 MG Tablet 12.5 MG PO (08:20)
[2024-08-10] MEDS: Clopidogrel Bisulfate 75 MG Tablet PO (08:24)
--- NOTE | 2024-08-10 09:55 | PCM.PROGNOTE ---
Subjective Subjective Patient seen and examined. She complains of RLE pain. Review of systems is otherwise negative. Objective Data Objective Data Vital Signs: Vital Signs Temp Pulse Resp BP Pulse Ox O2 Del Method O2 Flow Rate 98.2 F 100 20 H 119/72 97 Room Air 2 08/10/24 08:00 08/10/24 08:20 08/10/24 08:00 08/10/24 08:00 08/10/24 08:00 08/10/24 08:00 08/10/24 04:23 Oxygen Flow Rate (L/min) 2 Oxygen Delivery Method Room Air Weight: 304 lb 1.6 oz Body Mass Index (BMI) 59.3 Intake & Output: Intake and Output for Last 24 Hours 08/08/24 08/09/24 08/10/24 23:59 23:59 23:59 Intake Total 500 / 500 350 / 350 150 / 150 Output Total 1300 / 1700 900 / 900 100 / 100 Balance -800 / -1200 -550 / -550 50 / 50 Lab / Micro Data 08/10/24 05:46 08/10/24 05:46 Labs: Laboratory Results - last 24 hr 08/09/24 10:39: POC Glucose 174 H 08/09/24 16:41: POC Glucose 164 H 08/09/24 22:44: POC Glucose 158 H 08/10/24 05:46: WBC 9.9, RBC 5.15, Hgb 13.6, Hct 44.2, MCV 85.8, MCH 26.4 L, MCHC 30.8 L, RDW Std Deviation 42.5, RDW Coeff of Adi 13.6, Plt Count 283, MPV 9.8, Immature Gran % (Auto) 0.300, Neut % (Auto) 70.9 H, Lymph % (Auto) 11.5 L, [place] % (Auto) 7.8, Eos % (Auto) 8.5 H, Baso % (Auto) 1.0, Absolute Neuts (auto) 7.0, Absolute Lymphs (auto) 1.13, Nucleated RBC % 0, Sodium 129 L, Potassium 4.8, Chloride 98, Carbon Dioxide 22.0, Anion Gap 9, BUN 21 H, Creatinine 1.09 H, Estim Creat Clear Calc 69.67, Est GFR (MDRD) Af Amer 65, Est GFR (MDRD) Non-Af 54 L, BUN/Creatinine Ratio 19.3, Glucose 146 H, Calcium 9.4 08/10/24 06:06: POC Glucose 140 H Micro: Microbiology 08/05/24 09:50 Urine, Random Urine Culture - Final Culture exhibits no growth. Physical Exam Const alert, oriented x3 and no apparent distress Constitutional Narrative: super morbid obesity General Appearance: cooperative HEENT normocephalic, head/scalp atraumatic and moist oral mucous membranes Eyes PERRL and EOMs intact bilaterally Neck no lymphadenopathy and supple Lymph Lymphatic: no lymphadenopathy noted and no lymphedema noted Resp normal respiratory effort, normal air movement and clear to auscultation bilaterally Cardio regular rate, regular rhythm and S1 normal heart sound GI normal to inspection, nondistended, normoactive bowel sounds, soft to palpation and non-tender Extremity normal capillary refill, no clubbing, cyanosis or edema and no calf tenderness General Extremity: no tenderness to palpation of joints or extremities Skin General Skin Exam: no breakdown Neuro CN's II-XII intact bilaterally, no focal motor deficits and no sensory deficits noted Motor Exam: strength 5/5 throughout and general weakness Psych thought process normal and cooperative Appearance: appropriate Assessment & Plan Assessment/Plan (1) Adult failure to thrive: (2) Physical debility: (3) Inability to walk: (4) Debility: (5) Chronic high back pain: PLAN: Plan #Debility due to Right lower extremity and back pain says pain is in her LLE. Also complains of nausea. she says she had an xray recently which showed no evidence of a pinched nerve PT/OT on board MRI of the lumbar spine showed no evidence of acute fracture and showed spondylosis and multilevel disc degeneration with facet arthropathy creating spinal stenosis most sever in right L2-3 and left L3-4 regions. fall precautions PO tylenol, PO oxycodone and IV morphine prn for pain patient counseled that the spinal stenosis is likely the cause of her symptoms. She will therefore need pain meds and PT/OT. on gabapentin will refer to pain management on outpatient basis. #Spinal stenosis: as above #Chronic respiratory failure due to asthma and sleep apnea wears 3L of oxygen at home chronically. breathing treatment with bronchodilators. Titrate oxygen to maintain sats >90%^ #Hyponatremia: Na is 129. WIll hydrate with IVF and trend. #History of CAD: on aspirin, atorvastatin and plavix. #Hypertension: on lisinopril and metoprolol. #Type 2 diabetes mellitus: on lantus 30 units qhs. #GERD: on PPI #CKD 3B: Cr is at baseline. Will monitor #Super morbid obesity: BMI is 59.4. Complicates acute care, expected recovery and prognosis. DVT prophylaxis: lovenox 40mg SQ bid. Disposition: awaiting placement. Charges/Coding Visit Charges Inpatient E&M: 16206 Subs Hosp L2
[2024-08-10] MEDS: 0.9% Normal Saline (1000mL) 1,000 ML 100 ML IV ×2 (10:35→23:21)
[2024-08-10] MEDS: Ceftriaxone 1 GM/50 ML BAG IV (10:36)
[2024-08-10 11:03] LABS: Bedside Glucose 136 mg/dL (74-106)
[2024-08-10 14:00] VITALS: BP 145/87; PULSE 92; RESP 20; TEMP 36.6; O2SAT 96
[2024-08-10 15:38] VITALS: O2SAT 95
[2024-08-10] MEDS: Insulin Lispro 100 UNIT/ML INSULN.PEN SC (16:34)
[2024-08-10 17:00] LABS: Bedside Glucose 156 mg/dL (74-106)
[2024-08-10 20:19] VITALS: BP 132/91; PULSE 90; RESP 17; TEMP 36.6; O2SAT 96
[2024-08-10] MEDS: Atorvastatin Calcium 80 MG Tablet PO (21:39)
[2024-08-10] MEDS: Insulin Glargine-YFGN 100 UNIT/ML Pen 30 UNIT SC (21:46)
[2024-08-10 22:08] LABS: Bedside Glucose 142 mg/dL (74-106)
[2024-08-11] VITALS (8 sets, daily range): BP systolic 112–139; BP diastolic 63–93; PULSE 90–99; RESP 16–20; TEMP 36.4–36.9; O2SAT 92–97
[2024-08-11] MEDS: oxyCODONE 5 MG Tablet PO ×3 (02:45→15:43)
[2024-08-11] MEDS: Gabapentin 300 MG Capsule PO ×3 (06:04→21:16)
[2024-08-11] MEDS: Acetaminophen 500 MG Tablet 1000 MG PO ×3 (06:05→21:16)
[2024-08-11 06:30] LABS: Bedside Glucose 134 mg/dL (74-106)
[2024-08-11 07:57] LABS: Absolute Lymphocyte Count 1.02 X10^3/uL (0.83-4.51); Absolute Neutrophil Count 7.4 X10^3/uL (2.0-7.7); Basophil# 0.08 X10^3/uL; Basophil% 0.8 % (0-1); Eosinophil# 0.43 X10^3/uL; Eosinophils% 4.5 % (0-5); Hematocrit 40.6 % (37-47); Hemoglobin 12.5 g/dL (12.0-15.0); Lymphocyte # 1.02 X10^3/ul (0.83-4.51); Lymphocyte % 10.6 % (19-41); Mean Corp Hgb Conc 30.8 g/dL (32-36); Mean Corpuscular Volume 84.4 fL (81-99); Mean Platelet Vol. 9.2 fl (6.2-12.0); Monocyte# 0.69 X10^3/uL; Monocyte% 7.2 % (0-10); NRBC Flagged by Analyzer 0 % (0-5); Neutrophil # 7.39 X10^3/uL (2.7-7.7); Neutrophil % 76.5 % (47-70); Platelet Count 291 K/mm3 (150-450); RBC Distribution Width CV 13.6 % (11.6-14.6); RBC Distribution Width SD 42.3 fl (35.1-43.9); Red Blood Count 4.81 M/mm3 (4.2-5.4); White Blood Count 9.7 K/mm3 (4.4-11.0)
[2024-08-11 08:21] LABS: Anion Gap 3 (5-15); BUN 18 mg/dL (7-18); BUN/Creat Ratio 17.8 RATIO (10-20); Chloride 99 mmol/L (98-107); Creatinine, Serum 1.01 mg/dL (0.55-1.02); EST Glomerular Filtration Rate 59 mL/min (>60); Est Glom Filt Rate - Afr Amer 71 mL/min (>60); Estimated Creatinine Clearance 75.19 ml/min; Glucose 138 mg/dL (74-106); Potassium 4.5 mmol/L (3.5-5.1); Sodium Level 132 mmol/L (136-145)
[2024-08-11] MEDS: Ceftriaxone 1 GM/50 ML BAG IV (09:09)
[2024-08-11] MEDS: Nystatin Powder 15gm Bottle 1 APPLIC TOPICAL (09:10)
[2024-08-11] MEDS: Menthol/Lanolin/Calamine/Znox 113 GM Tube 1 APPLIC TOPICAL (09:10)
[2024-08-11] MEDS: Senna/Docusate Sodium 1 Tablet 2 TABLET PO ×2 (09:11→21:16)
[2024-08-11] MEDS: Clopidogrel Bisulfate 75 MG Tablet PO (09:11)
[2024-08-11] MEDS: Lisinopril 10 MG Tablet PO (09:11)
[2024-08-11] MEDS: Enoxaparin 40 MG/0.4 ML Syringe SC ×2 (09:11→21:16)
[2024-08-11] MEDS: Metoprolol(XL)Succ 25 MG Tablet 12.5 MG PO (09:12)
[2024-08-11] MEDS: Aspirin 81 MG TAB.CHEW PO (09:31)
[2024-08-11] MEDS: Insulin Lispro 100 UNIT/ML INSULN.PEN SC ×2 (11:12→15:55)
[2024-08-11] MEDS: Bisacodyl 5 MG Tablet 10 MG PO (11:20)
[2024-08-11] MEDS: 0.9% Saline Lock 10 ML Syringe IV (11:21)
--- NOTE | 2024-08-11 11:28 | CASEMGMT ---
Rounded with physician who stated pt will need a pain mgmt consult. Pt is not medically ready for dc this date.
[2024-08-11 11:33] LABS: Bedside Glucose 174 mg/dL (74-106)
[2024-08-11] MEDS: Psyllium 1 PACKET PO ×3 (13:09→21:36)
[2024-08-11] MEDS: Lactulose 20 GM/30 ML UDC PO (13:09)
--- NOTE | 2024-08-11 14:13 | CASEMGMT ---
Discharge Planning [facility] has obtained auth to admit. Diana Burnette DC Planning Asst.
--- NOTE | 2024-08-11 15:14 | CASEMGMT ---
Social Work- Pt is not medically ready due to needing pain consult. Precert has been obtained. SW remains available to follow. [facility]an: [facility]; when medically ready TIMOTHY Fitzgerald
[2024-08-11] MEDS: Ondansetron 4 MG/2 ML Vial IV (15:43)
--- NOTE | 2024-08-11 16:01 | PN.HOSP_ITS ---
Reason for Visit Reason for Visit: Diagnoses Other chronic pain (08/11/24) Dorsalgia, unspecified (08/11/24) Difficulty in walking, not elsewhere classified (08/11/24) Other malaise (08/11/24) Adult failure to thrive (08/11/24) Objective Data Objective Data Vital Signs: Vital Signs Temp Pulse Resp BP Pulse Ox O2 Del Method O2 Flow Rate 97.6 F L 99 20 H 137/80 H 95 Nasal Cannula 3 08/11/24 14:38 08/11/24 14:38 08/11/24 14:38 08/11/24 14:38 08/11/24 14:38 08/11/24 14:51 08/11/24 14:51 Oxygen Flow Rate (L/min) 3 Oxygen Delivery Method Nasal Cannula Weight: 304 lb 1.6 oz Body Mass Index (BMI) 59.3 Intake & Output: Intake and Output for Last 24 Hours 08/09/24 08/10/24 08/11/24 23:59 23:59 23:59 Intake Total 350 / 350 1650.00 / 1650.00 0 / 2049 Output Total 900 / 900 975 / 975 900 / 900 Balance -550 / -550 675.00 / 675.00 1150 / 1150 Lab / Micro Data 08/11/24 07:40 08/11/24 07:40 Labs: Laboratory Results - last 24 hr 08/10/24 16:34: POC Glucose 156 H 08/10/24 21:44: POC Glucose 142 H 08/11/24 06:08: POC Glucose 134 H 08/11/24 07:40: WBC 9.7, RBC 4.81, Hgb 12.5, Hct 40.6, MCV 84.4, MCH 26.0 L, M CHC 30.8 L, RDW Std Deviation 42.3, RDW Coeff of Adi 13.6, Plt Count 291, MPV 9.2, Immature Gran % (Auto) 0.400, Neut % (Auto) 76.5 H, Lymph % (Auto) 10.6 L, [place] % (Auto) 7.2, Eos % (Auto) 4.5, Baso % (Auto) 0.8, Absolute Neuts (auto) 7.4, Absolute Lymphs (auto) 1.02, Nucleated RBC % 0, Sodium 132 L, Potassium 4.5, Chloride 99, Carbon Dioxide 30.0, Anion Gap 3 L, BUN 18, Creatinine 1.01, Estim Creat Clear Calc 75.19, Est GFR (MDRD) Af Amer 71, Est GFR (MDRD) Non-Af 59 L, BUN/Creatinine Ratio 17.8, Glucose 138 H, Calcium 9.0 08/11/24 11:04: POC Glucose 174 H Micro: Microbiology 08/05/24 09:50 Urine, Random Urine Culture - Final Culture exhibits no growth. Physical Exam Narrative Seen and examined Patient's daughter and granddaughter and grandson present in the room. Discussed with them. Complain of severe pain 8-10 mainly in right lower extremity from thigh to foot. Chronic back pain and not able to turn around or sit up. Physical exam General: Alert, Oriented x3, Cooperative. Morbid obesity BMI 59.4 kg/m? HEENT: Atraumatic, PERRLA, EOMI, Normocephalic Oral: Deep oropharyngeal structures cannot be visualized. No Gingival or Mucosal Lesions/ Ulcerations Neck: Supple, No JVD, Negative Carotid Bruits Chest wall/Lungs: Air entry very diminished in bilateral lung bases. No crepitation/rhonchi Cardiovascular: Regular rate, Regular Rhythm, Normal S1, Normal S2, No M/G/R Abdomen: Bowel Sounds Present, Soft, Non Tender, Non-Distended : No dysuria. No renal angle tenderness. No suprapubic tenderness. Extremities: No edema, Capillary Refill Less than 3 Seconds Skin: No rashes, No breakdown Musculoskeletal: Tenderness present in lumbar spine but hard to examine as patient cannot turn sideways or sit up. Migratory/radiation pain in right LE Neurological: Cranial nerves II-XII grossly intact, DTR 2+/4. No acute focal neurological deficit. Psych/Mental Status: Flat affect Assessment & Plan Assessment/Plan (1) Adult failure to thrive: (2) Physical debility: (3) Inability to walk: (4) Debility: (5) Chronic high back pain: PLAN: Plan This 64-year-old female was admitted with acute debility due to acute on chronic right lower extremity and lumbar back pain # Acute debility due to Right lower extremity and back pain, sciatica in nature most likely due to lumbar spondylosis and stenosis * says pain is mainly in her LLE. Also complains of nausea. * she says she had an xray recently which showed no evidence of a pinched nerve * PT/OT on board * MRI of the lumbar spine showed no evidence of acute fracture and showed spondylosis and multilevel disc degeneration with facet arthropathy creating spinal stenosis most sever in right L2-3 and left L3-4 regions. * fall precautions * PO tylenol, PO oxycodone and IV morphine prn for pain * patient counseled that the spinal stenosis is likely the cause of her symptoms. On pain meds and PT/OT. * on gabapentin 08/11: Pain management Dr. Choe patient was consulted. Discussed with him. As the patient is on Plavix which is held, she cannot be taken for a spinal pain injection/procedure therefore pain medications needs to be optimized by pain management. Patient also did not move bowel for 1 week therefore Dulcolax 10 mg and lactulose 20 mg 1 dose each were given. On senna S2 tablet twice daily and psyllium. Monitor for BM. Discussed with nursing staff and case monitor #Spinal stenosis: as above * #Chronic respiratory failure due to asthma and sleep apnea * wears 3L of oxygen at home chronically. * breathing treatment with bronchodilators. * Titrate oxygen to maintain sats >90%^ #Hyponatremia: Na is 129. WIll hydrate with IVF and trend. #History of CAD: on aspirin, atorvastatin and plavix. #Hypertension: on lisinopril and metoprolol. #Type 2 diabetes mellitus: on lantus 30 units qhs. #GERD: on PPI #CKD 3B: Cr is at baseline. Will monitor #Super morbid obesity: BMI is 59.4. Complicates acute care, expected recovery and prognosis. DVT prophylaxis: lovenox 40mg SQ bid. Charges/Coding Visit Charges Inpatient E&M: 92903 Subs Hosp L2
[2024-08-11 16:48] LABS: Bedside Glucose 173 mg/dL (74-106)
[2024-08-11] MEDS: Atorvastatin Calcium 80 MG Tablet PO (21:16)
[2024-08-11] MEDS: Insulin Glargine-YFGN 100 UNIT/ML Pen 30 UNIT SC (21:23)
[2024-08-11 23:17] LABS: Bedside Glucose 146 mg/dL (74-106)
[2024-08-12 03:01] VITALS: BP 132/54; PULSE 100; RESP 16; TEMP 36.6; O2SAT 97
[2024-08-12] MEDS: oxyCODONE 5 MG Tablet PO ×2 (03:03→11:28)
[2024-08-12] MEDS: 0.9% Saline Lock 10 ML Syringe IV (03:03)
[2024-08-12 06:02] LABS: Absolute Lymphocyte Count 1.37 X10^3/uL (0.83-4.51); Absolute Neutrophil Count 8.4 X10^3/uL (2.0-7.7); Basophil% 0.9 % (0-1); Eosinophils% 2.7 % (0-5); Hematocrit 39.5 % (37-47); Hemoglobin 12.2 g/dL (12.0-15.0); Lymphocyte # 1.37 X10^3/ul (0.83-4.51); Lymphocyte % 12.4 % (19-41); Mean Corp Hgb Conc 30.9 g/dL (32-36); Mean Corpuscular Hgb 26.2 pg (27.0-32.0); Mean Corpuscular Volume 84.8 fL (81-99); Mean Platelet Vol. 9.2 fl (6.2-12.0); Monocyte% 7.3 % (0-10); NRBC Flagged by Analyzer 0 % (0-5); Neutrophil # 8.42 X10^3/uL (2.7-7.7); Neutrophil % 76.4 % (47-70); Platelet Count 340 K/mm3 (150-450); RBC Distribution Width CV 13.6 % (11.6-14.6); Red Blood Count 4.66 M/mm3 (4.2-5.4)
[2024-08-12 06:23] LABS: Anion Gap 3 (5-15); BUN 16 mg/dL (7-18); BUN/Creat Ratio 15.1 RATIO (10-20); Calcium,Total 9.3 mg/dL (8.5-10.1); Chloride 99 mmol/L (98-107); Creatinine, Serum 1.06 mg/dL (0.55-1.02); EST Glomerular Filtration Rate 56 mL/min (>60); Est Glom Filt Rate - Afr Amer 68 mL/min (>60); Estimated Creatinine Clearance 71.65 ml/min; Glucose 133 mg/dL (74-106); Potassium 4.2 mmol/L (3.5-5.1); Sodium Level 132 mmol/L (136-145)
[2024-08-12] MEDS: Gabapentin 300 MG Capsule PO ×2 (06:26→15:08)
[2024-08-12] MEDS: Acetaminophen 500 MG Tablet 1000 MG PO ×2 (06:26→15:08)
[2024-08-12] MEDS: Psyllium 1 PACKET PO (06:27)
[2024-08-12 06:52] LABS: Bedside Glucose 136 mg/dL (74-106)
[2024-08-12 07:51] VITALS: O2SAT 95
--- NOTE | 2024-08-12 08:43 | PCM.CONS.GEN ---
Assessment & Plan Assessment/Plan (1) Lumbar radiculopathy, acute: PLAN: Plan IMPRESSION: No evidence for acute fracture or other significant bony pathology. .Spondylosis and multilevel disc degeneration with facet arthropathy creating spinal stenosis most severe in the right L2-3 and on the left at L3-4. -Pain etiology is not completely clear. Could be radicular vs vascular (athough limb does not have discoloration, is not cold, and DP pulse appreciated). -She is on plavix and aspirin. Plavix would need to be held for 7 days prior to injection. She will need clearance from cardiology prior to spinal injection consideration. -Consider LESI or TFESI -Recommend starting medrol dose pack. AIC appears ok this past summer -On tylenol -Discontinue opioids as she states they have not helped but have caused significant constipation -Gabapentin 300mg TID: she states this is home med -States opioids are not helping. Will not be discharging on opioids as she has had severe constipation without pain benefit. -Consider right lower extremity EMG. -Recommend consultation with vascular team if there is a vascular etiology? CT scan at outside facility was not able to be conducted with contrast due to habitus she states. -Discussed above with Dr. Darby the primary team hospitalist. He is hoping for dispo to rehab facility soon. -She can follow up with pain management in 1-2 weeks with either myself or Dr. Palmer. On insulin, last A1C: 6.0 OIC management: psyllium, lactulose, dulcolax and senna. Recommend consideration for enema to help with constipation. HPI Consult Data Date of Consult: 08/12/24 HPI Narrative Reason for Consultation: Right lower extremity pain HPI Narrative: BRIAN LOPEZ, is a 64 F who presents with an acute right lower extremity pain. It starts in the hip and radiates to the foot. She states it is the entirety of the RLE, it is constant and burning in nature. She has a PMH of chronic respiratory failure 2/2 sleep apnea, asthma (on 3L O2), T2DM, GERD, CKD, super morbid obesity with BMI about 60. Her complaint is mainly of lower extremity pain compared to back pain at this time. The pain started a few weeks ago. Per notes, an initial scan of the right lower extremity which was negative and a CT abdomen pelvis without contrast that per report was unremarkable and patient was ultimately sent home. She continued to have issues and went to the hospital and was admitted for the pain and failure to thrive. She has had issues with standing and ambulating. I am consulted for epidural consideration. She is on plavix 2/2 [place] in April. Denies having any stents however. Currently on regimen of tylenol, oxycodone and PRN IV morphine for breakthrough pain. She has had issues in the hospital with constipation. On regimen of dulcolax, senna, psyllium and lactulose. Lumbar MRI was obtained showing spondylosis and foraminal stenosis. [facility] Medical History (Updated 08/12/24 @ 15:[address] Дмитрий Briscoe MD) Non-smoker On home oxygen therapy Heart attack History of obstructive sleep apnea Gait instability Morbid obesity with BMI of 60.0-69.9, adult Neuropathy Osteoporosis GERD (gastroesophageal reflux disease) Pyelonephritis Diabetes Asthma Sleep apnea Hyperlipidemia Hypertension Home Medications ?Medication ?Instructions ?Recorded ?Last Taken ?Type albuterol sulfate 90 mcg/actuation 2 puff inhalation Q4H PRN PRN 11/20/16 Unknown History aerosol inhaler (Ventolin HFA) Shortness Of Breath gabapentin 300 mg capsule 300 mg PO TID NERVE PAIN 01/10/17 02/15/23 History (Neurontin) atorvastatin 40 mg tablet 80 mg PO QHS CHOLESTEROL 11/26/20 02/14/23 History insulin lispro 100 unit/mL 12 unit SQ TIDCM DM 11/26/20 02/15/23 History subcutaneous pen liraglutide 0.6 mg/0.1 mL (18 mg/3 1.8 mg SQ QHS DM 11/26/20 11/25/20 History mL) subcutaneous pen injector metformin 500 mg tablet,extended 2,000 mg PO DAILY DM 11/26/20 02/15/23 History release 24 hr ferrous sulfate 325 mg (65 mg 325 mg PO QODAY SUPPLEMENT #0 tabs 12/08/21 02/15/23 Rx iron) tablet vitamin A-vitamin C-vit E-min 1 tab PO DAILY 07/29/22 02/15/23 History tablet aspirin 81 mg chewable tablet 1 tab PO DAILY 08/04/24 Unknown History ergocalciferol (vitamin D2) 1,250 1,250 mcg PO QWEEK 08/04/24 Unknown History mcg (50,000 unit) capsule (Vitamin D2) fluticasone 500 mcg-salmeterol 50 1 ea inhalation BID 08/04/24 Unknown History mcg/dose blistr powdr for inhalation (Advair Diskus) lisinopril 10 mg tablet 10 mg PO DAILY 08/04/24 Unknown History metoprolol succinate 25 mg 12.5 mg PO DAILY 08/04/24 Unknown History tablet,extended release 24 hr acetaminophen 500 mg tablet 1,000 mg (2 x 500 mg) PO Q8 #0 tabs 08/12/24 Unknown Rx clopidogrel 75 mg tablet 75 mg PO DAILY 30 days #0 tabs 08/12/24 Unknown Rx insulin glargine 100 unit/mL (3 30 unit (0.3 mL) subcut QHS 30 08/12/24 02/14/23 Rx mL) subcutaneous pen (Lantus days #9 mL Solostar U-100 Insulin) methylprednisolone 4 mg tablets in 4 mg PO DAILY #21 tabs 08/12/24 Unknown Rx a dose pack (CIRQY (Go)) psyllium husk (aspartame) 3 gram 1 packet PO TID #0 ea 08/12/24 Unknown Rx oral powder packet (Daily Fiber (psyllium-aspartame)) sennosides 8.6 mg-docusate sodium 2 tab PO BID #0 tabs 08/12/24 Unknown Rx 50 mg tablet (Stimulant Laxative Plus) Allergy/AdvReac Type Severity Reaction Status Date / Time aspirin Allergy NEEDS Verified 08/04/24 09:55 FOLLOW-UP bee pollen Allergy Rash Verified 08/04/24 09:55 chestnut Allergy Anaphylaxis Verified 08/04/24 09:55 hydrogen peroxide Allergy Rash Verified 08/04/24 09:55 egg AdvReac Diarrhea Verified 08/04/24 09:55 tramadol AdvReac Abd Verified 08/04/24 09:55 cramps/diarrhea Social History (Updated 08/04/24 @ 11:[address] Kashmir Camarillo MD) household members: none Smoking Status: Never smoker ROS ROS Narrative General: Denies fever/chills but feels hot and has shakes right now HENT: Denies headache, possibly stuffy nose, denies sore throat EYES: Denies changes in vision Resp: Has chronic shortness of breath, she is unsure if this is the same or unchanged Cardiac: Intermittently gets some random radiation of the pain up towards her chest GI: Sometimes nausea, no changes in bowels, the abdominal pain is random and seems to radiate upward from her leg per patient : Denies changes in urination Extremity: Did have some tenderness on the right leg on palpation but not presently feeling tender to palpation, only on the medial aspect of her right foot behind her first MTP joint MSK: Generalized weakness Neuro: Chronic neuropathy Heme: Denies any bleeding or bruising Skin: Denies rashes Psychiatric: No complaints voiced Physical Exam Narrative Extremities: No edema DP pulses palpable on the right. SLR + on right for pain 4/5 right lower extremity with pain. Diffusely 4+/5 strength in other extremities. Tenderness over the lateral aspect of the hip/buttock on the right Hip provocative maneuvers negative Const alert and oriented x3 Lab / Micro Data 08/12/24 05:34 08/12/24 05:34 Labs: Laboratory Results - last 24 hr 08/11/24 11:04: POC Glucose 174 H 08/11/24 15:55: POC Glucose 173 H 08/11/24 21:21: POC Glucose 146 H 08/12/24 05:34: WBC 11.0, RBC 4.66, Hgb 12.2, Hct 39.5, MCV 84.8, MCH 26.2 L, MCHC 30.9 L, RDW Std Deviation 42.0, RDW Coeff of Adi 13.6, Plt Count 340, MPV 9.2, Immature Gran % (Auto) 0.300, Neut % (Auto) 76.4 H, Lymph % (Auto) 12.4 L, [place] % (Auto) 7.3, Eos % (Auto) 2.7, Baso % (Auto) 0.9, Absolute Neuts (auto) 8.4 H, Absolute Lymphs (auto) 1.37, Nucleated RBC % 0, Sodium 132 L, Potassium 4.2, Chloride 99, Carbon Dioxide 30.0, Anion Gap 3 L, BUN 16, Creatinine 1.06 H, Estim Creat Clear Calc 71.65, Est GFR (MDRD) Af Amer 68, Est GFR (MDRD) Non-Af 56 L, BUN/Creatinine Ratio 15.1, Glucose 133 H, Calcium 9.3 08/12/24 06:32: POC Glucose 136 H
[2024-08-12 09:00] VITALS: BP 138/58; PULSE 96; RESP 18; TEMP 36.2; O2SAT 96
[2024-08-12 11:08] VITALS: O2SAT 90
[2024-08-12] MEDS: Aspirin 81 MG TAB.CHEW PO (11:08)
[2024-08-12] MEDS: Enoxaparin 40 MG/0.4 ML Syringe SC (11:13)
[2024-08-12] MEDS: Menthol/Lanolin/Calamine/Znox 113 GM Tube 1 APPLIC TOPICAL (11:13)
[2024-08-12] MEDS: Nystatin Powder 15gm Bottle 1 APPLIC TOPICAL (11:14)
[2024-08-12] MEDS: Senna/Docusate Sodium 1 Tablet 2 TABLET PO (11:14)
[2024-08-12 11:15] VITALS: PULSE 96
[2024-08-12] MEDS: Metoprolol(XL)Succ 25 MG Tablet 12.5 MG PO (11:15)
[2024-08-12] MEDS: Lisinopril 10 MG Tablet PO (11:15)
--- NOTE | 2024-08-12 14:14 | TREXTCAR_ITS ---
Diet Diet Order/Speech Therapy: 08/04/24 15:25 Diet: Cardiac - Heart Healthy Food consistency:: Regular Liquid Consistency:: Regular/Thin Dietary Modifications:: Consistent Carbohydrate Routine Orders/Code Status Suppository Type: Dulcolax 10mg Suppository Frequency: Daily PRN DC O2, CPAP, BIPAP needs Home O2 Discharge instructions: No Therapies Extremity Affected:: Bilateral Lower Physical Therapy: Eval and Treat Occupational Therapy: Eval and Treat Speech Therapy: Eval and Treat Problem/Diagnosis (1) Adult failure to thrive: Status: Acute Code(s): R62.7 - Adult failure to thrive (2) Physical debility: Status: Acute Code(s): R53.81 - Other malaise (3) Inability to walk: Status: Acute Code(s): R26.2 - Difficulty in walking, not elsewhere classified (4) Debility: Status: Acute Code(s): R53.81 - Other malaise (5) Chronic high back pain: Status: Chronic Code(s): M54.9 - Dorsalgia, unspecified; G89.29 - Other chronic pain Plan This 64-year-old female was admitted with acute debility due to acute on chronic right lower extremity and lumbar back pain # Acute debility due to Right lower extremity and back pain, sciatica in nature most likely due to lumbar spondylosis and stenosis * says pain is mainly in her LLE. Also complains of nausea. * she says she had an xray recently which showed no evidence of a pinched nerve * PT/OT on board * MRI of the lumbar spine showed no evidence of acute fracture and showed spondylosis and multilevel disc degeneration with facet arthropathy creating spinal stenosis most sever in right L2-3 and left L3-4 regions. * fall precautions * PO tylenol, PO oxycodone and IV morphine prn for pain * patient counseled that the spinal stenosis is likely the cause of her symptoms. On pain meds and PT/OT. * on gabapentin 08/11: Pain management Dr. Choe patient was consulted. Discussed with him. As the patient is on Plavix which is held, she cannot be taken for a spinal pain injection/procedure therefore pain medications needs to be optimized by pain management. Patient also did not move bowel for 1 week therefore Dulcolax 10 mg and lactulose 20 mg 1 dose each were given. On senna S2 tablet twice daily and psyllium. Monitor for BM. Discussed with nursing staff and family independence case manager #Spinal stenosis: as above * #Chronic respiratory failure due to asthma and sleep apnea * wears 3L of oxygen at home chronically. * breathing treatment with bronchodilators. * Titrate oxygen to maintain sats >90%^ #Hyponatremia: Na is 129. WIll hydrate with IVF and trend. #History of CAD: on aspirin, atorvastatin and plavix. #Hypertension: on lisinopril and metoprolol. #Type 2 diabetes mellitus: on lantus 30 units qhs. #GERD: on PPI #CKD 3B: Cr is at baseline. Will monitor #Super morbid obesity: BMI is 59.4. Complicates acute care, expected recovery and prognosis. DVT prophylaxis: lovenox 40mg SQ bid. Allergies/Procedures Done in Hospital Allergies aspirin Allergy (Verified 08/04/24 09:55) NEEDS FOLLOW-UP bee pollen Allergy (Verified 08/04/24 09:55) Rash chestnut Allergy (Verified 08/04/24 09:55) Anaphylaxis hydrogen peroxide Allergy (Verified 08/04/24 09:55) Rash egg Adverse Reaction (Verified 08/04/24 09:55) Diarrhea tramadol Adverse Reaction (Verified 08/04/24 09:55) Abd cramps/diarrhea Type of Care/Length of Stay Estimated LOS: Convalescent Care Less Than 30 days Type of Care Needed: Skilled Rehab Potential: Good Prognosis: Good Additional Orders/Day of Discharge Day of Discharge: 08/12/24 Dietary and Speech Recommendations Dietitian Recommendations/Changes: Continue Cardiac/CCD diet to manage medical conditions. Discharge Plan Admission Admit Date/Time: 08/11/24 15:31 Primary Reason for Your Visit: Right lower extremity pain Attending Provider: Placido Darby Primary Care Provider: Gerry Coreas Consulting Providers: Heaven Jeter; Azul Yeung; Дмитрий Briscoe Instructions Additional Instructions / Restrictions: Take Medrol Dosepak as directed on the package. Discharge Orders/Prescriptions Prescriptions: New acetaminophen 500 mg Tablet 1,000 mg PO Q8 Qty: 0 0RF Daily Fiber (psyllium-aspart) 3 gram Powder In Packet 1 packet PO TID Qty: 0 0RF sennosides-docusate sodium [Stimulant Laxative Plus] 8.6-50 mg Tablet 2 tab PO BID Qty: 0 0RF methylprednisolone [Medrol (Go)] 4 mg tablets,dose pack 4 mg PO DAILY Qty: 21 0RF Rx Instructions: Take it as directed. Continued albuterol sulfate [Ventolin HFA] 1 INHALER inhaler 2 puff inhalation Q4H PRN PRN (Reason: Shortness Of Breath) gabapentin [Neurontin] 300 MG capsule 300 mg PO TID atorvastatin 40 MG tablet 80 mg PO QHS insulin lispro 100 UNIT/ML insulin pen 12 unit SQ TIDCM liraglutide 0.6 MG/0.1 ML pen injector 1.8 mg SQ QHS ferrous sulfate 325 MG tablet 325 mg PO QODAY Qty: 0 0RF vitamin A-vitamin C-vit E-min Tablet 1 tab PO DAILY lisinopril 10 mg tablet 10 mg PO DAILY fluticasone propion-salmeterol [Advair Diskus] 500-50 mcg/dose blister with device 1 ea inhalation BID aspirin 81 mg tablet,chewable 1 tab PO DAILY metoprolol succinate 25 mg tablet extended release 24 hr 12.5 mg PO DAILY ergocalciferol (vitamin D2) [Vitamin D2] 1,250 mcg (50,000 unit) capsule 1,250 mcg PO QWEEK clopidogrel 75 mg tablet 75 mg PO DAILY 30 Days Qty: 0 0RF Rx Instructions: Advised to hold 7 days prior to the local pain injection by pain management Changed insulin glargine [Lantus Solostar U-100 Insulin] 100 unit/mL (3 mL) insulin pen 30 unit SUBCUT QHS 30 Days Qty: 9 0RF Held metformin 500 MG tablet extended release 24 hr 2,000 mg PO DAILY Hold Instructions: Hold for 7 days. Resume 1000 mg daily. Discontinued acetaminophen 325 MG tablet 650 mg PO Q6H PRN PRN (Reason: Pain Score 1-10/Temp > 100.7 F) 0RF Referrals / Follow Up: Gerry Coreas MD [Primary Care Provider] - Within 2 Weeks Melchor Chen MD [Med Staff - Active Staff] - Within 2 Weeks (Need outpatient [facility], vascular doppler) Дмитрий Briscoe MD [Med Staff - Active Staff] - Within 1 Week Disposition Disposition (needs filled in before D/C Order can be placed): Group Home Facility
--- NOTE | 2024-08-12 14:36 | DS.PCM_ITS ---
Providers Date of Admission: 08/04/24 Date of Discharge: 08/12/24 Primary Care Physician: Dr. Gerry Coreas MD Consultations 08/11/24 12:26 Consult: Pain Management Routine Consulting Provider: Дмитрий Briscoe Reason for Consult: severe sciatica back pain, right thigh and below EMERGENT Consult: No MD Notified: Yes Date Notified: 08/11/24 Time Notified: 12:26 Method of Notification: Verbal Reason For Visit: PHYSICAL DEBILITY Diagnosis Discharge Diagnosis (1) Adult failure to thrive: Status: Acute Code(s): R62.7 - Adult failure to thrive (2) Physical debility: Status: Acute Code(s): R53.81 - Other malaise (3) Inability to walk: Status: Acute Code(s): R26.2 - Difficulty in walking, not elsewhere classified (4) Debility: Status: Acute Code(s): R53.81 - Other malaise (5) Chronic high back pain: Status: Chronic Code(s): M54.9 - Dorsalgia, unspecified; G89.29 - Other chronic pain Plan This 64-year-old female was admitted with acute debility due to acute on chronic right lower extremity and lumbar back pain # Acute debility due to Right lower extremity and back pain, sciatica in nature most likely due to lumbar spondylosis and stenosis * says pain is mainly in her LLE. Also complains of nausea. * she says she had an xray recently which showed no evidence of a pinched nerve * PT/OT on board * MRI of the lumbar spine showed no evidence of acute fracture and showed spondylosis and multilevel disc degeneration with facet arthropathy creating spinal stenosis most sever in right L2-3 and left L3-4 regions. * fall precautions * PO tylenol, PO oxycodone and IV morphine prn for pain * patient counseled that the spinal stenosis is likely the cause of her symptoms. On pain meds and PT/OT. * on gabapentin 08/11: Pain management Dr. Choe patient was consulted. Discussed with him. As the patient is on Plavix which is held, she cannot be taken for a spinal pain injection/procedure therefore pain medications needs to be optimized by pain management. Patient also did not move bowel for 1 week therefore Dulcolax 10 mg and lactulose 20 mg 1 dose each were given. On senna S2 tablet twice daily and psyllium. Monitor for BM. Discussed with nursing staff and rifle case repairer 08/12: Patient was evaluated by Dr. Дмитрий Briscoe. Opioid is discontinued as patient getting minimal benefit. Patient is also on IV ceftriaxone unclear indication therefore discontinued. Started on Medrol Dosepak with IV Solu- Medrol. Prescription written. Advised to follow-up with pain management [place] on August 22. Will need to hold Plavix for 1 week prior to procedure but will need cardiac clearance as patient recently been started on Plavix for non-STEMI medical management. As per H&P, patient had negative duplex of right lower extremity. #Spinal stenosis: as above * #Chronic respiratory failure due to asthma and sleep apnea * wears 3L of oxygen at home chronically. * breathing treatment with bronchodilators. * Titrate oxygen to maintain sats >90%^ #Hyponatremia: Na is 129. WIll hydrate with IVF and trend. 08/12: Repeat sodium 132. #History of CAD: on aspirin, atorvastatin and plavix. #Hypertension: on lisinopril and metoprolol. #Type 2 diabetes mellitus: on lantus 30 units qhs. #GERD: on PPI #CKD 3B: Cr is at baseline. Continue monitor #Super morbid obesity: BMI is 59.4. Complicates acute care, expected recovery and prognosis. DVT prophylaxis: lovenox 40mg SQ bid. Discharge medication reconciliation done. Discharge follow-up instructions completed. Discharge process discussed with the patient and all questions were answered to patient's satisfaction. Follow with PCP in 1 to 2 weeks Total time spent, exact 35 minutes on discharge meds reconciliation, examination, coordination of care with nurses and ancillary staff, review of imaging and blood test and discussion with the patient on follow-up instructions. Medications at Discharge Home Medications albuterol sulfate 90 mcg/actuation aerosol inhaler (Ventolin HFA) 2 puff inhalation Q4H PRN PRN Shortness Of Breath 11/20/16 gabapentin 300 mg capsule (Neurontin) 300 mg PO TID NERVE PAIN 01/10/17 atorvastatin 40 mg tablet 80 mg PO QHS CHOLESTEROL 11/26/20 insulin lispro 100 unit/mL subcutaneous pen 12 unit SQ TIDCM DM 11/26/20 liraglutide 0.6 mg/0.1 mL (18 mg/3 mL) subcutaneous pen injector 1.8 mg SQ QHS DM 11/26/20 metformin 500 mg tablet,extended release 24 hr 2,000 mg PO DAILY DM 11/26/20 ferrous sulfate 325 mg (65 mg iron) tablet 325 mg PO QODAY SUPPLEMENT #0 tabs 12/08/21 vitamin A-vitamin C-vit E-min tablet 1 tab PO DAILY 07/29/22 aspirin 81 mg chewable tablet 1 tab PO DAILY 08/04/24 ergocalciferol (vitamin D2) 1,250 mcg (50,000 unit) capsule (Vitamin D2) 1,250 mcg PO QWEEK 08/04/24 fluticasone 500 mcg-salmeterol 50 mcg/dose blistr powdr for inhalation (Advair Diskus) 1 ea inhalation BID 08/04/24 lisinopril 10 mg tablet 10 mg PO DAILY 08/04/24 metoprolol succinate 25 mg tablet,extended release 24 hr 12.5 mg PO DAILY 08/04/24 acetaminophen 500 mg tablet 1,000 mg (2 x 500 mg) PO Q8 #0 tabs 08/12/24 clopidogrel 75 mg tablet 75 mg PO DAILY 30 days #0 tabs 08/12/24 insulin glargine 100 unit/mL (3 mL) subcutaneous pen (Lantus Solostar U-100 Insulin) 30 unit (0.3 mL) subcut QHS 30 days #9 mL 08/12/24 methylprednisolone 4 mg tablets in a dose pack (Medrol (Go)) 4 mg PO DAILY #21 tabs 08/12/24 psyllium husk (aspartame) 3 gram oral powder packet (Daily Fiber (psyllium- aspartame)) 1 packet PO TID #0 ea 08/12/24 sennosides 8.6 mg-docusate sodium 50 mg tablet (Stimulant Laxative Plus) 2 tab PO BID #0 tabs 08/12/24 Physical Exam Narrative Seen and examined with the pain management present in the room Patient's daughter and granddaughter and grandson present in the room. Discussed with them. RLE pain is better. Patient sitting on the recliner. Physical exam General: Alert, Oriented x3, Cooperative. Morbid obesity BMI 59.4 kg/m? HEENT: Atraumatic, PERRLA, EOMI, Normocephalic Oral: Deep oropharyngeal structures cannot be visualized. No Gingival or Mucosal Lesions/ Ulcerations Neck: Supple, No JVD, Negative Carotid Bruits Chest wall/Lungs: Air entry very diminished in bilateral lung bases. No crepitation/rhonchi Cardiovascular: Regular rate, Regular Rhythm, Normal S1, Normal S2, No M/G/R Abdomen: Bowel Sounds Present, Soft, Non Tender, Non-Distended : No dysuria. No renal angle tenderness. No suprapubic tenderness. Extremities: No edema, Capillary Refill Less than 3 Seconds Skin: No rashes, No breakdown Musculoskeletal: RLE pain mainly in thigh and lower leg. Tenderness present. Neurological: Cranial nerves II-XII grossly intact, DTR 2+/4. No acute focal neurological deficit. Psych/Mental Status: Flat affect Weight / BMI Weight Weight: 304 lb 1.6 oz Body Mass Index (BMI) 59.3 ABG / Lab / Microbiology Data 08/12/24 05:34 08/12/24 05:34 Laboratory: Laboratory Results - last 24 hr 08/11/24 21:21: POC Glucose 146 H 08/12/24 05:34: WBC 11.0, RBC 4.66, Hgb 12.2, Hct 39.5, MCV 84.8, MCH 26.2 L, M CHC 30.9 L, RDW Std Deviation 42.0, RDW Coeff of Adi 13.6, Plt Count 340, MPV 9.2, Immature Gran % (Auto) 0.300, Neut % (Auto) 76.4 H, Lymph % (Auto) 12.4 L, Yates % (Auto) 7.3, Eos % (Auto) 2.7, Baso % (Auto) 0.9, Absolute Neuts (auto) 8.4 H, Absolute Lymphs (auto) 1.37, Nucleated RBC % 0, Sodium 132 L, Potassium 4.2, Chloride 99, Carbon Dioxide 30.0, Anion Gap 3 L, BUN 16, Creatinine 1.06 H, Estim Creat Clear Calc 71.65, Est GFR (MDRD) Af Amer 68, Est GFR (MDRD) Non-Af 56 L, BUN/Creatinine Ratio 15.1, Glucose 133 H, Calcium 9.3 08/12/24 06:32: POC Glucose 136 H Microbiology: Microbiology 08/05/24 09:50 Urine, Random Urine Culture - Final Culture exhibits no growth. D/C Instructions DC O2, CPAP, BIPAP Needs Home O2 Discharge instructions: No Meaningful Use Info Meaningful Use Meaningful Use Diagnoses (Choose all that apply): None applicable Ischemic Stroke Statin Dosing Therapy Reference: STATIN DOSE THERAPY REFERENCE: * Patients > 75 years receive moderate or high dose statin therapy. * Patients 75 years or YOUNGER should receive HIGH intensity statin dose unless contraindicated. You will be required to document reason for non-treatment if statin daily dose does not meet guidelines. HIGH DOSE STATIN THERAPY DAILY Atorvastatin > than or = to 40 mg Rosuvastatin > than or = to 20 mg Amlodipine + Atorvastatin > than or = to 2.5/40 mg Ezetimibe + Simvastatin 10/80 mg Simvastatin 80mg Discharge Plan Admission Admit Date/Time: 08/11/24 15:31 Primary Reason for Your Visit: Right lower extremity pain Attending Provider: Placido Darby Primary Care Provider: Gerry Coreas Consulting Providers: Heaven Jeter; Azul Yeung; Дмитрий Briscoe Instructions Additional Instructions / Restrictions: Take Medrol Dosepak as directed on the package. Discharge Orders/Prescriptions Prescriptions: New acetaminophen 500 mg Tablet 1,000 mg PO Q8 Qty: 0 0RF Daily Fiber (psyllium-aspart) 3 gram Powder In Packet 1 packet PO TID Qty: 0 0RF sennosides-docusate sodium [Stimulant Laxative Plus] 8.6-50 mg Tablet 2 tab PO BID Qty: 0 0RF methylprednisolone [Medrol (Go)] 4 mg tablets,dose pack 4 mg PO DAILY Qty: 21 0RF Rx Instructions: Take it as directed. Continued albuterol sulfate [Ventolin HFA] 1 INHALER inhaler 2 puff inhalation Q4H PRN PRN (Reason: Shortness Of Breath) gabapentin [Neurontin] 300 MG capsule 300 mg PO TID atorvastatin 40 MG tablet 80 mg PO QHS insulin lispro 100 UNIT/ML insulin pen 12 unit SQ TIDCM liraglutide 0.6 MG/0.1 ML pen injector 1.8 mg SQ QHS ferrous sulfate 325 MG tablet 325 mg PO QODAY Qty: 0 0RF vitamin A-vitamin C-vit E-min Tablet 1 tab PO DAILY lisinopril 10 mg tablet 10 mg PO DAILY fluticasone propion-salmeterol [Advair Diskus] 500-50 mcg/dose blister with device 1 ea inhalation BID aspirin 81 mg tablet,chewable 1 tab PO DAILY metoprolol succinate 25 mg tablet extended release 24 hr 12.5 mg PO DAILY ergocalciferol (vitamin D2) [Vitamin D2] 1,250 mcg (50,000 unit) capsule 1,250 mcg PO QWEEK clopidogrel 75 mg tablet 75 mg PO DAILY 30 Days Qty: 0 0RF Rx Instructions: Advised to hold 7 days prior to the local pain injection by pain management Changed insulin glargine [Lantus Solostar U-100 Insulin] 100 unit/mL (3 mL) insulin pen 30 unit SUBCUT QHS 30 Days Qty: 9 0RF Held metformin 500 MG tablet extended release 24 hr 2,000 mg PO DAILY Hold Instructions: Hold for 7 days. Resume 1000 mg daily. Discontinued acetaminophen 325 MG tablet 650 mg PO Q6H PRN PRN (Reason: Pain Score 1-10/Temp > 100.7 F) 0RF Referrals / Follow Up: Melchor Chen MD [Med Staff - Active Staff] - Within 2 Weeks (Need outpatient [facility], vascular doppler) Дмитрий Briscoe MD [Med Staff - Active Staff] - Within 1 Week Gerry Coreas MD [Primary Care Provider] - Within 2 Weeks Disposition Disposition (needs filled in before D/C Order can be placed): [facility] Charges/Coding Visit Charges Inpatient E&M: 34506 Disch Hosp >30min
--- NOTE | 2024-08-12 14:42 | CASEMGMT ---
Social Work- Precert has been obtained.? Physician updated and pt is ready for discharge today.? PASRR completed. DCA and bedside nurse notified of discharge time. Disposition:[facility]?, skilled level of care under convalescent stay. TIMOTHY Fitzgerald
[2024-08-12] MEDS: Fleet Enema 133 ML RC (15:05)
[2024-08-12 20:15] LABS: Bedside Glucose 143 mg/dL (74-106)
== END 2024-08-12 15:35 | disposition skilled nursing facility (03) | DRG 347 ==
LOC: ED 13:57 → MS3 14:44
PROVIDERS: Emergency Medicine; Student in an Organized Health Care Education/Training Program; Admitting Provider Internal Medicine; Emergency Provider Emergency Medicine; PCP Family Medicine; Visit Provider Internal Medicine
DX: M48.061 Spinal stenosis, lumbar region without neurogenic claudication (principal); E87.1 Hypo-osmolality and hyponatremia; R62.7 Adult failure to thrive; Z99.81 Dependence on supplemental oxygen; Z68.43 Body mass index [BMI] 50.0-59.9, adult; E11.22 Type 2 diabetes mellitus with diabetic chronic kidney disease; N18.32 Chronic kidney disease, stage 3b; I12.9 Hypertensive chronic kidney disease with stage 1 through stage 4 chronic kidney disease, or unspecified chronic kidney disease; J45.909 Unspecified asthma, uncomplicated; J96.11 Chronic respiratory failure with hypoxia; M47.26 Other spondylosis with radiculopathy, lumbar region; K21.9 Gastro-esophageal reflux disease without esophagitis; E66.01 Morbid (severe) obesity due to excess calories; E78.5 Hyperlipidemia, unspecified; G47.33 Obstructive sleep apnea (adult) (pediatric); Z79.4 Long term (current) use of insulin; E11.40 Type 2 diabetes mellitus with diabetic neuropathy, unspecified; I25.10 Atherosclerotic heart disease of native coronary artery without angina pectoris; R26.2 Difficulty in walking, not elsewhere classified; M47.27 Other spondylosis with radiculopathy, lumbosacral region; M51.16 Intervertebral disc disorders with radiculopathy, lumbar region; M51.17 Intervertebral disc disorders with radiculopathy, lumbosacral region; K59.03 Drug induced constipation; R10.33 Periumbilical pain; R07.9 Chest pain, unspecified; G89.29 Other chronic pain; Z79.51 Long term (current) use of inhaled steroids; Z79.02 Long term (current) use of antithrombotics/antiplatelets; Z79.82 Long term (current) use of aspirin; Z79.85 Long-term (current) use of injectable non-insulin antidiabetic drugs; Z79.899 Other long term (current) drug therapy; T40.2X5A Adverse effect of other opioids, initial encounter; Y92.239 Unspecified place in hospital as the place of occurrence of the external cause
CPT/HCPCS: 36415; 71045; 72148; 73620; 80048; 80053; 81001; 82962; 84443; 84484; 85025; 86703; 86704; 86706; 86803; 87086; 87340; 93005; 94640; 94668; 97110; 97116; 97162; 97166; 97530; 99285; A4216; J2405

== ENCOUNTER → 2024-08-18 | Outpatient (REF) | payer MEDICAID, SELFPAY ==
[2024-08-18 10:09] LABS: Anion Gap 11 (5-15); BUN 32 mg/dL (7-18); BUN/Creat Ratio 21.8 RATIO (10-20); Calcium,Total 10.4 mg/dL (8.5-10.1); Chloride 90 mmol/L (98-107); Creatinine, Serum 1.47 mg/dL (0.55-1.02); EST Glomerular Filtration Rate 38 mL/min (>60); Est Glom Filt Rate - Afr Amer 46 mL/min (>60); Glucose 118 mg/dL (74-106); Magnesium 2.1 mg/dL (1.6-2.6); Potassium 5.1 mmol/L (3.5-5.1); Sodium Level 125 mmol/L (136-145)
== END | disposition home or self-care (01) ==
LOC: OLS.SW 05:00
PROVIDERS: PCP Family Medicine; Visit Provider Internal Medicine
DX: E11.9 Type 2 diabetes mellitus without complications (principal); M48.00 Spinal stenosis, site unspecified; N18.32 Chronic kidney disease, stage 3b; I25.10 Atherosclerotic heart disease of native coronary artery without angina pectoris
CPT/HCPCS: 36415; 80048; 83735

== ENCOUNTER → 2024-08-21 | Outpatient (REF) | payer MEDICAID, SELFPAY ==
[2024-08-21 09:09] LABS: Hematocrit 39.5 % (37-47); Hemoglobin 12.4 g/dL (12.0-15.0); Mean Corp Hgb Conc 31.4 g/dL (32-36); Mean Corpuscular Volume 82.8 fL (81-99); Platelet Count 405 K/mm3 (150-450); RBC Distribution Width CV 13.5 % (11.6-14.6); RBC Distribution Width SD 40.8 fl (35.1-43.9); Red Blood Count 4.77 M/mm3 (4.2-5.4); White Blood Count 12.5 K/mm3 (4.4-11.0)
[2024-08-21 09:27] LABS: Anion Gap 8 (5-15); BUN 65 mg/dL (7-18); BUN/Creat Ratio 28.1 RATIO (10-20); Calcium,Total 10.4 mg/dL (8.5-10.1); Chloride 91 mmol/L (98-107); Creatinine, Serum 2.31 mg/dL (0.55-1.02); EST Glomerular Filtration Rate 23 mL/min (>60); Est Glom Filt Rate - Afr Amer 28 mL/min (>60); Glucose 88 mg/dL (74-106); Magnesium 2.8 mg/dL (1.6-2.6); Potassium 5.4 mmol/L (3.5-5.1); Sodium Level 124 mmol/L (136-145)
== END | disposition home or self-care (01) ==
LOC: OLS.SW 05:00
PROVIDERS: PCP Family Medicine; Visit Provider Internal Medicine
DX: E11.22 Type 2 diabetes mellitus with diabetic chronic kidney disease (principal); E78.5 Hyperlipidemia, unspecified; N18.32 Chronic kidney disease, stage 3b; J96.10 Chronic respiratory failure, unspecified whether with hypoxia or hypercapnia
CPT/HCPCS: 36415; 80048; 83735; 85027

== ENCOUNTER → 2024-08-25 | Outpatient (REF) | payer MEDICAID, SELFPAY ==
[2024-08-25 09:56] LABS: Anion Gap 6 (5-15); BUN 13 mg/dL (7-18); BUN/Creat Ratio 14.3 RATIO (10-20); Calcium,Total 9.1 mg/dL (8.5-10.1); Chloride 104 mmol/L (98-107); Creatinine, Serum 0.91 mg/dL (0.55-1.02); EST Glomerular Filtration Rate 66 mL/min (>60); Est Glom Filt Rate - Afr Amer 80 mL/min (>60); Glucose 75 mg/dL (74-106); Potassium 4.3 mmol/L (3.5-5.1); Sodium Level 132 mmol/L (136-145)
== END | disposition home or self-care (01) ==
LOC: OLS.SW 05:00
PROVIDERS: PCP Family Medicine; Visit Provider Internal Medicine
DX: E11.9 Type 2 diabetes mellitus without complications (principal); J96.10 Chronic respiratory failure, unspecified whether with hypoxia or hypercapnia
CPT/HCPCS: 36415; 80048

== ENCOUNTER → 2024-08-28 | Outpatient (REF) | payer MEDICAID, SELFPAY ==
[2024-08-28 09:35] LABS: Hematocrit 40.5 % (37-47); Hemoglobin 12.7 g/dL (12.0-15.0); Mean Corp Hgb Conc 31.4 g/dL (32-36); Mean Corpuscular Hgb 26.3 pg (27.0-32.0); Mean Platelet Vol. 10.1 fl (6.2-12.0); Platelet Count 294 K/mm3 (150-450); RBC Distribution Width CV 13.7 % (11.6-14.6); Red Blood Count 4.82 M/mm3 (4.2-5.4); White Blood Count 11.1 K/mm3 (4.4-11.0)
[2024-08-28 09:51] LABS: Anion Gap 7 (5-15); BUN 19 mg/dL (7-18); BUN/Creat Ratio 17.6 RATIO (10-20); Calcium,Total 9.6 mg/dL (8.5-10.1); Chloride 100 mmol/L (98-107); Creatinine, Serum 1.08 mg/dL (0.55-1.02); EST Glomerular Filtration Rate 55 mL/min (>60); Est Glom Filt Rate - Afr Amer 66 mL/min (>60); Glucose 93 mg/dL (74-106); Potassium 4.7 mmol/L (3.5-5.1); Sodium Level 131 mmol/L (136-145)
== END | disposition home or self-care (01) ==
LOC: OLS.SW 05:20
PROVIDERS: PCP Family Medicine; Visit Provider Internal Medicine
DX: M48.00 Spinal stenosis, site unspecified (principal); R62.7 Adult failure to thrive
CPT/HCPCS: 36415; 80048; 83735; 85027

== ENCOUNTER → 2024-08-29 | Outpatient (REF) | payer MEDICAID, SELFPAY ==
[2024-08-29 08:16] LABS: Vitamin D,25 Hydroxy 82.2 ng/mL
== END | disposition home or self-care (01) ==
LOC: OLS.SW 05:00
PROVIDERS: PCP Family Medicine; Visit Provider Internal Medicine
DX: E67.3 Hypervitaminosis D (principal)
CPT/HCPCS: 36415; 82306

== ENCOUNTER → 2024-09-04 | Outpatient (REF) | payer MEDICAID, SELFPAY ==
[2024-09-04 08:19] LABS: Hematocrit 37.5 % (37-47); Mean Corpuscular Volume 84.3 fL (81-99); Mean Platelet Vol. 9.4 fl (6.2-12.0); Platelet Count 369 K/mm3 (150-450); RBC Distribution Width CV 13.9 % (11.6-14.6); RBC Distribution Width SD 42.8 fl (35.1-43.9); Red Blood Count 4.45 M/mm3 (4.2-5.4); White Blood Count 9.1 K/mm3 (4.4-11.0)
[2024-09-04 08:41] LABS: AST(SGOT) 14 U/L (15-37); Alanine Aminotransfer ALT/SGPT 23 U/L (13-56); Albumin, Serum 3.4 g/dL (3.2-5.0); Alkaline Phosphatase 53 U/L (45-117); Anion Gap 7 (5-15); BUN 36 mg/dL (7-18); BUN/Creat Ratio 23.5 RATIO (10-20); Calcium,Total 9.4 mg/dL (8.5-10.1); Chloride 99 mmol/L (98-107); Creatinine, Serum 1.53 mg/dL (0.55-1.02); EST Glomerular Filtration Rate 37 mL/min (>60); Est Glom Filt Rate - Afr Amer 44 mL/min (>60); Globulin 3.4 g/dL (2.2-4.2); Glucose 124 mg/dL (74-106); Potassium 4.7 mmol/L (3.5-5.1); Protein, Total 6.8 g/dL (6.4-8.2); Sodium Level 130 mmol/L (136-145)
[2024-09-04 11:45] LABS: Hemoglobin A1c 5.9 % (3.8-5.6)
== END | disposition home or self-care (01) ==
LOC: OLS.SANC 05:00
PROVIDERS: PCP Family Medicine
DX: D64.9 Anemia, unspecified (principal); E11.9 Type 2 diabetes mellitus without complications; E78.5 Hyperlipidemia, unspecified
CPT/HCPCS: 36415; 80053; 83036; 85027

== ENCOUNTER → 2024-09-08 | Outpatient (REF) | payer MEDICAID, SELFPAY ==
[2024-09-09 08:48] LABS: Mucous, Urine 0 SEEN /hpf (<or=2+); Red Blood Cells-Urine 0 SEEN /hpf (0-5)
[2024-09-09 09:17] LABS: Color, Urine Straw (Yellow); Glucose, Dipstick Normal (Normal); Ketone-Dipstick Negative (Negative); Leukocyte Esterase-Dipstick Negative /ul (Negative); Nitrite-Dipstick Negative (Negative); Occult Blood-Urine Negative /ul (Negative); Protein-Dipstick Negative (Negative); Urine Bilirubin Dipstick Negative (Negative); Urine Clarity Clear (Clear); Urine Urobilinogen Normal (Normal)
[2024-09-09 09:30] LABS: Squamous Epithelial Cells - UA 0-5 SEEN /hpf (5-10); White Blood Cells 0-5 SEEN /hpf (0-5)
[2024-09-09 09:31] LABS: Amorphous Sediment 1+ URATE
[2024-09-09 09:33] LABS: Bacteria RARE /hpf (None Seen)
== END | disposition home or self-care (01) ==
LOC: OLS.SANC 22:30
PROVIDERS: PCP Family Medicine
DX: D64.9 Anemia, unspecified (principal); E11.9 Type 2 diabetes mellitus without complications; R50.9 Fever, unspecified; I10 Essential (primary) hypertension; E78.5 Hyperlipidemia, unspecified
CPT/HCPCS: 81001; 87086; 87088

== ENCOUNTER → 2024-09-10 | Outpatient (REF) | payer MEDICAID, SELFPAY ==
[2024-09-10 09:19] LABS: Vitamin D,25 Hydroxy 103.3 ng/mL
== END | disposition home or self-care (01) ==
LOC: OLS.SANC 04:00
PROVIDERS: PCP Family Medicine
DX: Z79.899 Other long term (current) drug therapy (principal)
CPT/HCPCS: 36415; 82306

== ENCOUNTER → 2024-09-16 | Outpatient (REF) | payer MEDICAID, SELFPAY ==
[2024-09-16 10:12] LABS: Hemoglobin 10.5 g/dL (12.0-15.0); Mean Corpuscular Hgb 25.6 pg (27.0-32.0); Mean Corpuscular Volume 85.4 fL (81-99); Mean Platelet Vol. 9.8 fl (6.2-12.0); Platelet Count 347 K/mm3 (150-450); RBC Distribution Width CV 14.5 % (11.6-14.6); RBC Distribution Width SD 44.5 fl (35.1-43.9); White Blood Count 7.1 K/mm3 (4.4-11.0)
[2024-09-16 10:30] LABS: Anion Gap 5 (5-15); BUN 20 mg/dL (7-18); BUN/Creat Ratio 21.1 RATIO (10-20); Calcium,Total 9.5 mg/dL (8.5-10.1); Chloride 106 mmol/L (98-107); Creatinine, Serum 0.95 mg/dL (0.55-1.02); EST Glomerular Filtration Rate 64 mL/min (>60); Est Glom Filt Rate - Afr Amer 77 mL/min (>60); Glucose 105 mg/dL (74-106); Potassium 5.2 mmol/L (3.5-5.1); Sodium Level 137 mmol/L (136-145)
== END | disposition home or self-care (01) ==
LOC: OLS.SANC 04:00
PROVIDERS: PCP Family Medicine
DX: E11.9 Type 2 diabetes mellitus without complications (principal); E78.5 Hyperlipidemia, unspecified; I10 Essential (primary) hypertension
CPT/HCPCS: 36415; 80048; 85027

== ENCOUNTER → 2024-09-22 | Outpatient (REF) | payer MEDICAID, SELFPAY ==
[2024-09-22 11:04] LABS: Anion Gap 8 (5-15); BUN 18 mg/dL (7-18); Calcium,Total 9.3 mg/dL (8.5-10.1); Chloride 104 mmol/L (98-107); EST Glomerular Filtration Rate 60 mL/min (>60); Est Glom Filt Rate - Afr Amer 72 mL/min (>60); Glucose 101 mg/dL (74-106); Potassium 4.7 mmol/L (3.5-5.1); Sodium Level 137 mmol/L (136-145)
== END | disposition home or self-care (01) ==
LOC: OLS.SANC 05:00
PROVIDERS: PCP Family Medicine; Visit Provider Internal Medicine
DX: D64.9 Anemia, unspecified (principal); I11.0 Hypertensive heart disease with heart failure; I50.9 Heart failure, unspecified; E11.9 Type 2 diabetes mellitus without complications
CPT/HCPCS: 36415; 80048

== ENCOUNTER → 2024-09-26 | Outpatient (REF) | payer MEDICAID, SELFPAY ==
[2024-09-26 09:08] LABS: Vitamin B12 278 pg/mL (211-911); Vitamin D,25 Hydroxy 79.3 ng/mL
== END | disposition home or self-care (01) ==
LOC: OLS.SANC 05:00
PROVIDERS: PCP Family Medicine; Visit Provider Internal Medicine
DX: Z79.899 Other long term (current) drug therapy (principal)
CPT/HCPCS: 36415; 82306; 82607